=== PATIENT | male | born 1965 | race Caucasian/White ===

== ENCOUNTER 2019-01-30 21:06 | Emergency (ER) | payer MEDICARE, MEDICAID, SELFPAY ==
--- NOTE | ~2019-01-30 | CT_ITS ---
EXAMINATION: CT brain wo con INDICATION: Transient alteration of awareness COMPARISON: 01/08/2019 TECHNIQUE: Standard unenhanced head CT. The dose-length product (DLP) was 605.33 mGy-cm. The mA was a djusted according to patient size. Iterative reconstruction technique was employed. FINDINGS: There is no intracranial hemorrhage, acute infarction, or abnormal mass lesion. The ventric les are normal. There is no abnormal mass effect or midline shift. The wynn-white matter differentiat ion is normal. The basal cisterns are patent. The orbits are normal. The paranasal sinuses, mastoids and calvarium are normal. IMPRESSION: 1. No acute intracranial abnormality. Reviewed, dictated and finalized at location A. [employer]ER
[2019-01-30 21:10] VITALS: BP 158/85; PULSE 98; RESP 18; TEMP 36.9; O2SAT 98
[2019-01-30 21:18] VITALS: PULSE 97
--- NOTE | 2019-01-30 21:22 | ED.SEIZURE ---
HPI - Seizure General Chief Complaint: Nausea/Vomiting/Diarrhea Stated Complaint: Poss Seizure Time Seen by Provider: 01/30/19 21:22 Source: patient and EMS Mode of arrival: ambulatory (with EMS assistance) Limitations: no limitations History of Present Illness HPI Narrative: A 53 y/o male, with a PMHx of SZ, presents to the ED with c/o diarrhea for 3 days. Pt states he was seen in the ED last night/early this morning for the same complaints and was d/c with a prescription. At the time of d/c pt felt like he was going to have a SZ so he was given Ativan before he left. Pt states the medication he was prescribed did not help with his diarrhea so he came back for further evaluation this evening. Pt states he had 8 episodes of diarrhea today. Pt was walking in the ED parking lot when felt dizzy, fell, and experienced a possible SZ. EMS was pulling out of the bay when they saw the pt and assisted him into the ED. Pt states that he does not remember what happened between the time he fell and when EMS came over to him. EMS notes the pt did not exhibit SZ like symptoms in their presence. Pt is on Trileptal and follows up with Dr. Dong and Dr. Manzanares. He denies N/V, a fever, blood in stool, ABD pain, neck pain, tongue biting, smoking, drug use, and alcohol use. Pt has a C-collar in place. Seizure History: Yes Related Data Home Medications Medication Instructions Recorded Confirmed albuterol sulfate [Ventolin HFA] INHALATION 01/30/19 celecoxib mg 01/30/19 doxepin 01/30/19 fluticasone propion-salmeterol INHALATION 01/30/19 [Advair Diskus] fluticasone propion-salmeterol INHALATION 01/30/19 [Advair Diskus] fluticasone propionate INTRANASAL 01/30/19 furosemide 01/30/19 hydroxyzine pamoate 01/30/19 naproxen 01/30/19 nebivolol [Bystolic] mg 01/30/19 omeprazole 01/30/19 oxcarbazepine 01/30/19 potassium chloride meq PO 01/30/19 primidone 01/30/19 quetiapine 01/30/19 quetiapine mg PO 01/30/19 tizanidine mg 01/30/19 zafirlukast mg 01/30/19 Allergies Allergy/AdvReac Type Severity Reaction Status Date / Time haloperidol Allergy Severe SIEZURES Verified 01/30/19 21:22 doxycycline Allergy Intermediate RASH Verified 01/30/19 21:22 levetiracetam Allergy Intermediate INCREASED Verified 01/30/19 21:22 SZ'S meloxicam Allergy Intermediate ITCHING Verified 01/30/19 21:22 Sulfa (Sulfonamide Allergy Mild RASH Verified 01/30/19 21:22 Antibiotics) Cephalosporins AdvReac Unknown VOMITING Verified 01/30/19 21:22 Oat Allergy Severe Swelling Uncoded 01/30/19 05:41 MOLINDONE HCL Allergy Intermediate NAUSEA Uncoded 01/30/19 05:41 LEVALBUTEROL HCL AdvReac Severe TL Uncoded 01/30/19 05:41 HYDROMORPHONE HCL AdvReac Intermediate TL Uncoded 01/30/19 05:41 Review of Systems Review of Systems: All systems reviewed & are unremarkable except as noted in HPI and below Constitutional: Constitutional: Denies fever(s) Comments: Reports fall ENT: Comments: Denies tongue biting Gastrointestinal: Gastrointestinal: Denies abdominal pain, Reports diarrhea, Denies nausea and Denies vomiting Comments: Denies blood in stool Musculoskeletal: Comments: Denies neck pain Neurologic: Reports dizziness Comments: Reports possible SZ PMFSH Past Medical History Medical History Bipolar disorder (Acute) H/O pilonidal cyst (Acute) Sarcoidosis (Acute) Seizure disorder (Acute) Type 2 diabetes mellitus (Acute) Surgical History Surgical History Hx of tonsillectomy (Acute) Social History Social History Social History: Denies tobacco use, denies alcohol use, denies drug use Alcohol intake: never Substance use: never Gender identity (if verbalized by the patient): Male Comments PCP: Dr. Miller Neurologist: Dr. Dong and Dr. Manzanares Exam Narrative: Exam Narrative: GENERAL: W
[2019-01-30 21:23] LABS: Glucose Point of Care 169 (65-105)
--- NOTE | 2019-01-30 21:28 | ECG_ITS ---
Measurements Intervals [place] Rate: 93 P: 47 MT: 183 QRS: -20 QRSD: 102 T: 29 QT: 365 QTc: 455 Interpretive Statements SINUS RHYTHM DELAYED PRECORDIAL R/S TRANSITION BASELINE ARTIFACT- I, II, AVR, AVL, AVF, V1-V2, V4-V6 BORDERLINE ECG Electronically Signed On 01-31-2019 9:41:08 [employer] by Ajit Alvarado D.O.
--- NOTE | 2019-01-30 21:44 | PC.NURSE ---
2139 registration notified this RN that pt had some shaking. this RN into room and pt was having some shaking movement. this RN was able to go up to pt, pat him, and tell him its okay and pt stopped shaking and opened his eyes. pt was A&Ox3 and did not appear to have any post icatal states. pt was able to recall registration in the room. this RN notified ERP. no new orders received.
[2019-01-30] MEDS: LACTATED RINGERS 1,000 ML 999 ML IV CONT (21:58)
[2019-01-30] MEDS: ONDANSETRON INJ 4 MG/2 ML VIAL IV PUSH (21:58)
[2019-01-30 22:10] VITALS: BP 141/82; BP 159/93; BP 165/84; PULSE 90; PULSE 93; PULSE 99
[2019-01-30 22:18] LABS: Alanine Aminotransferase 24 U/L (4-50); Albumin Level 3.9 g/dL (3.5-5.1); Alkaline Phosphatase 93 U/L (38-126); Aspartate Amino Transferase 25 U/L (17-59); Bilirubin,Total 0.2 mg/dL (0.2-1.3); Blood Urea Nitrogen 9 mg/dL (9-20); Calcium 9.2 mg/dL (8.4-10.2); Carbon Dioxide 24 mmol/L (22-30); Chloride 100 mmol/L (98-107); Estimated CRCL calculation 177 ml/min; Estimated Glomerular Filt Rate > 60; Glucose 191 mg/dL (75-110); Magnesium 1.9 mg/dL (1.6-2.3); Potassium 3.6 mmol/L (3.4-5.0); Sodium 135 mmol/L (137-145)
[2019-01-30 22:27] LABS: Amphetamine Screen Urine Negative (Negative); Barbiturate Screen Urine Positive (Negative); Benzodiazepines Screen Urine Negative (Negative); Cannabinoid Screen Urine Negative (Negative); Cocaine Screen Urine Negative (Negative); Methadone Screen Urine Negative (Negative); Opiate Screen Urine Negative (Negative); Phencyclidine Screen Urine Negative (Negative)
[2019-01-30 22:46] VITALS: BP 145/69; PULSE 90; RESP 18; O2SAT 96
[2019-01-30 23:30] VITALS: BP 145/79; PULSE 89; RESP 18; O2SAT 96
--- NOTE | 2019-02-05 07:04 | PC.NURSE ---
LATE ENTRY This note is being entered to document information to the patient's record. The following information was omitted on [01/30/19], by [Gabe Lopez].at 2300 pt had 1L LR infused.
== END 2019-01-30 23:34 | disposition home or self-care (01) ==
PROVIDERS: Emergency Provider General Practice; PCP Family Medicine
DX: R19.7 Diarrhea, unspecified (principal); F31.9 Bipolar disorder, unspecified; D86.9 Sarcoidosis, unspecified; E11.9 Type 2 diabetes mellitus without complications; G40.909 Epilepsy, unspecified, not intractable, without status epilepticus; R94.31 Abnormal electrocardiogram [ECG] [EKG]
CPT/HCPCS: 36415; 70450; 80053; 80307; 81003; 82948; 82962; 83690; 83735; 85025; 93005; 96361; 96365; 96374; 96375; 99284; A9270; J0131; J2060; J2405; J7030; J7120

== ENCOUNTER 2019-07-25 11:23 | Emergency (ER) | payer MEDICARE, MEDICAID, SELFPAY ==
[2019-07-25] VITALS (8 sets, daily range): BP systolic 133–175; BP diastolic 82–111; PULSE 78–114; RESP 16–18; TEMP 37.4; O2SAT 97–100
--- NOTE | ~2019-07-25 | CT_ITS ---
EXAMINATION: CT brain wo con DATE: 07/25/2019 14:32 INDICATION: Dizziness. TECHNIQUE: Computed tomography (CT) of the head was performed without intravenous contrast. The mA wa s adjusted according to patient size. Iterative reconstruction technique was employed. The dose-lengt h product was 605.33 mGy-cm. COMPARISON: Head CT 03/31/2019 FINDINGS: There is no intracranial hemorrhage, acute infarction, or abnormal intracranial mass lesion . The ventricles are normal in size. The paranasal sinuses are clear. The mastoid air cells are juliet l. The orbits are normal. IMPRESSION: 1. Normal brain. Reviewed, dictated and finalized at location A. IMPRESSION: 1. Normal brain.
--- NOTE | ~2019-07-25 | XR_ITS ---
XR chest 2V 07/25/2019 12:33 Indication: Chest pain and dizziness Procedure: AP and lateral views of the chest Comparison: Comparison to multiple prior studies sequentially, with oldest reviewed study dated 12/22. Findings: Heart size normal. No focal air space disease, pulmonary edema, pleural effusion or suspect ed pneumothorax. No acute osseous abnormality. Impression: 1: No acute cardiopulmonary disease. Reviewed, dictated and finalized at location A. Impression: 1: No acute cardiopulmonary disease.
--- NOTE | 2019-07-25 11:25 | ECG_ITS ---
Measurements Intervals [place] Rate: 86 P: 14 OR: 168 QRS: -26 QRSD: 89 T: 56 QT: 342 QTc: 410 Interpretive Statements SINUS RHYTHM DELAYED PRECORDIAL R/S TRANSITION BASELINE ARTIFACT- I, III, AVR, AVL, AVF BORDERLINE ECG Electronically Signed On 07-26-2019 16:07:52 CDT by Ajit Alvarado D.O.
--- NOTE | 2019-07-25 12:20 | PC.NURSE ---
Nurse called to bedside. Tech entered room to find patient having seizure-like activity. EDP at bedside as well. Tech states event lasted approx 20 seconds. Immediately following event patient's eyes open, but slow to respond to questions. Eventually answered questions appropriately, but said I don't know what happened. No new orders received from EDP. Seizure pads applied to stretcher.
[2019-07-25 12:23] LABS: Basophils Absolute Auto 0.1 K/mm3 (0.0-0.1); Basophils Percent Auto 0.5 % (0.2-1.2); Eosinophils Percent Auto 0.1 % (0-4.4); Hematocrit 47.8 % (42.0-52.0); Hemoglobin 15.9 g/dL (14.0-18.0); Immature Granulocyte Absolute 0.03 K/mm3 (0.00-0.031); Immature Granulocyte Percent A 0.3 % (0-0.5); Lymphocytes Absolute Auto 2.67 K/mm3 (0.9-3.2); Lymphocytes Percent Auto 22.7 % (18.3-44.2); Mean Corpuscular HGB Conc 33.3 g/dl (32-36); Mean Corpuscular Hemoglobin 29.7 pg (26-34); Mean Corpuscular Volume 89.2 fl (80-100); Mean Platelet Volume 10.8 fl (7.4-10.4); Monocytes Absolute Auto 0.9 K/mm3 (0.1-0.6); Monocytes Percent Auto 7.9 % (2.6-8.5); Neutrophils Absolute Auto 8.1 K/mm3 (1.3-6.7); Neutrophils Percent Auto 68.5 % (45.5-73.1); Platelet Count Result 351 k/mm3 (150-375); Red Blood Count 5.36 M/mm3 (4.6-6.20); Red Cell Distribution Width 13.1 % (11.5-14.5); White Blood Count 11.8 K/mm3 (4.5-10.0)
[2019-07-25 13:19] LABS: INR 0.9; Partial Thromboplastin Time 23.7 SECONDS (22.3-36.8); Prothrombin Time 11.9 Seconds (11.1-14.7)
[2019-07-25] MEDS: ONDANSETRON INJ 4 MG/2 ML VIAL IV PUSH (13:22)
[2019-07-25 13:31] LABS: Blood Urea Nitrogen 8 mg/dL (9-20); Calcium 9.1 mg/dL (8.4-10.2); Carbon Dioxide 29 mmol/L (22-30); Chloride 95 mmol/L (98-107); Estimated Glomerular Filt Rate > 60; Glucose 205 mg/dL (75-110); Potassium 3.6 mmol/L (3.4-5.0); Sodium 134 mmol/L (137-145)
[2019-07-25 13:41] LABS: Troponin I < 0.012 ng/mL (0.000-0.034)
--- NOTE | 2019-07-25 13:58 | ED.WEAKNESS ---
HPI - Weakness General Chief complaint: Weakness Stated complaint: weakness Time Seen by Provider: 07/25/19 12:06 Source: patient Mode of arrival: EMS History of Present Illness HPI Narrative: This pain is a 53 yo male with h/o bipolar, seizure disorder, asthma who presents for evaluation of sudden onset dizziness and weakness. Patient states this morning he starting having watery diarrhea. He states he had 6 episodes at that time. He also reports nausea but no vomiting. PAtient called 911 because he stood up and he develop dizziness such as spinning. He reports he was so weak he was having trouble walking. He also reported to nursing staff he was having constant left upper chest pain .. Patient was witnessed to have seizure lasting 1 minute in ER. HE woke up immediately . He was mildly confused afterwards. He states he does take his seizure medications and his neurologist is Dr. Dong. Complaint: generalized weakness Related Data Home Medications Medication Instructions Recorded Confirmed doxepin 150 mg PO HS 01/30/19 03/13/19 naproxen 500 mg PO BID 01/30/19 03/13/19 oxcarbazepine 900 mg PO HS 01/30/19 03/13/19 primidone 250 mg PO TID 01/30/19 03/13/19 quetiapine 400 mg PO HS 01/30/19 03/13/19 tizanidine 4 mg PO Q8H PRN 01/30/19 03/13/19 Zyrtec 10 mg PO DAILY 03/13/19 03/13/19 oxcarbazepine 300 mg PO TID 03/13/19 03/13/19 clonazepam 0.5 mg PO BID PRN 07/25/19 furosemide 40 mg PO DAILY 07/25/19 Allergies Allergy/AdvReac Type Severity Reaction Status Date / Time haloperidol Allergy Severe SIEZURES Verified 07/25/19 11:36 doxycycline Allergy Intermediate RASH Verified 07/25/19 11:36 levetiracetam Allergy Intermediate INCREASED Verified 07/25/19 11:36 SZ'S meloxicam Allergy Intermediate ITCHING Verified 07/25/19 11:36 Sulfa (Sulfonamide Allergy Mild RASH Verified 07/25/19 11:36 Antibiotics) levalbuterol AdvReac Severe Other Verified 07/25/19 11:36 hydromorphone AdvReac Intermediate Other Verified 07/25/19 11:36 molindone AdvReac Intermediate Nausea Verified 07/25/19 11:36 Cephalosporins AdvReac Unknown VOMITING Verified 07/25/19 11:36 Oat Allergy Severe Swelling Uncoded 07/25/19 11:36 Review of Systems Review of Systems: All systems reviewed & are unremarkable except as noted in HPI and below Constitutional: Constitutional: Denies chills, Denies fever(s) and Reports weakness ENT: Reports vertigo, Denies epistaxis and Denies sore throat Cardiovascular: Cardiovascular: Reports chest pain, Denies rapid heart rate and Reports radiating jaw, neck or arm pain Gastrointestinal: Gastrointestinal: Denies abdominal pain, Reports diarrhea, Reports nausea and Denies vomiting Neurologic: Reports vertigo, Reports dizziness, Denies focal weakness and Reports weakness PMFSH Past Medical History Medical History (Updated 07/25/19 @ 16:18 by Cinthya Chavez MD) Anal fissure Repaired Asthma Bipolar disorder Coronary artery spasm GERD with esophagitis H/O pilonidal cyst HTN (hypertension) with goal to be determined Migraines Obstructive sleep apnea No longer has a need for CPAP as he has lost weight Sarcoidosis Seizure disorder Type 2 diabetes mellitus Surgical History Surgical History (Updated 03/13/19 @ 16:23 by Chelsea Quezada NP) H/O cardiac catheterization 1995 no intervention performed H/O removal of cyst On foot History of lung biopsy Hx of tonsillectomy Status post hernia repair Status post partial lobectomy of lung Diagnosed with sarcoidosis Family History Family History (Updated 03/13/19 @ 16:28 by Chelsea Quezada NP) Unknown Adopted Social History Social History (Updated 03/13/19 @ 16:39 by Chelsea Quezada NP) Social History: Denies tobacco use, denies alcohol use, denies drug use. with 1 son who is an adult. His anti is his durable power assistant county attorney Erin Mackenzie. He desires to be a full code Smoking status: Never smoker Second hand tobacco smo
[2019-07-25] MEDS: LACTATED RINGERS 1,000 ML 999 ML IV CONT (14:11)
[2019-07-25] MEDS: MECLIZINE HCL 25 MG TABLET PO (14:12)
[2019-07-25 14:26] LABS: Add Urine Microscopic? NO; Appearance Urine Clear (Clear); Bilirubin Urine Negative (Negative); Blood Urine Negative (Negative); Color Urine Straw (Yellow); Glucose Urine UA Negative (Negative); Ketones Urine Negative (Negative); Leukocyte Esterase Ur Negative LEU/UL (Negative); Nitrate Urine Negative (Negative); Protein Urine Negative (Negative); Specific Grav Ur 1.009 (1.001-1.035); Urobilinogen Urine Negative mg/dL (<2.0)
[2019-07-25 15:47] LABS: Troponin I < 0.012 ng/mL (0.000-0.034)
== END 2019-07-25 16:58 | disposition home or self-care (01) ==
PROVIDERS: Emergency Provider General Practice; PCP Family Medicine
DX: R42 Dizziness and giddiness (principal); G40.909 Epilepsy, unspecified, not intractable, without status epilepticus; R07.9 Chest pain, unspecified; Z90.2 Acquired absence of lung [part of]; J45.909 Unspecified asthma, uncomplicated; F31.9 Bipolar disorder, unspecified; I10 Essential (primary) hypertension; G47.33 Obstructive sleep apnea (adult) (pediatric); E11.9 Type 2 diabetes mellitus without complications
CPT/HCPCS: 36415; 70450; 71046; 80048; 81003; 84484; 85025; 85610; 85730; 93005; 96361; 96374; 99284; A9270; J2405; J7120

== ENCOUNTER 2019-07-26 13:09 | Emergency (ER) | payer MEDICARE, MEDICAID, SELFPAY ==
--- NOTE | ~2019-07-26 | XR_ITS ---
XR chest 1V portable 07/26/2019 13:57 Indication: Seizure. Left upper posterior chest pain. Procedure: AP portable chest Comparison: 07/25/2019 Findings: There are linear infiltrates of the right lower lung which have improved since 04/04/2019. H eart size normal. No pleural effusion or pneumothorax. No acute osseous abnormality. Impression: 1: Right basilar linear infiltrates, likely atelectasis/scarring. Reviewed, dictated and finalized at location A. Impression: 1: Right basilar linear infiltrates, likely atelectasis/scarring.
[2019-07-26 13:06] VITALS: BP 129/100; PULSE 99; RESP 20; TEMP 37.2; O2SAT 93
--- NOTE | 2019-07-26 13:07 | ECG_ITS ---
Measurements Intervals [place] Rate: 98 P: 38 MT: 179 QRS: -29 QRSD: 84 T: 55 QT: 334 QTc: 428 Interpretive Statements SINUS RHYTHM BORDERLINE R WAVE PROGRESSION, ANTERIOR LEADS BASELINE ARTIFACT- I, III, AVR, AVL, AVF, V1-V3 BORDERLINE ECG Electronically Signed On 07-26-2019 14:09:38 CDT by Ajit Alvarado D.O.
[2019-07-26 13:17] VITALS: PULSE 99
[2019-07-26 13:31] LABS: Basophils Absolute Auto 0.1 K/mm3 (0.0-0.1); Eosinophils Percent Auto 0.1 % (0-4.4); Hematocrit 47.1 % (42.0-52.0); Hemoglobin 15.6 g/dL (14.0-18.0); Immature Granulocyte Absolute 0.02 K/mm3 (0.00-0.031); Immature Granulocyte Percent A 0.2 % (0-0.5); Lymphocytes Absolute Auto 1.91 K/mm3 (0.9-3.2); Lymphocytes Percent Auto 23.7 % (18.3-44.2); Mean Corpuscular HGB Conc 33.1 g/dl (32-36); Mean Corpuscular Hemoglobin 29.4 pg (26-34); Mean Corpuscular Volume 88.9 fl (80-100); Mean Platelet Volume 10.4 fl (7.4-10.4); Monocytes Absolute Auto 0.7 K/mm3 (0.1-0.6); Monocytes Percent Auto 8.1 % (2.6-8.5); Neutrophils Absolute Auto 5.4 K/mm3 (1.3-6.7); Neutrophils Percent Auto 66.9 % (45.5-73.1); Platelet Count Result 352 k/mm3 (150-375); Red Cell Distribution Width 12.9 % (11.5-14.5); White Blood Count 8.1 K/mm3 (4.5-10.0)
[2019-07-26 13:43] LABS: Blood Urea Nitrogen 8 mg/dL (9-20); Calcium 8.9 mg/dL (8.4-10.2); Carbon Dioxide 24 mmol/L (22-30); Chloride 100 mmol/L (98-107); Estimated CRCL calculation 128 ml/min; Estimated Glomerular Filt Rate > 60; Glucose 177 mg/dL (75-110); Potassium 3.6 mmol/L (3.4-5.0); Sodium 136 mmol/L (137-145)
[2019-07-26 14:46] VITALS: BP 118/75; PULSE 74; RESP 20; O2SAT 98
[2019-07-26 14:55] LABS: Add Urine Microscopic? NO; Appearance Urine Clear (Clear); Bilirubin Urine Negative (Negative); Blood Urine Negative (Negative); Color Urine Yellow (Yellow); Glucose Urine UA Negative (Negative); Ketones Urine Negative (Negative); Leukocyte Esterase Ur Negative LEU/UL (Negative); Nitrate Urine Negative (Negative); Protein Urine Negative (Negative); Specific Grav Ur 1.013 (1.001-1.035); Urobilinogen Urine Negative mg/dL (<2.0)
--- NOTE | 2019-07-26 14:55 | ED.SEIZURE ---
HPI - Seizure General Chief Complaint: Seizure Stated Complaint: SEIZURE History of Present Illness HPI Narrative: Patient is a 53-year-old male who presents ER with possible seizure. Apparently had 2 seizures in the hallway and then had 2 witnessed seizures by EMS in route. He received Versed. Patient awake alert upon arrival here and oriented 2-3. Has some mild confusion about simple questions. Reports he just filled up his medication case and has not missed any doses. Patient was in the ER yesterday and had a chest pain rule out and had reported some watery diarrhea but has no complaints of this at this time. Patient has history of mental health issues. He also has history of pseudoseizures in addition to his seizures. No tongue biting or release of bowel/bladder. Seizure History: Yes Related Data Home Medications Medication Instructions Recorded Confirmed doxepin 150 mg PO HS 01/30/19 03/13/19 naproxen 500 mg PO BID 01/30/19 03/13/19 oxcarbazepine 900 mg PO HS 01/30/19 03/13/19 primidone 250 mg PO TID 01/30/19 03/13/19 quetiapine 400 mg PO HS 01/30/19 03/13/19 tizanidine 4 mg PO Q8H PRN 01/30/19 03/13/19 Zyrtec 10 mg PO DAILY 03/13/19 03/13/19 oxcarbazepine 300 mg PO TID 03/13/19 03/13/19 albuterol sulfate [Ventolin HFA] 2 puff INHALATION Q4H PRN 03/31/19 03/31/19 celecoxib 200 mg PO DAILY 03/31/19 03/31/19 cetirizine [Zyrtec] 10 mg PO DAILY PRN 03/31/19 03/31/19 doxepin 100 mg PO HS 03/31/19 03/31/19 fluticasone propion-salmeterol 2 ea INHALATION QID 03/31/19 03/31/19 [Advair Diskus] fluticasone propionate 50 mcg INTRANASAL TID 03/31/19 03/31/19 hydroxyzine HCl 25 mg PO TID PRN 03/31/19 03/31/19 naproxen 500 mg PO BID PRN 03/31/19 03/31/19 nebivolol [Bystolic] 10 mg PO DAILY 03/31/19 03/31/19 omeprazole 20 mg PO BID 03/31/19 03/31/19 oxcarbazepine 300 mg PO TID 03/31/19 03/31/19 oxcarbazepine 900 mg PO HS 03/31/19 03/31/19 potassium chloride 10 meq PO BID 03/31/19 03/31/19 primidone 250 mg PO TID 03/31/19 03/31/19 quetiapine 100 mg PO BID 03/31/19 03/31/19 quetiapine 400 mg PO HS 03/31/19 03/31/19 rizatriptan 10 mg PO DAILY PRN 03/31/19 03/31/19 tizanidine 4 mg PO TID PRN 03/31/19 03/31/19 zafirlukast 20 mg PO BID 03/31/19 03/31/19 clonazepam 0.5 mg PO BID PRN 07/25/19 furosemide 40 mg PO DAILY 07/25/19 Trileptal 07/26/19 Allergies Allergy/AdvReac Type Severity Reaction Status Date / Time doxycycline Allergy Intermediate RASH Verified 07/26/19 14:04 levetiracetam Allergy Intermediate INCREASED Verified 07/26/19 14:04 SZ'S meloxicam Allergy Intermediate ITCHING Verified 07/26/19 14:04 Sulfa (Sulfonamide Allergy Mild RASH Verified 07/26/19 14:04 Antibiotics) cephalexin Allergy Unknown Rash Verified 07/26/19 14:04 Cephalosporins Allergy Unknown Rash Verified 07/26/19 14:04 codeine Allergy Unknown Unknown Verified 07/26/19 14:04 Corticosteroids Allergy Unknown Unknown Verified 07/26/19 14:04 (Glucocorticoids) haloperidol Allergy Unknown Seizure Verified 07/26/19 14:04 hydrocodone Allergy Unknown Unknown Verified 07/26/19 14:04 hydromorphone Allergy Unknown Flushing Verified 07/26/19 14:04 morphine Allergy Unknown Unknown Verified 07/26/19 14:04 peanut Allergy Unknown Unknown Verified 07/26/19 14:04 sulfite Allergy Unknown Other Verified 07/26/19 14:04 tetracycline Allergy Unknown Diarrhea Verified 07/26/19 14:04 levalbuterol AdvReac Severe Other Verified 07/26/19 14:04 molindone AdvReac Intermediate Nausea Verified 07/26/19 14:04 Oat Allergy Severe Swelling Uncoded 07/26/19 14:04 Review of Systems Review of Systems: All systems reviewed & are unremarkable except as noted in HPI and below Constitutional: Constitutional: Denies chills, Denies fever(s) and Denies weakness ENT: Denies nasal congestion and Denies sore throat Cardiovascular: Cardiovascular: Denies chest pain Respiratory: Respiratory: Denies cough and Denies dyspnea Gastrointestinal: Gastrointestinal: Denies abdominal pain, Denies n
[2019-07-26 16:42] VITALS: BP 120/80; PULSE 80; RESP 20; O2SAT 98
== END 2019-07-26 16:44 | disposition home or self-care (01) ==
PROVIDERS: Emergency Provider Emergency Medicine; PCP Family Medicine
DX: G40.909 Epilepsy, unspecified, not intractable, without status epilepticus (principal); R94.31 Abnormal electrocardiogram [ECG] [EKG]; J45.909 Unspecified asthma, uncomplicated; F31.9 Bipolar disorder, unspecified; I25.10 Atherosclerotic heart disease of native coronary artery without angina pectoris; K21.0 Gastro-esophageal reflux disease with esophagitis; I10 Essential (primary) hypertension; E11.9 Type 2 diabetes mellitus without complications
CPT/HCPCS: 36415; 71045; 80048; 81003; 85025; 93005; 99283; A9270

== ENCOUNTER 2019-07-30 12:05 | Emergency (ER) | payer MEDICARE, MEDICAID, SELFPAY ==
--- NOTE | ~2019-07-30 | XR_ITS ---
XR chest 1V portable DATE: 07/30/2019 13:39 INDICATION: Chest pain TECHNIQUE: Portable AP chest on 07/30/2019 at 1335 hours COMPARISON: 07/26/2019 portable AP chest at 1353 hours FINDINGS: Mild bibasilar infiltrate or atelectasis, primarily on the right. The lungs otherwise appea r clear. Normal heart size. No pulmonary vascular congestion or pleural effusion or pneumothorax is evident. IMPRESSION: Mild bibasilar infiltrate or atelectasis, primarily on the right Reviewed, dictated and finalized at location A.
--- NOTE | ~2019-07-30 | CT_ITS ---
EXAMINATION: CTA brain carotid DATE: 07/30/2019 15:29 CDT INDICATION: Headache TECHNIQUE: Computed tomographic angiography (CTA) of the head was performed without and with 100 mL O mnipaque-350 intravenous contrast. CTA of the neck was performed with intravenous contrast. The dose- length product was 1689.66 mGy-cm. Maximum intensity projection and volume rendered 3D-reconstruction s were created by the technologist on a separate workstation. COMPARISON: CT dated 07/25/2019. FINDINGS: HEAD CTA: Normal brain parenchymal volume. No acute intracranial hemorrhage, infarction, mass or mass effect. No ventriculomegaly or midline shift. Basilar cisterns are patent. The anterior, middle and posterior cerebral arteries are symmetric without evidence for significant stenosis or occlusion. No aneurysm identified. NECK CTA: No cervical lymphadenopathy. Thyroid gland is unremarkable. There is 0% stenosis of the proximal right internal carotid artery relative to normal distal artery l umen diameter (NASCET criteria). There is 0% stenosis of the proximal left internal carotid artery re lative to normal distal artery lumen diameter. IMPRESSION: 1. 0% stenosis of the proximal right internal carotid artery relative to normal distal artery lumen d iameter (NASCET criteria). 2. 0% stenosis of the proximal left internal carotid artery relative to normal distal artery lumen di ameter. 3: No acute intracranial abnormality. 4: No significant abnormality of the intracranial arteries. Reviewed, dictated and finalized at location A. IMPRESSION: 1. 0% stenosis of the proximal right internal carotid artery relative to normal distal artery lumen diameter (NASCET criteria). 2. 0% stenosis of the proximal left internal carotid artery relative to normal distal artery lumen diameter. 3: No acute intracranial abnormality. 4: No significant abnormality of the intracranial arteries.
[2019-07-30 12:02] VITALS: BP 125/89; PULSE 96; RESP 20; TEMP 37.2; O2SAT 98
--- NOTE | 2019-07-30 12:27 | ECG_ITS ---
Measurements Intervals [place] Rate: 93 P: 31 RI: 159 QRS: -32 QRSD: 99 T: 26 QT: 351 QTc: 438 Interpretive Statements SINUS RHYTHM WITH SINUS ARRHYTHMIA LEFT AXIS DEVIATION DELAYED PRECORDIAL R/S TRANSITION BORDERLINE ECG Electronically Signed On 07-30-2019 12:43:23 CDT by Ajit Alvarado D.O.
[2019-07-30 12:45] VITALS: BP 146/82; PULSE 91; RESP 18; O2SAT 98
[2019-07-30] MEDS: KETOROLAC 30 MG/ML VIAL (*BKC) IV PUSH (12:54)
[2019-07-30] MEDS: SODIUM CHLORIDE 0.9% IV 1,000 ML 999 ML IV CONT (12:55)
[2019-07-30 13:03] LABS: Basophils Absolute Auto 0.1 K/mm3 (0.0-0.1); Basophils Percent Auto 0.8 % (0.2-1.2); Hematocrit 44.3 % (42.0-52.0); Hemoglobin 14.9 g/dL (14.0-18.0); Immature Granulocyte Absolute 0.04 K/mm3 (0.00-0.031); Immature Granulocyte Percent A 0.5 % (0-0.5); Lymphocytes Absolute Auto 1.41 K/mm3 (0.9-3.2); Lymphocytes Percent Auto 16.3 % (18.3-44.2); Mean Corpuscular HGB Conc 33.6 g/dl (32-36); Mean Corpuscular Hemoglobin 29.8 pg (26-34); Mean Corpuscular Volume 88.6 fl (80-100); Monocytes Absolute Auto 0.5 K/mm3 (0.1-0.6); Monocytes Percent Auto 5.8 % (2.6-8.5); Neutrophils Absolute Auto 6.6 K/mm3 (1.3-6.7); Neutrophils Percent Auto 76.6 % (45.5-73.1); Platelet Count Result 305 k/mm3 (150-375); White Blood Count 8.7 K/mm3 (4.5-10.0)
[2019-07-30 13:13] LABS: Partial Thromboplastin Time 23.5 SECONDS (22.3-36.8); Prothrombin Time 12.5 Seconds (11.1-14.7)
[2019-07-30 13:16] LABS: Alanine Aminotransferase 24 U/L (4-50); Albumin Level 4.1 g/dL (3.5-5.1); Alkaline Phosphatase 93 U/L (38-126); Aspartate Amino Transferase 25 U/L (17-59); Bilirubin,Total 0.6 mg/dL (0.2-1.3); Blood Urea Nitrogen 7 mg/dL (9-20); Calcium 8.6 mg/dL (8.4-10.2); Carbon Dioxide 29 mmol/L (22-30); Chloride 98 mmol/L (98-107); Estimated CRCL calculation 133 ml/min; Estimated Glomerular Filt Rate > 60; Glucose 179 mg/dL (75-110); Lipase 123 U/L (23-300); Potassium 3.8 mmol/L (3.4-5.0); Sodium 135 mmol/L (137-145)
[2019-07-30 13:20] LABS: Lipase 116 U/L (23-300)
[2019-07-30 13:24] LABS: D Dimer < 0.22 ug/mL (<0.48)
[2019-07-30 13:28] LABS: NT Pro B Type Natriuretic Pept 80 PG/ML (5-100); Troponin I < 0.012 ng/mL (0.000-0.034)
[2019-07-30 14:00] VITALS: BP 145/86; PULSE 85; RESP 16; O2SAT 100
[2019-07-30 15:20] VITALS: BP 130/75; PULSE 77; RESP 16; O2SAT 98
[2019-07-30 15:50] LABS: Troponin I < 0.012 ng/mL (0.000-0.034)
--- NOTE | 2019-07-30 15:54 | ED.GENADULT ---
HPI - General Adult General Chief complaint: Chest Pain Stated complaint: CP/SOB Time Seen by Provider: 07/30/19 12:09 Source: patient Mode of arrival: ambulatory Limitations: no limitations History of Present Illness HPI narrative: Patient is a 53-year-old male who presents from home for evaluation of mid chest discomfort that began today while at home noting aching pain at the mid chest that radiates up into the chest. Patient also notes that he had left-sided headache and some blurred vision in the right. Patient on arrival in the room in no distress has not taken anything for his symptoms. Patient with history of pseudoseizures was recently in the emergency department and had a seizure medication increased. Patient notes that he has tripped and fallen prior evening but denies head injury or injury related to the fall Related Data Home Medications Medication Instructions Recorded Confirmed albuterol sulfate [Ventolin HFA] 2 puff INHALATION Q4H PRN 03/31/19 03/31/19 celecoxib 200 mg PO DAILY 03/31/19 03/31/19 cetirizine [Zyrtec] 10 mg PO DAILY PRN 03/31/19 03/31/19 doxepin 100 mg PO HS 03/31/19 03/31/19 hydroxyzine HCl 25 mg PO TID PRN 03/31/19 03/31/19 naproxen 500 mg PO BID PRN 03/31/19 03/31/19 oxcarbazepine 300 mg PO TID 03/31/19 03/31/19 oxcarbazepine 900 mg PO HS 03/31/19 03/31/19 primidone 250 mg PO TID 03/31/19 03/31/19 quetiapine 400 mg PO HS 03/31/19 03/31/19 rizatriptan 10 mg PO DAILY PRN 03/31/19 03/31/19 tizanidine 4 mg PO TID PRN 03/31/19 03/31/19 clonazepam 0.5 mg PO BID PRN 07/25/19 furosemide 40 mg PO DAILY 07/25/19 Trileptal 07/26/19 Allergies Allergy/AdvReac Type Severity Reaction Status Date / Time doxycycline Allergy Intermediate RASH Verified 07/30/19 15:11 levetiracetam Allergy Intermediate INCREASED Verified 07/30/19 15:11 SZ'S meloxicam Allergy Intermediate ITCHING Verified 07/30/19 15:11 Sulfa (Sulfonamide Allergy Mild RASH Verified 07/30/19 15:11 Antibiotics) cephalexin Allergy Unknown Rash Verified 07/30/19 15:11 Cephalosporins Allergy Unknown Rash Verified 07/30/19 15:11 codeine Allergy Unknown Unknown Verified 07/30/19 15:11 Corticosteroids Allergy Unknown Unknown Verified 07/30/19 15:11 (Glucocorticoids) haloperidol Allergy Unknown Seizure Verified 07/30/19 15:11 hydrocodone Allergy Unknown Unknown Verified 07/30/19 15:11 hydromorphone Allergy Unknown Flushing Verified 07/30/19 15:11 morphine Allergy Unknown Unknown Verified 07/30/19 15:11 peanut Allergy Unknown Unknown Verified 07/30/19 15:11 sulfite Allergy Unknown Other Verified 07/30/19 15:11 tetracycline Allergy Unknown Diarrhea Verified 07/30/19 15:11 levalbuterol AdvReac Severe Other Verified 07/30/19 15:11 molindone AdvReac Intermediate Nausea Verified 07/30/19 15:11 Oat Allergy Severe Swelling Uncoded 07/26/19 14:04 [facility] Social History Social History (System 07/26/19 @ 14:04 by Kelly Avila) Social History: Denies tobacco use, denies alcohol use, denies drug use. with 1 son who is an adult. His anti is his durable power estate planning attorney Erin Mackenzie. He desires to be a full code Smoking status: Never smoker Second hand tobacco smoke exposure: No Alcohol intake: never Substance use: never Substance use type: does not use Additional living arrangements comments: Apartment Additional occupation/education comments: Disability Gender identity (if verbalized by the patient): Male Spiritual care concerns: No Agree to blood products: Yes Exam Narrative: Exam Narrative: GENERAL: Well-appearing, well-nourished, and in no acute distress. HEAD: Normocephalic, atraumatic. EYES: PERRLA and EOMI. ENT: Nares clear, no rhinorrhea or epistaxis. Mucous membranes moist. Oropharynx without tonsillar hypertrophy exudate or other lesions. NECK: Supple. No adenopathy or masses. CHEST: Clear to auscultation. No respiratory distress. No wheezes rales or rhonchi HEART: Regular rate and
== END 2019-07-30 16:28 | disposition home or self-care (01) ==
PROVIDERS: Emergency Medicine Emergency Medical Services; Emergency Provider Emergency Medicine; PCP Family Medicine
DX: R07.9 Chest pain, unspecified (principal); R42 Dizziness and giddiness; R94.31 Abnormal electrocardiogram [ECG] [EKG]; J45.909 Unspecified asthma, uncomplicated; F31.9 Bipolar disorder, unspecified; K21.0 Gastro-esophageal reflux disease with esophagitis; I10 Essential (primary) hypertension; I25.10 Atherosclerotic heart disease of native coronary artery without angina pectoris; D86.0 Sarcoidosis of lung; E11.9 Type 2 diabetes mellitus without complications; Z90.2 Acquired absence of lung [part of]
CPT/HCPCS: 36415; 70496; 70498; 71045; 80053; 83690; 83880; 84484; 85025; 85380; 85610; 85730; 93005; 96361; 96374; 99284; J1885; J7030; Q9967

== ENCOUNTER 2019-07-31 11:03 | Inpatient (IN) | payer MEDICARE, MEDICAID, SELFPAY ==
[2019-07-31] VITALS (9 sets, daily range): BP systolic 138–161; BP diastolic 77–97; PULSE 71–94; RESP 14–24; TEMP 36.6–37.1; O2SAT 94–100; BMI 36.3
--- NOTE | ~2019-07-31 | XR_ITS ---
XR chest 2V DATE: 07/31/2019 11:33 INDICATION: Dizziness. Seizures. Recent chest pain. TECHNIQUE: AP and lateral chest COMPARISON: 08/09/2019 portable AP chest FINDINGS: There is mild eventration of the right leaf of diaphragm. No pulmonary infiltrate or consolidation, pleural effusion or pulmonary vascular congestion or pneumo thorax is detected. Normal heart size. No hilar or mediastinal enlargement. IMPRESSION: No active cardiopulmonary disease Reviewed, dictated and finalized at location A.
--- NOTE | ~2019-07-31 | CT_ITS ---
EXAMINATION: CT brain wo con DATE: 07/31/2019 12:01 INDICATION: Dizziness TECHNIQUE: Computed tomography (CT) of the head was performed without intravenous contrast. The mA wa s adjusted according to patient size. Iterative reconstruction technique was employed. Exam dose: 60 5.33 mGy-cm total exam DLP. COMPARISON: 08/11/2019 CT brain FINDINGS: No intracranial mass lesion or hemorrhage or cerebrovascular accident is detected. No midli ne shift or mass effect. Normal ventricular size. No subdural or epidural hematoma is detected. The mastoid air cells and included paranasal sinuses are normally developed and aerated. No fracture or bone destruction of the cranial vault. IMPRESSION: No significant abnormality Reviewed, dictated and finalized at Location A. Reviewed, dictated and finalized at location A. IMPRESSION: No significant abnormality
--- NOTE | ~2019-07-31 | MR_ITS ---
EXAMINATION: MR brain/brain stem wo/w con EXAM DATE: 08/01/2019 08:49 INDICATION: Confusion, seizure. Alteration of awareness. Dizziness. TECHNIQUE: Magnetic resonance imaging (MRI) of the brain/brain stem obtained without contrast. Sagit austen T1, axial diffusion, gradient echo (T2*), T1, T2, FLAIR sequences obtained. Patient was then inj ected with 20 cc intravenous Multihance contrast. Axial and coronal postcontrast T1 weighted sequence s obtained. Comparison is made to prior examination from 11/19/2015. FINDINGS: There are no areas of restricted diffusion to suggest acute infarction. There is no acute hemorrhage seen on the T2*, a hemosiderin sensitive sequence. No intraparenchymal brain mass. The ve ntricles are normal in size. There are no extra-axial collections. Flow voids are seen in the cereb ral arteries on the T2-weighted sequences consistent with their expected patency. The orbits are unr emarkable. Soft tissue is unremarkable. There are no areas of abnormal enhancement on the postcont rast images. IMPRESSION: 1. Unremarkable brain MRI examination. Reviewed, dictated and finalized at location A.
--- NOTE | 2019-07-31 11:06 | ECG_ITS ---
Measurements Intervals [place] Rate: 85 P: 52 SC: 171 QRS: -29 QRSD: 94 T: 22 QT: 359 QTc: 428 Interpretive Statements SINUS RHYTHM BASELINE ARTIFACT- I, II, III, AVR, AVL, AVF, V1-V3 NORMAL ECG Electronically Signed On 07-31-2019 14:51:11 CDT by Ajit Alvarado D.O.
[2019-07-31 11:15] LABS: Basophils Absolute Auto 0.1 K/mm3 (0.0-0.1); Basophils Percent Auto 0.8 % (0.2-1.2); Eosinophils Percent Auto 0.2 % (0-4.4); Hematocrit 45.4 % (42.0-52.0); Immature Granulocyte Absolute 0.01 K/mm3 (0.00-0.031); Immature Granulocyte Percent A 0.2 % (0-0.5); Lymphocytes Absolute Auto 1.35 K/mm3 (0.9-3.2); Lymphocytes Percent Auto 20.3 % (18.3-44.2); Mean Corpuscular Hemoglobin 29.5 pg (26-34); Mean Corpuscular Volume 89.4 fl (80-100); Mean Platelet Volume 10.2 fl (7.4-10.4); Monocytes Absolute Auto 0.4 K/mm3 (0.1-0.6); Monocytes Percent Auto 6.6 % (2.6-8.5); Neutrophils Absolute Auto 4.8 K/mm3 (1.3-6.7); Neutrophils Percent Auto 71.9 % (45.5-73.1); Platelet Count Result 305 k/mm3 (150-375); Red Blood Count 5.08 M/mm3 (4.6-6.20); White Blood Count 6.6 K/mm3 (4.5-10.0)
[2019-07-31 11:28] LABS: Alanine Aminotransferase 23 U/L (4-50); Albumin Level 4.2 g/dL (3.5-5.1); Alkaline Phosphatase 98 U/L (38-126); Aspartate Amino Transferase 25 U/L (17-59); Bilirubin,Total 0.7 mg/dL (0.2-1.3); Blood Urea Nitrogen 7 mg/dL (9-20); Carbon Dioxide 29 mmol/L (22-30); Chloride 100 mmol/L (98-107); Estimated CRCL calculation 131 ml/min; Estimated Glomerular Filt Rate > 60; Glucose 190 mg/dL (75-110); Potassium 3.8 mmol/L (3.4-5.0); Sodium 136 mmol/L (137-145)
[2019-07-31 12:10] LABS: Add Urine Microscopic? YES; Appearance Urine Clear (Clear); Bacteria Urine Trace /hpf; Bilirubin Urine Negative (Negative); Blood Urine Negative (Negative); Color Urine Yellow (Yellow); Glucose Urine UA Negative (Negative); Ketones Urine Negative (Negative); Leukocyte Esterase Ur Negative LEU/UL (Negative); Mucus Urine Few /lpf; Nitrate Urine Negative (Negative); Protein Urine 1+ mg/dL (Negative); RBC Urine 0-2 /hpf (0-2); Specific Grav Ur 1.015 (1.001-1.035); Urobilinogen Urine Negative mg/dL (<2.0)
[2019-07-31 12:16] LABS: Prothrombin Time 12.8 Seconds (11.1-14.7)
[2019-07-31 12:17] LABS: Partial Thromboplastin Time 24.4 SECONDS (22.3-36.8)
[2019-07-31 12:23] LABS: Troponin I < 0.012 ng/mL (0.000-0.034)
--- NOTE | 2019-07-31 13:07 | ED.DIZZY ---
HPI - Dizziness General Chief Complaint: Dizziness <PERLA Pablo Last Filed: 07/31/19 13:17> Stated Complaint: dizziness <PERLA Pablo Last Filed: 07/31/19 13:17> Time Seen by Provider: 07/31/19 11:13 <PERLA Pablo Last Filed: 07/31/19 13:17> Source: patient <PERLA Pablo Last Filed: 07/31/19 13:17> Mode of arrival: ambulatory <PERLA Pablo Last Filed: 07/31/19 13:17> Limitations: no limitations <PERLA Pablo Last Filed: 07/31/19 13:17> History of Present Illness HPI Narrative: Patient is a 53-year-old male who returns to emergency department for continued dizziness confusion unsteady gait patient on arrival notes he has continued to have frontal headache and gets intermittent episodes of headache coupled with dizziness confusion and unsteady gait notes that he almost fell at home today but was able to catch himself. Patient has had recent increases to his seizure medication and has history of pseudoseizures. Patient is followed by Dr. Dong neurology. Patient has been to the emergency department numerous times in the last several week for multiple different complaints. Patient today denies any other pain other than frontal headache. Patient on arrival per EMS in the room in no distress <PERLA Pablo Last Filed: 07/31/19 13:17> Related Data Home Medications: Home Medications Medication Instructions Recorded Confirmed albuterol sulfate [Ventolin HFA] 2 puff INHALATION Q4H PRN 03/31/19 03/31/19 celecoxib 200 mg PO DAILY 03/31/19 03/31/19 cetirizine [Zyrtec] 10 mg PO DAILY PRN 03/31/19 03/31/19 doxepin 100 mg PO 03/31/19 03/31/19 hydroxyzine HCl 25 mg PO TID PRN 03/31/19 03/31/19 naproxen 500 mg PO BID PRN 03/31/19 03/31/19 oxcarbazepine 300 mg PO TID 03/31/19 03/31/19 oxcarbazepine 900 mg PO HS 03/31/19 03/31/19 primidone 250 mg PO TID 03/31/19 03/31/19 quetiapine 400 mg PO HS 03/31/19 03/31/19 rizatriptan 10 mg PO DAILY PRN 03/31/19 03/31/19 tizanidine 4 mg PO TID PRN 03/31/19 03/31/19 clonazepam 0.5 mg PO BID PRN 07/25/19 furosemide 40 mg PO DAILY 07/25/19 Trileptal 07/26/19 <PERLA Pablo Last Filed: 07/31/19 13:17> Allergies/Adverse Reactions: Allergies Allergy/AdvReac Type Severity Reaction Status Date / Time doxycycline Allergy Intermediate RASH Verified 07/31/19 11:06 levetiracetam Allergy Intermediate INCREASED Verified 07/31/19 11:06 SZ'S meloxicam Allergy Intermediate ITCHING Verified 07/31/19 11:06 Sulfa (Sulfonamide Allergy Mild RASH Verified 07/31/19 11:06 Antibiotics) cephalexin Allergy Unknown Rash Verified 07/31/19 11:06 Cephalosporins Allergy Unknown Rash Verified 07/31/19 11:06 codeine Allergy Unknown Unknown Verified 07/31/19 11:06 Corticosteroids Allergy Unknown Unknown Verified 07/31/19 11:06 (Glucocorticoids) haloperidol Allergy Unknown Seizure Verified 07/31/19 11:06 hydrocodone Allergy Unknown Unknown Verified 07/31/19 11:06 hydromorphone Allergy Unknown Flushing Verified 07/31/19 11:06 morphine Allergy Unknown Unknown Verified 07/31/19 11:06 peanut Allergy Unknown Unknown Verified 07/31/19 11:06 sulfite Allergy Unknown Other Verified 07/31/19 11:06 tetracycline Allergy Unknown Diarrhea Verified 07/31/19 11:06 levalbuterol AdvReac Severe Other Verified 07/31/19 11:06 molindone AdvReac Intermediate Nausea Verified 07/31/19 11:06 Oat Allergy Severe Swelling Uncoded 07/31/19 11:06 <PERLA Pablo Last Filed: 07/31/19 13:17> Review of Systems Review of Systems: All systems reviewed & are unremarkable except as noted in HPI and below <PERLA Pablo Last Filed: 07/31/19 13:17> PMFSH Past Medical History Medical History: Medical History Anal fissure Repaired Asthma Bipolar affective disorder Bipolar disorder CAD (coronary artery disease) Coron
--- NOTE | 2019-07-31 14:21 | ADMGEN ---
This patient, Martín Salgado, was admitted to Medical Room 344-01. Patient/family oriented to hospital policies and general routines including ID bracelet, bed and alarms, visiting hours, pain management, procedures, bathroom and other care routines, personal items, smoking policy, room service/diet, and visiting hours. Valuables list has been completed. Information on how to activate the Rapid Response Team has been discussed. Patient/Family are encouraged to report perceived risks to care and to ask questions if they do not understand what they are told or what they should do.
--- NOTE | 2019-07-31 20:44 | PM.IMHP ---
H&P: HPI History of Present Illness Chief complaint: peudoseizures Narrative: Martín Salgado is a 53 year old male who has a history of having pseudoseizures. He sees Dr. Lizarraga his neurologist. The patient came to the emergency room today because he had some dizziness, confusion, unsteady gait and a frontal lobe headache. The patient tells me that he does have history of having migraines. The patient has bilateral temporal pain but does not have pain upon palpation of those arteries. Said that his gait was unsteady today. He has had no prior history of having any strokes. The patient has been to the emergency room several times for multiple different complaints. It looks like the patient was here yesterday in the emergency room for chest discomfort. The patient was here on July 25 for possible seizure. Patient was also seen here on the of this month in the emergency room for dizziness. He was having watery stools but no vomiting at that time. He was dizzy at that time as well. Patient's last inpatient admission was on 03/31/2019 where he was short of breath. Patient has history of sarcoidosis and has had previous admissions for complaint of increase in shortness of breath. The patient had a pseudo-seizure and had no residual effect on the medical floor. Neurology has been consulted and an MRI has been ordered for tomorrow. Patient has full neurological system intact. Patient was given Valium IV in the emergency room. Date of service 07/31/2019 Review of Systems Review of Systems: All systems reviewed & are unremarkable except as noted in HPI and below Constitutional: Constitutional: Reports as per HPI and Reports no additional constitutional complaints Eyes: Eyes: Reports as per HPI and Reports no additional eye complaints ENT: Reports system reviewed and no additional complaints, except as documented and Reports Normal hearing present Cardiovascular: Cardiovascular: Reports no additional cardiovascular complaints Respiratory: Respiratory: Reports no additional respiratory complaints and Reports no additional respiratory complaints Gastrointestinal: Gastrointestinal: Reports as per HPI and Reports no additional gastrointestinal complaints Musculoskeletal: Musculoskeletal: Reports no additional musculoskeletal complaints Integumentary/Breasts: Skin/Breast: Reports system reviewed and no additional complaints, except as docu and Reports as per HPI Neurologic: Reports system reviewed and no additional complaints, except as documented, Reports as per HPI and Reports Normal hearing present Psychiatric: Psychiatric: Reports no additional psychiatric complaints and Reports as per HPI Endocrine: Endocrine: Reports no additional endocrine complaints Hematologic/Lymphatic: Hematologic/Lymphatic: Reports no additional hematologic/lymphatic complaints Allergic/Immunologic: Allergic/Immunologic: Reports no additional allergic/immunologic complaints [facility] Past Medical History Medical History Anal fissure Repaired Asthma Bipolar affective disorder Bipolar disorder CAD (coronary artery disease) Coronary artery spasm GERD with esophagitis H/O pilonidal cyst HTN (hypertension) with goal to be determined HTN (hypertension) with goal to be determined Migraines Obstructive sleep apnea No longer has a need for CPAP as he has lost weight Pneumonia Pneumonia Psychogenic nonepileptic seizure Sarcoidosis Sarcoidosis of lung rt lung Seizure disorder Seizure disorder Type 2 diabetes mellitus Surgical History Surgical History H/O cardiac catheterization 1995 no intervention performed H/O removal of cyst On foot History of lung biopsy History of lung surgery Hx of tonsillectomy Hx of tonsillectomy No significant past surgical history Status post hernia repair Status post partial lobectomy of lung Diagnosed with
[2019-07-31] MEDS: DOXEPIN HCL 25 MG CAPSULE 150 MG PO (21:25)
[2019-07-31] MEDS: PANTOPRAZOLE 40 MG TABLET PO (21:25)
[2019-07-31] MEDS: NEBIVOLOL HCL 5 MG TABLET 10 MG PO (21:26)
[2019-07-31] MEDS: QUEtiapine FUMARATE XR 200 MG TAB.ER.24H 400 MG PO (21:26)
[2019-07-31] MEDS: SUMAtriptan SUCCINATE 6 MG/0.5 ML VIAL SUB-Q (21:27)
[2019-07-31] MEDS: OXcarbazepine 300 MG TABLET 900 MG PO (21:28)
[2019-08-01] VITALS (11 sets, daily range): BP systolic 95–120; BP diastolic 58–67; PULSE 56–80; RESP 16–18; TEMP 35.8–36.3; O2SAT 93–98
[2019-08-01 05:24] LABS: Basophils Absolute Auto 0.1 K/mm3 (0.0-0.1); Basophils Percent Auto 0.9 % (0.2-1.2); Eosinophils Percent Auto 0.4 % (0-4.4); Hematocrit 40.3 % (42.0-52.0); Hemoglobin 13.1 g/dL (14.0-18.0); Immature Granulocyte Absolute 0.02 K/mm3 (0.00-0.031); Immature Granulocyte Percent A 0.3 % (0-0.5); Lymphocytes Absolute Auto 2.86 K/mm3 (0.9-3.2); Lymphocytes Percent Auto 40.7 % (18.3-44.2); Mean Corpuscular HGB Conc 32.5 g/dl (32-36); Mean Corpuscular Hemoglobin 29.7 pg (26-34); Mean Corpuscular Volume 91.4 fl (80-100); Mean Platelet Volume 10.4 fl (7.4-10.4); Monocytes Absolute Auto 0.7 K/mm3 (0.1-0.6); Monocytes Percent Auto 9.5 % (2.6-8.5); Neutrophils Absolute Auto 3.4 K/mm3 (1.3-6.7); Neutrophils Percent Auto 48.2 % (45.5-73.1); Platelet Count Result 255 k/mm3 (150-375); Red Blood Count 4.41 M/mm3 (4.6-6.20); Red Cell Distribution Width 13.1 % (11.5-14.5)
[2019-08-01 05:41] LABS: Alanine Aminotransferase 21 U/L (4-50); Albumin Level 3.3 g/dL (3.5-5.1); Alkaline Phosphatase 74 U/L (38-126); Aspartate Amino Transferase 23 U/L (17-59); Bilirubin,Total 0.5 mg/dL (0.2-1.3); Blood Urea Nitrogen 7 mg/dL (9-20); Calcium 8.5 mg/dL (8.4-10.2); Carbon Dioxide 28 mmol/L (22-30); Chloride 101 mmol/L (98-107); Estimated CRCL calculation 152 ml/min; Estimated Glomerular Filt Rate > 60; Glucose 135 mg/dL (75-110); Magnesium 2.1 mg/dL (1.6-2.3); Phosphorus 4.2 mg/dL (2.5-4.5); Potassium 3.4 mmol/L (3.4-5.0); Sodium 135 mmol/L (137-145)
[2019-08-01] MEDS: FLUTICASONE PROPIONATE 0.05% NA SPR 16 GM BTL (*BKC) 1 SPRAY NASAL (09:21)
[2019-08-01] MEDS: ZAFIRLUKAST 20 MG TABLET PO ×2 (09:22→17:52)
[2019-08-01] MEDS: PANTOPRAZOLE 40 MG TABLET PO ×2 (09:22→20:39)
[2019-08-01] MEDS: QUEtiapine FUMARATE 100 MG TABLET PO ×2 (09:22→12:38)
[2019-08-01] MEDS: CELECOXIB 200 MG CAPSULE PO (09:22)
[2019-08-01] MEDS: OXcarbazepine 300 MG TABLET PO ×3 (09:22→17:52)
[2019-08-01] MEDS: PRIMIDONE 250 MG TABLET PO ×3 (09:22→17:52)
--- NOTE | 2019-08-01 12:34 | PM.IMPN ---
Progress Note: A&P Assessment and Plan (1) Pseudoseizure: Code(s): F44.5 - Conversion disorder with seizures or convulsions Status: Acute Assessment and Plan: Apparent seizure-like activity on the medical floor and had no residual; likely pseudo-seizure. Patient sees Dr. Dong as an outpatient; Neurology consulted and appreciate recommendations. Brain MRI pending. CT brain shows no acute abnormality. Continue home Trileptal and primidone Will consider Ativan if there is seizure activity (2) HTN (hypertension) with goal to be determined: Code(s): I10 - Essential (primary) hypertension Status: Chronic Assessment and Plan: BP 90s sys this morning; monitor Continue with Bystolic Lasix held today due to hypotension (3) Migraines: Code(s): G43.909 - Migraine, unspecified, not intractable, without status migrainosus Status: Chronic Assessment and Plan: No acute issues Continue on rizatriptan. (4) Bipolar disorder: Code(s): F31.9 - Bipolar disorder, unspecified Status: Chronic Assessment and Plan: No acute issues Continue on home Seroquel and clonazepam. (5) Sarcoidosis of lung: Code(s): D86.0 - Sarcoidosis of lung Status: Acute Assessment and Plan: No acute respiratory issues Continue with his Accolate and antihistamines. Subjective Date/time seen: 08/01/19 12:34 Interval history: Patient is a 53 yo M with bipolar affective disorder, HTN, DMII and psychogenic nonepileptic seizures who is here for evaluation for confusion, dizziness, and seizure-like activity. Patient states he just feels sluggish today, noting feeling tired. He also notes burning pain when swallowing; pain is mainly in throat. He is tolerating PO okay but does not have much of an appetite. Otherwise he has no other compliaints. Denies f/c/s, myalgias/arthralgias, headaches, current dizziness, lightheadedness, recent seizure like activity, tics, tremor, changes in v/h, one sided arm/leg weakness, slurred speech, cp/palpitations, sob/cough, n/v/d/c, abd pain, changes in BMs, dysuria, hematuria, cloudy urine, calf pain/swelling. Review of Systems Review of Systems: All systems reviewed & are unremarkable except as noted in HPI and below Exam Narrative: Exam Narrative: Patient lying supine in bed on right side; sleeping and easily arousable to verbal stimuli Const: General: cooperative, comfortable, no acute distress, well developed, alert and tired appearing Nutritional Appearance: well nourished Orientation/consciousness: patient oriented x3 HENMT: Head: normocephalic and atraumatic General nose exam: Normal nares present Face and sinus: face symmetric Mouth: Yes moist mucous membranes Eyes: General: appearance normal, both eyes and all related structures EOM: EOMs intact bilaterally Neck: Neck: trachea midline and supple Resp: Effort & Inspection: normal respiratory effort Auscultation: clear to auscultation bilaterally Cardio: Rate: regular rate Rhythm: regular rhythm Heart sounds: no murmurs GI: Inspection: non-distended GI Palp: No abdominal tenderness and Yes Soft to palpation Auscultation: Hypoactive bowel sounds present Skin: General skin exam: normal color and no rashes or lesions noted Neuro: General: patient oriented x3 and moves all extremities Cranial nerves: Yes facial symmetry Speech: normal speech Motor exam (neuro): 5/5 motor strength present throughout Extrem: Right lower extremity: no edema Left lower extremity: no edema Other: NTTP b/l calves Psych: Mental Status: mental status grossly normal Affect: Sad affect present Objective Data Vital Signs Vital Signs: Last Vital Signs Temp 96.5 F L 08/01/19 05:09 Pulse 56 L 05/
[2019-08-01] MEDS: POTASSIUM CHLORIDE 20 MEQ TABLET 40 MEQ PO (12:37)
[2019-08-01] MEDS: NEBIVOLOL HCL 5 MG TABLET 10 MG PO (17:52)
--- NOTE | 2019-08-01 19:46 | CONS_ITS ---
DATE OF CONSULTATION: 08/01/2019 HISTORY OF PRESENT ILLNESS: A 53-year-old right-handed male has been admitted to [facility] through the emergency room, where he came with the complaint of dizziness, confusion, unsteady gait, and frontal headache. In addition to having the history of migraine in the past as well, the pain was mainly localized in the bitemporal area. In addition, he complained of being unsteady on ambulation, though he has never had any stroke. The patient had been the day before in the emergency room for the complaint of chest discomfort and also was seen on of this month for the complaint of dizziness with watery stools and no vomiting, though he had been admitted on 03/31/2019 for shortness of breath with history of sarcoidosis and also pseudoseizure. On initial evaluation, he had no other symptomatology. PAST MEDICAL HISTORY: He had ongoing history as mentioned in the past. Repair of the annular fissure, bronchial asthma, bipolar disorder, coronary artery disease, GERD, pilonidal cyst, hypertension, migraine, obstructive sleep apnea, though he is not using the CPAP, nonepileptic seizures, sarcoidosis of the right lung and type 2 diabetes mellitus. PAST SURGICAL HISTORY: He has undergone cardiac catheterization in 1995 with no intervention, removal of the cyst from the foot, lung biopsy, lung surgery, tonsillectomy, hernial repair, partial lobectomy of the lung for the sarcoidosis. SOCIAL HISTORY: He is never a smoker, former drinker. MEDICATIONS: At the time of admission to the hospital, he was taking multiple medications, which included: 1. Celebrex 200 mg daily. 2. Cetirizine 10 mg daily. 3. Doxepin 150 at night. 4. Naproxen p.r.n. 5. Oxcarbazepine 300 mg t.i.d. and 900 mg at night. 6. Primidone 250 t.i.d. 7. Rizatriptan 10 mg daily. 8. Tizanidine 4 mg q.8 hours. 9. Seroquel 100 mg b.i.d. 10. Potassium chloride 10 mEq b.i.d. 11. Omeprazole 20 b.i.d. 12. Clonazepam 0.5 mg b.i.d. p.r.n. 13. Furosemide 40 mg daily. 14. Seroquel 400 mg that night. ALLERGIES: EVALUATION ALSO REVEALED HIM TO HAVE HIS MULTIPLE ALLERGIES OUTLINED. PHYSICAL EXAMINATION: GENERAL: Revealed him to be awake, alert, cooperative, somewhat sleepy. HEENT: Head normocephalic with no cranial bruit. Ear, nose, throat exam normal. NECK: Supple. HEART: Regular. LUNGS: Clear. ABDOMEN: Soft. NEUROLOGICAL: Normal mental status. Normal speech. Pupils round regular. Domingo of vision full. Extraocular movements full. Face symmetrical. Tongue midline. Motor examination revealed no drift of one side or other side. Tone normal. Reflexes symmetrical. Plantars downgoing. There is no evidence of gross cerebellar deficit. IMPRESSION: Pseudoseizure in addition to multiple medical problems as outlined above. I will try to cut down the medication as much as possible. At this stage, I will take him off the Keppra, because he is taking the oxcarbazepine as well as the primidone. SUMAN ARTHUR M.D. [employer] SUPERVISOR [employer] D Maria Luisa MT: [place]
[2019-08-01] MEDS: QUEtiapine FUMARATE XR 200 MG TAB.ER.24H 400 MG PO (20:39)
[2019-08-01] MEDS: DOXEPIN HCL 25 MG CAPSULE 150 MG PO (20:39)
[2019-08-01] MEDS: OXcarbazepine 300 MG TABLET 900 MG PO (20:39)
[2019-08-01 21:06] LABS: Glucose Point of Care 80 (65-105)
[2019-08-02] VITALS (11 sets, daily range): BP systolic 94–119; BP diastolic 48–73; PULSE 63–80; RESP 14–18; TEMP 36.1–36.4; O2SAT 94–97
[2019-08-02 05:36] LABS: Hematocrit 40.5 % (42.0-52.0); Hemoglobin 13.2 g/dL (14.0-18.0); Mean Corpuscular HGB Conc 32.6 g/dl (32-36); Mean Corpuscular Hemoglobin 30.1 pg (26-34); Mean Corpuscular Volume 92.3 fl (80-100); Mean Platelet Volume 10.5 fl (7.4-10.4); Platelet Count Result 261 k/mm3 (150-375); Red Blood Count 4.39 M/mm3 (4.6-6.20); Red Cell Distribution Width 13.1 % (11.5-14.5); White Blood Count 6.2 K/mm3 (4.5-10.0)
[2019-08-02 05:51] LABS: Blood Urea Nitrogen 11 mg/dL (9-20); Calcium 8.3 mg/dL (8.4-10.2); Carbon Dioxide 30 mmol/L (22-30); Chloride 102 mmol/L (98-107); Estimated CRCL calculation 117 ml/min; Estimated Glomerular Filt Rate > 60; Glucose 105 mg/dL (75-110); Magnesium 2.1 mg/dL (1.6-2.3); Potassium 3.6 mmol/L (3.4-5.0); Sodium 136 mmol/L (137-145)
[2019-08-02] MEDS: PRIMIDONE 250 MG TABLET PO ×3 (08:45→16:59)
[2019-08-02] MEDS: ZAFIRLUKAST 20 MG TABLET PO ×2 (08:45→16:59)
[2019-08-02] MEDS: OXcarbazepine 300 MG TABLET PO ×3 (08:45→16:59)
[2019-08-02] MEDS: CELECOXIB 200 MG CAPSULE PO (08:45)
[2019-08-02] MEDS: QUEtiapine FUMARATE 100 MG TABLET PO ×2 (08:46→12:19)
[2019-08-02] MEDS: PANTOPRAZOLE 40 MG TABLET PO ×2 (08:46→22:47)
[2019-08-02] MEDS: FUROSEMIDE 40 MG TABLET PO (08:46)
[2019-08-02] MEDS: FLUTICASONE PROPIONATE 0.05% NA SPR 16 GM BTL (*BKC) 1 SPRAY NASAL (08:46)
[2019-08-02] MEDS: POTASSIUM CHLORIDE 20 MEQ TABLET 40 MEQ PO (08:46)
--- NOTE | 2019-08-02 11:45 | PM.IMPN ---
Progress Note: A&P Assessment and Plan (1) Pseudoseizure: Code(s): F44.5 - Conversion disorder with seizures or convulsions Status: Acute Assessment and Plan: Apparent seizure-like activity on the medical floor again today, and, again, had no residual; likely pseudo-seizure. Patient sees Dr. Dong as an outpatient; Neurology consulted and appreciate recommendations. Spoke with Dr. Dong who wanted PT/OT and observe another night. Brain MRI uremarkable. CT brain shows no acute abnormality. Continue home Trileptal and primidone per Neurology recommendations Dr. Dong stated he will likely adjust medications as an outpatient once discharged Will do PT/OT today and observe another night per Neuro recs. Hopefully okay for discharge tomorrow if okay from a Neuro standpoint; patient appears stable from a medical standpoint. (2) HTN (hypertension) with goal to be determined: Code(s): I10 - Essential (primary) hypertension Status: Chronic Assessment and Plan: BP 110s sys this morning; monitor Continue with Bystolic Lasix held due to hypotension earlier in stay; consider resuming if BP allows (3) Migraines: Code(s): G43.909 - Migraine, unspecified, not intractable, without status migrainosus Status: Chronic Assessment and Plan: No acute issues Continue on rizatriptan. (4) Bipolar disorder: Code(s): F31.9 - Bipolar disorder, unspecified Status: Chronic Assessment and Plan: No acute issues Continue on home Seroquel and clonazepam. (5) Sarcoidosis of lung: Code(s): D86.0 - Sarcoidosis of lung Status: Acute Assessment and Plan: No acute respiratory issues Continue with his Accolate and antihistamines. Subjective Date/time seen: 08/02/19 11:45 Interval history: Patient is a 53 yo M with bipolar affective disorder, HTN, DMII and psychogenic nonepileptic seizures who is here for evaluation for confusion, dizziness, and seizure-like activity. Asked to see patient by nursing as patient had another apparent seizure-like episode. Nursing states patient was getting back to bed when he sat down, then threw himself back to bed and started having jerking motions and not responding; lasted roughly 30 seconds; no mouth trauma, no urinary or bowel incontinence; no apparent post-ictal state. Shortly after, I visited the patient and he states he had a migraine headache and thats why he thinks he had the episode. Initially he can only tell me his first name, the year, and that he is in the hospital but becomes AxO4 by the end of the visit when questioned again; he was able to hold a conversation with both me and Dr. Dong without difficulty. Patient otherwise states he just feels tired again today. His burning throat pain when swallowing resolved today. He is tolerating PO okay, has more of an appetite today. Otherwise he has no other compliaints. Denies f/c/s, myalgias/arthralgias, headaches, current dizziness, lightheadedness, tics, tremor, changes in v/h, one sided arm/leg weakness, slurred speech, cp/palpitations, sob/cough, n/v/d/c, abd pain, changes in BMs, dysuria, hematuria, cloudy urine, calf pain/swelling. Review of Systems Review of Systems: All systems reviewed & are unremarkable except as noted in HPI and below Exam Narrative: Exam Narrative: Patient lying supine in bed Const: General: cooperative, comfortable, no acute distress, well developed, alert, awake and tired appearing Nutritional Appearance: well nourished Orientation/consciousness: patient oriented x3 (see HPI) HENMT: Head: normocephalic and atraumatic General nose exam: Normal nares present Face and sinus: face symmetric Mouth: Yes moist mucous membranes Eyes: General: appearance n
[2019-08-02] MEDS: RIZATRIPTAN BENZOATE 10 MG TABLET PO (12:19)
--- NOTE | 2019-08-02 16:39 | WPDNEUROPN ---
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 - Conversion disorder with seizures or convulsions Status: Acute (4) Bipolar disorder: Code(s): F31.9 - Bipolar disorder, unspecified Status: Chronic (5) Seizure disorder: Code(s): G40.909 - Epilepsy, unspecified, not intractable, without status epilepticus Status: Chronic (6) Elevated blood sugar: Code(s): R73.9 - Hyperglycemia, unspecified Status: Acute (7) HTN (hypertension) with goal to be determined: Code(s): I10 - Essential (primary) hypertension Status: Chronic (8) GERD with esophagitis: Code(s): K21.0 - Gastro-esophageal reflux disease with esophagitis Status: Chronic (9) Migraines: Code(s): G43.909 - Migraine, unspecified, not intractable, without status migrainosus Status: Chronic (10) Asthma: Code(s): J45.909 - Unspecified asthma, uncomplicated Status: Chronic (11) DVT prophylaxis: Code(s): Z29.9 - Encounter for prophylactic measures, unspecified Status: Acute (12) Psychogenic nonepileptic seizure: Code(s): F44.5 - Conversion disorder with seizures or convulsions Status: Acute (13) Homicidal thoughts: Code(s): R45.850 - Homicidal ideations Status: Acute (14) Pneumonia: Code(s): J18.9 - Pneumonia, unspecified organism Status: Acute (15) Pneumonia: Code(s): J18.9 - Pneumonia, unspecified organism Status: Acute (16) Mucus plugging of bronchi: Code(s): J98.09 - Other diseases of bronchus, not elsewhere classified Status: Acute (17) Sarcoidosis of lung: Code(s): D86.0 - Sarcoidosis of lung Status: Acute (18) Respiratory infection: Code(s): J98.8 - Other specified respiratory disorders Status: Acute (19) Bipolar affective disorder: Code(s): F31.9 - Bipolar disorder, unspecified Status: Acute (20) HTN (hypertension) with goal to be determined: Code(s): I10 - Essential (primary) hypertension Status: Acute (21) Seizure disorder: Code(s): G40.909 - Epilepsy, unspecified, not intractable, without status epilepticus Status: Acute (22) AB (asthmatic bronchitis): Qualifiers: Asthma complication type: with acute exacerbation Asthma persistence: persistent Asthma severity: moderate Qualified Code(s): J45.41 - Moderate persistent asthma with (acute) exacerbation Code(s): J45.909 - Unspecified asthma, uncomplicated Status: Acute (23) Hypoxemia: Code(s): R09.02 - Hypoxemia Status: Acute Additional Plan discussed to ambulate and sit not lay all the time meds plus deconditioning making brain function slow agreeble Exam Const: General: cooperative, healthy appearing, well developed, alert and awake Nutritional Appearance: well nourished Orientation/consciousness: oriented to person and oriented to place Limitations: no limitations HENMT: Head: normal to inspection Ears: hearing grossly normal bilaterally General nose exam: Normal external nose present and No nasal discharge present Face and sinus: normal facial exam Mouth: Yes Normal oral and palatal mucosa present Eyes: General: appearance normal, both eyes and all related structures Alignment and Position: alignment normal Periorbital: periorbital findings normal Eyelids: eyelids normal Sclera: sclerae normal Cornea: corneas normal Pupils: Equal, round and reactive pupils present EOM: EOMs intact bilaterally Neck: Neck: full ROM Resp: Effort & Inspection: normal respiratory effort and able to speak in complete sentences Auscultation: clear to auscultation bilaterally Cardio: Rate: regular rate Rhythm: regular rhythm GI: A
[2019-08-02] MEDS: NEBIVOLOL HCL 5 MG TABLET 10 MG PO (16:59)
[2019-08-02] MEDS: QUEtiapine FUMARATE XR 200 MG TAB.ER.24H 400 MG PO (22:46)
[2019-08-02] MEDS: DOXEPIN HCL 25 MG CAPSULE 150 MG PO (22:46)
[2019-08-02] MEDS: OXcarbazepine 300 MG TABLET 900 MG PO (22:48)
[2019-08-03] VITALS (9 sets, daily range): BP systolic 107–111; BP diastolic 59–67; PULSE 60–104; RESP 12–18; TEMP 36.3–37.1; O2SAT 92–96
[2019-08-03 05:33] LABS: Blood Urea Nitrogen 10 mg/dL (9-20); Calcium 8.2 mg/dL (8.4-10.2); Carbon Dioxide 31 mmol/L (22-30); Chloride 99 mmol/L (98-107); Estimated CRCL calculation 117 ml/min; Estimated Glomerular Filt Rate > 60; Glucose 84 mg/dL (75-110); Magnesium 2.1 mg/dL (1.6-2.3); Potassium 3.3 mmol/L (3.4-5.0); Sodium 134 mmol/L (137-145)
[2019-08-03] MEDS: FUROSEMIDE 40 MG TABLET PO (09:33)
[2019-08-03] MEDS: FLUTICASONE PROPIONATE 0.05% NA SPR 16 GM BTL (*BKC) 1 SPRAY NASAL (09:33)
[2019-08-03] MEDS: CELECOXIB 200 MG CAPSULE PO (09:33)
[2019-08-03] MEDS: PANTOPRAZOLE 40 MG TABLET PO ×2 (09:33→22:01)
[2019-08-03] MEDS: OXcarbazepine 300 MG TABLET PO ×3 (09:33→18:07)
[2019-08-03] MEDS: ZAFIRLUKAST 20 MG TABLET PO ×2 (09:33→18:01)
[2019-08-03] MEDS: QUEtiapine FUMARATE 100 MG TABLET PO ×2 (09:33→13:03)
[2019-08-03] MEDS: PRIMIDONE 250 MG TABLET PO ×3 (09:33→18:03)
[2019-08-03] MEDS: POTASSIUM CHLORIDE 20 MEQ TABLET 40 MEQ PO (10:25)
--- NOTE | 2019-08-03 14:37 | PM.IMPN ---
Progress Note: A&P Assessment and Plan (1) Pseudoseizure: Code(s): F44.5 - Conversion disorder with seizures or convulsions Status: Acute Assessment and Plan: Apparent seizure-like activity on the medical floor again today, and, again, had no residual; likely pseudo-seizure. Patient sees Dr. Dong as an outpatient; Neurology consulted and appreciate recommendations. Spoke with Dr. Dong who wanted PT/OT and observe another night. Brain MRI uremarkable. CT brain shows no acute abnormality. Continue home Trileptal and primidone per Neurology recommendations Dr. Dong stated he will likely adjust medications as an outpatient once discharged Will do PT/OT today and observe another night per Neuro recs. Hopefully okay for discharge tomorrow if okay from a Neuro standpoint; patient appears stable from a medical standpoint. (2) HTN (hypertension) with goal to be determined: Code(s): I10 - Essential (primary) hypertension Status: Chronic Assessment and Plan: BP 110s sys this morning; monitor Continue with Bystolic Lasix held due to hypotension earlier in stay; consider resuming if BP allows (3) Migraines: Code(s): G43.909 - Migraine, unspecified, not intractable, without status migrainosus Status: Chronic Assessment and Plan: No acute issues Continue on rizatriptan. (4) Bipolar disorder: Code(s): F31.9 - Bipolar disorder, unspecified Status: Chronic Assessment and Plan: No acute issues Continue on home Seroquel and clonazepam. (5) Sarcoidosis of lung: Code(s): D86.0 - Sarcoidosis of lung Status: Acute Assessment and Plan: No acute respiratory issues Continue with his Accolate and antihistamines. Time Spent With Patient Time with patient: 25 - 35 minutes Subjective Date/time seen: 08/03/19 14:37 Interval history: Patient is a 53 yo M with bipolar affective disorder, HTN, DMII and psychogenic nonepileptic seizures who is here for evaluation for confusion, dizziness, and seizure-like activity. Asked to see patient by nursing as patient had another apparent seizure-like episode. Nursing states patient was getting back to bed when he sat down, then threw himself back to bed and started having jerking motions and not responding; lasted roughly 30 seconds; no mouth trauma, no urinary or bowel incontinence; no apparent post-ictal state. Shortly after, I visited the patient and he states he had a migraine headache and thats why he thinks he had the episode. Initially he can only tell me his first name, the year, and that he is in the hospital but becomes AxO4 by the end of the visit when questioned again; he was able to hold a conversation with both me and Dr. Dong without difficulty. Patient otherwise states he just feels tired again today. His burning throat pain when swallowing resolved today. He is tolerating PO okay, has more of an appetite today. Otherwise he has no other compliaints. Denies f/c/s, myalgias/arthralgias, headaches, current dizziness, lightheadedness, tics, tremor, changes in v/h, one sided arm/leg weakness, slurred speech, cp/palpitations, sob/cough, n/v/d/c, abd pain, changes in BMs, dysuria, hematuria, cloudy urine, calf pain/swelling. Review of Systems Review of Systems: All systems reviewed & are unremarkable except as noted in HPI and below Exam Narrative: Exam Narrative: General: *-year-old * laying flat in bed. Appears comfortable. In no acute distress. Skin: No jaundice or cyanosis. Good skin turgor. Neck: Full range of motion. Supple. Nontender. Respiratory: Lungs are clear to auscultation bilaterally. No bony chest wall tenderness. Cardiovascular: The heart has a regular rate and rhythm without murmur. No c
--- NOTE | 2019-08-03 17:28 | PM.DS ---
DS: Diagnosis Admitting Diagnosis Admitting Diagnosis: Other seizures Discharge Diagnosis (1) Hallucinations: Code(s): R44.3 - Hallucinations, unspecified Status: Acute Assessment and Plan: After evaluating the patient this morning in telling him that he will most likely be discharged home I was called back to the patient's room because he told the personal care home administrator that he was having hallucinations. Patient states since he has been in the hospital he has had some slight auditory and visual hallucination. He did not worry about them but states that they become worse and wanted to inform me about this now. He states normally he can end up having homicidal thoughts if he does not have medications adjusted. He denies any SI or HI at this time. He states normally he has to be transferred to an inpatient psych facility when this happens. I called crisis who came and evaluated the patient in states he meets inpatient criteria and he was transferred to [facility] inpatient psych for further evaluation. 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 Patient sees Dr. Dong as an outpatient; Neurology consulted and appreciate recommendations. Spoke with Dr. Dong who wanted PT/OT and observe another night. Brain MRI uremarkable. CT brain shows no acute abnormality. Continue home Trileptal and primidone per Neurology recommendations Dr. Dong stated he will likely adjust medications as an outpatient once discharged PT/OT was ordered on the patient and he end up walking 100 [address] down the [place] but became dizzy and needed to be placed in a wheelchair to return back to his bed. He did not have any more seizure activity today. (3) HTN (hypertension) with goal to be determined: Code(s): I10 - Essential (primary) hypertension Status: Chronic Assessment and Plan: BP 100s sys this morning; monitor Continue with Bystolic Lasix held due to hypotension earlier in stay but was continued upon discharge. Told to check blood pressure regularly. (4) Migraines: Code(s): G43.909 - Migraine, unspecified, not intractable, without status migrainosus Status: Chronic Assessment and Plan: No acute issues Continue on rizatriptan. (5) Bipolar disorder: Code(s): F31.9 - Bipolar disorder, unspecified Status: Chronic Assessment and Plan: No acute issues Continue on home Seroquel and clonazepam. (6) Sarcoidosis of lung: Code(s): D86.0 - Sarcoidosis of lung Status: Acute Assessment and Plan: No acute respiratory issues Continue with his Accolate and antihistamines. DS: Summary Hospital Course Reason for hospitalization: Patient is a 53 yo M with bipolar affective disorder, HTN, DMII and psychogenic nonepileptic seizures who is here for evaluation for confusion, dizziness, and seizure-like activity. The patient was in the emergency department 4 times in the last 1 week for similar symptoms. Initial vitals showed temperature of 98.8?, blood pressure 157/95, heart rate 88, respiratory rate 24, oxygen saturation 99% on room air. Initial labs showed normal CBC with differential, normal coag panel, normal CMP other than slight hyponatremia 136, glucose at 190. Normal troponin. Normal TSH. Urinalysis showed 4-6 wbc's, 1+ protein otherwise no acute UTI in his denies any UTI symptoms. Chest x-ray showed no acute Cardiopulmonary disease. CT head showed no significant abnormality. MRI brain showed unremarkable brain MRI exa
[2019-08-03] MEDS: POTASSIUM CHLORIDE 10 MEQ TABLET.ER PO (18:01)
[2019-08-03] MEDS: NEBIVOLOL HCL 5 MG TABLET 10 MG PO (18:01)
[2019-08-03] MEDS: DOXEPIN HCL 25 MG CAPSULE 150 MG PO (21:58)
[2019-08-03] MEDS: QUEtiapine FUMARATE XR 200 MG TAB.ER.24H 400 MG PO (21:59)
[2019-08-03] MEDS: OXcarbazepine 300 MG TABLET 900 MG PO (22:00)
[2019-08-03 23:04] LABS: Amphetamine Screen Urine Negative (Negative); Barbiturate Screen Urine Positive (Negative); Benzodiazepines Screen Urine Negative (Negative); Cannabinoid Screen Urine Negative (Negative); Cocaine Screen Urine Negative (Negative); Methadone Screen Urine Negative (Negative); Opiate Screen Urine Negative (Negative); Phencyclidine Screen Urine Negative (Negative)
== END 2019-08-03 23:20 | disposition short-term general hospital (02) | DRG 101 ==
LOC: ANHED 13:17 → ANH3MED 14:16
PROVIDERS: Emergency Medicine Emergency Medical Services; Nurse Practitioner; Physician Assistant; Admitting Provider Family Medicine; Emergency Provider Emergency Medicine; PCP Family Medicine; Visit Provider Family Medicine
DX: G40.89 Other seizures (principal); I10 Essential (primary) hypertension; G43.909 Migraine, unspecified, not intractable, without status migrainosus; F31.9 Bipolar disorder, unspecified; D86.0 Sarcoidosis of lung; I25.10 Atherosclerotic heart disease of native coronary artery without angina pectoris; K21.9 Gastro-esophageal reflux disease without esophagitis; G47.33 Obstructive sleep apnea (adult) (pediatric); E11.9 Type 2 diabetes mellitus without complications
CPT/HCPCS: 36415; 70450; 70496; 70498; 70553; 71045; 71046; 80048; 80053; 80307; 81001; 83690; 83735; 83880; 84100; 84443; 84484; 85025; 85027; 85380; 85610; 85730; 93005; 96372; 97161; 97165; 99285; A9270; A9577; G0378; J3030; J3360

== ENCOUNTER 2019-10-02 17:49 | Emergency (ER) | payer MEDICARE, MEDICAID, SELFPAY ==
--- NOTE | ~2019-10-02 | XR_ITS ---
XR chest 2V 10/02/2019 19:15 Indication: Bilateral pain in the arm pits. Asthma. Hypertension. Procedure: Heart size normal. Left lung clear. No pleural effusion or pneumothorax. There is question able focal pleural thickening right lower thorax. Comparison: Comparison to multiple prior studies sequentially, with oldest reviewed study dated 05/2019. Findings: Heart size normal. Left lung clear. No pleural effusion or pneumothorax. There is questiona ble focal pleural thickening right lower thorax. No acute osseous abnormality. Impression: 1: Questionable focal pleural thickening right lower thorax. Cannot exclude underlying mass. Reviewed, dictated and finalized at location A. Impression: 1: Questionable focal pleural thickening right lower thorax. Cannot exclude und erlying mass.
[2019-10-02 17:52] VITALS: BP 151/96; PULSE 130; RESP 20; TEMP 36.3; O2SAT 98
--- NOTE | 2019-10-02 17:57 | ECG_ITS ---
Measurements Intervals [place] Rate: 126 P: 31 MT: 168 QRS: -32 QRSD: 88 T: 61 QT: 308 QTc: 446 Interpretive Statements SINUS TACHYCARDIA LEFT AXIS DEVIATION LEFT VENTRICULAR HYPERTROPHY AND ST-T CHANGE POOR R WAVE PROGRESSION, ANTERIOR LEADS BORDERLINE ST-T WAVE ABNORMALITY- LATERAL LEADS BASELINE ARTIFACT- II, III, AVR, AVL, AVF ABNORMAL ECG Electronically Signed On 10-02-2019 18:28:47 CDT by Ajit Alvarado D.O.
[2019-10-02 18:09] LABS: Basophils Absolute Auto 0.1 K/mm3 (0.0-0.1); Basophils Percent Auto 0.9 % (0.2-1.2); Eosinophils Absolute Auto 0.1 K/mm3 (0-0.3); Eosinophils Percent Auto 0.8 % (0-4.4); Hematocrit 44.7 % (42.0-52.0); Hemoglobin 15.2 g/dL (14.0-18.0); Immature Granulocyte Absolute 0.03 K/mm3 (0.00-0.031); Immature Granulocyte Percent A 0.3 % (0-0.5); Lymphocytes Absolute Auto 2.85 K/mm3 (0.9-3.2); Lymphocytes Percent Auto 27.8 % (18.3-44.2); Mean Corpuscular Hemoglobin 30.3 pg (26-34); Mean Platelet Volume 10.4 fl (7.4-10.4); Monocytes Absolute Auto 0.9 K/mm3 (0.1-0.6); Monocytes Percent Auto 8.7 % (2.6-8.5); Neutrophils Absolute Auto 6.3 K/mm3 (1.3-6.7); Neutrophils Percent Auto 61.5 % (45.5-73.1); Platelet Count Result 369 k/mm3 (150-375); Red Blood Count 5.02 M/mm3 (4.6-6.20); Red Cell Distribution Width 12.6 % (11.5-14.5); White Blood Count 10.3 K/mm3 (4.5-10.0)
[2019-10-02 18:28] LABS: Alanine Aminotransferase 36 U/L (4-50); Albumin Level 4.2 g/dL (3.5-5.1); Alkaline Phosphatase 96 U/L (38-126); Aspartate Amino Transferase 35 U/L (17-59); Bilirubin,Total 0.6 mg/dL (0.2-1.3); Blood Urea Nitrogen 12 mg/dL (9-20); Calcium 9.1 mg/dL (8.4-10.2); Carbon Dioxide 21 mmol/L (22-30); Chloride 102 mmol/L (98-107); Estimated CRCL calculation 113 ml/min; Estimated Glomerular Filt Rate > 60; Glucose 273 mg/dL (75-110); Potassium 3.4 mmol/L (3.4-5.0); Sodium 134 mmol/L (137-145)
[2019-10-02 19:19] VITALS: BP 141/90; PULSE 110; RESP 20; O2SAT 97
--- NOTE | 2019-10-02 19:24 | ED.GENADULT ---
HPI - General Adult General Chief complaint: Unspecified Stated complaint: My glands are swelling fatigue Time Seen by Provider: 10/02/19 19:18 History of Present Illness HPI narrative: Patient presents with swelling under his neck and under his arms with pain. Under the arms started today and under the neck started 3 days ago. He does not have sore throat cough fever chills or sweats. He denies HIV, lymphoma. He is unemployed due to his bipolar disability. He says he has sarcoid in one lung. He does not smoke cigarettes, drink alcohol, or do drugs. Onset (ago): day(s) Location: neck Radiation: non-radiation Severity: moderate Severity scale (1-10): 7 Related Data Home Medications Medication Instructions Recorded Confirmed celecoxib 200 mg PO DAILY 03/31/19 07/31/19 cetirizine [Zyrtec] 10 mg PO DAILY PRN 03/31/19 07/31/19 doxepin 150 mg PO HS 03/31/19 07/31/19 naproxen 500 mg PO BID PRN 03/31/19 07/31/19 oxcarbazepine 300 mg PO TID 03/31/19 07/31/19 oxcarbazepine 900 mg PO HS 03/31/19 07/31/19 primidone 250 mg PO TID 03/31/19 07/31/19 rizatriptan 10 mg PO DAILY PRN 03/31/19 07/31/19 tizanidine 4 mg PO Q8H PRN 03/31/19 07/31/19 clonazepam 0.5 mg PO BID PRN 07/25/19 07/31/19 furosemide 40 mg PO DAILY 07/25/19 07/31/19 Bystolic 10 mg PO DAILY 07/31/19 07/31/19 fluticasone propionate [Allergy 1 spray INTRANASAL DAILY 07/31/19 07/31/19 Relief (fluticasone)] quetiapine 400 mg PO HS 07/31/19 07/31/19 Allergies Allergy/AdvReac Type Severity Reaction Status Date / Time doxycycline Allergy Intermediate RASH Verified 10/02/19 19:18 levetiracetam Allergy Intermediate INCREASED Verified 10/02/19 19:18 SZ'S meloxicam Allergy Intermediate ITCHING Verified 10/02/19 19:18 Sulfa (Sulfonamide Allergy Mild RASH Verified 10/02/19 19:18 Antibiotics) cephalexin Allergy Unknown Rash Verified 10/02/19 19:18 Cephalosporins Allergy Unknown Rash Verified 10/02/19 19:18 codeine Allergy Unknown Unknown Verified 10/02/19 19:18 Corticosteroids Allergy Unknown Unknown Verified 10/02/19 19:18 (Glucocorticoids) haloperidol Allergy Unknown Seizure Verified 10/02/19 19:18 hydrocodone Allergy Unknown Unknown Verified 10/02/19 19:18 hydromorphone Allergy Unknown [place] Verified 10/02/19 19:18 morphine Allergy Unknown Unknown Verified 10/02/19 19:18 peanut Allergy Unknown Unknown Verified 10/02/19 19:18 sulfite Allergy Unknown Other Verified 10/02/19 19:18 tetracycline Allergy Unknown Diarrhea Verified 10/02/19 19:18 levalbuterol AdvReac Severe Other Verified 10/02/19 19:18 molindone AdvReac Intermediate Nausea Verified 10/02/19 19:18 Oat Allergy Severe Swelling Uncoded 10/02/19 19:18 Review of Systems Review of Systems: Narrative: CONSTITUTIONAL: Denies fever, chills, or sweats. EYES: Denies visual changes, redness, or discharge. ENT: Denies rhinorrhea, congestion, sore throat, or otalgia. He says he has swollen painful glands under his jaw. CARDIOVASCULAR: Denies chest pain, palpitations, or edema. RESPIRATORY: Denies cough or dyspnea. GASTROINTESTINAL: Denies abdominal pain, nausea, vomiting, or diarrhea. GENITOURINARY: Denies dysuria or hematuria. SKIN: Denies rash or itching. MUSCULOSKELETAL: Denies back pain, joint pain, or myalgia. NEUROLOGIC: Denies headache, numbness, or weakness. PSYCHIATRIC: Denies anxiety or depression. [facility] Past Medical History Medical History Anal fissure Repaired Asthma Bipolar affective disorder Bipolar disorder CAD (coronary artery disease) Coronary artery spasm GERD with esophagitis H/O pilonidal cyst HTN (hypertension) with goal to be determined HTN (hypertension) with goal to be determined Migraines Obstructive sleep apnea No longer has a need for CPAP as he has lost weight Pneumonia Pneumonia Psychogenic nonepileptic seizure Sarcoidosis Sarcoidosis of lung rt lung Seizure disorder Seizure disorder Type 2 diabetes mellitus [place]
[2019-10-02 19:45] LABS: Add Urine Microscopic? YES; Appearance Urine Clear (Clear); Bilirubin Urine Negative (Negative); Blood Urine Negative (Negative); Color Urine Yellow (Yellow); Glucose Urine UA 1+ mg/dL (Negative); Hyaline Casts Urine 20-29 /lpf; Ketones Urine Negative (Negative); Leukocyte Esterase Ur Negative LEU/UL (Negative); Mucus Urine Heavy /lpf; Nitrate Urine Negative (Negative); Protein Urine 1+ mg/dL (Negative); RBC Urine 0-2 /hpf (0-2); Specific Grav Ur 1.024 (1.001-1.035); Squamous Epithelial Cell Urine Rare /hpf (Few); Urobilinogen Urine Negative mg/dL (<2.0)
[2019-10-02] MEDS: IBUPROFEN 600 MG TABLET PO (19:45)
[2019-10-02 20:53] VITALS: BP 178/100; PULSE 110; RESP 20; O2SAT 99
[2019-10-02 21:09] VITALS: BP 142/82; PULSE 110; RESP 20; O2SAT 97
[2019-10-02 21:21] VITALS: BP 142/82; PULSE 108; RESP 20; O2SAT 97
== END 2019-10-02 21:23 | disposition home or self-care (01) ==
LOC: ANHED 19:39
PROVIDERS: Emergency Medicine; Emergency Provider Emergency Medicine; PCP Family Medicine
DX: M54.2 Cervicalgia (principal); M79.622 Pain in left upper arm; M79.621 Pain in right upper arm; F31.9 Bipolar disorder, unspecified; D86.0 Sarcoidosis of lung; J45.909 Unspecified asthma, uncomplicated; I25.10 Atherosclerotic heart disease of native coronary artery without angina pectoris; K21.0 Gastro-esophageal reflux disease with esophagitis; I10 Essential (primary) hypertension; E11.9 Type 2 diabetes mellitus without complications; R00.0 Tachycardia, unspecified; R94.31 Abnormal electrocardiogram [ECG] [EKG]; R91.8 Other nonspecific abnormal finding of lung field; I51.7 Cardiomegaly; R82.998 Other abnormal findings in urine
CPT/HCPCS: 36415; 71046; 80053; 81001; 85025; 87081; 87086; 87880; 93005; 99283; A9270

== ENCOUNTER 2019-10-04 14:53 | Inpatient (IN) | payer MEDICARE, MEDICAID, SELFPAY ==
--- NOTE | ~2019-10-04 | US_ITS ---
EXAMINATION: US venous doppler [facility] DATE: 10/05/2019 16:57 INDICATION: Right calf pain. TECHNIQUE: Grayscale ultrasound images without and with compression and Doppler ultrasound images of the bilateral lower extremity veins were obtained. COMPARISON: None. FINDINGS: The visualized portions of right common femoral vein, profunda (deep) femoral vein, femoral vein, pop liteal vein, peroneal veins, posterior tibial veins, and greater saphenous vein outflow are patent. The visualized portions of left common femoral vein, profunda femoral vein, femoral vein, popliteal v ein, peroneal veins, posterior tibial veins, and greater saphenous vein outflow are patent. IMPRESSION: 1. No deep venous thrombosis. Reviewed, dictated and finalized at location A.
--- NOTE | ~2019-10-04 | CT_ITS ---
EXAMINATION:CT chest w con DATE: 10/05/2019 17:01 INDICATION: Focal pleural thickening in right lower thorax. TECHNIQUE: Computed tomography (CT) of the chest was performed with 75 mL Omnipaque 350 intravenous c ontrast. Automated exposure control and iterative reconstruction technique were employed. The dose-le ngth product (DLP) was 579.53 mGy-cm. COMPARISON: Chest CT 03/31/2019, chest 2 views 10/02/2019 FINDINGS: There is peripheral mild atelectasis and scarring in right middle lobe and right lower lobe . No pleural thickening or pleural effusion. The heart size is normal. No pericardial effusion. There is a chronic mildly enlarged right paratracheal lymph node, likely reactive. There is thoracic dextr ocurvature and mild spondylosis. IMPRESSION: 1. Peripheral mild atelectasis and scarring in right middle lobe and right lower lobe. Reviewed, dictated and finalized at location A. IMPRESSION: 1. Peripheral mild atelectasis and scarring in right middle lobe and right lowe r lobe.
--- NOTE | ~2019-10-04 | XR_ITS ---
EXAMINATION: XR chest 1V portable INDICATION: Pleural thickening of the right thorax TECHNIQUE: Portable AP chest at 1701 hours COMPARISON: 10/02/2019 FINDINGS: The lungs are free of acute opacities. There is no pleural effusion or pneumothorax. The ca rdiomediastinal silhouette is normal. Mild osteoarthritis is noted in the acromioclavicular joints. IMPRESSION: 1. No acute cardiopulmonary abnormality. Reviewed, dictated and finalized at location A.
--- NOTE | ~2019-10-04 | CT_ITS ---
EXAMINATION: CT brain wo con DATE: 10/04/2019 18:47 INDICATION: Seizure. TECHNIQUE: Computed tomography (CT) of the head was performed without intravenous contrast. The mA wa s adjusted according to patient size. Iterative reconstruction technique was employed. The dose-lengt h product was 605.33 mGy-cm. COMPARISON: Head CT 07/31/2019 FINDINGS: There is no intracranial hemorrhage, acute infarction, or abnormal intracranial mass lesion . The ventricles are normal in size. There is mild mucosal thickening in the paranasal sinuses. The m astoid air cells are normal. The orbits are normal. IMPRESSION: 1. Normal brain. Reviewed, dictated and finalized at location A. IMPRESSION: 1. Normal brain.
[2019-10-04 14:51] VITALS: BP 163/93; PULSE 106; RESP 18; TEMP 37.3; O2SAT 96
--- NOTE | 2019-10-04 15:45 | ECG_ITS ---
Measurements Intervals [place] Rate: 101 P: 34 AR: 179 QRS: -24 QRSD: 92 T: 46 QT: 333 QTc: 432 Interpretive Statements SINUS TACHYCARDIA DELAYED PRECORDIAL R/S TRANSITION BASELINE ARTIFACT- I, II, III, AVR, AVL, AVF ABNORMAL ECG Electronically Signed On 10-04-2019 15:48:01 CDT by Ajit Alvarado D.O.
--- NOTE | 2019-10-04 16:06 | ED.GENADULT ---
HPI - General Adult General Chief complaint: Seizure Stated complaint: AMS/?SEIZURE Time Seen by Provider: 10/04/19 15:32 History of Present Illness HPI narrative: Patient is a 53 y/o male complaining of several generalized weakness for last 4 days. There is no alleviating or exacerbating factor. He also feels shaky and has pain below both ears. He denies any fever, chill, chest pain or abdominal pain. He was seen at his PCP's office today. He had an episode of unresponsiveness with shaking. He was sent to ED to evaluated for possible seizure. Related Data Home Medications Medication Instructions Recorded Confirmed naproxen 500 mg PO BID PRN 03/31/19 07/31/19 oxcarbazepine 300 mg PO TID 03/31/19 07/31/19 rizatriptan 10 mg PO DAILY PRN 03/31/19 07/31/19 tizanidine 4 mg PO Q8H PRN 03/31/19 07/31/19 furosemide 40 mg PO DAILY 07/25/19 07/31/19 Bystolic 10 mg PO DAILY 07/31/19 07/31/19 quetiapine 400 mg PO HS 07/31/19 07/31/19 citalopram 20 mg tablet 20 mg PO DAILY 10/04/19 oxcarbazepine 300 mg tablet 600 mg PO HS tablet 10/04/19 trazodone 50 mg tablet 50 mg PO .QHS tablet 10/04/19 Allergies Allergy/AdvReac Type Severity Reaction Status Date / Time doxycycline Allergy Intermediate RASH Verified 10/04/19 14:07 levetiracetam Allergy Intermediate INCREASED Verified 10/04/19 14:07 SZ'S meloxicam Allergy Intermediate ITCHING Verified 10/04/19 14:07 Sulfa (Sulfonamide Allergy Mild RASH Verified 10/04/19 14:07 Antibiotics) cephalexin Allergy Unknown Rash Verified 10/04/19 14:07 Cephalosporins Allergy Unknown Rash Verified 10/04/19 14:07 codeine Allergy Unknown Unknown Verified 10/04/19 14:07 Corticosteroids Allergy Unknown Unknown Verified 10/04/19 14:07 (Glucocorticoids) haloperidol Allergy Unknown Seizure Verified 10/04/19 14:07 hydrocodone Allergy Unknown Unknown Verified 10/04/19 14:07 hydromorphone Allergy Unknown Flushing Verified 10/04/19 14:07 morphine Allergy Unknown Unknown Verified 10/04/19 14:07 peanut Allergy Unknown Unknown Verified 10/04/19 14:07 sulfite Allergy Unknown Other Verified 10/04/19 14:07 tetracycline Allergy Unknown Diarrhea Verified 10/04/19 14:07 levalbuterol AdvReac Severe Other Verified 10/04/19 14:07 molindone AdvReac Intermediate Nausea Verified 10/04/19 14:07 Oat Allergy Severe Swelling Uncoded 10/04/19 14:07 Review of Systems Constitutional: Constitutional: Denies chills, Denies fever(s), Denies headache(s) and Reports weakness Eyes: Eyes: Denies blurry vision ENT: Denies headache(s) and Denies neck pain Cardiovascular: Cardiovascular: Denies chest pain and Denies dyspnea Respiratory: Respiratory: Denies cough and Denies dyspnea Gastrointestinal: Gastrointestinal: Denies abdominal pain, Denies diarrhea, Denies nausea and Denies vomiting Genitourinary: Genitourinary: Denies hematuria and Denies dysuria Musculoskeletal: Musculoskeletal: Denies back pain and Denies neck pain Neurologic: Reports syncope, Denies headache(s) and Denies weakness Psychiatric: Psychiatric: Reports as per HPI [facility] Past Medical History Medical History Anal fissure Repaired Asthma Bipolar affective disorder Bipolar disorder CAD (coronary artery disease) Coronary artery spasm GERD with esophagitis H/O pilonidal cyst HTN (hypertension) with goal to be determined HTN (hypertension) with goal to be determined Migraines Obstructive sleep apnea No longer has a need for CPAP as he has lost weight Pneumonia Pneumonia Psychogenic nonepileptic seizure Sarcoidosis Sarcoidosis of lung rt lung Seizure disorder Seizure disorder Type 2 diabetes mellitus Surgical History Surgical History H/O cardiac catheterization 1995 no intervention performed H/O removal of cyst On foot History of lung biopsy History of lung surgery Hx of tonsillectomy Hx of tonsillectomy No significant past surgical h
[2019-10-04] MEDS: SODIUM CHLORIDE 0.9% IV 1,000 ML 999 ML IV CONT (16:37)
[2019-10-04 16:51] LABS: Basophils Absolute Auto 0.1 K/mm3 (0.0-0.1); Basophils Percent Auto 0.5 % (0.2-1.2); Eosinophils Percent Auto 0.3 % (0-4.4); Hematocrit 47.9 % (42.0-52.0); Hemoglobin 16.4 g/dL (14.0-18.0); Immature Granulocyte Absolute 0.05 K/mm3 (0.00-0.031); Immature Granulocyte Percent A 0.4 % (0-0.5); Lymphocytes Absolute Auto 2.51 K/mm3 (0.9-3.2); Lymphocytes Percent Auto 21.4 % (18.3-44.2); Mean Corpuscular HGB Conc 34.2 g/dl (32-36); Mean Corpuscular Hemoglobin 30.4 pg (26-34); Mean Corpuscular Volume 88.9 fl (80-100); Mean Platelet Volume 10.4 fl (7.4-10.4); Monocytes Absolute Auto 0.8 K/mm3 (0.1-0.6); Monocytes Percent Auto 6.7 % (2.6-8.5); Neutrophils Absolute Auto 8.3 K/mm3 (1.3-6.7); Neutrophils Percent Auto 70.7 % (45.5-73.1); Platelet Count Result 325 k/mm3 (150-375); Red Blood Count 5.39 M/mm3 (4.6-6.20); Red Cell Distribution Width 12.6 % (11.5-14.5); White Blood Count 11.7 K/mm3 (4.5-10.0)
[2019-10-04 16:54] LABS: Add Urine Microscopic? YES; Appearance Urine Clear (Clear); Bilirubin Urine Negative (Negative); Blood Urine Negative (Negative); Color Urine Colorless (Yellow); Glucose Urine UA 1+ mg/dL (Negative); Ketones Urine Negative (Negative); Leukocyte Esterase Ur Negative LEU/UL (Negative); Nitrate Urine Negative (Negative); Protein Urine Negative (Negative); RBC Urine 0-2 /hpf (0-2); Squamous Epithelial Cell Urine Rare /hpf (Few); Urobilinogen Urine Negative mg/dL (<2.0); WBC Urine 0-3 /hpf
[2019-10-04 17:03] LABS: Blood Urea Nitrogen 4 mg/dL (9-20); Calcium 9.1 mg/dL (8.4-10.2); Carbon Dioxide 22 mmol/L (22-30); Chloride 103 mmol/L (98-107); Estimated CRCL calculation 132 ml/min; Estimated Glomerular Filt Rate > 60; Glucose 190 mg/dL (75-110); Potassium 3.3 mmol/L (3.4-5.0); Sodium 137 mmol/L (137-145)
[2019-10-04 17:06] LABS: Specific Grav Ur 1.004 (1.001-1.035)
[2019-10-04] MEDS: POTASSIUM CHLORIDE 20 MEQ TABLET PO (18:20)
--- NOTE | 2019-10-04 18:22 | PC.NURSE ---
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 went to pts room and found pt intermittently twitching. tapped pts chest and pt aroused to take potassium pill without difficulty. pt then states i think something weird is going on. i just lost the last 30 min . 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 c/o headache.
[2019-10-04 21:19] VITALS: BP 131/82; PULSE 102; RESP 22; O2SAT 98
--- NOTE | 2019-10-04 21:30 | PC.NURSE ---
Pt stated to this nurse that he has a h/a that's not as intense as a migraine but it is pounding rating it a 5/10 from hitting head at doctors office. Pt states he wants medicine upstairs and none of the small medicine he will be given down here in the ER for his h/a. Will give this information in report to accepting nurse.
[2019-10-04 22:30] VITALS: BP 113/59; PULSE 107; RESP 17; O2SAT 100
[2019-10-04 22:55] VITALS: BP 113/59; BP 165/98; PULSE 106; PULSE 107; RESP 17; RESP 18; TEMP 36.8; O2SAT 100; O2SAT 98
--- NOTE | 2019-10-04 23:45 | PC.NURSE ---
pt arrived to floor alert & oriented x3. c/o of pain in back of head and right ear dull ache. was able to give pt history.
[2019-10-04 23:49] VITALS: BMI 38.0
[2019-10-05] VITALS (9 sets, daily range): BP systolic 138–158; BP diastolic 79–90; PULSE 68–138; RESP 18–24; TEMP 36.3–36.7; O2SAT 97–99; BMI 38.0
[2019-10-05 10:32] LABS: Basophils Absolute Auto 0.1 K/mm3 (0.0-0.1); Basophils Percent Auto 0.7 % (0.2-1.2); Eosinophils Absolute Auto 0.1 K/mm3 (0-0.3); Eosinophils Percent Auto 0.7 % (0-4.4); Hematocrit 43.2 % (42.0-52.0); Hemoglobin 14.6 g/dL (14.0-18.0); Immature Granulocyte Absolute 0.02 K/mm3 (0.00-0.031); Immature Granulocyte Percent A 0.2 % (0-0.5); Lymphocytes Absolute Auto 2.37 K/mm3 (0.9-3.2); Mean Corpuscular HGB Conc 33.8 g/dl (32-36); Mean Corpuscular Hemoglobin 30.2 pg (26-34); Mean Corpuscular Volume 89.4 fl (80-100); Mean Platelet Volume 10.2 fl (7.4-10.4); Monocytes Absolute Auto 0.9 K/mm3 (0.1-0.6); Monocytes Percent Auto 10.4 % (2.6-8.5); Neutrophils Absolute Auto 5.4 K/mm3 (1.3-6.7); Platelet Count Result 317 k/mm3 (150-375); Red Blood Count 4.83 M/mm3 (4.6-6.20); Red Cell Distribution Width 12.7 % (11.5-14.5); White Blood Count 8.8 K/mm3 (4.5-10.0)
[2019-10-05] MEDS: NEBIVOLOL HCL 5 MG TABLET 10 MG PO (10:43)
[2019-10-05 10:47] LABS: Alanine Aminotransferase 41 U/L (4-50); Albumin Level 3.7 g/dL (3.5-5.1); Alkaline Phosphatase 87 U/L (38-126); Aspartate Amino Transferase 32 U/L (17-59); Bilirubin,Total 0.7 mg/dL (0.2-1.3); Blood Urea Nitrogen 9 mg/dL (9-20); Calcium 8.8 mg/dL (8.4-10.2); Carbon Dioxide 26 mmol/L (22-30); Chloride 105 mmol/L (98-107); Estimated CRCL calculation 116 ml/min; Estimated Glomerular Filt Rate > 60; Glucose 149 mg/dL (75-110); Potassium 3.5 mmol/L (3.4-5.0); Sodium 133 mmol/L (137-145)
[2019-10-05] MEDS: FLUTICASONE PROPIONATE 0.05% NA SPR 16 GM BTL (*BKC) 2 SPRAY NASAL ×2 (10:48→18:19)
[2019-10-05] MEDS: PRIMIDONE 250 MG TABLET PO ×3 (10:54→18:19)
[2019-10-05 10:56] LABS: Hemoglobin A1C 7.5 % (<5.7)
[2019-10-05] MEDS: PANTOPRAZOLE 40 MG TABLET PO (10:56)
[2019-10-05] MEDS: FUROSEMIDE 40 MG TABLET PO (10:57)
[2019-10-05] MEDS: OXcarbazepine 300 MG TABLET PO ×3 (10:59→18:21)
[2019-10-05] MEDS: POTASSIUM CHLORIDE 10 MEQ TABLET.ER PO ×2 (10:59→18:19)
[2019-10-05] MEDS: CITALOPRAM HYDROBROMIDE 20 MG TABLET PO (11:04)
[2019-10-05 14:14] LABS: Glucose Point of Care 191 (65-105)
--- NOTE | 2019-10-05 16:57 | PC.NURSE ---
10:10 found pt whaling about iin position in bed, shaking, no clonic tonic noted, pt wasn't incont. eyes not deviated. told pt that sz was over. pt quickly woke up and answered question, speech was clear. then pt ordered dinner post itical not noted. pt
--- NOTE | 2019-10-05 17:46 | PM.IMHP ---
H&P: HPI History of Present Illness Chief complaint: seizure Narrative: aMrtín Salgado is a 53 year old male with PMH significant for seizure disorder and psychogenic seizures, migraine headaches, bipolar disorder, hypertension, asthma, gastroesophageal reflux disease, and hx of sarcoidosis s/p right thoracotomy at least 15-20 years ago who presented to the emergency department for the evaluation of a reported seizure at his primary care provider's office. He states that the episode lasted for approximately 1 minute. He has multiple non-specific complaints. He reports generalized weakness for 4 days. He also reports discomfort below the right ear in the submandibular area. He reports occasional cough, post-nasal drip, and sore throat. He has allergies and notes that these sx are especially bothersome with his allergies. He reports diarrhea and sexual dysfunction since starting citalopram. He has a phone appointment with his psychiatrist today at 4pm to discuss this. He reports right calf pain. He reports weight loss over the past 1-1.5 months. He has occasional migraine headaches and is on rizatriptan PRN. He has no other concerns at this time. Initial workup in the emergency department revealed WBC 11,700, Hb 16.4, Hct 47.9, platelets 325, sodium 137, potassium 3.3, chloride 103, CO2 22, BUN 4, Cr 0.7, 1+ glucose on UA, and EKG with sinus tachycardia. CT brain was unremarkable. His potassium was supplemented with 20mEq PO potassium in the emergency department. He was admitted to the hospitalist service and the neurology service was consulted for further evaluation of his possible seizure. Upon my evaluation of the patient this afternoon, he reported that he had a seizure earlier in the morning. The RN reports that the patient was shaking in bed without tonic-clonic activity, incontinence, or eye deviation. The RN reports that the patient stopped shaking at her arrival to the bedside and told him that he was no longer shaking. He immediately opened his eyes and answered questions. He had no speech deficits or neurological impairment. He had no post-ictal confusion. He immediately asked to order dinner and proceeded to place his order. He has no other complaints at this time. Review of Systems Review of Systems: Narrative: Constitutional: Denies fever and chills. Reports generalized weakness and fatigue. Eyes: Denies vision change. No additional eye complaints. ENT: Denies change in hearing, nasal congestion, dysphagia and odynophagia. Reports sore throat. Cardiovascular: Denies palpitations and chest pain. Denies PND and orthopnea. Denies dyspnea on exertion. Respiratory: Reports occasional cough. Denies dyspnea. Has a hx of asthma. Gastrointestinal: Denies abdominal pain, nausea, and vomiting. Reports intermittent diarrhea. Genitourinary: Denies dysuria, frequency, urgency, and hesitancy. Musculoskeletal: Denies joint pain and swelling. Reports right calf pain. Skin: Denies lesions and wounds. Neurologic: Denies focal weakness, paresthesias, confusion, and speech change. Denies headaches. Psychiatric: Denies mood change. Hematologic: Denies easy bruising and bleeding. All systems reviewed & are unremarkable except as noted in HPI and below PMFSH Past Medical History Medical History (Updated 10/06/19 @ 07:02 by Sunita Jimenez PA-C) Anal fissure Repaired Asthma Bipolar affective disorder Bipolar disorder CAD (coronary artery disease) Coronary artery spasm GERD with esophagitis H/O pilonidal cyst HTN (hypertension) with goal to be determined HTN (hypertension) with goal to be determined Migraines Obstructive sleep apnea No longer has a need for CPAP as he has lost weight Pneumonia Pneumonia Psychogenic nonepileptic seizure Sarcoidosis Sarcoidosis of lung rt lung Seizure disorder Seizure disorder Type 2 diabetes mellitus Surgical History Surgical History (Updated 10/05/19 @ 21:11 by Sunita Jimenez PA-C) H/O cardiac cathete
[2019-10-05 18:24] LABS: Glucose Point of Care 184 (65-105)
--- NOTE | 2019-10-05 19:49 | PC.NURSE ---
CELESTINE CHUN THIS AM . 1530
[2019-10-05] MEDS: ZAFIRLUKAST 20 MG TABLET PO (19:54)
[2019-10-05] MEDS: QUEtiapine FUMARATE XR 200 MG TAB.ER.24H 400 MG PO (21:16)
[2019-10-05] MEDS: OXcarbazepine 300 MG TABLET 900 MG PO (21:16)
[2019-10-05] MEDS: traZODone HCL 50 MG TABLET PO (21:54)
[2019-10-06 04:32] LABS: Glucose Point of Care 168 (65-105)
[2019-10-06 05:52] VITALS: BP 126/71; PULSE 65; RESP 18; TEMP 36.4; O2SAT 98
[2019-10-06 06:30] LABS: Basophils Percent Auto 0.5 % (0.2-1.2); Eosinophils Absolute Auto 0.1 K/mm3 (0-0.3); Eosinophils Percent Auto 1.2 % (0-4.4); Hematocrit 40.3 % (42.0-52.0); Hemoglobin 13.3 g/dL (14.0-18.0); Immature Granulocyte Absolute 0.02 K/mm3 (0.00-0.031); Immature Granulocyte Percent A 0.3 % (0-0.5); Lymphocytes Absolute Auto 2.34 K/mm3 (0.9-3.2); Lymphocytes Percent Auto 32.1 % (18.3-44.2); Mean Corpuscular Hemoglobin 29.6 pg (26-34); Mean Corpuscular Volume 89.6 fl (80-100); Monocytes Absolute Auto 0.7 K/mm3 (0.1-0.6); Monocytes Percent Auto 9.9 % (2.6-8.5); Neutrophils Absolute Auto 4.1 K/mm3 (1.3-6.7); Platelet Count Result 274 k/mm3 (150-375); Red Cell Distribution Width 12.5 % (11.5-14.5); White Blood Count 7.3 K/mm3 (4.5-10.0)
[2019-10-06 06:41] LABS: Alanine Aminotransferase 40 U/L (4-50); Albumin Level 3.4 g/dL (3.5-5.1); Alkaline Phosphatase 77 U/L (38-126); Aspartate Amino Transferase 32 U/L (17-59); Bilirubin,Total 0.7 mg/dL (0.2-1.3); Blood Urea Nitrogen 7 mg/dL (9-20); Calcium 8.4 mg/dL (8.4-10.2); Carbon Dioxide 28 mmol/L (22-30); Chloride 98 mmol/L (98-107); Estimated CRCL calculation 131 ml/min; Estimated Glomerular Filt Rate > 60; Glucose 146 mg/dL (75-110); Magnesium 1.9 mg/dL (1.6-2.3); Potassium 3.4 mmol/L (3.4-5.0); Sodium 132 mmol/L (137-145)
[2019-10-06 08:37] LABS: Glucose Point of Care 169 (65-105)
--- NOTE | 2019-10-06 09:35 | PM.IMPN ---
Progress Note: A&P Assessment and Plan (1) Suicidal behavior: Code(s): R46.89 - Other symptoms and signs involving appearance and behavior Status: Acute Assessment and Plan: The patient is expressing suicidal thoughts and was observed by staff initiating an attempt to try to cut himself with a piece of glass he obtained from shattering the mirror on his bedside table. He did have scratch dunbar reported on the LUE. He reported that he was having auditory hallucinations with voices telling him to. He became intermittently combative and told security that he was able to sense when a combative episode was about to start. He required 4 guards when he became aggressive. He was given IV ativan and he will be transferred to the ICU for closer monitoring and management. I have contacted crisis to notify them of the situation and they will begin working on transfer to an inpatient psychiatric facility. He has been discharged to [place] multiple times during prior admissions. (2) Auditory hallucinations: Code(s): R44.0 - Auditory hallucinations Status: Acute Assessment and Plan: As above. The patient will need further inpatient psychiatric care once medically stable. (3) Seizure disorder: Code(s): G40.909 - Epilepsy, unspecified, not intractable, without status epilepticus Status: Chronic Assessment and Plan: The patient has a hx of seizure disorder. He is established with Dr. Dong. He had seizure activity reported at his PCP's office and was sent to the ED for further evaluation. His potassium was low at 3.3 10/03 and has been supplemented. He had an episode very suspicious for a psychogenic nonepileptic seizure 10/04 per nursing descriptions which lasted for 1 minute. It was described as large-amplitude bilateral limb movements/shaking with no post-ictal state, gaze deviation, or incontinence. I was not able to witness this episode. Plan to continue oxcarbazepine and primidone. Initiate seizure precautions. Neurology has been consulted and further input is appreciated. Management per neurology. I have ordered an EEG and will continue to monitor electrolytes closely. Await further neurology input. (4) Diabetes mellitus: Code(s): E11.9 - Type 2 diabetes mellitus without complications Status: Acute Assessment and Plan: Hemoglobin A1c was elevated at 7.5. I will initiate ACHS glucose monitoring, low-dose SSI, and hypoglycemia protocol. Will discuss metformin with the pt at discharge. His diabetes mellitus may be contributing to his recent weight loss, fatigue, and weakness. (5) Psychogenic nonepileptic seizure: Code(s): F44.5 - Conversion disorder with seizures or convulsions Status: Acute Assessment and Plan: As above. The patient reports a hx of seizure disorder and psychogenic nonepileptic seizures. (6) Sarcoidosis of lung: Code(s): D86.0 - Sarcoidosis of lung Status: Acute Assessment and Plan: He reports a hx of biopsy-proven sarcoidosis from a lymph node biopsy. He reports a right thoracotomy to remove a sarcoid lesion. CXR revealed questionable focal pleural thickening of the right lower thorax with the inability to exclude underlying mass. He had a bronchoscopy 12/[address] Aburto which revealed chronic bronchitis with benign vascular proliferation, reactive in appearance. The patient was referred to a Sarcoidosis Clinic at [facility] per pulmonology previously. CT chest was performed and revealed a peripheral mild atelectasis and scarring in right middle lobe and right lower lobe. There was a chronic, mildly enlarged right paratracheal lymph node, likely reactive, visualized on CT chest. He will need to follow-up with the sarcoidosis clinic at [facility]. (7) Bipolar disorder: Code(s): F31.9 - Bipolar disorder, unspecified Status: Chronic Assessment and Plan: Continue quetiapine, oxcarbazepine, and c
[2019-10-06 10:00] VITALS: BP 110/69; PULSE 110; RESP 20; O2SAT 92
--- NOTE | 2019-10-06 10:04 | PC.NURSE ---
Patient had apparent seizure lasting approximately 20 seconds, currently post ictal VSS,
--- NOTE | 2019-10-06 10:27 | PC.NURSE ---
0910 CALLED INTO ROOM PER KAVYA AYALA CHARGE NURSE. FOUND PT HOLDING BROKEN GLASS, C/O OF OF HIS HEAD , LEFT EYE PARTIAL OPEN.PT STATING THAT VOICES ARE SO LOUD IT HURTS HIS HEAD. VOICES ARE TELLING HIM TO DO THINGS. AFTER A SHORT TIME TALKED WITH PT AND HE ALLOWED ME TO REMOVE THE BROKEN GLASS FROM HIS BED AND HANDS. NOTED SCRATCH APPLE ON HIS LEFT ARM WRIST AND ANTECUBITAL. PT STATES GET THE MEN IN HERE , CALLED P HEAD IN THE ROOM PT BEGAN VIOLENTLY FLAILING IN THE BED. 4 MEN HOLDING PT DOWN AND IN THE BED. PT HAVING PERIODS OF RESTING WITHOUT MOVEMENT AND THEN PT WOULD TELL BEENA THAT HE WAS GOING TO DO SOMETHING AND HE YOUSIF BEGIN FLAILING . CALLED INTO ROOM ORDERS RECEIVED. ATIVAN WAS GIVEN IVP X1 AND REPORT WAS CALLED TO [facility] AND THEN SENT TO ICU 6.
--- NOTE | 2019-10-06 10:35 | PC.NURSE ---
Patient transferred from [facility] with security via bed 0939 via bed. Report from Denis ALVARADO given to Stefan ALVARADO. Supplies taken out of room. On SI precautions with security at bedside.
[2019-10-06 12:04] VITALS: BP 106/70; PULSE 91; RESP 18; O2SAT 92
[2019-10-06 12:18] LABS: Glucose Point of Care 145 (65-105)
[2019-10-06 14:00] VITALS: BP 128/74; PULSE 89; RESP 18; O2SAT 96
--- NOTE | 2019-10-06 14:00 | PCNEURO ---
EEG is on hold per Dr Dong due to patient condition and has had several EEG's done in recent past. Patient is to be transferred to psychiatric facility.
--- NOTE | 2019-10-06 14:59 | CONS_ITS ---
DATE OF CONSULTATION: HISTORY OF PRESENT ILLNESS: This 53 years old right-handed male has been admitted to [facility] through the emergency room for the complaints of seizure at his primary care physician, the episode lasted for 1 minute, in addition to the multiple nonspecific complaints. He reported that he has weakness of 4 days duration, discomfort below the right ear in the submandibular area, occasional cough, postnasal drip, and sore throat. Also diarrhea. Sexual dysfunction since starting citalopram. He had a phone appointment with his psychiatrist at 4 p.m. to discuss the situation, but he developed right calf pain. He had lost weight over the last 1-1/2 months. Complained of occasional headache for which he takes rizatriptan p.r.n. Initial evaluation in the emergency room revealed him to have CBC with 11,700 WBC, but hemoglobin 16.4, platelet count 325. Basic metabolic panel was normal though the potassium was 3.3, and 1+ glucose on UA. EKG in sinus tachycardia. CT of the brain was negative. He received a potassium supplement in the ER. He was admitted to the hospital and neurologist consultation was obtained because of the possible seizures. Reportedly, he was having seizure with tonic-clonic activity, incontinence, and eye deviation. Had no postictal confusion. PAST MEDICAL HISTORY: The patient does have ongoing history of 1. Bipolar affective disorder. 2. Bronchial asthma. 3. Coronary artery spasm. 4. GERD with esophagitis. 5. Hypertension. 6. Obstructive sleep apnea without CPAP. 7. Right lung sarcoidosis. 8. Seizure disorder. 9. Type 2 diabetes mellitus. PAST SURGICAL HISTORY: He has undergone cardiac catheterization, lung biopsy, hernial repair, partial lobectomy of the lung with diagnosis of sarcoidosis. SOCIAL HISTORY: He is a former drinker, never a smoker. MEDICATIONS: Has been taking multiple medications, which particularly involve oxcarbazepine 300 mg 3 times a day, rizatriptan 10 mg p.r.n., furosemide 40 mg daily, Bystolic 10 mg daily, Seroquel 400 mg at bedtime for bipolar illness, primidone 250 mg t.i.d., trazodone 50 mg at bedtime, and clonazepam 0.5 mg twice a day. ALLERGIES: ALLERGIC TO MULTIPLE MEDICATIONS, IS A LONG LIST INCLUDING DOXYCYCLINE, LEVETIRACETAM, MELOXICAM, SULFA, CEPHALEXIN, CODEINE, CORTICOSTEROID, HALOPERIDOL, HYDROCODONE, HYDROMORPHONE, MORPHINE, PEANUT, SULFITE, TETRACYCLINE, LEVALBUTEROL, MOLINDONE, AND OAT. PHYSICAL EXAMINATION: GENERAL: Revealed him to be afebrile with pulse of 102, respiration 20, came down to 18, blood pressure 131/82, subsequently 165/98, pulse ox 98%. HEENT: Head normocephalic with no cranial bruit. Ears, nose, throat exam normal. NECK: Supple with no cervical bruit. No thyromegaly. No lymphadenopathy. HEART: Regular. LUNGS: Clear. ABDOMEN: Soft. NEUROLOGIC: Normal mental status. Normal speech. Pupils round regular. Domingo of vision full. Extraocular movements full. Face symmetrical. Tongue midline. Motor examination revealed no focal motor deficit. Reflexes symmetrical. Plantar downgoing. No evidence of cerebellar deficit. LABORATORY DATA: Evaluation up until now particularly involved CBC without leukocytosis, hemoglobin 14.6, normal basic metabolic panel with a glucose of 149, AST 32, ALT 41, alkaline phos 87, albumin 3.7. IMPRESSION AND PLAN: Considering the history of the pseudo-seizure, even though he is taking primidone 250 mg t.i.d. in addition to oxcarbazepine 900 mg at bedtime and 300 mg t.i.d., which is a significant big dose, I will continue the medication as such and obtain an EEG. SUMAN ARTHUR M.D. TILE MACHINE OPERATOR TILE MACHINE OPERATOR
[2019-10-06] MEDS: POTASSIUM CHLORIDE 10 MEQ TABLET.ER PO (17:40)
[2019-10-06] MEDS: ZAFIRLUKAST 20 MG TABLET PO (17:40)
[2019-10-06] MEDS: FLUTICASONE PROPIONATE 0.05% NA SPR 16 GM BTL (*BKC) 2 SPRAY NASAL (17:40)
[2019-10-06] MEDS: PRIMIDONE 250 MG TABLET PO (17:40)
[2019-10-06] MEDS: OXcarbazepine 300 MG TABLET PO (17:41)
[2019-10-06 20:00] VITALS: PULSE 65; RESP 16; O2SAT 98
[2019-10-06] MEDS: OXcarbazepine 300 MG TABLET 900 MG PO (22:38)
[2019-10-06] MEDS: QUEtiapine FUMARATE XR 200 MG TAB.ER.24H 400 MG PO (22:38)
[2019-10-07 04:47] LABS: Blood Urea Nitrogen 8 mg/dL (9-20); Calcium 8.5 mg/dL (8.4-10.2); Carbon Dioxide 26 mmol/L (22-30); Chloride 98 mmol/L (98-107); Estimated CRCL calculation 131 ml/min; Estimated Glomerular Filt Rate > 60; Glucose 101 mg/dL (75-110); Magnesium 2.1 mg/dL (1.6-2.3); Potassium 3.1 mmol/L (3.4-5.0); Sodium 132 mmol/L (137-145)
[2019-10-07 08:00] VITALS: BP 145/90; PULSE 96; RESP 20; TEMP 36.6; O2SAT 97
[2019-10-07 08:15] LABS: Glucose Point of Care 103 (65-105)
[2019-10-07] MEDS: PANTOPRAZOLE 40 MG TABLET PO (10:29)
[2019-10-07] MEDS: FUROSEMIDE 40 MG TABLET PO (10:29)
[2019-10-07] MEDS: PRIMIDONE 250 MG TABLET PO ×3 (10:30→18:38)
[2019-10-07 10:31] VITALS: PULSE 100
[2019-10-07] MEDS: NEBIVOLOL HCL 5 MG TABLET 10 MG PO (10:31)
[2019-10-07] MEDS: OXcarbazepine 300 MG TABLET PO ×3 (10:31→18:38)
[2019-10-07] MEDS: LORATADINE 10 MG TABLET PO (10:32)
[2019-10-07] MEDS: POTASSIUM CHLORIDE 10 MEQ TABLET.ER PO ×2 (10:34→18:38)
[2019-10-07] MEDS: FLUTICASONE PROPIONATE 0.05% NA SPR 16 GM BTL (*BKC) 2 SPRAY NASAL ×2 (10:37→18:38)
[2019-10-07 12:15] LABS: Glucose Point of Care 104 (65-105)
--- NOTE | 2019-10-07 12:25 | WPDNEUROPN ---
Progress Note: A&P Assessment and Plan (1) Auditory hallucinations: Code(s): R44.0 - Auditory hallucinations Status: Acute (2) Suicidal behavior: Code(s): R46.89 - Other symptoms and signs involving appearance and behavior Status: Acute (3) Hypertension: Code(s): I10 - Essential (primary) hypertension Status: Acute (4) Diabetes mellitus: Code(s): E11.9 - Type 2 diabetes mellitus without complications Status: Acute (5) Right calf pain: Code(s): M79.661 - Pain in right lower leg Status: Acute (6) Weakness: Code(s): R53.1 - Weakness Status: Acute (7) Seizure: Code(s): R56.9 - Unspecified convulsions Status: Acute (8) Hypokalemia: Code(s): E87.6 - Hypokalemia Status: Acute (9) GERD (gastroesophageal reflux disease): Qualifiers: Esophagitis presence: esophagitis presence not specified Qualified Code(s): K21.9 - Gastro-esophageal reflux disease without esophagitis Code(s): K21.9 - Gastro-esophageal reflux disease without esophagitis Status: Acute (10) Hallucinations: Code(s): R44.3 - Hallucinations, unspecified Status: Acute (11) Dizziness: Code(s): R42 - Dizziness and giddiness Status: Acute (12) Acute confusion: Code(s): R41.0 - Disorientation, unspecified Status: Acute (13) Pseudoseizure: Code(s): F44.5 - Conversion disorder with seizures or convulsions Status: Acute (14) Bipolar disorder: Code(s): F31.9 - Bipolar disorder, unspecified Status: Chronic (15) HTN (hypertension) with goal to be determined: Code(s): I10 - Essential (primary) hypertension Status: Chronic (16) GERD with esophagitis: Code(s): K21.0 - Gastro-esophageal reflux disease with esophagitis Status: Chronic (17) Migraines: Code(s): G43.909 - Migraine, unspecified, not intractable, without status migrainosus Status: Chronic (18) Asthma: Qualifiers: Asthma severity: unspecified severity Asthma persistence: unspecified Asthma complication type: unspecified Qualified Code(s): J45.909 - Unspecified asthma, uncomplicated Code(s): J45.909 - Unspecified asthma, uncomplicated Status: Chronic (19) DVT prophylaxis: Code(s): Z29.9 - Encounter for prophylactic measures, unspecified Status: Acute (20) Psychogenic nonepileptic seizure: Code(s): F44.5 - Conversion disorder with seizures or convulsions Status: Acute (21) Homicidal thoughts: Code(s): R45.850 - Homicidal ideations Status: Acute (22) Pneumonia: Code(s): J18.9 - Pneumonia, unspecified organism Status: Acute (23) Mucus plugging of bronchi: Code(s): J98.09 - Other diseases of bronchus, not elsewhere classified Status: Acute (24) Pneumonia: Code(s): J18.9 - Pneumonia, unspecified organism Status: Acute (25) Sarcoidosis of lung: Code(s): D86.0 - Sarcoidosis of lung Status: Acute (26) Respiratory infection: Code(s): J98.8 - Other specified respiratory disorders Status: Acute (27) Bipolar affective disorder: Code(s): F31.9 - Bipolar disorder, unspecified Status: Acute (28) HTN (hypertension) with goal to be determined: Code(s): I10 - Essential (primary) hypertension Status: Acute (29) Seizure disorder: Code(s): G40.909 - Epilepsy, unspecified, not intractable, without status epilepticus Status: Acute (30) AB (asthmatic bronchitis): Qualifiers: Asthma complication type: with acute exacerbation Asthma persistence: persistent Asthma severity: moderate Qualified Code(s): J45.41 - Moderate persistent asthma with (acute) exacerbation Code(s): J45.909 - Unspecified asthma, uncomplicated Status: Acute (31) Hypoxemia: Code(s): R09.02 - Hypoxemia Status: Acute
--- NOTE | 2019-10-07 13:38 | PM.IMPN ---
Progress Note: A&P Assessment and Plan (1) Suicidal behavior: Code(s): R46.89 - Other symptoms and signs involving appearance and behavior Status: Acute Assessment and Plan: 10/05 The patient was expressing suicidal thoughts and was observed by staff initiating an attempt to try to cut himself with a piece of glass he obtained from shattering the mirror on his bedside table. He reported that he was having auditory hallucinations with voices telling him to. He was combative and had to be restrained 10/05 but much more subdued today. I have contacted crisis to notify them of the situation and they will begin working on transfer to an inpatient psychiatric facility. He has been discharged to [place] multiple times during prior admissions. (2) Auditory hallucinations: Code(s): R44.0 - Auditory hallucinations Status: Acute Assessment and Plan: As above. The patient will need further inpatient psychiatric now that he is medically stable (3) Seizure disorder: Code(s): G40.909 - Epilepsy, unspecified, not intractable, without status epilepticus Status: Chronic Assessment and Plan: The patient has a hx of seizure disorder. He is established with Dr. Dong. He had seizure activity reported at his PCP's office and was sent to the ED for further evaluation. His potassium was low at 3.3 10/03 and has been supplemented. He had an episode compatible with a psychogenic nonepileptic seizure 10/04 per nursing descriptions which lasted for 1 minute. It was described as large-amplitude bilateral limb movements/shaking with no post-ictal state, gaze deviation, or incontinence. Plan to continue oxcarbazepine and primidone. Initiate seizure precautions. Neurology has seen the patient and no further adjustment in seizure medications deemed necessary. Medically stable to be transferred to inpatient psych (4) Diabetes mellitus: Code(s): E11.9 - Type 2 diabetes mellitus without complications Status: Acute Assessment and Plan: Hemoglobin A1c was elevated at 7.5. ACHS glucose monitoring, low-dose SSI, and hypoglycemia protocol.. His diabetes mellitus may be contributing to his recent weight loss, fatigue, and weakness. (5) Psychogenic nonepileptic seizure: Code(s): F44.5 - Conversion disorder with seizures or convulsions Status: Acute Assessment and Plan: As above. The patient reports a hx of seizure disorder and psychogenic nonepileptic seizures. (6) Sarcoidosis of lung: Code(s): D86.0 - Sarcoidosis of lung Status: Acute Assessment and Plan: He reports a hx of biopsy-proven sarcoidosis from a lymph node biopsy. He reports a right thoracotomy to remove a sarcoid lesion. CXR revealed questionable focal pleural thickening of the right lower thorax with the inability to exclude underlying mass. He had a bronchoscopy 12/[address] Aburto which revealed chronic bronchitis with benign vascular proliferation, reactive in appearance. The patient was referred to a Sarcoidosis Clinic at [facility] per pulmonology previously. CT chest was performed and revealed a peripheral mild atelectasis and scarring in right middle lobe and right lower lobe. There was a chronic, mildly enlarged right paratracheal lymph node, likely reactive, visualized on CT chest. He will need to follow-up with the sarcoidosis clinic at [facility]. (7) Bipolar disorder: Code(s): F31.9 - Bipolar disorder, unspecified Status: Chronic Assessment and Plan: Continue quetiapine, oxcarbazepine, and citalopram. The patient discussed his concerns regarding ADRs since initiating citalopram with his psychiatrist today. She recommended that we begin a taper. He will follow-up with her outpatient for further medication changes. (8) Hypokalemia: Code(s): E87.6 - Hypokalemia Status: Acute Assessment and Plan: Potassium was 3.3 in the ED. He recei
[2019-10-07] MEDS: POTASSIUM CHLORIDE 20 MEQ TABLET 40 MEQ PO (14:22)
[2019-10-07 18:28] LABS: Glucose Point of Care 110 (65-105)
[2019-10-07 20:00] VITALS: BP 124/76; PULSE 95; RESP 14; TEMP 36.8; O2SAT 96
[2019-10-07] MEDS: QUEtiapine FUMARATE XR 200 MG TAB.ER.24H 400 MG PO (20:22)
[2019-10-07] MEDS: OXcarbazepine 300 MG TABLET 900 MG PO (20:24)
[2019-10-07] MEDS: CITALOPRAM HYDROBROMIDE 10 MG TABLET PO (20:27)
[2019-10-07] MEDS: CITALOPRAM HYDROBROMIDE 5 MG TABLET PO (20:47)
[2019-10-07 21:03] LABS: Ethanol < 10 mg/dL (<10)
[2019-10-07 21:06] LABS: Add Urine Microscopic? NO; Appearance Urine Clear (Clear); Bilirubin Urine Negative (Negative); Blood Urine Negative (Negative); Color Urine Straw (Yellow); Glucose Urine UA Negative (Negative); Ketones Urine Negative (Negative); Leukocyte Esterase Ur Negative LEU/UL (NEGATIVE); Nitrate Urine Negative (Negative); Protein Urine Negative (Negative); Urobilinogen Urine Negative mg/dL (<2.0)
[2019-10-07 21:12] LABS: Glucose Point of Care 196 (65-105)
[2019-10-07 21:14] LABS: Amphetamine Screen Urine Negative (Negative); Barbiturate Screen Urine Positive (Negative); Benzodiazepines Screen Urine Negative (Negative); Cannabinoid Screen Urine Negative (Negative); Cocaine Screen Urine Negative (Negative); Methadone Screen Urine Negative (Negative); Opiate Screen Urine Negative (Negative); Phencyclidine Screen Urine Negative (Negative)
[2019-10-07] MEDS: ONDANSETRON INJ 4 MG/2 ML VIAL IV PUSH (21:36)
[2019-10-08 09:14] VITALS: BP 114/71; PULSE 82; RESP 16; TEMP 36.8; O2SAT 97
[2019-10-08 09:25] LABS: Glucose Point of Care 115 (65-105)
[2019-10-08] MEDS: FLUTICASONE PROPIONATE 0.05% NA SPR 16 GM BTL (*BKC) 2 SPRAY NASAL ×2 (09:42→17:45)
[2019-10-08] MEDS: FUROSEMIDE 40 MG TABLET PO (09:43)
[2019-10-08] MEDS: PANTOPRAZOLE 40 MG TABLET PO (09:43)
[2019-10-08 09:47] VITALS: PULSE 76
[2019-10-08] MEDS: NEBIVOLOL HCL 5 MG TABLET 10 MG PO (09:47)
[2019-10-08] MEDS: OXcarbazepine 300 MG TABLET PO ×3 (09:50→17:46)
[2019-10-08] MEDS: POTASSIUM CHLORIDE 10 MEQ TABLET.ER PO ×2 (09:51→17:47)
[2019-10-08] MEDS: PRIMIDONE 250 MG TABLET PO ×3 (09:51→17:46)
--- NOTE | 2019-10-08 10:55 | PCDIET ---
Nutrition Follow-Up Complete: Nutrition Diagnosis: Inadequate oral intake related to reduced appetite as evidenced by weight loss. Nutrition Goal: Intake of 50% or greater of meals with good blood sugar control. Goal in progress. Intakes were initially variable, but patient consumed 100% of meals on 10/07/19. Patient NPO for testing earlier today, but diet has since advanced to heart healthy. Recommend adding carbohydrate control for optimal glucose control. Last recorded weight is 116.8 kg. Recommend obtaining new weight. Bowel Motility: Last documented BM on 10/05/19 x 2. Labs Reviewed: Glu (115) Meds Noted: Albumin, Protonix, Lasix, KCl, Novolog Additional Notes: Left arm abrasion. No documented pressure ulcers. Will continue to monitor with same goal. Nutrition Monitoring and Evaluation: Follow up in 5 days.
[2019-10-08 12:32] LABS: Glucose Point of Care 184 (65-105)
--- NOTE | 2019-10-08 13:45 | ECG_ITS ---
Measurements Intervals [place] Rate: 83 P: 45 [place]: 197 QRS: -18 QRSD: 95 T: 30 QT: 354 QTc: 418 Interpretive Statements SINUS RHYTHM NORMAL ECG Electronically Signed On 10-08-2019 16:51:02 CDT by Ajit Alvarado D.O.
[2019-10-08 14:35] LABS: SARS-CoV-2 RNA PCR Negative
[2019-10-08 14:37] LABS: Basophils Absolute Auto 0.1 K/mm3 (0.0-0.1); Basophils Percent Auto 0.7 % (0.2-1.2); Eosinophils Absolute Auto 0.1 K/mm3 (0-0.3); Eosinophils Percent Auto 1.2 % (0-4.4); Hematocrit 44.7 % (42.0-52.0); Hemoglobin 14.9 g/dL (14.0-18.0); Immature Granulocyte Absolute 0.02 K/mm3 (0.00-0.031); Immature Granulocyte Percent A 0.2 % (0-0.5); Lymphocytes Absolute Auto 1.63 K/mm3 (0.9-3.2); Lymphocytes Percent Auto 20.1 % (18.3-44.2); Mean Corpuscular HGB Conc 33.3 g/dl (32-36); Mean Corpuscular Hemoglobin 30.4 pg (26-34); Mean Corpuscular Volume 91.2 fl (80-100); Mean Platelet Volume 10.3 fl (7.4-10.4); Monocytes Absolute Auto 0.7 K/mm3 (0.1-0.6); Monocytes Percent Auto 8.4 % (2.6-8.5); Neutrophils Absolute Auto 5.6 K/mm3 (1.3-6.7); Neutrophils Percent Auto 69.4 % (45.5-73.1); Platelet Count Result 305 k/mm3 (150-375); Red Cell Distribution Width 12.6 % (11.5-14.5); White Blood Count 8.1 K/mm3 (4.5-10.0)
[2019-10-08 14:50] LABS: Blood Urea Nitrogen 9 mg/dL (9-20); Calcium 8.6 mg/dL (8.4-10.2); Carbon Dioxide 31 mmol/L (22-30); Chloride 94 mmol/L (98-107); Estimated CRCL calculation 94 ml/min; Estimated Glomerular Filt Rate > 60; Glucose 129 mg/dL (75-110); Potassium 3.9 mmol/L (3.4-5.0); Sodium 135 mmol/L (137-145)
[2019-10-08 15:59] VITALS: BP 113/90; PULSE 89; RESP 16; TEMP 36.8; O2SAT 94
--- NOTE | 2019-10-08 17:03 | PM.IMPN ---
Progress Note: A&P Assessment and Plan (1) Suicidal behavior: Code(s): R46.89 - Other symptoms and signs involving appearance and behavior Status: Acute Assessment and Plan: 10/05 The patient was expressing suicidal thoughts and was observed by staff initiating an attempt to try to cut himself with a piece of glass he obtained from shattering the mirror on his bedside table. He reported that he was having auditory hallucinations with voices telling him to. He was combative and had to be restrained 10/05 but much more subdued last 2 days. crisis has seen the patient and agrees needs transfer to an inpatient psychiatric facility. He has been discharged to [place] multiple times during prior admissions. (2) Auditory hallucinations: Code(s): R44.0 - Auditory hallucinations Status: Acute Assessment and Plan: As above. The patient will need further inpatient psychiatric now that he is medically stable (3) Seizure disorder: Code(s): G40.909 - Epilepsy, unspecified, not intractable, without status epilepticus Status: Chronic Assessment and Plan: The patient has a hx of seizure disorder. He is established with Dr. Dong. He had seizure activity reported at his PCP's office and was sent to the ED for further evaluation. His potassium was low at 3.3 10/03 and has been supplemented. He had an episode compatible with a psychogenic nonepileptic seizure 10/04 per nursing descriptions which lasted for 1 minute. It was described as large-amplitude bilateral limb movements/shaking with no post-ictal state, gaze deviation, or incontinence. Plan to continue oxcarbazepine and primidone. Neurology has seen the patient and no further adjustment in seizure medications deemed necessary. Was Medically stable to be transferred to inpatient psych 10/06 and remains so 10/07. All repeated lab and EKG normal (4) Diabetes mellitus: Code(s): E11.9 - Type 2 diabetes mellitus without complications Status: Acute Assessment and Plan: Hemoglobin A1c was elevated at 7.5. ACHS glucose monitoring, low-dose SSI, and hypoglycemia protocol.. His diabetes mellitus may be contributing to his recent weight loss, fatigue, and weakness. (5) Psychogenic nonepileptic seizure: Code(s): F44.5 - Conversion disorder with seizures or convulsions Status: Acute Assessment and Plan: As above. The patient reports a hx of seizure disorder and psychogenic nonepileptic seizures. (6) Sarcoidosis of lung: Code(s): D86.0 - Sarcoidosis of lung Status: Acute Assessment and Plan: He reports a hx of biopsy-proven sarcoidosis from a lymph node biopsy. He reports a right thoracotomy to remove a sarcoid lesion. CXR revealed questionable focal pleural thickening of the right lower thorax with the inability to exclude underlying mass. He had a bronchoscopy 12/[address] Aburto which revealed chronic bronchitis with benign vascular proliferation, reactive in appearance. The patient was referred to a Sarcoidosis Clinic at [facility] per pulmonology previously. CT chest was performed and revealed a peripheral mild atelectasis and scarring in right middle lobe and right lower lobe. There was a chronic, mildly enlarged right paratracheal lymph node, likely reactive, visualized on CT chest. He will need to follow-up with the sarcoidosis clinic at [facility]. (7) Bipolar disorder: Code(s): F31.9 - Bipolar disorder, unspecified Status: Chronic Assessment and Plan: Continue quetiapine, oxcarbazepine, and citalopram. The patient discussed his concerns regarding ADRs since initiating citalopram with his psychiatrist today. She recommended that we begin a taper. He will follow-up with her outpatient for further medication changes. (8) Hypokalemia: Code(s): E87.6 - Hypokalemia Status: Acute Assessment and Plan: Potassium was 3.3 in the ED. He recei
[2019-10-08 17:12] LABS: Glucose Point of Care 114 (65-105)
[2019-10-08 20:07] VITALS: BP 118/63; PULSE 77; RESP 16; TEMP 36.8; O2SAT 98
[2019-10-08 20:15] LABS: Glucose Point of Care 142 (65-105)
[2019-10-08] MEDS: OXcarbazepine 300 MG TABLET 900 MG PO (21:15)
[2019-10-08] MEDS: LORATADINE 10 MG TABLET PO (21:16)
[2019-10-08] MEDS: CITALOPRAM HYDROBROMIDE 10 MG TABLET PO ×2 (21:16→21:20)
[2019-10-08] MEDS: QUEtiapine FUMARATE XR 200 MG TAB.ER.24H 400 MG PO (21:16)
[2019-10-08] MEDS: CITALOPRAM HYDROBROMIDE 5 MG TABLET PO (21:20)
[2019-10-08] MEDS: traZODone HCL 50 MG TABLET PO (22:30)
[2019-10-09] VITALS: BP 137/77; PULSE 73; RESP 16; O2SAT 91
[2019-10-09 03:52] VITALS: BP 135/79; PULSE 73; RESP 15; TEMP 36.8; O2SAT 94
[2019-10-09 08:00] VITALS: BP 105/64; PULSE 74; RESP 20; TEMP 36.8; O2SAT 95
[2019-10-09 08:27] LABS: Glucose Point of Care 128 (65-105)
[2019-10-09] MEDS: FLUTICASONE PROPIONATE 0.05% NA SPR 16 GM BTL (*BKC) 2 SPRAY NASAL ×2 (08:49→16:30)
[2019-10-09 08:50] VITALS: PULSE 78
[2019-10-09] MEDS: PANTOPRAZOLE 40 MG TABLET PO (08:50)
[2019-10-09] MEDS: FUROSEMIDE 40 MG TABLET PO (08:50)
[2019-10-09] MEDS: NEBIVOLOL HCL 5 MG TABLET 10 MG PO (08:50)
[2019-10-09] MEDS: POTASSIUM CHLORIDE 10 MEQ TABLET.ER PO ×2 (08:50→16:30)
[2019-10-09] MEDS: PRIMIDONE 250 MG TABLET PO ×3 (08:51→16:30)
[2019-10-09] MEDS: OXcarbazepine 300 MG TABLET PO ×3 (08:51→16:30)
[2019-10-09 12:22] LABS: Glucose Point of Care 129 (65-105)
--- NOTE | 2019-10-09 13:46 | WPDNEUROPN ---
Progress Note: A&P Assessment and Plan (1) Auditory hallucinations: Code(s): R44.0 - Auditory hallucinations Status: Acute (2) Suicidal behavior: Code(s): R46.89 - Other symptoms and signs involving appearance and behavior Status: Acute (3) Hypertension: Code(s): I10 - Essential (primary) hypertension Status: Acute (4) Diabetes mellitus: Code(s): E11.9 - Type 2 diabetes mellitus without complications Status: Acute (5) Right calf pain: Code(s): M79.661 - Pain in right lower leg Status: Acute (6) Weakness: Code(s): R53.1 - Weakness Status: Acute (7) Seizure: Code(s): R56.9 - Unspecified convulsions Status: Acute (8) Hypokalemia: Code(s): E87.6 - Hypokalemia Status: Acute (9) GERD (gastroesophageal reflux disease): Qualifiers: Esophagitis presence: esophagitis presence not specified Qualified Code(s): K21.9 - Gastro-esophageal reflux disease without esophagitis Code(s): K21.9 - Gastro-esophageal reflux disease without esophagitis Status: Acute (10) Hallucinations: Code(s): R44.3 - Hallucinations, unspecified Status: Acute (11) Dizziness: Code(s): R42 - Dizziness and giddiness Status: Acute (12) Acute confusion: Code(s): R41.0 - Disorientation, unspecified Status: Acute (13) Pseudoseizure: Code(s): F44.5 - Conversion disorder with seizures or convulsions Status: Acute (14) Bipolar disorder: Code(s): F31.9 - Bipolar disorder, unspecified Status: Chronic (15) Seizure disorder: Code(s): G40.909 - Epilepsy, unspecified, not intractable, without status epilepticus Status: Chronic (16) Elevated blood sugar: Code(s): R73.9 - Hyperglycemia, unspecified Status: Acute (17) GERD with esophagitis: Code(s): K21.0 - Gastro-esophageal reflux disease with esophagitis Status: Chronic (18) HTN (hypertension) with goal to be determined: Code(s): I10 - Essential (primary) hypertension Status: Chronic (19) Migraines: Code(s): G43.909 - Migraine, unspecified, not intractable, without status migrainosus Status: Chronic (20) Asthma: Qualifiers: Asthma severity: unspecified severity Asthma persistence: unspecified Asthma complication type: unspecified Qualified Code(s): J45.909 - Unspecified asthma, uncomplicated Code(s): J45.909 - Unspecified asthma, uncomplicated Status: Chronic (21) DVT prophylaxis: Code(s): Z29.9 - Encounter for prophylactic measures, unspecified Status: Acute (22) Psychogenic nonepileptic seizure: Code(s): F44.5 - Conversion disorder with seizures or convulsions Status: Acute (23) Homicidal thoughts: Code(s): R45.850 - Homicidal ideations Status: Acute (24) Pneumonia: Code(s): J18.9 - Pneumonia, unspecified organism Status: Acute (25) Pneumonia: Code(s): J18.9 - Pneumonia, unspecified organism Status: Acute (26) Mucus plugging of bronchi: Code(s): J98.09 - Other diseases of bronchus, not elsewhere classified Status: Acute (27) Sarcoidosis of lung: Code(s): D86.0 - Sarcoidosis of lung Status: Acute (28) Respiratory infection: Code(s): J98.8 - Other specified respiratory disorders Status: Acute (29) Bipolar affective disorder: Code(s): F31.9 - Bipolar disorder, unspecified Status: Acute (30) HTN (hypertension) with goal to be determined: Code(s): I10 - Essential (primary) hypertension Status: Acute (31) Seizure disorder: Code(s): G40.909 - Epilepsy, unspecified, not intractable, without status epilepticus Status: Acute (32) AB (asthmatic bronchitis): Qualifiers: Asthma complication type: with acute exacerbation Asthma persistence: persistent Asthma severity: mod
[2019-10-09 15:19] LABS: Basophils Absolute Auto 0.1 K/mm3 (0.0-0.1); Basophils Percent Auto 1.1 % (0.2-1.2); Eosinophils Absolute Auto 0.1 K/mm3 (0-0.3); Eosinophils Percent Auto 1.5 % (0-4.4); Hematocrit 42.2 % (42.0-52.0); Hemoglobin 14.2 g/dL (14.0-18.0); Immature Granulocyte Absolute 0.02 K/mm3 (0.00-0.031); Immature Granulocyte Percent A 0.3 % (0-0.5); Lymphocytes Absolute Auto 1.53 K/mm3 (0.9-3.2); Lymphocytes Percent Auto 21.5 % (18.3-44.2); Mean Corpuscular HGB Conc 33.6 g/dl (32-36); Mean Corpuscular Hemoglobin 30.5 pg (26-34); Mean Corpuscular Volume 90.8 fl (80-100); Mean Platelet Volume 10.5 fl (7.4-10.4); Monocytes Absolute Auto 0.6 K/mm3 (0.1-0.6); Monocytes Percent Auto 8.3 % (2.6-8.5); Neutrophils Absolute Auto 4.8 K/mm3 (1.3-6.7); Neutrophils Percent Auto 67.3 % (45.5-73.1); Platelet Count Result 297 k/mm3 (150-375); Red Blood Count 4.65 M/mm3 (4.6-6.20); Red Cell Distribution Width 12.7 % (11.5-14.5); White Blood Count 7.1 K/mm3 (4.5-10.0)
[2019-10-09 15:25] LABS: Alanine Aminotransferase 33 U/L (4-50); Albumin Level 3.9 g/dL (3.5-5.1); Alkaline Phosphatase 84 U/L (38-126); Aspartate Amino Transferase 38 U/L (17-59); Bilirubin,Total 0.3 mg/dL (0.2-1.3); Blood Urea Nitrogen 10 mg/dL (9-20); Calcium 8.7 mg/dL (8.4-10.2); Carbon Dioxide 32 mmol/L (22-30); Chloride 94 mmol/L (98-107); Estimated CRCL calculation 116 ml/min; Estimated Glomerular Filt Rate > 60; Glucose 157 mg/dL (75-110); Potassium 4.4 mmol/L (3.4-5.0); Sodium 133 mmol/L (137-145)
--- NOTE | 2019-10-09 15:41 | PM.IMPN ---
Progress Note: A&P Assessment and Plan (1) Suicidal behavior: Code(s): R46.89 - Other symptoms and signs involving appearance and behavior Status: Acute Assessment and Plan: 10/05 The patient was expressing suicidal thoughts and was observed by staff initiating an attempt to try to cut himself with a piece of glass he obtained from shattering the mirror on his bedside table. He reported that he was having auditory hallucinations with voices telling him to. He was combative and had to be restrained 10/05 but much more subdued last 3 days. crisis has seen the patient and agrees needs transfer to an inpatient psychiatric facility. He has been discharged to [place] multiple times during prior admissions. (2) Auditory hallucinations: Code(s): R44.0 - Auditory hallucinations Status: Acute Assessment and Plan: As above. The patient will need further inpatient psychiatric now that he is medically stable (3) Seizure disorder: Code(s): G40.909 - Epilepsy, unspecified, not intractable, without status epilepticus Status: Chronic Assessment and Plan: The patient has a hx of seizure disorder. He is established with Dr. Dong. He had seizure activity reported at his PCP's office and was sent to the ED for further evaluation. His potassium was low at 3.3 10/03 and has been supplemented. He had an episode compatible with a psychogenic nonepileptic seizure 10/04 per nursing descriptions which lasted for 1 minute. It was described as large-amplitude bilateral limb movements/shaking with no post-ictal state, gaze deviation, or incontinence. Plan to continue oxcarbazepine and primidone. Neurology has seen the patient and no further adjustment in seizure medications deemed necessary. Was Medically stable to be transferred to inpatient psych 10/06, 10/07, and today 10/08. All repeated lab and EKG normal k at 4.4 today (4) Diabetes mellitus: Code(s): E11.9 - Type 2 diabetes mellitus without complications Status: Acute Assessment and Plan: Hemoglobin A1c was elevated at 7.5. ACHS glucose monitoring, low-dose SSI, and hypoglycemia protocol.. His diabetes mellitus may be contributing to his recent weight loss, fatigue, and weakness. (5) Psychogenic nonepileptic seizure: Code(s): F44.5 - Conversion disorder with seizures or convulsions Status: Acute Assessment and Plan: As above. The patient reports a hx of seizure disorder and psychogenic nonepileptic seizures. (6) Sarcoidosis of lung: Code(s): D86.0 - Sarcoidosis of lung Status: Acute Assessment and Plan: He reports a hx of biopsy-proven sarcoidosis from a lymph node biopsy. He reports a right thoracotomy to remove a sarcoid lesion. CXR revealed questionable focal pleural thickening of the right lower thorax with the inability to exclude underlying mass. He had a bronchoscopy 12/[address] Aburto which revealed chronic bronchitis with benign vascular proliferation, reactive in appearance. The patient was referred to a Sarcoidosis Clinic at [facility] per pulmonology previously. CT chest was performed and revealed a peripheral mild atelectasis and scarring in right middle lobe and right lower lobe. There was a chronic, mildly enlarged right paratracheal lymph node, likely reactive, visualized on CT chest. He will need to follow-up with the sarcoidosis clinic at [facility]. (7) Bipolar disorder: Code(s): F31.9 - Bipolar disorder, unspecified Status: Chronic Assessment and Plan: Continue quetiapine, oxcarbazepine, and citalopram. The patient discussed his concerns regarding ADRs since initiating citalopram with his psychiatrist today. She recommended that we begin a taper. He will follow-up with her outpatient for further medication changes. (8) Hypokalemia: Code(s): E87.6 - Hypokalemia Status: Acute Assessment and Plan: Potassium was 3.3 in
[2019-10-09 16:00] VITALS: BP 125/76; PULSE 81; RESP 16; TEMP 37; O2SAT 92
[2019-10-09 17:24] LABS: Glucose Point of Care 167 (65-105)
[2019-10-09 20:04] VITALS: BP 135/89; PULSE 90; RESP 16; TEMP 37.1; O2SAT 93
[2019-10-09 20:07] LABS: Glucose Point of Care 173 (65-105)
[2019-10-09] MEDS: OXcarbazepine 300 MG TABLET 900 MG PO (22:35)
[2019-10-09] MEDS: QUEtiapine FUMARATE XR 200 MG TAB.ER.24H 400 MG PO (22:35)
[2019-10-09] MEDS: LORATADINE 10 MG TABLET PO (22:35)
[2019-10-09] MEDS: traZODone HCL 50 MG TABLET PO (22:35)
[2019-10-09] MEDS: CITALOPRAM HYDROBROMIDE 5 MG TABLET PO (22:36)
[2019-10-10 04:00] VITALS: BP 120/83; PULSE 73; RESP 16; TEMP 37.1; O2SAT 94
[2019-10-10 08:00] VITALS: BP 156/99; PULSE 70; RESP 18; TEMP 36.6; O2SAT 93
[2019-10-10 08:09] LABS: Glucose Point of Care 140 (65-105)
[2019-10-10] MEDS: FLUTICASONE PROPIONATE 0.05% NA SPR 16 GM BTL (*BKC) 2 SPRAY NASAL ×2 (09:23→17:05)
[2019-10-10 09:24] VITALS: PULSE 70
[2019-10-10] MEDS: NEBIVOLOL HCL 5 MG TABLET 10 MG PO (09:24)
[2019-10-10] MEDS: PANTOPRAZOLE 40 MG TABLET PO (09:25)
[2019-10-10] MEDS: FUROSEMIDE 40 MG TABLET PO (09:25)
[2019-10-10] MEDS: OXcarbazepine 300 MG TABLET PO ×3 (09:25→17:05)
[2019-10-10] MEDS: PRIMIDONE 250 MG TABLET PO ×3 (09:25→17:05)
[2019-10-10] MEDS: POTASSIUM CHLORIDE 10 MEQ TABLET.ER PO ×2 (09:25→17:06)
--- NOTE | 2019-10-10 11:35 | WPDNEUROPN ---
Progress Note: A&P Assessment and Plan (1) Auditory hallucinations: Code(s): R44.0 - Auditory hallucinations Status: Acute (2) Suicidal behavior: Code(s): R46.89 - Other symptoms and signs involving appearance and behavior Status: Acute (3) Hypertension: Code(s): I10 - Essential (primary) hypertension Status: Acute (4) Diabetes mellitus: Code(s): E11.9 - Type 2 diabetes mellitus without complications Status: Acute (5) Right calf pain: Code(s): M79.661 - Pain in right lower leg Status: Acute (6) Weakness: Code(s): R53.1 - Weakness Status: Acute (7) Seizure: Code(s): R56.9 - Unspecified convulsions Status: Acute (8) Hypokalemia: Code(s): E87.6 - Hypokalemia Status: Acute (9) GERD (gastroesophageal reflux disease): Qualifiers: Esophagitis presence: esophagitis presence not specified Qualified Code(s): K21.9 - Gastro-esophageal reflux disease without esophagitis Code(s): K21.9 - Gastro-esophageal reflux disease without esophagitis Status: Acute (10) Hallucinations: Code(s): R44.3 - Hallucinations, unspecified Status: Acute (11) Dizziness: Code(s): R42 - Dizziness and giddiness Status: Acute (12) Acute confusion: Code(s): R41.0 - Disorientation, unspecified Status: Acute (13) Pseudoseizure: Code(s): F44.5 - Conversion disorder with seizures or convulsions Status: Acute (14) Bipolar disorder: Code(s): F31.9 - Bipolar disorder, unspecified Status: Chronic (15) Seizure disorder: Code(s): G40.909 - Epilepsy, unspecified, not intractable, without status epilepticus Status: Chronic (16) Elevated blood sugar: Code(s): R73.9 - Hyperglycemia, unspecified Status: Acute (17) HTN (hypertension) with goal to be determined: Code(s): I10 - Essential (primary) hypertension Status: Chronic (18) GERD with esophagitis: Code(s): K21.0 - Gastro-esophageal reflux disease with esophagitis Status: Chronic (19) Migraines: Code(s): G43.909 - Migraine, unspecified, not intractable, without status migrainosus Status: Chronic (20) Asthma: Qualifiers: Asthma severity: unspecified severity Asthma persistence: unspecified Asthma complication type: unspecified Qualified Code(s): J45.909 - Unspecified asthma, uncomplicated Code(s): J45.909 - Unspecified asthma, uncomplicated Status: Chronic (21) DVT prophylaxis: Code(s): Z29.9 - Encounter for prophylactic measures, unspecified Status: Acute (22) Psychogenic nonepileptic seizure: Code(s): F44.5 - Conversion disorder with seizures or convulsions Status: Acute (23) Homicidal thoughts: Code(s): R45.850 - Homicidal ideations Status: Acute (24) Pneumonia: Code(s): J18.9 - Pneumonia, unspecified organism Status: Acute (25) Mucus plugging of bronchi: Code(s): J98.09 - Other diseases of bronchus, not elsewhere classified Status: Acute (26) Sarcoidosis of lung: Code(s): D86.0 - Sarcoidosis of lung Status: Acute (27) Pneumonia: Code(s): J18.9 - Pneumonia, unspecified organism Status: Acute (28) Respiratory infection: Code(s): J98.8 - Other specified respiratory disorders Status: Acute (29) Bipolar affective disorder: Code(s): F31.9 - Bipolar disorder, unspecified Status: Acute (30) HTN (hypertension) with goal to be determined: Code(s): I10 - Essential (primary) hypertension Status: Acute (31) AB (asthmatic bronchitis): Qualifiers: Asthma complication type: with acute exacerbation Asthma persistence: persistent Asthma severity: moderate Qualified Code(s): J45.41 - Moderate persistent asthma with (acute) exacerbation Code(s): J45.909 - Unspecified asthma, uncom
[2019-10-10 12:17] LABS: Glucose Point of Care 147 (65-105)
[2019-10-10 16:00] VITALS: BP 117/69; PULSE 77; RESP 18; TEMP 36.9; O2SAT 95
--- NOTE | 2019-10-10 17:25 | PM.IMPN ---
Progress Note: A&P Assessment and Plan (1) Suicidal behavior: Code(s): R46.89 - Other symptoms and signs involving appearance and behavior Status: Acute Assessment and Plan: 10/05 The patient was expressing suicidal thoughts and was observed by staff initiating an attempt to try to cut himself with a piece of glass he obtained from shattering the mirror on his bedside table. He reported that he was having auditory hallucinations with voices telling him to. He was combative and had to be restrained 10/05 but much more subdued last 3 days. crisis has seen the patient and agrees needs transfer to an inpatient psychiatric facility. He has been discharged to [place] multiple times during prior admissions. (2) Auditory hallucinations: Code(s): R44.0 - Auditory hallucinations Status: Acute Assessment and Plan: As above. The patient will need further inpatient psychiatric now that he is medically stable (3) Seizure disorder: Code(s): G40.909 - Epilepsy, unspecified, not intractable, without status epilepticus Status: Chronic Assessment and Plan: The patient has a hx of seizure disorder. He is established with Dr. Dong. He had seizure activity reported at his PCP's office and was sent to the ED for further evaluation. His potassium was low at 3.3 10/03 and has been supplemented. He had an episode compatible with a psychogenic nonepileptic seizure 10/04 per nursing descriptions which lasted for 1 minute. It was described as large-amplitude bilateral limb movements/shaking with no post-ictal state, gaze deviation, or incontinence. Plan to continue oxcarbazepine and primidone. Neurology has seen the patient and no further adjustment in seizure medications deemed necessary. Was Medically stable to be transferred to inpatient psych 10/06, 10/07,10/08 and today 10/09. All repeated lab and EKG normal k at 4.4 10/08. (4) Diabetes mellitus: Code(s): E11.9 - Type 2 diabetes mellitus without complications Status: Acute Assessment and Plan: Hemoglobin A1c was elevated at 7.5. ACHS glucose monitoring, low-dose SSI, and hypoglycemia protocol.. His diabetes mellitus may be contributing to his recent weight loss, fatigue, and weakness. (5) Psychogenic nonepileptic seizure: Code(s): F44.5 - Conversion disorder with seizures or convulsions Status: Acute Assessment and Plan: As above. The patient reports a hx of seizure disorder and psychogenic nonepileptic seizures. (6) Sarcoidosis of lung: Code(s): D86.0 - Sarcoidosis of lung Status: Acute Assessment and Plan: He reports a hx of biopsy-proven sarcoidosis from a lymph node biopsy. He reports a right thoracotomy to remove a sarcoid lesion. CXR revealed questionable focal pleural thickening of the right lower thorax with the inability to exclude underlying mass. He had a bronchoscopy 12/[address] Aburto which revealed chronic bronchitis with benign vascular proliferation, reactive in appearance. The patient was referred to a Sarcoidosis Clinic at [facility] per pulmonology previously. CT chest was performed and revealed a peripheral mild atelectasis and scarring in right middle lobe and right lower lobe. There was a chronic, mildly enlarged right paratracheal lymph node, likely reactive, visualized on CT chest. He will need to follow-up with the sarcoidosis clinic at [facility]. (7) Bipolar disorder: Code(s): F31.9 - Bipolar disorder, unspecified Status: Chronic Assessment and Plan: Continue quetiapine, oxcarbazepine, and citalopram. The patient discussed his concerns regarding ADRs since initiating citalopram with his psychiatrist today. She recommended that we begin a taper. He will follow-up with her outpatient for further medication changes. (8) Hypokalemia: Code(s): E87.6 - Hypokalemia Status: Acute Assessment and Plan: Potassium was 3.
[2019-10-10 17:54] LABS: Glucose Point of Care 126 (65-105)
--- NOTE | 2019-10-10 18:02 | PC.NURSE ---
Spoke with Nannette with crisis regarding placement. Patient stated he is still having feelings of wanting to harm himself. She will continue to look for placement for him but so far everyone is full at this time.
[2019-10-10 20:13] LABS: Glucose Point of Care 168 (65-105)
[2019-10-10] MEDS: ENOXAPARIN 40 MG/0.4 ML SYRINGE SUB-Q (22:25)
[2019-10-10] MEDS: CITALOPRAM HYDROBROMIDE 5 MG TABLET PO (22:29)
[2019-10-10] MEDS: OXcarbazepine 300 MG TABLET 900 MG PO (22:32)
[2019-10-10] MEDS: QUEtiapine FUMARATE XR 200 MG TAB.ER.24H 400 MG PO (22:34)
[2019-10-10] MEDS: LORATADINE 10 MG TABLET PO (22:35)
[2019-10-10] MEDS: traZODone HCL 50 MG TABLET PO (23:36)
[2019-10-10 23:43] LABS: Acetaminophen < 10 ug/mL (10-30); Salicylate < 1.0 mg/dL (2-20)
[2019-10-11] VITALS: BP 141/76; PULSE 71; RESP 20; TEMP 37; O2SAT 95
[2019-10-11 07:40] VITALS: BP 127/81; PULSE 80; RESP 16; TEMP 36.8; O2SAT 96
[2019-10-11 08:03] LABS: Glucose Point of Care 131 (65-105)
[2019-10-11] MEDS: FLUTICASONE PROPIONATE 0.05% NA SPR 16 GM BTL (*BKC) 2 SPRAY NASAL ×2 (08:22→16:56)
[2019-10-11 08:23] VITALS: PULSE 82
[2019-10-11] MEDS: FUROSEMIDE 40 MG TABLET PO (08:23)
[2019-10-11] MEDS: NEBIVOLOL HCL 5 MG TABLET 10 MG PO (08:23)
[2019-10-11] MEDS: PANTOPRAZOLE 40 MG TABLET PO (08:25)
[2019-10-11] MEDS: OXcarbazepine 300 MG TABLET PO ×3 (08:25→16:58)
[2019-10-11] MEDS: POTASSIUM CHLORIDE 10 MEQ TABLET.ER PO ×2 (08:25→16:58)
[2019-10-11] MEDS: PRIMIDONE 250 MG TABLET PO ×3 (08:26→16:58)
[2019-10-11 12:19] LABS: Glucose Point of Care 147 (65-105)
--- NOTE | 2019-10-11 13:23 | PC.NURSE ---
Jana per Dr. Navarro to discontinue Q4HR neurochecks.
[2019-10-11 16:00] VITALS: BP 141/72; PULSE 74; RESP 18; TEMP 36.7; O2SAT 93
[2019-10-11 16:25] LABS: Glucose Point of Care 142 (65-105)
--- NOTE | 2019-10-11 18:25 | PM.IMPN ---
Progress Note: A&P Assessment and Plan (1) Suicidal behavior: Code(s): R46.89 - Other symptoms and signs involving appearance and behavior Status: Acute Assessment and Plan: 10/05 The patient was expressing suicidal thoughts and was observed by staff initiating an attempt to try to cut himself with a piece of glass he obtained from shattering the mirror on his bedside table. He reported that he was having auditory hallucinations with voices telling him to. He was combative and had to be restrained 10/05 but much more subdued last 3 days. crisis has seen the patient and agrees needs transfer to an inpatient psychiatric facility. He has been discharged to [place] multiple times during prior admissions. (2) Auditory hallucinations: Code(s): R44.0 - Auditory hallucinations Status: Acute Assessment and Plan: As above. The patient will need further inpatient psychiatric now that he is medically stable (3) Seizure disorder: Code(s): G40.909 - Epilepsy, unspecified, not intractable, without status epilepticus Status: Chronic Assessment and Plan: The patient has a hx of seizure disorder. He is established with Dr. Dong. He had seizure activity reported at his PCP's office and was sent to the ED for further evaluation. His potassium was low at 3.3 10/03 and has been supplemented. He had an episode compatible with a psychogenic nonepileptic seizure 10/04 per nursing descriptions which lasted for 1 minute. It was described as large-amplitude bilateral limb movements/shaking with no post-ictal state, gaze deviation, or incontinence. Plan to continue oxcarbazepine and primidone. Neurology has seen the patient and no further adjustment in seizure medications deemed necessary. Was Medically stable to be transferred to inpatient psych 10/06, 10/07,10/08,10/09 and today 10/10. All repeated lab and EKG normal k at 4.4 10/08. (4) Diabetes mellitus: Code(s): E11.9 - Type 2 diabetes mellitus without complications Status: Acute Assessment and Plan: Hemoglobin A1c was elevated at 7.5. ACHS glucose monitoring, low-dose SSI, and hypoglycemia protocol.. His diabetes mellitus may be contributing to his recent weight loss, fatigue, and weakness. (5) Psychogenic nonepileptic seizure: Code(s): F44.5 - Conversion disorder with seizures or convulsions Status: Acute Assessment and Plan: As above. The patient reports a hx of seizure disorder and psychogenic nonepileptic seizures. (6) Sarcoidosis of lung: Code(s): D86.0 - Sarcoidosis of lung Status: Acute Assessment and Plan: He reports a hx of biopsy-proven sarcoidosis from a lymph node biopsy. He reports a right thoracotomy to remove a sarcoid lesion. CXR revealed questionable focal pleural thickening of the right lower thorax with the inability to exclude underlying mass. He had a bronchoscopy 12/[address] Aburto which revealed chronic bronchitis with benign vascular proliferation, reactive in appearance. The patient was referred to a Sarcoidosis Clinic at [facility] per pulmonology previously. CT chest was performed and revealed a peripheral mild atelectasis and scarring in right middle lobe and right lower lobe. There was a chronic, mildly enlarged right paratracheal lymph node, likely reactive, visualized on CT chest. He will need to follow-up with the sarcoidosis clinic at [facility]. (7) Bipolar disorder: Code(s): F31.9 - Bipolar disorder, unspecified Status: Chronic Assessment and Plan: Continue quetiapine, oxcarbazepine, and citalopram. The patient discussed his concerns regarding ADRs since initiating citalopram with his psychiatrist today. She recommended that we begin a taper. He will follow-up with her outpatient for further medication changes. (8) Hypokalemia: Code(s): E87.6 - Hypokalemia Status: Acute Assessment and Plan: Potassium w
[2019-10-11 21:04] LABS: Glucose Point of Care 196 (65-105)
[2019-10-11] MEDS: ENOXAPARIN 40 MG/0.4 ML SYRINGE SUB-Q (22:37)
[2019-10-11] MEDS: CITALOPRAM HYDROBROMIDE 5 MG TABLET PO (22:37)
[2019-10-11] MEDS: QUEtiapine FUMARATE XR 200 MG TAB.ER.24H 400 MG PO (22:38)
[2019-10-11] MEDS: LORATADINE 10 MG TABLET PO (22:38)
[2019-10-11] MEDS: OXcarbazepine 300 MG TABLET 900 MG PO (22:38)
[2019-10-11] MEDS: traZODone HCL 50 MG TABLET PO (22:39)
[2019-10-12] VITALS: BP 126/65; PULSE 77; RESP 20; TEMP 36.7; O2SAT 93
[2019-10-12 07:21] LABS: Glucose Point of Care 128 (65-105)
[2019-10-12 08:00] VITALS: BP 134/97; PULSE 94; RESP 16; TEMP 36.6; O2SAT 100
[2019-10-12] MEDS: FLUTICASONE PROPIONATE 0.05% NA SPR 16 GM BTL (*BKC) 2 SPRAY NASAL ×2 (08:30→16:32)
[2019-10-12 08:31] VITALS: PULSE 88
[2019-10-12] MEDS: FUROSEMIDE 40 MG TABLET PO (08:31)
[2019-10-12] MEDS: NEBIVOLOL HCL 5 MG TABLET 10 MG PO (08:31)
[2019-10-12] MEDS: PANTOPRAZOLE 40 MG TABLET PO (08:32)
[2019-10-12] MEDS: POTASSIUM CHLORIDE 10 MEQ TABLET.ER PO ×2 (08:32→16:33)
[2019-10-12] MEDS: OXcarbazepine 300 MG TABLET PO ×3 (08:33→16:34)
[2019-10-12] MEDS: PRIMIDONE 250 MG TABLET PO ×3 (08:33→16:33)
--- NOTE | 2019-10-12 09:14 | PCDIET ---
Nutrition Follow-Up Complete: Nutrition Diagnosis: Inadequate oral intake related to reduced appetite as evidence by weight loss. Nutrition Goal: Intake of 50% or greater of meals with good blood sugar control Goal met. Patient consuming 100% of most meals + Ensure Compact BID on heart healthy diet. Would suggest adding carbohydrate controlled diet to ensure glucose control is maintained with improving intakes. Last recorded weight is 116.8 kg. Recommend obtaining new weight. Bowel Motility: +BM today. Labs Reviewed: Glu (128) Meds Noted: Albuterol, Lasix, Novolog, Protonix, KCl, Seroquel Additional Notes: No documented skin breakdown. Will continue to monitor with same goals. Nutrition Monitoring and Evaluation: Follow up every 7 days.
--- NOTE | 2019-10-12 10:15 | PM.IMPN ---
Progress Note: A&P Assessment and Plan (1) Suicidal behavior: Code(s): R46.89 - Other symptoms and signs involving appearance and behavior Status: Acute Assessment and Plan: The patient was expressing suicidal thoughts and was observed by staff initiating an attempt to try to cut himself with a piece of glass he obtained from shattering the mirror on his bedside table on 10/06/19. He reported that he was having auditory hallucinations with voices telling him to. He was combative and had to be restrained 10/05 but much more subdued last 3 days. Crisis has seen the patient and agrees needs transfer to an inpatient psychiatric facility. He has been discharged to [facility] multiple times during prior admissions. (2) Auditory hallucinations: Code(s): R44.0 - Auditory hallucinations Status: Acute Assessment and Plan: As above. The patient will need further inpatient psychiatric now that he is medically stable (3) Seizure disorder: Code(s): G40.909 - Epilepsy, unspecified, not intractable, without status epilepticus Status: Chronic Assessment and Plan: The patient has a hx of seizure disorder. He is established with Dr. Dong. He had seizure activity reported at his PCP's office and was sent to the ED for further evaluation. His potassium was low at 3.3 10/03 and has been supplemented. He had an episode compatible with a psychogenic nonepileptic seizure 10/04 per nursing descriptions which lasted for 1 minute. It was described as large-amplitude bilateral limb movements/shaking with no post-ictal state, gaze deviation, or incontinence. Plan to continue oxcarbazepine and primidone. Neurology has seen the patient and no further adjustment in seizure medications deemed necessary. Was Medically stable to be transferred to inpatient psych since 10/06. (4) Diabetes mellitus: Code(s): E11.9 - Type 2 diabetes mellitus without complications Status: Acute Assessment and Plan: A1c was elevated at 7.5. Glucose reviewed on 10/12/19. [place] ACHS glucose monitoring, low-dose SSI, and hypoglycemia protocol. (5) Psychogenic nonepileptic seizure: Code(s): F44.5 - Conversion disorder with seizures or convulsions Status: Acute Assessment and Plan: As above. The patient reports a hx of seizure disorder and psychogenic nonepileptic seizures. (6) Sarcoidosis of lung: Code(s): D86.0 - Sarcoidosis of lung Status: Acute Assessment and Plan: He reports a hx of biopsy-proven sarcoidosis from a lymph node biopsy. He reports a right thoracotomy to remove a sarcoid lesion. CXR revealed questionable focal pleural thickening of the right lower thorax with the inability to exclude underlying mass. He had a bronchoscopy 12/[address] Aburto which revealed chronic bronchitis with benign vascular proliferation, reactive in appearance. The patient was referred to a Sarcoidosis Clinic at [facility] per pulmonology previously. CT chest was performed and revealed a peripheral mild atelectasis and scarring in right middle lobe and right lower lobe. There was a chronic, mildly enlarged right paratracheal lymph node, likely reactive, visualized on CT chest. He will need to follow-up with the sarcoidosis clinic at [facility]. (7) Bipolar disorder: Code(s): F31.9 - Bipolar disorder, unspecified Status: Chronic Assessment and Plan: Continue quetiapine, oxcarbazepine, and citalopram. The patient discussed his concerns regarding ADRs since initiating citalopram with his psychiatrist. She recommended that we begin a taper. Citalopram down to 5mg. He will follow-up with her outpatient for further medication changes. (8) Hypokalemia: Code(s): E87.6 - Hypokalemia Status: Acute Assessment and Plan: Potassium was 3.3 in the ED. He received 20mEq of potassium. Currently on PO potassium. Repeat BMP. (9) Weakness: Code(s
[2019-10-12 11:36] LABS: Glucose Point of Care 243 (65-105)
[2019-10-12] MEDS: INSULIN ASPART (*BKC) 100 UNITS/ML SUB-Q (11:39)
[2019-10-12 11:43] LABS: Blood Urea Nitrogen 7 mg/dL (9-20); Calcium 8.7 mg/dL (8.4-10.2); Carbon Dioxide 27 mmol/L (22-30); Chloride 92 mmol/L (98-107); Estimated CRCL calculation 116 ml/min; Estimated Glomerular Filt Rate > 60; Glucose 232 mg/dL (75-110); Potassium 4.4 mmol/L (3.4-5.0); Sodium 130 mmol/L (137-145)
--- NOTE | 2019-10-12 11:59 | WPDNEUROPN ---
Progress Note: A&P Assessment and Plan (1) Seizure: Code(s): R56.9 - Unspecified convulsions Status: Acute (2) Pseudoseizure: Code(s): F44.5 - Conversion disorder with seizures or convulsions Status: Acute (3) Bipolar disorder: Code(s): F31.9 - Bipolar disorder, unspecified Status: Chronic Additional Plan stable Review of Systems Review of Systems: All systems reviewed & are unremarkable except as noted in HPI and below Exam Const: General: cooperative, healthy appearing, comfortable and no acute distress Limitations: no limitations HENMT: Head: normal to inspection Ears: hearing grossly normal bilaterally Mouth: Yes Normal oral and palatal mucosa present Neck: Neck: full ROM Resp: Effort & Inspection: normal respiratory effort Cardio: Rate: regular rate Rhythm: regular rhythm Skin: General skin exam: no rashes or lesions noted Neuro: General: patient oriented x3 Cranial nerves: Yes CN's II-XII intact bilaterally Motor exam (neuro): 5/5 motor strength present throughout Sensory Exam: normal sensation Extrem: General: normal to inspection Objective Data Vital Signs Vital Signs: Vital Signs - 24 hr 10/11/19 16:00 10/12/19 00:00 10/12/19 08:00 Temperature 36.7 C 36.7 C 36.6 C Pulse Rate 74 77 94 Respiratory Rate 18 20 16 Blood Pressure 141/72 H 126/65 134/97 H Pulse Oximetry 93 93 100 10/12/19 08:31 Temperature Pulse Rate 88 Respiratory Rate Blood Pressure Pulse Oximetry Intake/Output Intake/Output: Intake & Output 10/09/19 10/10/19 10/11/19 10/12/19 23:59 23:59 23:59 23:59 Intake Total 3138 2240 2230 1560 Output Total 7224 4994 1490 325 Balance -512 -1535 -2645 1235 Meds/Results Medications: Active Medications Generic Name Dose Route Start Last Admin Trade Name Freq PRN Reason Stop Dose Admin Acetaminophen 650 mg 10/04/19 22:02 Tylenol Tablet PO Q6H PRN Mild Pain (1-3) or Fever Albuterol 2.5 mg 10/05/19 08:25 Albuterol Sulf Neb 2.5mg/0.5ml INHALATION Q4HRT PRN Shortness Of Breath Citalopram Hydrobromide 5 mg 10/07/19 21:00 10/11/19 22:37 Celexa PO 10/12/19 23:49 5 mg HS OMAR Administration Clonazepam 0.5 mg 10/05/19 17:46 Klonopin Tablet PO Q12H PRN Anxiety Dextrose 12.5 gm 10/05/19 21:35 Dextrose 50% Syringe IV PUSH PRN PRN Hypoglycemia Protocol Enoxaparin Sodium 40 mg 10/10/19 21:00 10/11/19 22:37 Lovenox SUB-Q 40 mg HS OMAR Administration Fluticasone Propionate 2 spray 10/05/19 09:00 10/12/19 08:30 Flonase 0.05% Nasal [place] NASAL 2 spray BID OMAR Administration Furosemide 40 mg 10/05/19 09:00 10/12/19 08:31 Lasix Tablet PO 40 mg DAILY OMAR Administration Glucagon 1 mg 10/05/19 21:35 Glucagon For Inj IM PRN PRN Hypoglycemia Protocol Glucose 15 gm 10/05/19 21:35 Glutose 15 PO PRN PRN Hypoglycemia Protocol Dextrose 1,000 mls @ 100 mls/hr 10/05/19 21:35 Dextrose 5% 1,000 Ml IVPB PRN PRN Hypoglycemia Protocol Insulin Aspart 2 - 5 units 10/06/19 08:00 10/12/19 11:39 Novolog SUB-Q 2 units TIDWM OMAR Administration Protocol Loratadine 10 mg 10/08/19 21:00 10/11/19 22:38 Claritin PO 10 mg HS OMAR Administration Nebivolol 10 mg 10/05/19 09:00 10/12/19 08:31 Bystolic PO 10 mg DAILY OMAR Administration Oxcarbazepine 900 mg 10/05/19 21:00 10/11/19 22:38 Trileptal PO 900 mg HS OMAR Administration Oxcarbazepine 300 mg 10/05/19 09:00 10/12/19 08:33 Trileptal PO 300 mg TID OMAR Administration Pantoprazole Sodium 40 mg 10/05/19 09:00 10/12/19 08:32 Protonix PO 40 mg QAM OMAR Administration Potassium Chloride 10 meq 10/05/19 09:00 10/12/19 08:32 Kcl Tablet PO 10 meq BID OMAR Administration Primidone 250 mg 10/05/19 09:00 07/21/20 08:33 Primidone PO 250 mg TID OMAR
[2019-10-12 12:05] VITALS: BP 134/92
[2019-10-12 12:05] LABS: Glucose Point of Care 232 (65-105)
--- NOTE | 2019-10-12 15:21 | PC.NURSE ---
Spoke with Nannette with crisis multiple times today regarding placement for patient. No accepting facilities at this time.
[2019-10-12 16:29] VITALS: BP 125/83; PULSE 76; RESP 18; TEMP 36.9; O2SAT 98
[2019-10-12 16:37] LABS: Glucose Point of Care 146 (65-105)
--- NOTE | 2019-10-12 19:28 | PC.NURSE ---
Spoke with Nneka appiah implementation coordinator with [facility]. Patient information discussed and packet faxed.
[2019-10-12 21:04] LABS: Glucose Point of Care 158 (65-105)
[2019-10-12] MEDS: ENOXAPARIN 40 MG/0.4 ML SYRINGE SUB-Q (22:31)
[2019-10-12] MEDS: OXcarbazepine 300 MG TABLET 900 MG PO (22:31)
[2019-10-12] MEDS: QUEtiapine FUMARATE XR 200 MG TAB.ER.24H 400 MG PO (22:32)
[2019-10-12] MEDS: traZODone HCL 50 MG TABLET PO (22:33)
[2019-10-12] MEDS: LORATADINE 10 MG TABLET PO (22:33)
[2019-10-12] MEDS: CITALOPRAM HYDROBROMIDE 5 MG TABLET PO (23:30)
[2019-10-13] VITALS: BP 134/84; PULSE 75; RESP 16; TEMP 36.9; O2SAT 95
[2019-10-13 08:00] VITALS: BP 154/89; PULSE 82; RESP 16; TEMP 36.6; O2SAT 99
[2019-10-13] MEDS: FLUTICASONE PROPIONATE 0.05% NA SPR 16 GM BTL (*BKC) 2 SPRAY NASAL ×2 (08:23→16:18)
[2019-10-13] MEDS: FUROSEMIDE 40 MG TABLET PO (08:24)
[2019-10-13] MEDS: OXcarbazepine 300 MG TABLET PO ×3 (08:25→16:18)
[2019-10-13] MEDS: PRIMIDONE 250 MG TABLET PO ×3 (08:25→16:19)
[2019-10-13 08:26] VITALS: PULSE 84
[2019-10-13] MEDS: POTASSIUM CHLORIDE 10 MEQ TABLET.ER PO ×2 (08:26→16:19)
[2019-10-13] MEDS: PANTOPRAZOLE 40 MG TABLET PO (08:26)
[2019-10-13] MEDS: NEBIVOLOL HCL 5 MG TABLET 10 MG PO (08:26)
[2019-10-13 08:31] LABS: Glucose Point of Care 141 (65-105)
[2019-10-13 11:48] LABS: Glucose Point of Care 159 (65-105)
[2019-10-13] MEDS: HYDROCORTISONE 1% 30 GM CREAM 1 APPLIC TOPICAL ×2 (13:37→21:11)
[2019-10-13 16:00] VITALS: BP 132/79; PULSE 86; RESP 16; TEMP 37; O2SAT 97
[2019-10-13 16:19] LABS: Glucose Point of Care 205 (65-105)
[2019-10-13] MEDS: INSULIN ASPART (*BKC) 100 UNITS/ML SUB-Q (16:23)
--- NOTE | 2019-10-13 18:02 | PM.IMPN ---
Progress Note: A&P Assessment and Plan (1) Suicidal behavior: Code(s): R46.89 - Other symptoms and signs involving appearance and behavior Status: Acute Assessment and Plan: The patient was expressing suicidal thoughts and was observed by staff initiating an attempt to try to cut himself with a piece of glass he obtained from shattering the mirror on his bedside table on 10/06/19. He reported that he was having auditory hallucinations with voices telling him to hurt himself. He was combative and had to be restrained 10/05 but much more subdued last few days. Crisis has seen the patient and agrees needs transfer to an inpatient psychiatric facility. He has been discharged to [facility] multiple times during prior admissions. COVID testing for placement (2) Auditory hallucinations: Code(s): R44.0 - Auditory hallucinations Status: Acute Assessment and Plan: As above. The patient will need further inpatient psychiatric now that he is medically stable (3) Seizure disorder: Code(s): G40.909 - Epilepsy, unspecified, not intractable, without status epilepticus Status: Chronic Assessment and Plan: The patient has a hx of seizure disorder. He is established with Dr. Dong. He had seizure activity reported at his PCP's office and was sent to the ED for further evaluation. His potassium was low at 3.3 10/03 and has been supplemented. He had an episode compatible with a psychogenic nonepileptic seizure 10/04 per nursing descriptions which lasted for 1 minute. It was described as large-amplitude bilateral limb movements/shaking with no post-ictal state, gaze deviation, or incontinence. Plan to continue oxcarbazepine and primidone. Neurology has seen the patient and no further adjustment in seizure medications deemed necessary. Was Medically stable to be transferred to inpatient psych since 10/06. (4) Diabetes mellitus: Code(s): E11.9 - Type 2 diabetes mellitus without complications Status: Acute Assessment and Plan: A1c was elevated at 7.5. Glucose reviewed on 10/13/19. Glucose elevated at times still. Continue ACHS glucose monitoring, low-dose SSI, and hypoglycemia protocol. (5) Psychogenic nonepileptic seizure: Code(s): F44.5 - Conversion disorder with seizures or convulsions Status: Acute Assessment and Plan: As above. The patient reports a hx of seizure disorder and psychogenic nonepileptic seizures. (6) Sarcoidosis of lung: Code(s): D86.0 - Sarcoidosis of lung Status: Acute Assessment and Plan: He reports a hx of biopsy-proven sarcoidosis from a lymph node biopsy. He reports a right thoracotomy to remove a sarcoid lesion. CXR revealed questionable focal pleural thickening of the right lower thorax with the inability to exclude underlying mass. He had a bronchoscopy 12/[address] Aburto which revealed chronic bronchitis with benign vascular proliferation, reactive in appearance. The patient was referred to a Sarcoidosis Clinic at [facility] per pulmonology previously. CT chest was performed and revealed a peripheral mild atelectasis and scarring in right middle lobe and right lower lobe. There was a chronic, mildly enlarged right paratracheal lymph node, likely reactive, visualized on CT chest. He will need to follow-up with the sarcoidosis clinic at [facility]. (7) Bipolar disorder: Code(s): F31.9 - Bipolar disorder, unspecified Status: Chronic Assessment and Plan: Continue quetiapine, oxcarbazepine, and citalopram. The patient discussed his concerns regarding ADRs since initiating citalopram with his psychiatrist. She recommended that we begin a taper. Citalopram was weaned down and currently stopped. He will follow-up with her outpatient for further medication changes. (8) Hypokalemia: Code(s): E87.6 - Hypokalemia Status: Acute Assessment and Plan: Potassium was 3.3 in the ED. He
--- NOTE | 2019-10-13 18:49 | PC.NURSE ---
Spoke with Meenakshi with crisis. Continuing to attempt to find placement for patient. She is going to reach out to facilities again this evening and update us with any changes.
[2019-10-13] MEDS: QUEtiapine FUMARATE XR 200 MG TAB.ER.24H 400 MG PO (21:11)
[2019-10-13] MEDS: ENOXAPARIN 40 MG/0.4 ML SYRINGE SUB-Q (21:12)
[2019-10-13] MEDS: LORATADINE 10 MG TABLET PO (21:12)
[2019-10-13] MEDS: OXcarbazepine 300 MG TABLET 900 MG PO (21:12)
[2019-10-13] MEDS: traZODone HCL 50 MG TABLET PO (22:08)
[2019-10-14 02:00] VITALS: PULSE 65; RESP 16
[2019-10-14 04:36] LABS: Hematocrit 41.1 % (42.0-52.0); Hemoglobin 13.7 g/dL (14.0-18.0); Mean Corpuscular HGB Conc 33.3 g/dl (32-36); Mean Corpuscular Hemoglobin 29.8 pg (26-34); Mean Corpuscular Volume 89.5 fl (80-100); Mean Platelet Volume 10.5 fl (7.4-10.4); Platelet Count Result 275 k/mm3 (150-375); Red Blood Count 4.59 M/mm3 (4.6-6.20); Red Cell Distribution Width 12.4 % (11.5-14.5); White Blood Count 8.3 K/mm3 (4.5-10.0)
[2019-10-14 04:52] LABS: Anion Gap 10.9 mmol/L (7-16); Blood Urea Nitrogen 9 mg/dL (9-20); Calcium 8.5 mg/dL (8.4-10.2); Carbon Dioxide 28 mmol/L (22-30); Chloride 93 mmol/L (98-107); Estimated CRCL calculation 151 ml/min; Estimated Glomerular Filt Rate > 60; Glucose 120 mg/dL (75-110); Potassium 3.9 mmol/L (3.4-5.0); Sodium 128 mmol/L (137-145)
[2019-10-14 07:36] LABS: Glucose Point of Care 117 (65-105)
[2019-10-14] MEDS: PANTOPRAZOLE 40 MG TABLET PO (09:28)
[2019-10-14] MEDS: FLUTICASONE PROPIONATE 0.05% NA SPR 16 GM BTL (*BKC) 2 SPRAY NASAL ×2 (09:28→17:05)
[2019-10-14] MEDS: NEBIVOLOL HCL 5 MG TABLET 10 MG PO (09:29)
[2019-10-14] MEDS: POTASSIUM CHLORIDE 10 MEQ TABLET.ER PO ×2 (09:29→17:06)
[2019-10-14] MEDS: PRIMIDONE 250 MG TABLET PO ×3 (09:29→17:06)
[2019-10-14] MEDS: FUROSEMIDE 40 MG TABLET PO (09:32)
[2019-10-14] MEDS: OXcarbazepine 300 MG TABLET PO ×3 (09:33→17:05)
[2019-10-14] MEDS: HYDROCORTISONE 1% 30 GM CREAM 1 APPLIC TOPICAL (09:33)
[2019-10-14 10:00] VITALS: RESP 16
[2019-10-14 11:53] LABS: Glucose Point of Care 205 (65-105)
--- NOTE | 2019-10-14 12:03 | WPDNEUROPN ---
Progress Note: A&P Assessment and Plan (1) Seizure: Code(s): R56.9 - Unspecified convulsions Status: Acute (2) Bipolar disorder: Code(s): F31.9 - Bipolar disorder, unspecified Status: Chronic (3) Psychogenic nonepileptic seizure: Code(s): F44.5 - Conversion disorder with seizures or convulsions Status: Acute Additional Plan stable improving Review of Systems Review of Systems: All systems reviewed & are unremarkable except as noted in HPI and below Exam Const: General: cooperative, healthy appearing, comfortable, no acute distress and awake Nutritional Appearance: average body habitus Orientation/consciousness: oriented to person, oriented to place and oriented to time Limitations: no limitations Eyes: General: appearance normal, both eyes and all related structures Visual Soliz: normal visual soliz by confrontation Alignment and Position: alignment normal Periorbital: periorbital findings normal Eyelids: eyelids normal Conjunctivae: conjunctivae normal Sclera: sclerae normal Cornea: corneas normal Pupils: Equal, round and reactive pupils present EOM: EOMs intact bilaterally Neck: Neck: normal visual inspection, full ROM and no lymphadenopathy Resp: Effort & Inspection: normal respiratory effort and able to speak in complete sentences Cardio: Rate: regular rate Rhythm: regular rhythm GI: Auscultation: normal bowel sounds Neuro: General: patient oriented x3 and moves all extremities Cranial nerves: Yes CN's II-XII intact bilaterally Cognition (Neuro): normal cognition Motor exam (neuro): 5/5 motor strength present throughout and No tremor noted Sensory Exam: normal sensation Deep tendon reflexes (DTR's): Right triceps reflex intensity grade: 1+, Left triceps reflex intensity grade: 1+, Rt Biceps (C5, C6): 1+, Left biceps reflex intensity grade: 1+, Right brachioradialis reflex intensity grade: 1+, Left brachioradialis reflex intensity grade: 1+, Right patellar reflex intensity grade: 1+, Left patellar reflex intensity grade: 1+, Right ankle reflex intensity grade: 1+ and Left ankle reflex intensity grade: 1+ Plantar Reflex Responses: downgoing: bilateral Extrem: General: normal to inspection Psych: Appearance: grossly normal Speech and movement: Normal speech and movement present Affect: normal affect Attitude: cooperative Thought process: Normal thought process present Thought content: Yes Normal thought content present Insight: Fair insight present (Psych) Judgement: Fair judgement present (Psych) Objective Data Vital Signs Vital Signs: Vital Signs - 24 hr 10/13/19 16:00 10/14/19 02:00 10/14/19 10:00 Temperature 37.0 C Pulse Rate 86 65 Respiratory Rate 16 16 16 Blood Pressure 132/79 Pulse Oximetry 97 Intake/Output Intake/Output: Intake & Output 10/11/19 10/12/19 10/13/19 10/14/19 23:59 23:59 23:59 23:59 Intake Total 2230 3760 2490 478 Output Total 8023 3897 4000 Balance -5152 589 -3622 811 Meds/Results Medications: Active Medications Generic Name Dose Route Start Last Admin Trade Name Freq PRN Reason Stop Dose Admin Acetaminophen 650 mg 10/04/19 22:02 Tylenol Tablet PO Q6H PRN Mild Pain (1-3) or Fever Albuterol 2.5 mg 10/05/19 08:25 Albuterol Sulf Neb 2.5mg/0.5ml INHALATION Q4HRT PRN Shortness Of Breath Clonazepam 0.5 mg 10/05/19 17:46 Klonopin Tablet PO Q12H PRN Anxiety Dextrose 12.5 gm 10/05/19 21:35 Dextrose 50% Syringe IV PUSH PRN PRN Hypoglycemia Protocol Enoxaparin Sodium 40 mg 10/10/19 21:00 10/13/19 21:12 Lovenox SUB-Q 40 mg HS OMAR Administration Fluticasone Propionate 2 spray 10/05/19 09:00 10/14/19 09:28 Flonase 0.05% Nasal [place] NASAL 2 spray BID OMAR Administration Furosemide 40 mg 10/05/19 09:00 10/14/19 09:32 Lasix Tablet PO 40 mg DAILY OMAR Administration Glucagon 1 mg 10/05/19 21:35 Glucagon Fo
[2019-10-14] MEDS: INSULIN ASPART (*BKC) 100 UNITS/ML SUB-Q (12:29)
--- NOTE | 2019-10-14 12:30 | NEURO_ITS ---
TEST: ELECTROENCEPHALOGRAM DIAGNOSIS: HISTORY OF SEIZURE PATIENT NUMBER: [id number] EEG NUMBER: [id number] RECORDING DATE: 10/13/19 CONDITION OF RECORDING: Awake, drowsy and sleep EEG DESCRIPTION: Basic resting occipital frequency consists of small amount of poorly organized, during very brief periods of wakefulness, low voltage 8-9hz alpha mixed with low voltage 15-18hz beta. During drowsiness low voltage beta activity is seen diffusely mixed with waxing and waning 8-7hz theta. Bilateral symmetrical sleep activity is seen during sleep. Hyperventilation and photic stimulation were not done. Nonparoxysmal. Nonfocal. Nonlateralizing. IMPRESSION: No significant abnormalities noted. MTDD
--- NOTE | 2019-10-14 14:04 | PC.NURSE ---
This patient, Martín Salgado, was transferred to [facility] on 10/14/19 at 1400. Personal belongings sent with patient. Report given to RN. Appropriate documentation sent with patient.
[2019-10-14 15:21] LABS: SARS-CoV-2 RNA PCR Negative
[2019-10-14 16:00] VITALS: BP 141/93; PULSE 79; RESP 15; TEMP 36.8; O2SAT 98
[2019-10-14 16:26] LABS: Glucose Point of Care 136 (65-105)
[2019-10-14] MEDS: ENOXAPARIN 40 MG/0.4 ML SYRINGE SUB-Q (20:21)
[2019-10-14] MEDS: LORATADINE 10 MG TABLET PO (20:22)
[2019-10-14] MEDS: OXcarbazepine 300 MG TABLET 900 MG PO (20:22)
[2019-10-14] MEDS: QUEtiapine FUMARATE XR 200 MG TAB.ER.24H 400 MG PO (20:23)
--- NOTE | 2019-10-14 20:33 | PM.IMPN ---
Progress Note: A&P Assessment and Plan (1) Suicidal behavior: Code(s): R46.89 - Other symptoms and signs involving appearance and behavior Status: Acute Assessment and Plan: The patient was expressing suicidal thoughts and was observed by staff initiating an attempt to try to cut himself with a piece of glass he obtained from shattering the mirror on his bedside table on 10/06/19. He reported that he was having auditory hallucinations with voices telling him to hurt himself. He was combative and had to be restrained 10/05 but much more subdued last few days. Voices are less prevalent. Safety contract signed. Home tomorrow. COVID testing negative. (2) Auditory hallucinations: Code(s): R44.0 - Auditory hallucinations Status: Acute Assessment and Plan: As above. Unable to provide inpatient psychiatric care and symptoms improved overall. Plan for outpatient management. (3) Seizure disorder: Code(s): G40.909 - Epilepsy, unspecified, not intractable, without status epilepticus Status: Chronic Assessment and Plan: The patient has a hx of seizure disorder. He is established with Dr. Dong. He had seizure activity reported at his PCP's office and was sent to the ED for further evaluation. His potassium was low at 3.3 10/03 and has been supplemented. He had an episode compatible with a psychogenic nonepileptic seizure 10/04 per nursing descriptions which lasted for 1 minute. It was described as large-amplitude bilateral limb movements/shaking with no post-ictal state, gaze deviation, or incontinence. Plan to continue oxcarbazepine and primidone. Neurology has seen the patient and no further adjustment in seizure medications deemed necessary. Was medically stable to be transferred to inpatient psych since 10/06 but no beds available. Patient no longer suicidal and has been released by Crisis. He signed a safety contract. Home tomorrow. (4) Diabetes mellitus: Code(s): E11.9 - Type 2 diabetes mellitus without complications Status: Acute Assessment and Plan: A1c was elevated at 7.5. Glucose reviewed on 10/14/19. Glucose elevated at times still to 205. Continue ACHS glucose monitoring, low-dose SSI, and hypoglycemia protocol. (5) Psychogenic nonepileptic seizure: Code(s): F44.5 - Conversion disorder with seizures or convulsions Status: Acute Assessment and Plan: As above. The patient reports a hx of seizure disorder and psychogenic nonepileptic seizures. (6) Sarcoidosis of lung: Code(s): D86.0 - Sarcoidosis of lung Status: Acute Assessment and Plan: He reports a hx of biopsy-proven sarcoidosis from a lymph node biopsy. He reports a right thoracotomy to remove a sarcoid lesion. CXR revealed questionable focal pleural thickening of the right lower thorax with the inability to exclude underlying mass. He had a bronchoscopy 12/[address] Aburto which revealed chronic bronchitis with benign vascular proliferation, reactive in appearance. The patient was referred to a Sarcoidosis Clinic at [facility] per pulmonology previously. CT chest was performed and revealed a peripheral mild atelectasis and scarring in right middle lobe and right lower lobe. There was a chronic, mildly enlarged right paratracheal lymph node, likely reactive, visualized on CT chest. He will need to follow-up with the sarcoidosis clinic at [facility]. (7) Bipolar disorder: Code(s): F31.9 - Bipolar disorder, unspecified Status: Chronic Assessment and Plan: Mood stable. Continue quetiapine, oxcarbazepine, and citalopram. The patient discussed his concerns regarding ADRs since initiating citalopram with his psychiatrist. She recommended that we taper the mediation. Citalopram was weaned down and currently stopped now. He will follow-up with her outpatient for further medication changes. (8) Hypokalemia: Code(s): E87.6 - Hypokale
[2019-10-14 21:17] LABS: Glucose Point of Care 143 (65-105)
[2019-10-14 21:40] VITALS: BP 146/91; PULSE 83; RESP 20; TEMP 37.1; O2SAT 97
--- NOTE | 2019-10-14 21:40 | PC.NURSE ---
This patient, Martín Salgado, was received from [ ICU] on 10/14/19 at 2140. Personal belongings list checked and signed. Patient/family oriented to unit policies and routines
--- NOTE | 2019-10-14 21:48 | PC.NURSE ---
This patient, Martín Salgado, was transferred to [ rm 304 on 3 med/surg] on 10/14/19 at 2145. Personal belongings sent with patient. Belongings list checked and signed with receiving []. Report given to [ Liss ALVARADO]. Appropriate documentation sent with patient.
[2019-10-14] MEDS: RIZATRIPTAN BENZOATE 10 MG TABLET PO (21:55)
[2019-10-14] MEDS: traZODone HCL 50 MG TABLET PO (22:59)
[2019-10-15 06:00] VITALS: BP 118/62; PULSE 79; RESP 18; TEMP 36.2; O2SAT 99
[2019-10-15] MEDS: FLUTICASONE PROPIONATE 0.05% NA SPR 16 GM BTL (*BKC) 2 SPRAY NASAL ×2 (08:19→18:51)
[2019-10-15 08:20] VITALS: PULSE 79
[2019-10-15] MEDS: NEBIVOLOL HCL 5 MG TABLET 10 MG PO (08:20)
[2019-10-15] MEDS: FUROSEMIDE 40 MG TABLET PO (08:20)
[2019-10-15] MEDS: OXcarbazepine 300 MG TABLET PO ×3 (08:20→18:51)
[2019-10-15] MEDS: HYDROCORTISONE 1% 30 GM CREAM 1 APPLIC TOPICAL ×2 (08:20→20:34)
[2019-10-15] MEDS: PRIMIDONE 250 MG TABLET PO ×3 (08:21→18:52)
[2019-10-15] MEDS: POTASSIUM CHLORIDE 10 MEQ TABLET.ER PO ×2 (08:21→18:51)
[2019-10-15] MEDS: PANTOPRAZOLE 40 MG TABLET PO (08:21)
[2019-10-15 08:26] LABS: Glucose Point of Care 123 (65-105)
--- NOTE | 2019-10-15 10:29 | PM.IMPN ---
Progress Note: A&P Assessment and Plan (1) Suicidal behavior: Code(s): R46.89 - Other symptoms and signs involving appearance and behavior Status: Acute Assessment and Plan: The patient was expressing suicidal thoughts and was observed by staff initiating an attempt to try to cut himself with a piece of glass he obtained from shattering the mirror on his bedside table on 10/06/19. He reported that he was having auditory hallucinations with voices telling him to hurt himself. He was combative and had to be restrained 10/05 but much more subdued last few days. Celexa weaned off and appeared patietn was improving with voices less prevalent. Safety contract signed on 10/13 with plans home today. Patient again acting on voices instruction with attempts to hurt himself. Move back to ICU and have Crisis see again. Safe for transfer from medical standpoint. COVID testing negative. (2) Auditory hallucinations: Code(s): R44.0 - Auditory hallucinations Status: Acute Assessment and Plan: As above. Having difficluty providing inpatient psychiatric care. Symptoms relapsing despite being of of the Celexa. Placement needs to be re-considered. . (3) Seizure disorder: Code(s): G40.909 - Epilepsy, unspecified, not intractable, without status epilepticus Status: Chronic Assessment and Plan: The patient has a hx of seizure disorder. He is established with Dr. Dong. He had seizure activity reported at his PCP's office and was sent to the ED for further evaluation. He had an episode compatible with a psychogenic nonepileptic seizure 10/04 per nursing descriptions which lasted for 1 minute. It was described as large-amplitude bilateral limb movements/shaking with no post-ictal state, gaze deviation, or incontinence. Plan to continue oxcarbazepine and primidone. Neurology has seen the patient and no further adjustment in seizure medications deemed necessary. Reconsult Crisis. Is medically stable to be transferred to inpatient psych (4) Diabetes mellitus: Code(s): E11.9 - Type 2 diabetes mellitus without complications Status: Acute Assessment and Plan: A1c was elevated at 7.5. Glucose reviewed on 10/15/19. Glucose elevated at timesbut mostly well controlled. Continue ACHS glucose monitoring, low-dose SSI, and hypoglycemia protocol. (5) Psychogenic nonepileptic seizure: Code(s): F44.5 - Conversion disorder with seizures or convulsions Status: Acute Assessment and Plan: As above. The patient reports a hx of seizure disorder and psychogenic nonepileptic seizures. (6) Sarcoidosis of lung: Code(s): D86.0 - Sarcoidosis of lung Status: Acute Assessment and Plan: He reports a hx of biopsy-proven sarcoidosis from a lymph node biopsy. He reports a right thoracotomy to remove a sarcoid lesion. CXR revealed questionable focal pleural thickening of the right lower thorax with the inability to exclude underlying mass. He had a bronchoscopy 12/[address] Aburto which revealed chronic bronchitis with benign vascular proliferation, reactive in appearance. The patient was referred to a Sarcoidosis Clinic at [facility] per pulmonology previously. CT chest was performed and revealed a peripheral mild atelectasis and scarring in right middle lobe and right lower lobe. There was a chronic, mildly enlarged right paratracheal lymph node, likely reactive, visualized on CT chest. He will need to follow-up with the sarcoidosis clinic at [facility]. (7) Bipolar disorder: Code(s): F31.9 - Bipolar disorder, unspecified Status: Chronic Assessment and Plan: Mood now unstable. Continue quetiapine, oxcarbazepine, and citalopram. The patient discussed his concerns regarding ADRs since initiating citalopram with his psychiatrist. She recommended that we taper the mediation. Citalopram was weaned down and currently stopped now. He will follow-up with
[2019-10-15] MEDS: RIZATRIPTAN BENZOATE 10 MG TABLET PO (10:36)
--- NOTE | 2019-10-15 11:00 | PC.NURSE ---
Patient states that the voices he's hearing are telling him to harm other people now. Staff will continue one on one patient observation.
--- NOTE | 2019-10-15 11:30 | PC.NURSE ---
Security arrived to sit at patient bedside.
[2019-10-15] MEDS: clonazePAM 0.5 MG TABLET PO (12:01)
[2019-10-15 14:00] VITALS: BP 146/82; PULSE 84; RESP 16; TEMP 37.1; O2SAT 96
[2019-10-15 18:02] LABS: Glucose Point of Care 116 (65-105)
[2019-10-15] MEDS: LORATADINE 10 MG TABLET PO (20:34)
[2019-10-15] MEDS: OXcarbazepine 300 MG TABLET 900 MG PO (20:34)
[2019-10-15] MEDS: ENOXAPARIN 40 MG/0.4 ML SYRINGE SUB-Q (20:34)
[2019-10-15] MEDS: QUEtiapine FUMARATE XR 200 MG TAB.ER.24H 400 MG PO (20:34)
[2019-10-15 20:48] LABS: Glucose Point of Care 235 (65-105)
[2019-10-15 22:00] VITALS: BP 112/67; PULSE 80; RESP 20; TEMP 36.7; O2SAT 96
[2019-10-15] MEDS: traZODone HCL 50 MG TABLET PO (23:56)
[2019-10-16 06:47] VITALS: BP 102/54; PULSE 64; RESP 16; TEMP 36.3; O2SAT 100
[2019-10-16 08:52] LABS: Glucose Point of Care 116 (65-105)
[2019-10-16] MEDS: FLUTICASONE PROPIONATE 0.05% NA SPR 16 GM BTL (*BKC) 2 SPRAY NASAL ×2 (09:12→17:40)
[2019-10-16 09:15] VITALS: BP 138/79; PULSE 73
[2019-10-16 09:16] VITALS: PULSE 73
[2019-10-16] MEDS: POTASSIUM CHLORIDE 10 MEQ TABLET.ER PO ×2 (09:16→17:39)
[2019-10-16] MEDS: OXcarbazepine 300 MG TABLET PO ×3 (09:16→17:39)
[2019-10-16] MEDS: PRIMIDONE 250 MG TABLET PO ×3 (09:16→17:39)
[2019-10-16] MEDS: FUROSEMIDE 40 MG TABLET PO (09:16)
[2019-10-16] MEDS: PANTOPRAZOLE 40 MG TABLET PO (09:16)
[2019-10-16] MEDS: NEBIVOLOL HCL 5 MG TABLET 10 MG PO (09:16)
[2019-10-16 12:43] LABS: Glucose Point of Care 135 (65-105)
[2019-10-16 13:58] VITALS: BP 115/64; PULSE 83; RESP 14; TEMP 36.8; O2SAT 97
[2019-10-16 14:06] LABS: Anion Gap 16.5 mmol/L (7-16); Blood Urea Nitrogen 7 mg/dL (9-20); Calcium 8.6 mg/dL (8.4-10.2); Carbon Dioxide 28 mmol/L (22-30); Chloride 90 mmol/L (98-107); Estimated CRCL calculation 116 ml/min; Estimated Glomerular Filt Rate > 60; Glucose 238 mg/dL (75-110); Potassium 4.5 mmol/L (3.4-5.0); Sodium 130 mmol/L (137-145)
--- NOTE | 2019-10-16 15:12 | PM.IMPN ---
Progress Note: A&P Assessment and Plan (1) Suicidal behavior: Code(s): R46.89 - Other symptoms and signs involving appearance and behavior Status: Acute Assessment and Plan: The patient was expressing suicidal thoughts and was observed by staff initiating an attempt to try to cut himself with a piece of glass he obtained from shattering the mirror on his bedside table on 10/06/19. He reported that he was having auditory hallucinations with voices telling him to hurt himself. He was combative and had to be restrained 10/05 but much more subdued last few days. Celexa weaned off and appeared patient was improving with voices less prevalent. Safety contract signed on 10/13 with plans home 10/14. Patient states the voices are more prominent and louder telling him to harm himself and others. Crisis consulted again. Placement will be needed. COVID testing negative. (2) Auditory hallucinations: Code(s): R44.0 - Auditory hallucinations Status: Acute Assessment and Plan: As above. Having difficulty finding inpatient psychiatric care. Symptoms relapsing despite being off of the Celexa. Placement needs to be re-considered. Crisis consulted. Patient is medically stable to be transferred to inpatient psych (3) Seizure disorder: Code(s): G40.909 - Epilepsy, unspecified, not intractable, without status epilepticus Status: Chronic Assessment and Plan: The patient has a hx of seizure disorder. He is established with Dr. Dong. He had seizure activity reported at his PCP's office and was sent to the ED for further evaluation. He had an episode compatible with a psychogenic nonepileptic seizure 10/04 per nursing descriptions which lasted for 1 minute. It was described as large-amplitude bilateral limb movements/shaking with no post-ictal state, gaze deviation, or incontinence. Plan to continue oxcarbazepine and primidone. Neurology has seen the patient and no further adjustment in seizure medications deemed necessary. (4) Diabetes mellitus: Code(s): E11.9 - Type 2 diabetes mellitus without complications Status: Acute Assessment and Plan: A1c was elevated at 7.5. Glucose reviewed on 10/16/19. Glucose mostly well controlled. Continue AccuCheks with SSI. Hypoglycemia protocol available as needed. (5) Psychogenic nonepileptic seizure: Code(s): F44.5 - Conversion disorder with seizures or convulsions Status: Acute Assessment and Plan: As above. The patient reports a hx of seizure disorder and psychogenic nonepileptic seizures. (6) Sarcoidosis of lung: Code(s): D86.0 - Sarcoidosis of lung Status: Acute Assessment and Plan: He reports a hx of biopsy-proven sarcoidosis from a lymph node biopsy. He reports a right thoracotomy to remove a sarcoid lesion. CXR revealed questionable focal pleural thickening of the right lower thorax with the inability to exclude underlying mass. He had a bronchoscopy 12/[address] Aburto which revealed chronic bronchitis with benign vascular proliferation, reactive in appearance. The patient was referred to a Sarcoidosis Clinic at [facility] per pulmonology previously. CT chest was performed and revealed a peripheral mild atelectasis and scarring in right middle lobe and right lower lobe. There was a chronic, mildly enlarged right paratracheal lymph node, likely reactive, visualized on CT chest. He will need to follow-up with the sarcoidosis clinic at [facility]. (7) Bipolar disorder: Code(s): F31.9 - Bipolar disorder, unspecified Status: Chronic Assessment and Plan: Mood now unstable. Continue quetiapine, oxcarbazepine, and citalopram. The patient discussed his concerns regarding ADRs since initiating citalopram with his psychiatrist. She recommended that we taper the mediation. Citalopram was weaned down and currently stopped now. He will follow-up with her outpatient for further medicati
--- NOTE | 2019-10-16 16:42 | ECG_ITS ---
Measurements Intervals [place] Rate: 78 P: 37 MI: 205 QRS: -21 QRSD: 92 T: 49 QT: 351 QTc: 400 Interpretive Statements SINUS RHYTHM BORDERLINE AV CONDUCTION DELAY BORDERLINE ECG Electronically Signed On 10-16-2019 20:18:52 CDT by Ajit Alvarado D.O.
[2019-10-16 17:05] LABS: Hematocrit 45.1 % (42.0-52.0); Hemoglobin 15.4 g/dL (14.0-18.0); Mean Corpuscular HGB Conc 34.1 g/dl (32-36); Mean Corpuscular Hemoglobin 30.6 pg (26-34); Mean Corpuscular Volume 89.5 fl (80-100); Mean Platelet Volume 10.1 fl (7.4-10.4); Platelet Count Result 302 k/mm3 (150-375); Red Blood Count 5.04 M/mm3 (4.6-6.20); Red Cell Distribution Width 12.5 % (11.5-14.5); White Blood Count 6.9 K/mm3 (4.5-10.0)
[2019-10-16 17:16] LABS: Alanine Aminotransferase 37 U/L (4-50); Albumin Level 4.4 g/dL (3.5-5.1); Alkaline Phosphatase 86 U/L (38-126); Aspartate Amino Transferase 36 U/L (17-59); Bilirubin,Total 0.3 mg/dL (0.2-1.3)
[2019-10-16 18:00] LABS: Glucose Point of Care 124 (65-105)
[2019-10-16 18:08] LABS: Amphetamine Screen Urine Negative (Negative); Barbiturate Screen Urine Positive (Negative); Benzodiazepines Screen Urine Negative (Negative); Cannabinoid Screen Urine Negative (Negative); Cocaine Screen Urine Negative (Negative); Methadone Screen Urine Negative (Negative); Opiate Screen Urine Negative (Negative); Phencyclidine Screen Urine Negative (Negative)
--- NOTE | 2019-10-16 18:21 | PC.NURSE ---
Faxed the following requested records to [facility] for placement. CBC,EKG,BMP,Hepatic panel, Toxicology report, Serology, chest x-ray as well as crisis intervention notes and statements from physician stating patient is medically stable and having hallucinations.
[2019-10-16 20:36] LABS: Glucose Point of Care 169 (65-105)
[2019-10-16] MEDS: LORATADINE 10 MG TABLET PO (20:54)
[2019-10-16] MEDS: QUEtiapine FUMARATE XR 200 MG TAB.ER.24H 400 MG PO (20:54)
[2019-10-16] MEDS: OXcarbazepine 300 MG TABLET 900 MG PO (20:54)
[2019-10-16] MEDS: ENOXAPARIN 40 MG/0.4 ML SYRINGE SUB-Q (20:54)
[2019-10-16 22:09] VITALS: BP 124/70; PULSE 91; RESP 20; TEMP 36.6; O2SAT 97
--- NOTE | 2019-10-16 23:40 | PC.NURSE ---
This patient, Martín Salgado, was received from [ [phone]] on 10/16/19 at 2340. Personal belongings list checked and signed. Patient/family oriented to unit policies and routines
--- NOTE | 2019-10-16 23:42 | PC.NURSE ---
Patient transferred to ICU room 7 by wheelchair by RN with security. All belongings sent with patient.
--- NOTE | 2019-10-16 23:51 | PC.NURSE ---
Reviewing belongings and comparing to list upon transfer to ICU did not find home meds, wallet, emmanuel, or debit card. Robbie ALVARADO on [facility] med surg called and he is looking for them.
--- NOTE | 2019-10-17 00:01 | ADMIMU ---
This patient, Martín Salgado, was transferred to Intensive Care Unit-7 10/16/19 at 2345. Security with patient. Patient on SI precautions. Patient/Family are encouraged to report perceived risks to care and to ask questions if they do not understand what they are told or what they should do.
[2019-10-17] MEDS: traZODone HCL 50 MG TABLET PO ×2 (00:17→21:41)
[2019-10-17 00:33] VITALS: BP 121/70; PULSE 76; RESP 18; TEMP 36.8; O2SAT 97
[2019-10-17 07:59] LABS: Glucose Point of Care 116 (65-105)
[2019-10-17 11:17] VITALS: PULSE 95
[2019-10-17] MEDS: POTASSIUM CHLORIDE 10 MEQ TABLET.ER PO ×2 (11:17→21:00)
[2019-10-17] MEDS: NEBIVOLOL HCL 5 MG TABLET 10 MG PO (11:17)
[2019-10-17] MEDS: PANTOPRAZOLE 40 MG TABLET PO (11:17)
[2019-10-17] MEDS: PRIMIDONE 250 MG TABLET PO ×2 (11:18→21:41)
[2019-10-17] MEDS: FLUTICASONE PROPIONATE 0.05% NA SPR 16 GM BTL (*BKC) 2 SPRAY NASAL (11:18)
[2019-10-17] MEDS: OXcarbazepine 300 MG TABLET PO (11:18)
[2019-10-17] MEDS: FUROSEMIDE 40 MG TABLET PO (11:18)
[2019-10-17 11:23] VITALS: BP 146/84; PULSE 92; RESP 16; TEMP 36.8; O2SAT 98
[2019-10-17 12:12] LABS: Glucose Point of Care 152 (65-105)
[2019-10-17 16:00] VITALS: BP 108/77; PULSE 70; RESP 16; TEMP 36.9; O2SAT 95
[2019-10-17 16:19] LABS: Glucose Point of Care 169 (65-105)
--- NOTE | 2019-10-17 18:31 | PM.IMPN ---
Progress Note: A&P Assessment and Plan (1) Suicidal behavior: Code(s): R46.89 - Other symptoms and signs involving appearance and behavior Status: Acute Assessment and Plan: The patient was expressing suicidal thoughts and was observed by staff initiating an attempt to try to cut himself with a piece of glass he obtained from shattering the mirror on his bedside table on 10/06/19. He reported that he was having auditory hallucinations with voices telling him to hurt himself. He was combative and had to be moved to the ICU and restrained 10/05. Much more subdued over the next week. He was weaned off Celexa and his psychotic symptoms seem to improve. The plan was for safety contract and discharge but on day of discharge (10/14), he again became suicidal with hearing voices. He again tried to cut himself. Patient states the voices are more prominent and louder telling him to harm himself and others. Crisis consulted again. Patient moved back to ICU. Placement will be needed. COVID testing negative. (2) Auditory hallucinations: Code(s): R44.0 - Auditory hallucinations Status: Acute Assessment and Plan: As above. Having difficulty finding inpatient psychiatric care. Symptoms relapsing despite being off of the Celexa. Placement being arranged. Crisis consulted. Patient is medically stable to be transferred to inpatient psych (3) Seizure disorder: Code(s): G40.909 - Epilepsy, unspecified, not intractable, without status epilepticus Status: Chronic Assessment and Plan: The patient has a hx of seizure disorder. He is established with Dr. Dong. He had seizure activity reported at his PCP's office and was sent to the ED for further evaluation. He had an episode compatible with a psychogenic nonepileptic seizure 10/04 per nursing descriptions which lasted for 1 minute. It was described as large-amplitude bilateral limb movements/shaking with no post-ictal state, gaze deviation, or incontinence. Plan to continue oxcarbazepine and primidone. Neurology has seen the patient and no further adjustment in seizure medications deemed necessary. (4) Diabetes mellitus: Code(s): E11.9 - Type 2 diabetes mellitus without complications Status: Acute Assessment and Plan: A1c was elevated at 7.5. Glucose reviewed on 10/17/19. Glucose reasonably well controlled. Continue AccuCheks with SSI. Hypoglycemia protocol available as needed. (5) Psychogenic nonepileptic seizure: Code(s): F44.5 - Conversion disorder with seizures or convulsions Status: Acute Assessment and Plan: As above. The patient reports a hx of seizure disorder and psychogenic nonepileptic seizures. (6) Sarcoidosis of lung: Code(s): D86.0 - Sarcoidosis of lung Status: Acute Assessment and Plan: He reports a hx of biopsy-proven sarcoidosis from a lymph node biopsy. He reports a right thoracotomy to remove a sarcoid lesion. CXR revealed questionable focal pleural thickening of the right lower thorax with the inability to exclude underlying mass. He had a bronchoscopy 12/[address] Aburto which revealed chronic bronchitis with benign vascular proliferation, reactive in appearance. The patient was referred to a Sarcoidosis Clinic at [facility] per pulmonology previously. CT chest was performed and revealed a peripheral mild atelectasis and scarring in right middle lobe and right lower lobe. There was a chronic, mildly enlarged right paratracheal lymph node, likely reactive, visualized on CT chest. He will need to follow-up with the sarcoidosis clinic at [facility]. (7) Bipolar disorder: Code(s): F31.9 - Bipolar disorder, unspecified Status: Chronic Assessment and Plan: Mood stable today but still hearing voices. Continue quetiapine, oxcarbazepine, and citalopram. The patient discussed his concerns regarding ADRs since initiating citalopram with his psychiatrist.
[2019-10-17 20:00] VITALS: PULSE 70; RESP 16; O2SAT 95
[2019-10-17] MEDS: OXcarbazepine 300 MG TABLET 900 MG PO (21:41)
[2019-10-17] MEDS: LORATADINE 10 MG TABLET PO (21:41)
[2019-10-17] MEDS: QUEtiapine FUMARATE XR 200 MG TAB.ER.24H 400 MG PO (21:41)
[2019-10-17] MEDS: ENOXAPARIN 40 MG/0.4 ML SYRINGE SUB-Q (21:42)
--- NOTE | 2019-10-18 | PC.NURSE ---
transfer to [facility] in wheelchair with sitter
[2019-10-18 00:30] VITALS: BP 153/90; PULSE 91; RESP 20; TEMP 37.1; O2SAT 97
--- NOTE | 2019-10-18 05:44 | PC.NURSE ---
Patient arrived from ICU with security. Patient belongings that arrived with him were locked in cabinet in room. Patient home medications, wallet, money, and debit card did not arrive with him. Contacted ICU to request missing items be sent up. Awaiting arrival of patients remaining belongings.
[2019-10-18 07:17] VITALS: BP 119/72; PULSE 76; RESP 16; TEMP 36.6; O2SAT 97
[2019-10-18] MEDS: FLUTICASONE PROPIONATE 0.05% NA SPR 16 GM BTL (*BKC) 2 SPRAY NASAL (08:39)
[2019-10-18] MEDS: PRIMIDONE 250 MG TABLET PO (08:40)
[2019-10-18] MEDS: FUROSEMIDE 40 MG TABLET PO (08:40)
[2019-10-18] MEDS: POTASSIUM CHLORIDE 10 MEQ TABLET.ER PO (08:40)
[2019-10-18] MEDS: OXcarbazepine 300 MG TABLET PO (08:40)
[2019-10-18] MEDS: PANTOPRAZOLE 40 MG TABLET PO (08:41)
[2019-10-18 08:42] VITALS: PULSE 74
[2019-10-18] MEDS: NEBIVOLOL HCL 5 MG TABLET 10 MG PO (08:42)
[2019-10-18 08:48] LABS: Glucose Point of Care 121 (65-105)
--- NOTE | 2019-10-18 10:22 | PM.TDS ---
Transfer Discharge Sum: Prov Provider Date of admission: 10/05/19 17:22 Primary care physician: Guanaco Miller MD Admitting clinician: Nidia Mercer DO Consults: 10/04/19 Consult to Physician Routine Comment: Consulting Provider: Brandon Dong dispatch associate/MD group to consult: Neurology Reason for consultation: ?Seizure-like activity? Has provider been notified: Yes 10/05/19 Consult to Physician Routine Comment: consulted at 1654 Consulting Provider: Brandon Dong dispatch associate/MD group to consult: Dr. Dong Reason for consultation: seizure like activity Has provider been notified: Yes 10/07/19 Care Coordination Consult Routine Comment: Reason for Consult:: Crisis Intervention DS: Admitting Diagnosis Admitting Diagnosis Admitting Diagnosis: Epilepsy, unspecified, not intractable, without status epilepticus DS: Discharge Diagnosis Discharge Diagnosis (1) Suicidal behavior: Code(s): R46.89 - Other symptoms and signs involving appearance and behavior Status: Acute Assessment and Plan: The patient was expressing suicidal thoughts and was observed by staff initiating an attempt to try to cut himself with a piece of glass he obtained from shattering the mirror on his bedside table on 10/06/19. He reported that he was having auditory hallucinations with voices telling him to hurt himself. He was combative and had to be moved to the ICU and restrained 10/05. Much more subdued over the next week. He was weaned off Celexa and his psychotic symptoms seem to improve. The plan was for safety contract and discharge but on day of discharge (10/14), he again became suicidal with hearing voices. He again tried to cut himself. Patient states the voices are more prominent and louder telling him to harm himself and others. Crisis consulted again. Patient moved back to ICU. Placement arranged and able to be discharged 10/18/19. COVID testing negative. (2) Auditory hallucinations: Code(s): R44.0 - Auditory hallucinations Status: Acute Assessment and Plan: As above. Having difficulty finding inpatient psychiatric care. Symptoms relapsing despite being off of the Celexa. As above (3) Seizure disorder: Code(s): G40.909 - Epilepsy, unspecified, not intractable, without status epilepticus Status: Chronic Assessment and Plan: The patient has a hx of seizure disorder. He is established with Dr. Dong. He had seizure activity reported at his PCP's office and was sent to the ED for further evaluation. He had an episode compatible with a psychogenic nonepileptic seizure 10/04 per nursing descriptions which lasted for 1 minute. It was described as large-amplitude bilateral limb movements/shaking with no post-ictal state, gaze deviation, or incontinence. We continued oxcarbazepine and primidone. Neurology has seen the patient and no further adjustment in seizure medications deemed necessary. (4) Diabetes mellitus: Code(s): E11.9 - Type 2 diabetes mellitus without complications Status: Acute Assessment and Plan: A1c was elevated at 7.5. Glucose moniotred closely. Glucose reasonably well controlled. Continue AccuCheks with SSI. Hypoglycemia protocol available as needed. (5) Psychogenic nonepileptic seizure: Code(s): F44.5 - Conversion disorder with seizures or convulsions Status: Acute Assessment and Plan: As above. The patient reports a hx of seizure disorder and psychogenic nonepileptic seizures. (6) Sarcoidosis of lung: Code(s): D86.0 - Sarcoidosis of lung Status: Acute Assessment and Plan: He reports a hx of biopsy-proven sarcoidosis from a lymph node biopsy. He reports a right thoracotomy to remove a sarcoid lesion. CXR revealed questionable focal pleural thickening of the right lower thorax with the inability to exclude underlying mass. He had a bronchoscopy 12/[address] Aburto wh
== END 2019-10-18 10:20 | DRG 101 ==
LOC: ANHED 19:57 → ANH3MEDSUR 20:32 → ANHICU 10-06 09:38 → ANH3MEDSUR 10-15 00:53 → ANHICU 10-20 15:39
PROVIDERS: Family Medicine; Internal Medicine; Physician Assistant; Admitting Provider Internal Medicine; Emergency Provider Emergency Medicine; PCP Family Medicine; Visit Provider Internal Medicine
DX: G40.909 Epilepsy, unspecified, not intractable, without status epilepticus (principal); R44.0 Auditory hallucinations; E87.6 Hypokalemia; I10 Essential (primary) hypertension; F31.9 Bipolar disorder, unspecified; D86.9 Sarcoidosis, unspecified; X78.0XXA Intentional self-harm by sharp glass, initial encounter; E11.9 Type 2 diabetes mellitus without complications; G43.909 Migraine, unspecified, not intractable, without status migrainosus; J45.909 Unspecified asthma, uncomplicated; K21.0 Gastro-esophageal reflux disease with esophagitis; Z11.59 Encounter for screening for other viral diseases
CPT/HCPCS: 36415; 70450; 71045; 71046; 71260; 80048; 80053; 80076; 80307; 81001; 81003; 83036; 83735; 85025; 85027; 87081; 87086; 87635; 87880; 93005; 93970; 95816; 96360; 99285; A9270; C9803; G0378; J1650; J1815; J2060; J2405; J7030; Q9967; U0003

== ENCOUNTER 2020-01-31 00:59 | Emergency (ER) | payer MEDICARE, MEDICAID, SELFPAY ==
[2020-01-31 01:00] VITALS: BP 152/107; PULSE 138; RESP 20; TEMP 37.2; O2SAT 99
--- NOTE | 2020-01-31 01:00 | ED.GENADULT ---
HPI - General Adult General Chief complaint: Psychiatric Symptoms Stated complaint: chetna/ homicial Time Seen by Provider: 01/31/20 01:00 Source: patient and EMS Mode of arrival: EMS Limitations: no limitations History of Present Illness HPI narrative: Patient is a 54-year-old male with a history of bipolar disorder, seizure disorder, depression who presents for evaluation manic episode and homicidal ideation. Patient was on the phone with his son who was concerned about his father, was concerned that the patient had rapid speech and when Police Department arrived to do a welfare check on the patient, the patient is noting homicidal ideation. Denying suicidal ideation. He has no specific person that he wants to hurt. He cannot name a plan. He denies access to firearms or any weapons. Patient states his thoughts are racing and he feel he cannot get control of his mind. He states he took his medications at home that are prescribed for him without improvement in his symptoms. Related Data Home Medications Medication Instructions Recorded Confirmed naproxen 500 mg PO BIDWM 03/31/19 10/05/19 oxcarbazepine 300 mg PO TID 03/31/19 10/05/19 rizatriptan 10 mg PO DAILY PRN 03/31/19 10/05/19 quetiapine 400 mg PO HS 07/31/19 10/05/19 citalopram 20 mg tablet 20 mg PO HS 10/04/19 10/05/19 oxcarbazepine 300 mg tablet 900 mg PO HS tablet 10/04/19 10/05/19 primidone 250 mg PO TID 10/04/19 10/05/19 trazodone 50 mg tablet 50 mg PO HS PRN tablet 10/04/19 10/05/19 albuterol sulfate [Ventolin HFA] 2 puff INHALATION Q4H PRN 10/05/19 10/05/19 cetirizine [Zyrtec] 10 mg PO DAILY 10/05/19 10/05/19 clonazepam 0.5 mg PO BID 10/05/19 10/05/19 fluticasone propionate 2 spray INTRANASAL BID 10/05/19 10/05/19 Allergies Allergy/AdvReac Type Severity Reaction Status Date / Time doxycycline Allergy Intermediate RASH Verified 01/31/20 01:30 levetiracetam Allergy Intermediate INCREASED Verified 01/31/20 01:30 SZ'S meloxicam Allergy Intermediate ITCHING Verified 01/31/20 01:30 Sulfa (Sulfonamide Allergy Mild RASH Verified 01/31/20 01:30 Antibiotics) cephalexin Allergy Unknown Rash Verified 01/31/20 01:30 Cephalosporins Allergy Unknown Rash Verified 01/31/20 01:30 codeine Allergy Unknown Unknown Verified 01/31/20 01:30 Corticosteroids Allergy Unknown Unknown Verified 01/31/20 01:30 (Glucocorticoids) haloperidol Allergy Unknown Seizure Verified 01/31/20 01:30 hydrocodone Allergy Unknown Unknown Verified 01/31/20 01:30 hydromorphone Allergy Unknown [place]ushing Verified 01/31/20 01:30 morphine Allergy Unknown Unknown Verified 01/31/20 01:30 peanut Allergy Unknown Unknown Verified 01/31/20 01:30 sulfite Allergy Unknown Other Verified 01/31/20 01:30 tetracycline Allergy Unknown Diarrhea Verified 01/31/20 01:30 levalbuterol AdvReac Severe Other Verified 01/31/20 01:30 molindone AdvReac Intermediate Nausea Verified 01/31/20 01:30 Oat Allergy Severe Swelling Uncoded 10/04/19 14:07 Review of Systems Review of Systems: Narrative: CONSTITUTIONAL: Denies fever, chills, or sweats. EYES: Denies visual changes, redness, or discharge. ENT: Denies rhinorrhea, congestion, sore throat, or otalgia. CARDIOVASCULAR: Denies chest pain, palpitations, or edema. RESPIRATORY: Denies cough or dyspnea. GASTROINTESTINAL: Denies abdominal pain, nausea, vomiting, or diarrhea. GENITOURINARY: Denies dysuria or hematuria. SKIN: Denies rash or itching. MUSCULOSKELETAL: Denies back pain, joint pain, or myalgia. NEUROLOGIC: Denies headache, numbness, or weakness. PSYCHIATRIC: Reports racing thoughts and homicidal ideation PMFSH Past Medical History Medical History Anal fissure Repaired Asthma Bipolar affective disorder Bipolar disorder CAD (coronary artery disease) Coronary artery spasm GERD with esophagitis H/O pilonidal cyst HTN (hypertension) with goal to be determined HTN (hypertension) with goal to be determined Migraines
--- NOTE | 2020-01-31 01:01 | ECG_ITS ---
Measurements Intervals [place] Rate: 126 P: 49 [place]: 158 QRS: -27 QRSD: 92 T: 75 QT: 294 QTc: 426 Interpretive Statements SINUS TACHYCARDIA DELAYED PRECORDIAL R/S TRANSITION BORDERLINE ST-T WAVE ABNORMALITY- HIGH LATERAL LEADS ABNORMAL ECG Electronically Signed On 01-31-2020 8:48:41 RENAL DIETITIAN by Ajit Alvarado D.O.
--- NOTE | 2020-01-31 01:28 | PC.NURSE ---
Patient his homicidal, denies any suicidal ideations. Patient is not a risk for the columbia scale. Per this RN, oracle developer and ERP, patient has a sitter at bedside.
[2020-01-31 01:32] LABS: Basophils Absolute Auto 0.1 K/mm3 (0.0-0.1); Basophils Percent Auto 0.9 % (0.2-1.2); Eosinophils Absolute Auto 0.1 K/mm3 (0-0.3); Eosinophils Percent Auto 0.7 % (0-4.4); Hematocrit 46.5 % (42.0-52.0); Hemoglobin 15.9 g/dL (14.0-18.0); Immature Granulocyte Absolute 0.02 K/mm3 (0.00-0.031); Immature Granulocyte Percent A 0.2 % (0-0.5); Lymphocytes Absolute Auto 1.83 K/mm3 (0.9-3.2); Lymphocytes Percent Auto 16.7 % (18.3-44.2); Mean Corpuscular HGB Conc 34.2 g/dl (32-36); Mean Corpuscular Hemoglobin 30.1 pg (26-34); Mean Corpuscular Volume 88.1 fl (80-100); Mean Platelet Volume 10.5 fl (7.4-10.4); Monocytes Absolute Auto 0.8 K/mm3 (0.1-0.6); Monocytes Percent Auto 7.2 % (2.6-8.5); Neutrophils Absolute Auto 8.1 K/mm3 (1.3-6.7); Neutrophils Percent Auto 74.3 % (45.5-73.1); Platelet Count Result 331 k/mm3 (150-375); Red Blood Count 5.28 M/mm3 (4.6-6.20); Red Cell Distribution Width 12.3 % (11.5-14.5)
[2020-01-31] MEDS: diazePAM (*CRX) 5 MG TABLET PO (01:37)
[2020-01-31 01:45] LABS: Ethanol < 10 mg/dL (<10)
[2020-01-31 01:46] LABS: Alanine Aminotransferase 60 U/L (4-50); Albumin Level 4.3 g/dL (3.5-5.1); Alkaline Phosphatase 97 U/L (38-126); Anion Gap 16 mmol/L (8-16); Aspartate Amino Transferase 45 U/L (17-59); Bilirubin,Total 0.7 mg/dL (0.2-1.3); Blood Urea Nitrogen 10 mg/dL (9-20); Calcium 9.2 mg/dL (8.4-10.2); Carbon Dioxide 23 mmol/L (22-30); Chloride 97 mmol/L (98-107); Estimated CRCL calculation 128 ml/min; Estimated Glomerular Filt Rate > 60; Glucose 281 mg/dL (75-110); Potassium 3.9 mmol/L (3.4-5.0); Sodium 136 mmol/L (137-145)
[2020-01-31 03:01] LABS: Add Urine Microscopic? YES; Appearance Urine Clear (Clear); Bilirubin Urine Negative (Negative); Blood Urine Negative (Negative); Color Urine Yellow (Yellow); Glucose Urine UA 1+ mg/dL (Negative); Ketones Urine Negative (Negative); Leukocyte Esterase Ur Negative LEU/UL (Negative); Mucus Urine Heavy /lpf; Nitrate Urine Negative (Negative); Protein Urine 1+ mg/dL (Negative); RBC Urine 0-2 /hpf (0-2); Specific Grav Ur 1.021 (1.001-1.035); Squamous Epithelial Cell Urine Rare /hpf (Few); Urobilinogen Urine Negative mg/dL (<2.0); WBC Urine 0-3 /hpf
[2020-01-31 03:16] LABS: Amphetamine Screen Urine Negative (Negative); Barbiturate Screen Urine Negative (Negative); Benzodiazepines Screen Urine Positive (Negative); Cannabinoid Screen Urine Negative (Negative); Cocaine Screen Urine Negative (Negative); Methadone Screen Urine Negative (Negative); Opiate Screen Urine Negative (Negative); Phencyclidine Screen Urine Negative (Negative)
--- NOTE | 2020-01-31 03:24 | PC.NURSE ---
Patient medically cleared.
--- NOTE | 2020-01-31 04:55 | PC.NURSE ---
Patient stating he feels better after the medication earlier. Patient resting on bed with eyes closed. ERP stated patient does not require a sitter at this time.
--- NOTE | 2020-01-31 05:22 | PC.NURSE ---
Nannette from Crisis stated patient feels better and did a safety contract with him. ERP notified.
== END 2020-01-31 07:00 | disposition home or self-care (01) ==
PROVIDERS: Emergency Provider Emergency Medicine; PCP Family Medicine
DX: R45.850 Homicidal ideations (principal); J45.909 Unspecified asthma, uncomplicated; I25.10 Atherosclerotic heart disease of native coronary artery without angina pectoris; K21.00 Gastro-esophageal reflux disease with esophagitis, without bleeding; I10 Essential (primary) hypertension; G47.33 Obstructive sleep apnea (adult) (pediatric); D86.0 Sarcoidosis of lung; Z90.2 Acquired absence of lung [part of]; G40.909 Epilepsy, unspecified, not intractable, without status epilepticus; E11.9 Type 2 diabetes mellitus without complications; F31.9 Bipolar disorder, unspecified
CPT/HCPCS: 36415; 80053; 80307; 81001; 84443; 85025; 93005; 99284; A9270

== ENCOUNTER 2020-03-17 08:39 | Inpatient (IN) | payer MEDICARE, MEDICAID, SELFPAY ==
[2020-03-17] VITALS (13 sets, daily range): BP systolic 128–158; BP diastolic 81–104; PULSE 80–152; RESP 18–38; TEMP 36.3–36.8; O2SAT 89–100; BMI 38.5
--- NOTE | ~2020-03-17 | XR_ITS ---
EXAMINATION: XR chest 1V portable EXAM DATE: 03/19/2020 06:37 INDICATION: Pneumonia . TECHNIQUE: Portable AP frontal chest x-ray was obtained. Comparison is made to prior examination from 03/17/2020. FINDINGS: Ill-defined acute airspace disease relative sparing of the left upper lung zone. Mild progr ession compared to prior examination. Most likely acute infectious process, please clinically correla te. Cardiomediastinal silhouette is normal. No pneumothorax or pleural effusion. There are no osseous abnormalities identified. IMPRESSION: Mild progression in moderate bilateral acute airspace disease, clinical correlation. Reviewed, dictated and finalized at location A. TER OPERATOR HELPER IMPRESSION: Mild progression in moderate bilateral acute airspace disease, cli nical correlation.
--- NOTE | ~2020-03-17 | CT_ITS ---
EXAMINATION: CTA chest PE protocol EXAM DATE: 03/17/2020 12:00 INDICATION: Chest pain. TECHNIQUE: Spiral CTA of the chest (pulmonary arteries) was performed with 100 cc Omnipaque 350 intr avenous contrast injection. Images were acquired during the pulmonary arterial phase. Coronal maxi mum intensity projection 3D-reconstructions were created by the technologist on dedicated workstation . Axial, coronal and sagittal reformatted images were reviewed. The dose-length product (DLP) for t his examination was 730.64 mGy-cm. The exposure was tailored according to patient size (auto mA exp osure control), and iterative reconstruction (ASIR) was used as additional dose reduction technique. Comparison is made to prior examination from 10/05/2019. FINDINGS: Bilateral patchy peripheral predominant groundglass opacities Appearance is typical of COV ID 19 pneumonia. Less likely acute possibilities include influenza, pulmonary edema or hemorrhage. S ome chronic processes that can have this appearance include cryptogenic organizing pneumonia, desquam ative interstitial pneumonia, nonspecific interstitial pneumonia, drug toxicity, connective tissue di sease. Please clinically correlate and test as appropriate. Pulmonary arteries are well opacified and without intraluminal filling defects. No thoracic aortic dissection. The lungs are clear. There are no pleural or pericardial effusions. Tracheobronchial tree is patent. There is no mediastinal, hilar or axillary lymphadenopathy. There is no pneumoth orax. Heart normal in size. There is mild coronary arterial calcification, arterial sclerosis. T here is hepatic steatosis. There is thoracic spondylosis without osteoblastic or osteolytic lesions identified. IMPRESSION: 1. Patchy bilateral airspace disease suspicious for COVID-19 pneumonia. Clinical correlation. 2. No pulmonary emboli. Reviewed, dictated and finalized at location A. ANALYST IMPRESSION: 1. Patchy bilateral airspace disease suspicious for COVID-19 pneumonia. Clinic al correlation. 2. No pulmonary emboli.
--- NOTE | ~2020-03-17 | XR_ITS ---
EXAMINATION: XR chest 1V portable DATE: 03/21/2020 06:19 INDICATION: Pneumonia TECHNIQUE: frontal view of the chest was obtained. COMPARISON: Chest radiograph dated 03/19/2020 FINDINGS: No significant interval change in scattered airspace opacities throughout the right lung and in the l eft lower lung zone. No pleural effusion or pneumothorax. The cardiomediastinal silhouette is normal. IMPRESSION: 1. No significant interval change in patchy bilateral lung disease consistent with pneumonia. Reviewed, dictated and finalized at location A. HER OPERATOR IMPRESSION: 1. No significant interval change in patchy bilateral lung disease consistent w ith pneumonia.
--- NOTE | ~2020-03-17 | XR_ITS ---
EXAMINATION: XR chest 1V portable EXAM DATE: 03/17/2020 09:38 INDICATION: Shortness of breath. TECHNIQUE: Portable AP frontal chest x-ray was obtained. Comparison is made to prior examination from 10/16/2019. FINDINGS: Interval development of patchy bilateral ill-defined acute airspace disease. Recommend cons idering/excluding COVID pneumonia given community prevalence. I discussed this possibility with Emily Chavez MD at 03/17/2020 09:43 OTORHINOLARYNGOLOGIST. No pneumothorax or pleural effusion. Cardiomediastinal silhouette is normal. Mild thoracic spondylosi s. IMPRESSION: Small to moderate amount of bilateral acute airspace disease, possible COVID pneumonia. Reviewed, dictated and finalized at location A. HINOLARYNGOLOGIST IMPRESSION: Small to moderate amount of bilateral acute airspace disease, poss ible COVID pneumonia.
--- NOTE | 2020-03-17 08:52 | ECG_ITS ---
Measurements Intervals [place] Rate: 136 P: [place]: 0 QRS: 214 QRSD: 96 T: 127 QT: 313 QTc: 471 Interpretive Statements SINUS TACHYCARDIA LIMB LEAD REVERSAL BORDERLINE R WAVE PROGRESSION, ANTERIOR LEADS BASELINE ARTIFACT- I, II, III, AVR, AVL, AVF, V1-V2 ABNORMAL ECG Electronically Signed On 03-17-2020 11:16:26 WATCH ADJUSTER by Ajit Alvarado D.O.
--- NOTE | 2020-03-17 08:54 | ED.SOB ---
HPI - SOB/Dyspnea General Chief Complaint: Shortness of Breath/Dyspnea Stated Complaint: DIFFICULTY BREATHING Time Seen by Provider: 03/17/20 08:42 Source: patient Mode of arrival: EMS Limitations: no limitations History of Present Illness HPI Narrative: This patient is a 54 year old male with history of asthma and sarcoidosis who presents for evaluation of shortness of breath x 1 week. He states he developed a fever 1 week ago. He also reports shortness of breath for 1 week. He has been using albuterol nebulizer and inhaler, but he ran out of his nebulizer 2 days ago. He states his breathing worsened 2 days ago. He has associated productive cough with yellow sputum. He also reports bandlike pressure across his chest pain that has been present for 1 week. He reports having this pain when he coughs. HE denies nausea, vomiting or diarrhea. His last covid test was 1 month ago when he was admitted to a psych facility. EMS gave patient neb tx in route. Related Data Home Medications Medication Instructions Recorded Confirmed oxcarbazepine 300 mg PO TID 03/31/19 03/17/20 rizatriptan 10 mg PO DAILY PRN 03/31/19 03/17/20 quetiapine 400 mg PO HS 07/31/19 03/17/20 oxcarbazepine 300 mg tablet 900 mg PO HS tablet 10/04/19 03/17/20 primidone 250 mg PO TID 10/04/19 03/17/20 albuterol sulfate [Ventolin HFA] 2 puff INHALATION Q4H PRN 10/05/19 03/17/20 clonazepam 0.5 mg PO TID 10/05/19 03/17/20 fluticasone propionate 2 spray INTRANASAL BID 10/05/19 03/17/20 celecoxib 200 mg PO DAILY 03/17/20 03/17/20 quetiapine 100 mg PO 1300,1800 03/17/20 03/17/20 zafirlukast 20 mg PO BID 03/17/20 03/17/20 Allergies Allergy/AdvReac Type Severity Reaction Status Date / Time doxycycline Allergy Intermediate RASH Verified 03/17/20 08:46 levetiracetam Allergy Intermediate INCREASED Verified 03/17/20 08:46 SZ'S meloxicam Allergy Intermediate ITCHING Verified 03/17/20 08:46 Sulfa (Sulfonamide Allergy Mild RASH Verified 03/17/20 08:46 Antibiotics) cephalexin Allergy Unknown Rash Verified 03/17/20 08:46 Cephalosporins Allergy Unknown Rash Verified 03/17/20 08:46 Corticosteroids Allergy Unknown Swelling Verified 03/17/20 08:46 (Glucocorticoids) haloperidol Allergy Unknown Seizure Verified 03/17/20 08:46 hydrocodone Allergy Unknown Unknown Verified 03/17/20 08:46 hydromorphone Allergy Unknown Flushing Verified 03/17/20 08:46 sulfite Allergy Unknown Other Verified 03/17/20 08:46 tetracycline Allergy Unknown Diarrhea Verified 03/17/20 08:46 levalbuterol AdvReac Severe Other Verified 03/17/20 08:46 molindone AdvReac Intermediate Nausea Verified 03/17/20 08:46 Oat Allergy Severe Swelling Uncoded 03/17/20 08:46 Review of Systems Review of Systems: All systems reviewed & are unremarkable except as noted in HPI and below Constitutional: Constitutional: Reports chills, Reports fatigue and Reports fever(s) ENT: Reports nasal congestion Cardiovascular: Cardiovascular: Reports chest pain and Denies radiating jaw, neck or arm pain Respiratory: Respiratory: Reports cough, Reports dyspnea and Reports wheezing Gastrointestinal: Gastrointestinal: Denies abdominal pain, Denies diarrhea, Denies nausea and Denies vomiting Neurologic: Reports headache(s) PMFSH Past Medical History Medical History (Updated 03/17/20 @ 17:10 by Cinthya Chavez MD) Anxiety Asthma Bipolar disorder Coronary artery spasm Dupuytrens contracture Dyslipidemia Essential hypertension Gastroesophageal reflux disease History of kidney stones Left hemiparesis (~01/2015) Patient presented to the emergency department in January 2015 with left hemiparesis. Brain CT was unremarkable however NIH stroke scale was 10. He was given tPA and transferred to [facility], where his symptoms resolved. Patient reports that the neurologist that was quite strange and his symptoms resolved so quickly and they do not believe he actually had a stroke. Migraine headache M
[2020-03-17 09:14] LABS: Basophils Absolute Auto 0.1 K/mm3 (0.0-0.1); Basophils Percent Auto 0.7 % (0.2-1.2); Eosinophils Absolute Auto 0.1 K/mm3 (0-0.3); Eosinophils Percent Auto 0.7 % (0-4.4); Hematocrit 50.1 % (42.0-52.0); Immature Granulocyte Absolute 0.05 K/mm3 (0.00-0.031); Immature Granulocyte Percent A 0.4 % (0-0.5); Lymphocytes Absolute Auto 1.91 K/mm3 (0.9-3.2); Lymphocytes Percent Auto 16.4 % (18.3-44.2); Mean Corpuscular HGB Conc 33.9 g/dl (32-36); Mean Corpuscular Hemoglobin 28.8 pg (26-34); Mean Corpuscular Volume 84.9 fl (80-100); Mean Platelet Volume 10.8 fl (7.4-10.4); Monocytes Absolute Auto 0.9 K/mm3 (0.1-0.6); Monocytes Percent Auto 8.1 % (2.6-8.5); Neutrophils Absolute Auto 8.6 K/mm3 (1.3-6.7); Neutrophils Percent Auto 73.7 % (45.5-73.1); Platelet Count Result 452 k/mm3 (150-375); Red Cell Distribution Width 12.2 % (11.5-14.5); White Blood Count 11.7 K/mm3 (4.5-10.0)
[2020-03-17 09:26] LABS: Alveolar/Arterial O2 Gradient 131.3 mmHg; Base Excess ABG 2.4 mEq/l (+/-2.0); Fractional Inspired Oxygen 32 %; HCO3 ABG 24.4 mEq/l (22.0-26.0); Oxygen Content ABG 21.8 %vol (16.0-22.0); Oxygen Saturation ABG 93.6 % (95.0-100.0); Oxyhemoglobin 92.1 % THb (90.0-100.0); PCO2 ABG 31.2 mmHg (35.0-45.0); PO2 ABG 60.4 mmHg (80.0-100.0); PO2 FiO2 Ratio Arterial Blood 1.89 %; Total Hemoglobin 16.9 g/dL (12.0-18.0); pH ABG 7.511 (7.350-7.450)
[2020-03-17 09:26] LABS: Alanine Aminotransferase 45 U/L (4-50); Albumin Level 3.6 g/dL (3.5-5.1); Alkaline Phosphatase 104 U/L (38-126); Anion Gap 12 mmol/L (8-16); Aspartate Amino Transferase 68 U/L (17-59); Bilirubin,Total 0.7 mg/dL (0.2-1.3); Blood Urea Nitrogen 8 mg/dL (9-20); Calcium 8.2 mg/dL (8.4-10.2); Carbon Dioxide 28 mmol/L (22-30); Chloride 91 mmol/L (98-107); Estimated CRCL calculation 125 ml/min; Estimated Glomerular Filt Rate > 60; Glucose 288 mg/dL (75-110); Magnesium 2.3 mg/dL (1.6-2.3); Potassium 2.9 mmol/L (3.4-5.0); Sodium 131 mmol/L (137-145)
[2020-03-17 09:27] LABS: Device NASAL CANNULA; Modified Allen's Test Pass; Site Drawn LEFT RADIAL
[2020-03-17 09:28] LABS: Lactic Acid Reflex 4.5 mmol/L (0.7-2.1)
[2020-03-17 09:33] LABS: Atypical Lymphocytes Present; Platelet Estimate Increased (Adequate)
[2020-03-17 09:38] LABS: NT Pro B Type Natriuretic Pept 41 PG/ML (5-100); Troponin I < 0.012 ng/mL (0.000-0.034)
[2020-03-17 09:49] LABS: Add Urine Microscopic? YES; Appearance Urine Clear (Clear); Bilirubin Urine Negative (Negative); Blood Urine Negative (Negative); Color Urine Yellow (Yellow); Glucose Urine UA Negative (Negative); Ketones Urine Trace mg/dL (Negative); Leukocyte Esterase Ur Negative LEU/UL (Negative); Mucus Urine Rare /lpf; Nitrate Urine Negative (Negative); Protein Urine 1+ mg/dL (Negative); RBC Urine 0-2 /hpf (0-2); Specific Grav Ur 1.012 (1.001-1.035); Urobilinogen Urine Negative mg/dL (<2.0)
[2020-03-17] MEDS: SODIUM CHLORIDE 0.9% IV 1,000 ML 999 ML IV CONT ×3 (09:51→14:24)
[2020-03-17] MEDS: POTASSIUM CHLORIDE 20 MEQ TABLET 40 MEQ PO (09:51)
[2020-03-17 10:17] LABS: INR 0.9; Partial Thromboplastin Time 23.5 SECONDS (22.3-36.8)
[2020-03-17] MEDS: DEXAMETHASONE 2 MG TABLET 6 MG PO (10:36)
[2020-03-17 12:12] LABS: Reflex Lactic Acid Yes or No Add Lactic
[2020-03-17 12:50] LABS: Lactic Acid 3.2 mmol/L (0.7-2.1)
[2020-03-17] MEDS: SODIUM CHLORIDE 0.9% IV 500 ML 999 ML IV CONT (14:24)
--- NOTE | 2020-03-17 14:30 | PM.IMHP ---
H&P: HPI History of Present Illness Date/Time: 03/17/20 14:30 Chief Complaint: Shortness of breath. Narrative: Martín Salgado is a 54-year-old male medical problems including nonepileptic seizures, migraine headaches, bipolar disorder, hypertension, asthma, sarcoidosis, and several other comorbidities who presented to the emergency department earlier today via EMS from home with complaints of shortness of breath. He has been feeling unwell for 1 weeks time with cough productive of grayish colored phlegm, sinus congestion, body aches, fever, sore throat, and shortness of breath. He has been taking Aleve which helps somewhat with the fever and body aches. Over the last day or so he has had increasing shortness of breath and this morning he awoke in a panic, extremely short of breath. Unfortunately he ran out of his inhalers sometime ago and he had to call 911. On EMS arrival his SpO2 was reportedly 88% and did improve with the addition of 4 L nasal cannula and nebulizer. To his knowledge he has not been exposed to anyone with COVID-19. He tries to stay in his apartment as much as possible and it sounds as though he will wear a mask while in public. No dysphagia or concerns for aspiration. He denies chest pain pleuritic pain to me, but triage note states that he had some pressure across his chest and it sounds like that is more related to his coughing fits. Review of Systems Review of Systems: Narrative: Twelve systems were reviewed with pertinent positives and negatives as per HPI. He has chronic diplopia since childhood, related to strabismus. Improved significantly after 2 eye surgeries and corrective lenses. He has had mild headaches. His appetite has not been very good these last several days with occasional nausea but no vomiting. He has had 1 or 2 loose stools a day as well. No dysuria. Except as documented, all other systems were reviewed and are negative. [facility] Past Medical History Medical History (Updated 03/17/20 @ 13:34 by Daniella Avery PA-C) Anxiety Asthma Bipolar disorder Coronary artery spasm Dupuytrens contracture Dyslipidemia Essential hypertension Gastroesophageal reflux disease History of kidney stones Left hemiparesis (~01/2015) Patient presented to the emergency department in January 2015 with left hemiparesis. Brain CT was unremarkable however NIH stroke scale was 10. He was given tPA and transferred to [facility], where his symptoms resolved. Patient reports that the neurologist that was quite strange and his symptoms resolved so quickly and they do not believe he actually had a stroke. Migraine headache Migraines Obstructive sleep apnea No longer requiring CPAP after 140 lb weight loss. Psychogenic nonepileptic seizure Right arm cellulitis (~12/2009) Sarcoidosis Schizoaffective disorder Suicide attempt (~03/2013) Intentional Seroquel overdose. Type 2 diabetes mellitus Surgical History Surgical History (Updated 03/17/20 @ 13:15 by Daniella Avery PA-C) History of ankle surgery (~07/2015) ORIF right ankle fracture. History of cardiac catheterization (~1995) History of eye surgery X2 for strabismus. History of left inguinal hernia repair History of lymph node biopsy Lymph node resection from the mediastinum which provided diagnosis for sarcoidosis. History of rectal surgery Repair of anal fissure. History of removal of cyst Removed from foot. History of surgical removal of pilonidal cyst History of tonsillectomy Family History Family History Unknown Adopted Mother Hypertension Adopted Grandparent Bipolar 1 disorder Adopted Schizophrenia Other Seizure disorder Other Family history of bipolar disorder Social History Social History (Updated 03/17/20 @ 15:54 by Daniella Avery PA-C) Social History: The patient lives in his own apartment in [place], [place]. He is with 1 son
[2020-03-17 17:52] LABS: Hemoglobin A1C 8.7 % (<5.7)
[2020-03-17 18:01] LABS: Anion Gap 9 mmol/L (8-16); Blood Urea Nitrogen 11 mg/dL (9-20); CRP 3.2 mg/dL (<1.0); Calcium 7.4 mg/dL (8.4-10.2); Carbon Dioxide 26 mmol/L (22-30); Chloride 94 mmol/L (98-107); Estimated CRCL calculation 150 ml/min; Estimated Glomerular Filt Rate > 60; Glucose 321 mg/dL (75-110); Lactate Dehydrogenase 703 U/L (313-618); Magnesium 2.1 mg/dL (1.6-2.3); Potassium 3.6 mmol/L (3.4-5.0); Sodium 129 mmol/L (137-145)
[2020-03-17] MEDS: clonazePAM (*CRX) 0.5 MG TABLET PO (18:14)
[2020-03-17] MEDS: OXcarbazepine 300 MG TABLET PO (18:15)
[2020-03-17] MEDS: NEBIVOLOL HCL 5 MG TABLET 10 MG PO (18:15)
[2020-03-17] MEDS: PRIMIDONE 250 MG TABLET PO (18:15)
[2020-03-17] MEDS: POTASSIUM CHLORIDE 10 MEQ TABLET.ER PO (18:15)
[2020-03-17] MEDS: ZAFIRLUKAST 20 MG TABLET PO (18:16)
[2020-03-17] MEDS: INSULIN ASPART (*BKC) 100 UNITS/ML SUB-Q (18:16)
[2020-03-17] MEDS: QUEtiapine FUMARATE 100 MG TABLET PO (18:16)
[2020-03-17] MEDS: SODIUM CHLORIDE 0.9% IV 1,000 ML 100 ML IV CONT (18:17)
[2020-03-17 19:16] LABS: Glucose Point of Care 333 (65-105)
[2020-03-17 20:38] LABS: Glucose Point of Care 372 (65-105)
[2020-03-17] MEDS: OXcarbazepine 300 MG TABLET 900 MG PO (21:00)
[2020-03-17] MEDS: PANTOPRAZOLE 40 MG TABLET PO (21:00)
[2020-03-17] MEDS: QUEtiapine FUMARATE XR 200 MG TAB.ER.24H 400 MG PO (21:00)
[2020-03-17] MEDS: FLUTICASONE PROPIONATE 0.05% NA SPR 16 GM BTL (*BKC) 2 SPRAY NASAL (21:00)
[2020-03-18] VITALS (19 sets, daily range): BP systolic 104–149; BP diastolic 60–84; PULSE 71–95; RESP 18–22; TEMP 36.1–36.6; O2SAT 88–97
--- NOTE | 2020-03-18 06:29 | PC.NURSE ---
0600 Patient refused lab draw this am
[2020-03-18 06:45] LABS: Glucose Point of Care 239 (65-105)
[2020-03-18] MEDS: FLUTICASONE PROPIONATE 0.05% NA SPR 16 GM BTL (*BKC) 2 SPRAY NASAL ×2 (08:43→21:00)
[2020-03-18] MEDS: ENOXAPARIN 40 MG/0.4 ML SYRINGE SUB-Q (08:43)
[2020-03-18] MEDS: CELECOXIB 200 MG CAPSULE PO (08:44)
[2020-03-18] MEDS: ZAFIRLUKAST 20 MG TABLET PO ×2 (08:44→18:52)
[2020-03-18] MEDS: PRIMIDONE 250 MG TABLET PO ×3 (08:44→18:51)
[2020-03-18] MEDS: POTASSIUM CHLORIDE 10 MEQ TABLET.ER PO (08:44)
[2020-03-18] MEDS: FUROSEMIDE 40 MG TABLET PO (08:45)
[2020-03-18] MEDS: OXcarbazepine 300 MG TABLET PO ×3 (08:46→18:53)
[2020-03-18] MEDS: PANTOPRAZOLE 40 MG TABLET PO ×2 (08:46→20:59)
[2020-03-18] MEDS: INSULIN ASPART (*BKC) 100 UNITS/ML SUB-Q ×3 (08:47→18:53)
[2020-03-18 09:17] LABS: Glucose Point of Care 240 (65-105)
[2020-03-18 09:50] LABS: Basophils Percent Auto 0.6 % (0.2-1.2); Eosinophils Absolute Auto 0.1 K/mm3 (0-0.3); Eosinophils Percent Auto 0.9 % (0-4.4); Hematocrit 40.4 % (42.0-52.0); Hemoglobin 13.5 g/dL (14.0-18.0); Immature Granulocyte Absolute 0.03 K/mm3 (0.00-0.031); Immature Granulocyte Percent A 0.4 % (0-0.5); Lymphocytes Absolute Auto 1.45 K/mm3 (0.9-3.2); Lymphocytes Percent Auto 20.7 % (18.3-44.2); Mean Corpuscular HGB Conc 33.4 g/dl (32-36); Mean Corpuscular Hemoglobin 28.5 pg (26-34); Mean Corpuscular Volume 85.2 fl (80-100); Mean Platelet Volume 10.2 fl (7.4-10.4); Monocytes Absolute Auto 0.5 K/mm3 (0.1-0.6); Monocytes Percent Auto 7.7 % (2.6-8.5); Neutrophils Absolute Auto 4.9 K/mm3 (1.3-6.7); Neutrophils Percent Auto 69.7 % (45.5-73.1); Platelet Count Result 383 k/mm3 (150-375); Red Blood Count 4.74 M/mm3 (4.6-6.20); Red Cell Distribution Width 12.2 % (11.5-14.5)
[2020-03-18 10:03] LABS: Alanine Aminotransferase 32 U/L (4-50); Alkaline Phosphatase 74 U/L (38-126); Anion Gap 7 mmol/L (8-16); Aspartate Amino Transferase 34 U/L (17-59); Bilirubin,Total 0.5 mg/dL (0.2-1.3); Blood Urea Nitrogen 8 mg/dL (9-20); Calcium 7.6 mg/dL (8.4-10.2); Carbon Dioxide 28 mmol/L (22-30); Chloride 97 mmol/L (98-107); Estimated CRCL calculation 149 ml/min; Estimated Glomerular Filt Rate > 60; Glucose 252 mg/dL (75-110); Lactic Acid Reflex 1.9 mmol/L (0.7-2.1); Magnesium 2.4 mg/dL (1.6-2.3); Potassium 3.2 mmol/L (3.4-5.0); Sodium 132 mmol/L (137-145)
--- NOTE | 2020-03-18 10:39 | PM.IMPN ---
Progress Note: A&P Assessment and Plan (1) Severe sepsis: Code(s): A41.9 - Sepsis, unspecified organism; R65.20 - Severe sepsis without septic shock Status: Acute Assessment and Plan: lactic acidosis, tachycardia, tachypnea, and acute respiratory failure in the setting of pneumonia. received IV fluid boluses in the emergency department UA clear, sputum and Blood cultures have been obtained and are pending. rechecking lactic acid level, was 4.5 at admission, then 3.2 HR 100s, improved to 70s, Sinus rhythm now. Denies CP and SOB at this time. CRP elevated at 3.2, rechecking with morning labs. D-dimer 1.4, Ferritin 146 WNL (2) Acute respiratory failure with hypoxia: Code(s): J96.01 - Acute respiratory failure with hypoxia Status: Acute Assessment and Plan: Improving. Now on 2 L O2 NC. with SpO2 95-96%. Able to turn over in bed independently and converse with no dyspnea noted. History of CT chest scan showing altered lung tissue - possible interstitial disease history as well. CXR + COVID type pneumonia. on Dexamethasone and Levaquin. Started on scheduled DouNebs and continued Albuterol inhaler. Consider Spiriva if no improvement. HR now 70-80s Sinus on telemetry monitoring. WBC trending up, to 11.7, no fevers noted. Monitoring LDH, Ferritin, CXRs, CRPs, CBCs, CMPs. BNP 41 minimal. no edema, no s/s of CHF or fluid overload at this time. COVID test pending. (3) Bilateral pneumonia: Code(s): J18.9 - Pneumonia, unspecified organism Status: Acute Assessment and Plan: sputum culture collected and pending, Blood cultures have been obtained and are pending. Now on 2 L O2 NC. with SpO2 95-96%. CXR + COVID type pneumonia. on Dexamethasone and IV Levaquin. Started on scheduled DouNebs and continued Albuterol inhaler. Consider Spiriva if no improvement. HR now 70-80s Sinus on telemetry monitoring. WBC trending up, to 11.7, no fevers noted. Monitoring LDH, Ferritin, CXRs, CRPs, CBCs, CMPs. treating as CAP until proven COVID viral pneumonia. COVID test pending. Start Antiviral if COVID +. (4) Suspected 2019-nCoV infection: Code(s): Z20.828 - Contact with and (suspected) exposure to other viral communicable diseases Status: Acute Assessment and Plan: Now on 2 L O2 NC. with SpO2 95-96%. CXR + COVID type pneumonia. on Dexamethasone and IV Levaquin. Started on scheduled DouNebs and continued Albuterol inhaler. Consider Spiriva if no improvement. HR now 70-80s Sinus on telemetry monitoring. WBC trending up, to 11.7, no fevers noted. Monitoring LDH, Ferritin, CXRs, CRPs, CBCs, CMPs. COVID test pending. Start Antiviral if COVID +. He has been placed in contact, droplet, and airborne isolation while we await SARS-CoV-2 2 by PCR. (5) Hypokalemia: Code(s): E87.6 - Hypokalemia Status: Acute Assessment and Plan: K = 3.6 yesterday, 3.2 today. Ordered oral supplementation. Repeat CMP tomorrow. Encouraged better oral dietary intake. (6) Type 2 diabetes mellitus: Code(s): E11.9 - Type 2 diabetes mellitus without complications Status: Acute Assessment and Plan: ACHS glucose checks with SSI ordered and in place A1C 8.7 (7) Asthma: Qualifiers: Asthma complication type: unspecified Asthma persistence: unspecified Asthma severity: unspecified severity Qualified Code(s): J45.909 - Unspecified asthma, uncomplicated Code(s): J45.909 - Unspecified asthma, uncomplicated Status: Chronic Assessment and Plan: elevated DDimer 1.4 CTA : Bilateral patchy peripheral predominant groundglass opacities Appearance is typical of COVID 19 pneumonia. Less likely acute possibilities include influenza, pulmonary edema or hemorrhage. Some chronic processes that can have this appearance include cryptogenic organizing pneumonia, desquamative interstitial pneumonia, nonspecific interstitial pneumonia, drug toxicity, c
[2020-03-18] MEDS: DEXAMETHASONE 2 MG TABLET 6 MG PO (11:50)
[2020-03-18] MEDS: clonazePAM (*CRX) 0.5 MG TABLET PO ×2 (11:51→16:00)
[2020-03-18 11:53] LABS: Glucose Point of Care 255 (65-105)
[2020-03-18] MEDS: POTASSIUM CHLORIDE 20 MEQ TABLET 40 MEQ PO (11:53)
[2020-03-18] MEDS: IPRATROPIUM BR 0.02% INH SOLN 0.5 MG/2.5 ML VIAL INHALATION ×2 (14:42→20:51)
[2020-03-18] MEDS: QUEtiapine FUMARATE 100 MG TABLET PO ×2 (15:59→18:54)
[2020-03-18 16:24] LABS: Glucose Point of Care 282 (65-105)
[2020-03-18] MEDS: POTASSIUM CHLORIDE 20 MEQ TABLET.ER PO (16:32)
[2020-03-18] MEDS: NEBIVOLOL HCL 5 MG TABLET 10 MG PO (18:52)
[2020-03-18 19:30] LABS: SARS-CoV-2 RNA PCR Positive
[2020-03-18 20:47] LABS: Glucose Point of Care 308 (65-105)
[2020-03-18] MEDS: OXcarbazepine 300 MG TABLET 900 MG PO (20:59)
[2020-03-18] MEDS: QUEtiapine FUMARATE XR 200 MG TAB.ER.24H 400 MG PO (20:59)
[2020-03-19] VITALS (16 sets, daily range): BP systolic 114–144; BP diastolic 55–90; PULSE 65–90; RESP 16–24; TEMP 36–36.4; O2SAT 94–98
[2020-03-19] MEDS: IPRATROPIUM BR 0.02% INH SOLN 0.5 MG/2.5 ML VIAL INHALATION ×4 (01:32→20:27)
[2020-03-19 04:54] LABS: Pneumococcal Antigen Urine Not Detected (Not Detected)
[2020-03-19 05:46] LABS: Hematocrit 37.5 % (42.0-52.0); Hemoglobin 12.7 g/dL (14.0-18.0); Mean Corpuscular HGB Conc 33.9 g/dl (32-36); Mean Corpuscular Hemoglobin 29.5 pg (26-34); Mean Corpuscular Volume 87.2 fl (80-100); Mean Platelet Volume 10.3 fl (7.4-10.4); Platelet Count Result 350 k/mm3 (150-375); Red Cell Distribution Width 12.2 % (11.5-14.5); White Blood Count 8.2 K/mm3 (4.5-10.0)
[2020-03-19 06:00] LABS: Alanine Aminotransferase 31 U/L (4-50); Albumin Level 2.7 g/dL (3.5-5.1); Alkaline Phosphatase 65 U/L (38-126); Anion Gap 6 mmol/L (8-16); Aspartate Amino Transferase 33 U/L (17-59); Bilirubin,Total 0.4 mg/dL (0.2-1.3); Blood Urea Nitrogen 9 mg/dL (9-20); CRP 1.5 mg/dL (<1.0); Calcium 7.8 mg/dL (8.4-10.2); Carbon Dioxide 27 mmol/L (22-30); Chloride 97 mmol/L (98-107); Estimated CRCL calculation 130 ml/min; Estimated Glomerular Filt Rate > 60; Glucose 187 mg/dL (75-110); Potassium 3.5 mmol/L (3.4-5.0); Sodium 130 mmol/L (137-145)
[2020-03-19] MEDS: FLUTICASONE PROPIONATE 0.05% NA SPR 16 GM BTL (*BKC) 2 SPRAY NASAL ×2 (07:31→21:25)
[2020-03-19] MEDS: ZAFIRLUKAST 20 MG TABLET PO ×2 (07:32→17:51)
[2020-03-19 07:56] LABS: Glucose Point of Care 175 (65-105)
[2020-03-19] MEDS: PANTOPRAZOLE 40 MG TABLET PO ×2 (08:32→21:25)
[2020-03-19] MEDS: DEXAMETHASONE 2 MG TABLET 6 MG PO (08:32)
[2020-03-19] MEDS: CELECOXIB 200 MG CAPSULE PO (08:32)
[2020-03-19] MEDS: OXcarbazepine 300 MG TABLET PO ×2 (08:33→17:52)
[2020-03-19] MEDS: ENOXAPARIN 40 MG/0.4 ML SYRINGE SUB-Q (08:33)
[2020-03-19] MEDS: PRIMIDONE 250 MG TABLET PO ×2 (08:33→17:51)
[2020-03-19] MEDS: FUROSEMIDE 40 MG TABLET PO (08:33)
[2020-03-19] MEDS: POTASSIUM CHLORIDE 20 MEQ TABLET.ER PO ×2 (08:33→17:52)
[2020-03-19] MEDS: clonazePAM (*CRX) 0.5 MG TABLET PO ×3 (08:36→17:50)
--- NOTE | 2020-03-19 08:52 | PM.IMPN ---
Progress Note: A&P Assessment and Plan (1) Severe sepsis: Code(s): A41.9 - Sepsis, unspecified organism; R65.20 - Severe sepsis without septic shock Status: Acute Assessment and Plan: Improved. Resolved. lactic acidosis, tachycardia, tachypnea, and acute respiratory failure in the setting of pneumonia - all improved/resolved. received IV fluid boluses in the emergency department UA clear, sputum culture unable to get good sample, and Blood cultures x 2 currently have no growth. rechecking lactic acid level, was 4.5 at admission, then 3.2, then 1.9 WNL. HR 100s, improved to 70s, Sinus rhythm now. Denies CP and SOB at this time. CRP elevated at 3.2, then improved to 1.5 WNL. D-dimer 1.4, Ferritin 146 and 92.5 WNL (2) Acute respiratory failure with hypoxia: Code(s): J96.01 - Acute respiratory failure with hypoxia Status: Acute Assessment and Plan: Improving. Now on 2 L O2 NC. with SpO2 95-96%. Able to turn over in bed independently and converse with no dyspnea noted. History of CT chest scan showing altered lung tissue - possible interstitial disease history as well. CXR + COVID type pneumonia. on Dexamethasone and Levaquin. Started on scheduled DouNebs and continued Albuterol inhaler. Consider Spiriva if no improvement. HR now 70-80s Sinus on telemetry monitoring. WBC trending up, to 11.7, no fevers noted. Monitoring LDH, Ferritin, CXRs, CRPs, CBCs, CMPs. BNP 41 minimal. no edema, no s/s of CHF or fluid overload at this time. COVID test pending. (3) Bilateral pneumonia: Code(s): J18.9 - Pneumonia, unspecified organism Status: Acute Assessment and Plan: sputum culture collected and pending, Blood cultures have been obtained and are pending. Now on 2-3 L O2 NC. with SpO2 95-96%. CXR + COVID type pneumonia. on Dexamethasone and IV Levaquin. Wheezing improved today: Continue scheduled DouNebs and continued Albuterol inhaler. Consider Spiriva if no improvement. HR now 70-80s Sinus on telemetry monitoring. WBC improved to 8.2 today; no fevers noted. Monitoring LDH, Ferritin, CXRs, CRPs, CBCs, CMPs. May be COVID viral pneumonia paired with CAP. COVID test +; Started IV Remdesivir 5 days course today . (4) Suspected 2019-nCoV infection: Code(s): Z20.828 - Contact with and (suspected) exposure to other viral communicable diseases Status: Acute Assessment and Plan: Now on 2-3 L O2 NC. with SpO2 95-96%. CXR + COVID type pneumonia. on Dexamethasone and IV Levaquin. Wheezing improved today: Continue scheduled DouNebs and continued Albuterol inhaler. Consider Spiriva if no improvement. HR now 70-80s Sinus on telemetry monitoring. WBC trending up, to 11.7, then improved today at 8.2 with the Levaquin (will continue course at this time) No fevers noted. Monitoring LDH, Ferritin (improved) , CXRs, CRPs, CBCs, CMPs. COVID test +; Started IV Remdesivir 5 days course today. Continue contact, droplet, and airborne isolation (5) Hypokalemia: Code(s): E87.6 - Hypokalemia Status: Acute Assessment and Plan: K = 3.6, 3.2, and now 3.5 today. had additional oral supplementation yesterday. Repeat CMP tomorrow. Encouraged better oral dietary intake. (6) Type 2 diabetes mellitus: Code(s): E11.9 - Type 2 diabetes mellitus without complications Status: Acute Assessment and Plan: Chronic. Improving. ACHS glucose checks with SSI ordered and in place A1C 8.7 Glucose improved to 175 today. (7) Asthma: Qualifiers: Asthma complication type: unspecified Asthma persistence: unspecified Asthma severity: unspecified severity Qualified Code(s): J45.909 - Unspecified asthma, uncomplicated Code(s): J45.909 - Unspecified asthma, uncomplicated Status: Chronic Assessment and Plan: STABLE. IMPROVING. elevated DDimer 1.4 at admission, CT without PE, BLE without swelling/redness/pain continue home me
[2020-03-19 09:24] LABS: Legionella pneumophila Ag Ur Not Detected (Not Detected)
[2020-03-19] MEDS: REMDESIVIR 200 MG/NS 250 ML 200 MG/250 ML BAG 250 MG IVPB (09:33)
[2020-03-19 11:39] LABS: Glucose Point of Care 198 (65-105)
[2020-03-19 17:06] LABS: Glucose Point of Care 274 (65-105)
[2020-03-19] MEDS: INSULIN ASPART (*BKC) 100 UNITS/ML SUB-Q (17:50)
[2020-03-19] MEDS: QUEtiapine FUMARATE 100 MG TABLET PO (17:52)
[2020-03-19] MEDS: NEBIVOLOL HCL 5 MG TABLET 10 MG PO (17:53)
[2020-03-19 20:22] LABS: Glucose Point of Care 228 (65-105)
[2020-03-19] MEDS: OXcarbazepine 300 MG TABLET 900 MG PO (21:24)
[2020-03-19] MEDS: QUEtiapine FUMARATE XR 200 MG TAB.ER.24H 400 MG PO (21:25)
[2020-03-20] VITALS (14 sets, daily range): BP systolic 119–149; BP diastolic 63–92; PULSE 79–92; RESP 16–22; TEMP 36.1–37.2; O2SAT 92–96
[2020-03-20] MEDS: IPRATROPIUM BR 0.02% INH SOLN 0.5 MG/2.5 ML VIAL INHALATION ×4 (02:25→21:55)
[2020-03-20 06:15] LABS: Hematocrit 38.8 % (42.0-52.0); Mean Corpuscular HGB Conc 33.5 g/dl (32-36); Mean Corpuscular Hemoglobin 29.3 pg (26-34); Mean Corpuscular Volume 87.4 fl (80-100); Mean Platelet Volume 10.8 fl (7.4-10.4); Platelet Count Result 412 k/mm3 (150-375); Red Blood Count 4.44 M/mm3 (4.6-6.20); Red Cell Distribution Width 12.2 % (11.5-14.5); White Blood Count 8.1 K/mm3 (4.5-10.0)
[2020-03-20 06:20] LABS: Alanine Aminotransferase 32 U/L (4-50); Albumin Level 2.9 g/dL (3.5-5.1); Alkaline Phosphatase 64 U/L (38-126); Anion Gap 6 mmol/L (8-16); Aspartate Amino Transferase 37 U/L (17-59); Bilirubin,Total 0.3 mg/dL (0.2-1.3); Blood Urea Nitrogen 8 mg/dL (9-20); Calcium 7.9 mg/dL (8.4-10.2); Carbon Dioxide 28 mmol/L (22-30); Chloride 99 mmol/L (98-107); Estimated CRCL calculation 133 ml/min; Estimated Glomerular Filt Rate > 60; Glucose 153 mg/dL (75-110); Potassium 3.8 mmol/L (3.4-5.0); Sodium 133 mmol/L (137-145)
[2020-03-20] MEDS: FLUTICASONE PROPIONATE 0.05% NA SPR 16 GM BTL (*BKC) 2 SPRAY NASAL ×2 (08:26→21:09)
[2020-03-20] MEDS: clonazePAM (*CRX) 0.5 MG TABLET PO ×3 (08:27→17:12)
[2020-03-20] MEDS: POTASSIUM CHLORIDE 20 MEQ TABLET.ER PO ×2 (08:27→17:12)
[2020-03-20] MEDS: OXcarbazepine 300 MG TABLET PO ×3 (08:27→17:12)
[2020-03-20] MEDS: CELECOXIB 200 MG CAPSULE PO (08:27)
[2020-03-20] MEDS: PRIMIDONE 250 MG TABLET PO ×3 (08:27→17:13)
[2020-03-20] MEDS: ZAFIRLUKAST 20 MG TABLET PO ×2 (08:27→17:14)
[2020-03-20] MEDS: DEXAMETHASONE 2 MG TABLET 6 MG PO (08:27)
[2020-03-20] MEDS: ENOXAPARIN 40 MG/0.4 ML SYRINGE SUB-Q (08:28)
[2020-03-20] MEDS: FUROSEMIDE 40 MG TABLET PO (08:31)
[2020-03-20 08:43] LABS: Glucose Point of Care 123 (65-105)
[2020-03-20] MEDS: PANTOPRAZOLE 40 MG TABLET PO ×2 (09:15→21:09)
[2020-03-20] MEDS: REMDESIVIR 100 MG/NS 250 ML 100 MG/250 ML BAG 250 MG IVPB (09:54)
--- NOTE | 2020-03-20 10:00 | PM.IMPN ---
Progress Note: A&P Assessment and Plan (1) Severe sepsis: Code(s): A41.9 - Sepsis, unspecified organism; R65.20 - Severe sepsis without septic shock Status: Acute Assessment and Plan: Improved. Resolved. lactic acidosis, tachycardia, tachypnea, and acute respiratory failure in the setting of pneumonia - all improved/resolved. received IV fluid boluses in the emergency department UA clear, sputum culture unable to get good sample, and Blood cultures x 2 currently have no growth. now normalized lactic acid level, was 4.5 at admission, then 3.2, then 1.9 WNL. HR 100s, improved to 70-80s, Sinus rhythm now. Denies CP and SOB at this time. CRP elevated at 3.2, then improved to 1.5 WNL. D-dimer 1.4, Ferritin 146 and 92.5 WNL (2) Acute respiratory failure with hypoxia: Code(s): J96.01 - Acute respiratory failure with hypoxia Status: Acute Assessment and Plan: Improving. Now on 2 L O2 NC. with SpO2 95-96%. Able to turn over in bed independently and converse with no dyspnea noted. History of CT chest scan showing altered lung tissue - possible interstitial disease history as well. CXR + COVID type pneumonia. on Dexamethasone and Levaquin. Started on scheduled DouNebs and continued Albuterol inhaler. Consider Spiriva if no improvement. HR now 70-80s Sinus on telemetry monitoring. WBC trending up, to 11.7, no fevers noted. Monitoring LDH, Ferritin, CXRs, CRPs, CBCs, CMPs. BNP 41 minimal. no edema, no s/s of CHF or fluid overload at this time. COVID test pending. (3) Bilateral pneumonia: Code(s): J18.9 - Pneumonia, unspecified organism Status: Acute Assessment and Plan: sputum culture collected and unaceeptable, Blood cultures have been obtained and show no growth weaned to Room air from 2-3 L O2 NC. with SpO2 93-95%. CXR + COVID type pneumonia. on Dexamethasone and IV Levaquin day 3. Wheezing improved today: Continue scheduled DouNebs and continued Albuterol inhaler. Consider Spiriva if no improvement. HR now 70-80s Sinus on telemetry monitoring. WBC improved to 8.2 today; no fevers noted. Monitoring LDH, Ferritin, CXRs, CRPs, CBCs, CMPs. May be COVID viral pneumonia paired with CAP. COVID test +; Started IV Remdesivir 5 days course today . (4) Suspected 2019-nCoV infection: Code(s): Z20.828 - Contact with and (suspected) exposure to other viral communicable diseases Status: Acute Assessment and Plan: Now on 2-3 L O2 NC. with SpO2 95-96%. CXR + COVID type pneumonia. on Dexamethasone and IV Levaquin. Wheezing improved today: Continue scheduled DouNebs and continued Albuterol inhaler. Consider Spiriva if no improvement. HR now 70-80s Sinus on telemetry monitoring. WBC trending up, to 11.7, then improved today at 8.2 with the Levaquin (will continue course at this time) No fevers noted. Monitoring LDH, Ferritin (improved) , CXRs, CRPs, CBCs, CMPs. COVID test +; Started IV Remdesivir 5 days course today. Continue contact, droplet, and airborne isolation (5) Hypokalemia: Code(s): E87.6 - Hypokalemia Status: Acute Assessment and Plan: K = 3.6, 3.2, and now 3.5 today. had additional oral supplementation yesterday. Repeat CMP tomorrow. Encouraged better oral dietary intake. (6) Type 2 diabetes mellitus: Code(s): E11.9 - Type 2 diabetes mellitus without complications Status: Acute Assessment and Plan: Chronic. Improving. ACHS glucose checks with SSI ordered and in place A1C 8.7 Glucose improved to 175 today. (7) Asthma: Qualifiers: Asthma complication type: unspecified Asthma persistence: unspecified Asthma severity: unspecified severity Qualified Code(s): J45.909 - Unspecified asthma, uncomplicated Code(s): J45.909 - Unspecified asthma, uncomplicated Status: Chronic Assessment and Plan: STABLE. IMPROVING. elevated DDimer 1.4 at admission, CT without PE, BLE without sw
[2020-03-20] MEDS: QUEtiapine FUMARATE 100 MG TABLET PO ×2 (12:26→17:13)
[2020-03-20] MEDS: INSULIN ASPART (*BKC) 100 UNITS/ML SUB-Q ×2 (12:26→17:11)
[2020-03-20 12:28] LABS: Glucose Point of Care 325 (65-105)
[2020-03-20 16:40] LABS: Glucose Point of Care 227 (65-105)
[2020-03-20] MEDS: NEBIVOLOL HCL 5 MG TABLET 10 MG PO (17:13)
[2020-03-20 21:08] LABS: Glucose Point of Care 196 (65-105)
[2020-03-20] MEDS: QUEtiapine FUMARATE XR 200 MG TAB.ER.24H 400 MG PO (21:09)
[2020-03-20] MEDS: OXcarbazepine 300 MG TABLET 900 MG PO (21:09)
[2020-03-21] VITALS (12 sets, daily range): BP systolic 115–160; BP diastolic 72–90; PULSE 72–106; RESP 12–20; TEMP 36.2–36.9; O2SAT 94–95
[2020-03-21] MEDS: IPRATROPIUM BR 0.02% INH SOLN 0.5 MG/2.5 ML VIAL INHALATION ×4 (03:20→20:16)
[2020-03-21 05:10] LABS: Hematocrit 35.5 % (42.0-52.0); Hemoglobin 11.7 g/dL (14.0-18.0); Mean Corpuscular Hemoglobin 28.7 pg (26-34); Mean Platelet Volume 10.2 fl (7.4-10.4); Platelet Count Result 422 k/mm3 (150-375); Red Blood Count 4.08 M/mm3 (4.6-6.20); Red Cell Distribution Width 12.2 % (11.5-14.5); White Blood Count 8.3 K/mm3 (4.5-10.0)
[2020-03-21 05:33] LABS: Alanine Aminotransferase 28 U/L (4-50); Albumin Level 2.6 g/dL (3.5-5.1); Alkaline Phosphatase 53 U/L (38-126); Anion Gap 3 mmol/L (8-16); Aspartate Amino Transferase 29 U/L (17-59); Bilirubin,Total 0.3 mg/dL (0.2-1.3); Blood Urea Nitrogen 7 mg/dL (9-20); CRP 0.7 mg/dL (<1.0); Calcium 7.5 mg/dL (8.4-10.2); Carbon Dioxide 32 mmol/L (22-30); Chloride 95 mmol/L (98-107); Estimated CRCL calculation 133 ml/min; Estimated Glomerular Filt Rate > 60; Glucose 122 mg/dL (75-110); Potassium 3.8 mmol/L (3.4-5.0); Sodium 130 mmol/L (137-145)
[2020-03-21 07:59] LABS: Glucose Point of Care 110 (65-105)
[2020-03-21] MEDS: DEXAMETHASONE 2 MG TABLET 6 MG PO (09:25)
[2020-03-21] MEDS: clonazePAM (*CRX) 0.5 MG TABLET PO ×3 (09:26→17:01)
[2020-03-21] MEDS: PANTOPRAZOLE 40 MG TABLET PO ×2 (09:26→20:38)
[2020-03-21] MEDS: PRIMIDONE 250 MG TABLET PO ×3 (09:26→17:01)
[2020-03-21] MEDS: POTASSIUM CHLORIDE 20 MEQ TABLET.ER PO ×2 (09:26→17:02)
[2020-03-21] MEDS: FLUTICASONE PROPIONATE 0.05% NA SPR 16 GM BTL (*BKC) 2 SPRAY NASAL ×2 (09:27→20:38)
[2020-03-21] MEDS: ENOXAPARIN 40 MG/0.4 ML SYRINGE SUB-Q (09:27)
[2020-03-21] MEDS: ZAFIRLUKAST 20 MG TABLET PO ×2 (09:27→17:02)
[2020-03-21] MEDS: FUROSEMIDE 40 MG TABLET PO (09:27)
[2020-03-21] MEDS: OXcarbazepine 300 MG TABLET PO ×3 (09:27→17:01)
[2020-03-21] MEDS: CELECOXIB 200 MG CAPSULE PO (09:27)
[2020-03-21] MEDS: REMDESIVIR 100 MG/NS 250 ML 100 MG/250 ML BAG 250 MG IVPB (10:43)
[2020-03-21 12:42] LABS: Glucose Point of Care 158 (65-105)
[2020-03-21] MEDS: QUEtiapine FUMARATE 100 MG TABLET PO ×2 (13:03→17:03)
--- NOTE | 2020-03-21 14:09 | PM.IMPN ---
Progress Note: A&P Assessment and Plan (1) Pneumonia due to COVID-19 virus: Code(s): U07.1 - COVID-19; J12.89 - Other viral pneumonia Status: Acute Assessment and Plan: Patient tested positive for COVID on 03/17. Evidence of Pneumonia on lung imaging. Remdesivir initiated on 03/19 after positive testing. Decadron initiated on 03/17. 4 doses of Levaquin given during stay. Patient is now on RA with clinical improvement since arrival Continue Remdesivir (day 3/5) Continue Decadron (day 5) Continue with Tylenol and albuterol as needed. Will add mucinex Monitor closely Will anticipate finishing course of remdesivir during hospital stay (2) Acute respiratory failure with hypoxia: Code(s): J96.01 - Acute respiratory failure with hypoxia Status: Acute Assessment and Plan: Patient now tolerating RA. Likely due to COVID pneumonia. continue treatment as detailed above Supplemental O2 prn (3) Severe sepsis: Code(s): A41.9 - Sepsis, unspecified organism; R65.20 - Severe sepsis without septic shock Status: Acute Assessment and Plan: With lactic acidosis, tachycardia, tachypnea, and acute respiratory failure in the setting of pneumonia - resolved since admission. COVID positive with evidence of pneumonia on chest imaging Continue treatment for COVID pneumonia as detailed above (4) Hypokalemia: Code(s): E87.6 - Hypokalemia Status: Acute Assessment and Plan: K 3.8 today. Monitor daily Replace as needed (5) Type 2 diabetes mellitus: Code(s): E11.9 - Type 2 diabetes mellitus without complications Status: Acute Assessment and Plan: Patient states he was prediabetic prior to this hospital stay. A1c 8.7 Accuchecks ACHS, hypoglycemia protocol, correctional insulin, diabetic diet Will hold on initiating oral hypoglycemic agents given his acute illness, but will likely discharge on oral Metformin and will need prompt follow up with his PCP for further management (6) Asthma: Qualifiers: Asthma severity: unspecified severity Asthma persistence: unspecified Asthma complication type: unspecified Qualified Code(s): J45.909 - Unspecified asthma, uncomplicated Code(s): J45.909 - Unspecified asthma, uncomplicated Status: Chronic Assessment and Plan: No bronchospasm appreciated on exam Continue with PRN albuterol and home zafirlukast (7) Sarcoidosis: Code(s): D86.9 - Sarcoidosis, unspecified Status: Acute Assessment and Plan: Chronic. Stable. (8) Psychogenic nonepileptic seizure: Code(s): F44.5 - Conversion disorder with seizures or convulsions Status: Acute Assessment and Plan: Chronic. Stable. Continue home medications (9) Psychiatric illness: Code(s): F99 - Mental disorder, not otherwise specified Status: Acute Assessment and Plan: Chronic. Stable. Continue home medications (10) Essential hypertension: Code(s): I10 - Essential (primary) hypertension Status: Inactive Assessment and Plan: BP 110s sys this afternoon Continue home medications Monitor Subjective Date/time seen: 03/21/20 14:09 Interval history: Patient is a 54-year-old male medical problems including nonepileptic seizures, migraine headaches, bipolar disorder, hypertension, asthma, sarcoidosis, and several other comorbidities who is seen in follow up for COVID pneumonia and acute respiratory failure with hypoxia likely due to same. Patient states he feels somewhat better today, but still fe
--- NOTE | 2020-03-21 15:03 | ADMGEN ---
This patient, Martín Salgado, was admitted to 3 [facility] Surg Room 315-01. Patient/family oriented to hospital policies and general routines including ID bracelet, bed and alarms, visiting hours, pain management, procedures, bathroom and other care routines, personal items, smoking policy, room service/diet, and visiting hours. Information on how to activate the Rapid Response Team has been discussed. Patient/Family are encouraged to report perceived risks to care and to ask questions if they do not understand what they are told or what they should do.
--- NOTE | 2020-03-21 15:11 | PC.NURSE ---
This patient, Martín Salgado, was transferred to [315 ] on 03/21/20 at 1505. Personal belongings sent with patient. Report given to [Madelin ALVARADO ]. Appropriate documentation sent with patient.
[2020-03-21] MEDS: NEBIVOLOL HCL 5 MG TABLET 10 MG PO (17:01)
[2020-03-21] MEDS: INSULIN ASPART (*BKC) 100 UNITS/ML SUB-Q (17:03)
[2020-03-21 17:04] LABS: Glucose Point of Care 263 (65-105)
[2020-03-21] MEDS: QUEtiapine FUMARATE XR 200 MG TAB.ER.24H 400 MG PO (20:37)
[2020-03-21] MEDS: OXcarbazepine 300 MG TABLET 900 MG PO (20:38)
[2020-03-21 21:08] LABS: Glucose Point of Care 221 (65-105)
[2020-03-21] MEDS: ACETAMINOPHEN 500 MG TABLET 1000 MG PO (22:52)
[2020-03-22] VITALS (11 sets, daily range): BP systolic 126–161; BP diastolic 69–81; PULSE 72–101; RESP 18–22; TEMP 36.1–36.8; O2SAT 92–95
[2020-03-22] MEDS: IPRATROPIUM BR 0.02% INH SOLN 0.5 MG/2.5 ML VIAL INHALATION ×2 (02:04→20:31)
[2020-03-22 06:41] LABS: Basophils Absolute Auto 0.1 K/mm3 (0.0-0.1); Basophils Percent Auto 0.8 % (0.2-1.2); Eosinophils Absolute Auto 0.1 K/mm3 (0-0.3); Eosinophils Percent Auto 0.8 % (0-4.4); Hematocrit 40.9 % (42.0-52.0); Hemoglobin 13.3 g/dL (14.0-18.0); Immature Granulocyte Absolute 0.07 K/mm3 (0.00-0.031); Immature Granulocyte Percent A 0.9 % (0-0.5); Lymphocytes Absolute Auto 2.57 K/mm3 (0.9-3.2); Lymphocytes Percent Auto 33.9 % (18.3-44.2); Mean Corpuscular HGB Conc 32.5 g/dl (32-36); Mean Corpuscular Hemoglobin 28.4 pg (26-34); Mean Corpuscular Volume 87.4 fl (80-100); Mean Platelet Volume 10.5 fl (7.4-10.4); Monocytes Absolute Auto 0.7 K/mm3 (0.1-0.6); Monocytes Percent Auto 9.8 % (2.6-8.5); Neutrophils Absolute Auto 4.1 K/mm3 (1.3-6.7); Neutrophils Percent Auto 53.8 % (45.5-73.1); Platelet Count Result 498 k/mm3 (150-375); Red Blood Count 4.68 M/mm3 (4.6-6.20); Red Cell Distribution Width 12.5 % (11.5-14.5); White Blood Count 7.6 K/mm3 (4.5-10.0)
[2020-03-22 07:24] LABS: Alanine Aminotransferase 31 U/L (4-50); Albumin Level 2.9 g/dL (3.5-5.1); Alkaline Phosphatase 57 U/L (38-126); Anion Gap 4 mmol/L (8-16); Aspartate Amino Transferase 35 U/L (17-59); Bilirubin,Total 0.3 mg/dL (0.2-1.3); Blood Urea Nitrogen 8 mg/dL (9-20); Carbon Dioxide 34 mmol/L (22-30); Chloride 93 mmol/L (98-107); Estimated CRCL calculation 133 ml/min; Estimated Glomerular Filt Rate > 60; Glucose 122 mg/dL (75-110); Magnesium 1.9 mg/dL (1.6-2.3); Potassium 3.9 mmol/L (3.4-5.0); Sodium 131 mmol/L (137-145)
[2020-03-22 08:15] LABS: Glucose Point of Care 102 (65-105)
[2020-03-22] MEDS: CELECOXIB 200 MG CAPSULE PO (09:12)
[2020-03-22] MEDS: OXcarbazepine 300 MG TABLET PO ×3 (09:12→17:58)
[2020-03-22] MEDS: clonazePAM (*CRX) 0.5 MG TABLET PO ×3 (09:12→17:58)
[2020-03-22] MEDS: PANTOPRAZOLE 40 MG TABLET PO ×2 (09:12→20:25)
[2020-03-22] MEDS: PRIMIDONE 250 MG TABLET PO ×3 (09:12→17:58)
[2020-03-22] MEDS: FUROSEMIDE 40 MG TABLET PO (09:12)
[2020-03-22] MEDS: ZAFIRLUKAST 20 MG TABLET PO ×2 (09:12→17:58)
[2020-03-22] MEDS: POTASSIUM CHLORIDE 20 MEQ TABLET.ER PO ×2 (09:12→17:58)
[2020-03-22] MEDS: ENOXAPARIN 40 MG/0.4 ML SYRINGE SUB-Q (09:12)
[2020-03-22] MEDS: DEXAMETHASONE 2 MG TABLET 6 MG PO (09:13)
[2020-03-22] MEDS: FLUTICASONE PROPIONATE 0.05% NA SPR 16 GM BTL (*BKC) 2 SPRAY NASAL ×2 (09:15→20:26)
[2020-03-22] MEDS: REMDESIVIR 100 MG/NS 250 ML 100 MG/250 ML BAG 250 MG IVPB (11:37)
[2020-03-22] MEDS: QUEtiapine FUMARATE 100 MG TABLET PO ×2 (11:45→17:58)
[2020-03-22 12:22] LABS: Glucose Point of Care 254 (65-105)
[2020-03-22] MEDS: INSULIN ASPART (*BKC) 100 UNITS/ML SUB-Q ×2 (12:28→17:59)
--- NOTE | 2020-03-22 13:57 | PCOTNOTE ---
Attempted to see patient this pm. Upon entering, patient using urinal standing independently. Pt returned to supine in bed independently. Upon signing forms for Care Coordination, patient stated, I'm not ready to go home yet. However patient declined therapy at this time stating, Oh, I can do all that myself. I'll do that when I go home.
--- NOTE | 2020-03-22 15:25 | PM.IMPN ---
Progress Note: A&P Assessment and Plan (1) Pneumonia due to COVID-19 virus: Code(s): U07.1 - COVID-19; J12.89 - Other viral pneumonia Status: Acute Assessment and Plan: Patient tested positive for COVID on 03/17. Evidence of Pneumonia on lung imaging. Remdesivir initiated on 03/19 after positive testing. Decadron initiated on 03/17. 4 doses of Levaquin given during stay. Patient is now on RA with clinical improvement since arrival Continue Remdesivir (day 4/5) Continue Decadron (day 6) Continue with Tylenol and albuterol as needed. Patient declined mucinex as it causes upset stomach Monitor closely Will anticipate finishing course of remdesivir during hospital stay (2) Acute respiratory failure with hypoxia: Code(s): J96.01 - Acute respiratory failure with hypoxia Status: Acute Assessment and Plan: Patient now tolerating RA. Likely due to COVID pneumonia. continue treatment as detailed above Supplemental O2 prn (3) Severe sepsis: Code(s): A41.9 - Sepsis, unspecified organism; R65.20 - Severe sepsis without septic shock Status: Acute Assessment and Plan: With lactic acidosis, tachycardia, tachypnea, and acute respiratory failure in the setting of pneumonia - resolved since admission. COVID positive with evidence of pneumonia on chest imaging Continue treatment for COVID pneumonia as detailed above (4) Hypokalemia: Code(s): E87.6 - Hypokalemia Status: Acute Assessment and Plan: K 3.9 today. Monitor daily Replace as needed (5) Type 2 diabetes mellitus: Code(s): E11.9 - Type 2 diabetes mellitus without complications Status: Acute Assessment and Plan: Patient states he was prediabetic prior to this hospital stay. A1c 8.7 Accuchecks ACHS, hypoglycemia protocol, correctional insulin, diabetic diet Will hold on initiating oral hypoglycemic agents given his acute illness, but will likely discharge on oral Metformin and will need prompt follow up with his PCP for further management (6) Asthma: Qualifiers: Asthma severity: unspecified severity Asthma persistence: unspecified Asthma complication type: unspecified Qualified Code(s): J45.909 - Unspecified asthma, uncomplicated Code(s): J45.909 - Unspecified asthma, uncomplicated Status: Chronic Assessment and Plan: No bronchospasm appreciated on exam Continue with PRN albuterol and home zafirlukast (7) Sarcoidosis: Code(s): D86.9 - Sarcoidosis, unspecified Status: Acute Assessment and Plan: Chronic. Stable. (8) Psychogenic nonepileptic seizure: Code(s): F44.5 - Conversion disorder with seizures or convulsions Status: Acute Assessment and Plan: Chronic. Stable. Continue home medications (9) Psychiatric illness: Code(s): F99 - Mental disorder, not otherwise specified Status: Acute Assessment and Plan: Chronic. Stable. Continue home medications (10) Essential hypertension: Code(s): I10 - Essential (primary) hypertension Status: Inactive Assessment and Plan: BP 130s sys this afternoon Continue home medications Monitor Subjective Date/time seen: 03/22/20 15:25 Interval history: Patient is a 54-year-old male medical problems including nonepileptic seizures, migraine headaches, bipolar disorder, hypertension, asthma, sarcoidosis, and several other comorbidities who is seen in follow up for COVID pneumonia and acute respiratory failure with hypoxia likely due to same. Patient states he feels s
[2020-03-22 17:27] LABS: Glucose Point of Care 226 (65-105)
[2020-03-22] MEDS: NEBIVOLOL HCL 5 MG TABLET 10 MG PO (17:58)
[2020-03-22] MEDS: ACETAMINOPHEN 500 MG TABLET 1000 MG PO (17:59)
[2020-03-22] MEDS: OXcarbazepine 300 MG TABLET 900 MG PO (20:25)
[2020-03-22] MEDS: QUEtiapine FUMARATE XR 200 MG TAB.ER.24H 400 MG PO (20:26)
[2020-03-22] MEDS: CYCLOBENZAPRINE HCL 5 MG TABLET PO (21:06)
[2020-03-22 21:12] LABS: Glucose Point of Care 225 (65-105)
[2020-03-23] VITALS (9 sets, daily range): BP systolic 123–148; BP diastolic 66–84; PULSE 76–111; RESP 16–20; TEMP 36.1–36.7; O2SAT 90–95
[2020-03-23] MEDS: IPRATROPIUM BR 0.02% INH SOLN 0.5 MG/2.5 ML VIAL INHALATION ×2 (02:41→09:07)
[2020-03-23 06:59] LABS: Basophils Absolute Auto 0.1 K/mm3 (0.0-0.1); Eosinophils Percent Auto 0.6 % (0-4.4); Hematocrit 39.4 % (42.0-52.0); Immature Granulocyte Absolute 0.06 K/mm3 (0.00-0.031); Immature Granulocyte Percent A 0.9 % (0-0.5); Lymphocytes Absolute Auto 2.83 K/mm3 (0.9-3.2); Lymphocytes Percent Auto 40.2 % (18.3-44.2); Mean Corpuscular Hemoglobin 28.9 pg (26-34); Mean Corpuscular Volume 87.6 fl (80-100); Mean Platelet Volume 10.1 fl (7.4-10.4); Monocytes Absolute Auto 0.8 K/mm3 (0.1-0.6); Monocytes Percent Auto 10.7 % (2.6-8.5); Neutrophils Absolute Auto 3.3 K/mm3 (1.3-6.7); Neutrophils Percent Auto 46.6 % (45.5-73.1); Platelet Count Result 441 k/mm3 (150-375); Red Cell Distribution Width 12.7 % (11.5-14.5)
[2020-03-23 07:30] LABS: Alanine Aminotransferase 29 U/L (4-50); Albumin Level 2.9 g/dL (3.5-5.1); Alkaline Phosphatase 54 U/L (38-126); Anion Gap 4 mmol/L (8-16); Aspartate Amino Transferase 32 U/L (17-59); Bilirubin,Total 0.3 mg/dL (0.2-1.3); Blood Urea Nitrogen 8 mg/dL (9-20); Carbon Dioxide 31 mmol/L (22-30); Chloride 96 mmol/L (98-107); Estimated CRCL calculation 149 ml/min; Estimated Glomerular Filt Rate > 60; Glucose 122 mg/dL (75-110); Lactate Dehydrogenase 548 U/L (313-618); Magnesium 2.1 mg/dL (1.6-2.3); Potassium 4.4 mmol/L (3.4-5.0); Sodium 131 mmol/L (137-145)
[2020-03-23 07:51] LABS: CRP 0.6 mg/dL (<1.0)
[2020-03-23 08:16] LABS: Glucose Point of Care 121 (65-105)
--- NOTE | 2020-03-23 09:25 | PM.DS ---
DS: Admitting Diagnosis Admitting Diagnosis Admitting Diagnosis: COVID PUI, Pneumonia, acute respiratory failure with hypoxia, severe sepsis DS: Discharge Diagnosis Discharge Diagnosis (1) Pneumonia due to COVID-19 virus: Code(s): U07.1 - COVID-19; J12.89 - Other viral pneumonia Status: Acute Assessment and Plan: Patient tested positive for COVID on 03/17. Evidence of Pneumonia on lung imaging. Remdesivir initiated on 03/19 after positive testing. Decadron initiated on 03/17. 4 doses of Levaquin given during stay. Patient is now on RA with clinical improvement since arrival Finish Remdesivir today (day 07/26) Decadron x 7 days total Continue with Tylenol and albuterol as needed. Patient declined mucinex as it causes upset stomach F/u with PCP. Discussed patient should isolate at home for 10-20 days since symptoms first started (2) Acute respiratory failure with hypoxia: Code(s): J96.01 - Acute respiratory failure with hypoxia Status: Acute Assessment and Plan: Patient now tolerating RA. Likely due to COVID pneumonia. continue treatment as detailed above (3) Severe sepsis: Code(s): A41.9 - Sepsis, unspecified organism; R65.20 - Severe sepsis without septic shock Status: Acute Assessment and Plan: With lactic acidosis, tachycardia, tachypnea, and acute respiratory failure in the setting of pneumonia - resolved since admission. COVID positive with evidence of pneumonia on chest imaging Continue treatment for COVID pneumonia as detailed above (4) Hypokalemia: Code(s): E87.6 - Hypokalemia Status: Acute Assessment and Plan: K 4.4 today. (5) Type 2 diabetes mellitus: Code(s): E11.9 - Type 2 diabetes mellitus without complications Status: Acute Assessment and Plan: Patient states he was prediabetic prior to this hospital stay. A1c 8.7 Accuchecks ACHS, hypoglycemia protocol, correctional insulin, diabetic diet during stay Will initiate metformin 500 BID at discharge with follow up with PCP (6) Asthma: Qualifiers: Asthma complication type: unspecified Asthma persistence: unspecified Asthma severity: unspecified severity Qualified Code(s): J45.909 - Unspecified asthma, uncomplicated Code(s): J45.909 - Unspecified asthma, uncomplicated Status: Chronic Assessment and Plan: No bronchospasm appreciated on exam Continue with PRN albuterol and home zafirlukast (7) Sarcoidosis: Code(s): D86.9 - Sarcoidosis, unspecified Status: Acute Assessment and Plan: Chronic. Stable. (8) Psychogenic nonepileptic seizure: Code(s): F44.5 - Conversion disorder with seizures or convulsions Status: Acute Assessment and Plan: Chronic. Stable. Continue home medications (9) Psychiatric illness: Code(s): F99 - Mental disorder, not otherwise specified Status: Acute Assessment and Plan: Chronic. Stable. Continue home medications (10) Essential hypertension: Code(s): I10 - Essential (primary) hypertension Status: Inactive Assessment and Plan: BP 137/78 sys most recently Continue home medications DS: Summary Hospital Course Reason for hospitalization: COVID PNA, severe sepsis, acute respiratory failure with hypoxia Hospital Course: Date of arrival: 03/17/20 Date of discharge: 03/23/20 Patient is a 54-year-old male medical problems including nonepileptic seizures, migraine headaches, bipolar disorder, hypertension, asthma, sarcoidosis, and several other comorbidities who pres
[2020-03-23] MEDS: ENOXAPARIN 40 MG/0.4 ML SYRINGE SUB-Q (09:56)
[2020-03-23] MEDS: ZAFIRLUKAST 20 MG TABLET PO (09:56)
[2020-03-23] MEDS: OXcarbazepine 300 MG TABLET PO (09:56)
[2020-03-23] MEDS: POTASSIUM CHLORIDE 20 MEQ TABLET.ER PO (09:57)
[2020-03-23] MEDS: PANTOPRAZOLE 40 MG TABLET PO (09:57)
[2020-03-23] MEDS: CELECOXIB 200 MG CAPSULE PO (09:57)
[2020-03-23] MEDS: FUROSEMIDE 40 MG TABLET PO (09:57)
[2020-03-23] MEDS: PRIMIDONE 250 MG TABLET PO (09:57)
[2020-03-23] MEDS: DEXAMETHASONE 2 MG TABLET 6 MG PO (09:58)
[2020-03-23] MEDS: REMDESIVIR 100 MG/NS 250 ML 100 MG/250 ML BAG 250 MG IVPB (10:00)
[2020-03-23] MEDS: FLUTICASONE PROPIONATE 0.05% NA SPR 16 GM BTL (*BKC) 2 SPRAY NASAL (10:01)
--- NOTE | 2020-03-23 10:11 | PCPTNOTE ---
Patient issued copy of HEP for LE exercises. Instructions reviewed. LE exercises were interrupted frequently and not completed by patient due to c/o R UE pain. Patient actively moving R UE with no limitations in ROM. Patient was observed using R UE to hold water cup and using utensils to eat. Patient states that he has had R UE pain in the past but did not seek medical treatment.
[2020-03-23] MEDS: clonazePAM (*CRX) 0.5 MG TABLET PO (10:28)
--- NOTE | 2020-03-23 10:44 | PCDIET ---
Weekly nutritional screen. Patient is tolerating current diet, diabetic/fluid restriction, with adequate intake, 75-100% of all meals. No weight loss reported. Bowels moving appropriately. No nutritional needs at this time.
--- NOTE | 2020-03-23 10:47 | PC.NURSE ---
Patient complains of shoulder pain that runs down arm. This nurse gave him a warm blanket and has been notified.
[2020-03-23 11:57] LABS: Glucose Point of Care 231 (65-105)
[2020-03-23] MEDS: INSULIN ASPART (*BKC) 100 UNITS/ML SUB-Q (12:33)
== END 2020-03-23 12:54 | disposition home or self-care (01) | DRG 871 ==
LOC: ANHED 08:53 → ANHIMU 17:10 → ANH3MEDSUR 03-21 23:35 → ANHIMU 03-28 16:23
PROVIDERS: Nurse Practitioner; Physician Assistant; Admitting Provider Internal Medicine; Emergency Provider General Practice; PCP Family Medicine; Visit Provider Physician Assistant
DX: A41.89 Other specified sepsis (principal); J96.01 Acute respiratory failure with hypoxia; U07.1 COVID-19; J12.89 Other viral pneumonia; E87.6 Hypokalemia; J45.909 Unspecified asthma, uncomplicated; A41.9 Sepsis, unspecified organism; R65.20 Severe sepsis without septic shock; D86.9 Sarcoidosis, unspecified; F44.5 Conversion disorder with seizures or convulsions; E11.9 Type 2 diabetes mellitus without complications; I10 Essential (primary) hypertension; G43.909 Migraine, unspecified, not intractable, without status migrainosus; F31.9 Bipolar disorder, unspecified; E78.5 Hyperlipidemia, unspecified; Z79.899 Other long term (current) drug therapy; Z88.1 Allergy status to other antibiotic agents; Z88.2 Allergy status to sulfonamides
CPT/HCPCS: 36415; 36600; 71045; 71275; 80048; 80053; 81001; 82728; 82805; 83036; 83605; 83615; 83735; 83880; 84484; 85025; 85027; 85380; 85610; 85730; 86140; 87040; 87070; 87205; 87449; 87635; 87804; 87899; 93005; 94640; 96374; 97110; 97116; 97161; 97165; 97530; 99285; A9270; C9803; J1650; J1815; J1956; J7030; J7040; J8540; Q9967; U0003

== ENCOUNTER 2020-04-04 13:45 | Observation (INO) | payer MEDICARE, MEDICAID, SELFPAY ==
[2020-04-04] VITALS (39 sets, daily range): BP systolic 120–169; BP diastolic 84–117; PULSE 99–143; RESP 14–26; TEMP 36.7–36.9; O2SAT 93–100; BMI 87.6
--- NOTE | ~2020-04-04 | XR_ITS ---
EXAMINATION: XR chest 1V portable EXAM DATE: 04/04/2020 14:21 INDICATION: Shortness of breath, chest pain. TECHNIQUE: Portable AP frontal chest x-ray was obtained. Comparison is made to prior examination from 03/21/2020. FINDINGS: There is mild to moderate amount of patchy bilateral ill-defined airspace disease, improvem ent compared to previous examination. There are no pleural effusions. Cardiac silhouette is prominen t but magnified on this AP technique. There is no pneumothorax suspected. The bones and soft tissu es are unremarkable. IMPRESSION: Mild to moderate amount of bilateral ill-defined airspace disease with interval improveme nt. Reviewed, dictated and finalized at location B. ING EQUIPMENT TENDER IMPRESSION: Mild to moderate amount of bilateral ill-defined airspace disease w ith interval improvement.
--- NOTE | ~2020-04-04 | CT_ITS ---
EXAMINATION: CT brain wo con DATE: 04/04/2020 18:11 INDICATION: Dizziness TECHNIQUE: Computed tomography (CT) of the head was performed without intravenous contrast. Sagittal and coronal reconstructions were performed. The mA was adjusted according to patient size. Iterative reconstruction technique was employed. The dose-length product was 605.33 mGy-cm. COMPARISON: head CT dated 10/04/2019 FINDINGS: No acute intracranial hemorrhage, acute infarction or abnormal extra axial fluid collection. Ventricl es are normal and symmetric. No mass/mass effect. The orbits, paranasal sinuses and mastoid air cells are normal. IMPRESSION: 1. Normal brain. Reviewed, dictated and finalized at location A. [employer]SOFT SOLUTIONS ARCHITECT IMPRESSION: 1. Normal brain.
--- NOTE | ~2020-04-04 | CT_ITS ---
EXAMINATION: CTA chest PE protocol DATE: 04/04/2020 15:48 INDICATION: Chest pain. TECHNIQUE: Computed tomography angiography (CTA) of the chest was performed with 100 mL Omnipaque-350 intravenous contrast timed to evaluate the pulmonary arteries. Coronal maximum intensity projection 3D-reconstructions were created by the technologist. Automated exposure control and iterative reconst ruction technique were employed. The dose-length product was 914.52 mGy-cm. COMPARISON: Chest CT 03/17/2020 FINDINGS: There is scattered airspace and groundglass opacities in all lobes with a lower lung predom inance. No pleural effusion. The heart size is normal. No pericardial effusion. There is no pulmonary embolus. There is a small sliding hiatal hernia. Partially visualized is focal atrophy of left kidne y lower pole. There is a 2.0 cm cyst in left kidney. There is levoscoliosis of upper thoracic spine. IMPRESSION: 1. No pulmonary embolus. 2. Diffuse lung disease with similar distribution from 03/17/2020, consistent with COVID-19 pneumonia . Reviewed, dictated and finalized at location A. RETAIL IMPRESSION: 1. No pulmonary embolus. 2. Diffuse lung disease with similar distribution from 03/17/2020, consistent w ith COVID-19 pneumonia.
--- NOTE | 2020-04-04 13:46 | ECG_ITS ---
Measurements Intervals [place] Rate: 136 P: 20 MN: 157 QRS: -41 QRSD: 92 T: 63 QT: 293 QTc: 442 Interpretive Statements SINUS TACHYCARDIA LEFT AXIS DEVIATION LEFT VENTRICULAR HYPERTROPHY AND ST-T CHANGE POOR R WAVE PROGRESSION, ANTERIOR LEADS BORDERLINE ST-T WAVE ABNORMALITY- HIGH LATERAL LEADS BASELINE ARTIFACT- I, II, III, AVR, AVL, V1 ABNORMAL ECG Electronically Signed On 04-04-2020 13:59:43 [employer]ERRYBOAT OPERATOR HELPER by Ajit Alvarado D.O.
[2020-04-04 14:12] LABS: Basophils Absolute Auto 0.1 K/mm3 (0.0-0.1); Basophils Percent Auto 0.9 % (0.2-1.2); Eosinophils Absolute Auto 0.2 K/mm3 (0-0.3); Eosinophils Percent Auto 2.4 % (0-4.4); Hematocrit 47.3 % (42.0-52.0); Hemoglobin 15.9 g/dL (14.0-18.0); Immature Granulocyte Absolute 0.02 K/mm3 (0.00-0.031); Immature Granulocyte Percent A 0.2 % (0-0.5); Lymphocytes Absolute Auto 2.72 K/mm3 (0.9-3.2); Mean Corpuscular HGB Conc 33.6 g/dl (32-36); Mean Corpuscular Hemoglobin 29.1 pg (26-34); Mean Corpuscular Volume 86.5 fl (80-100); Mean Platelet Volume 10.3 fl (7.4-10.4); Monocytes Absolute Auto 0.7 K/mm3 (0.1-0.6); Monocytes Percent Auto 6.9 % (2.6-8.5); Neutrophils Absolute Auto 5.7 K/mm3 (1.3-6.7); Neutrophils Percent Auto 60.6 % (45.5-73.1); Platelet Count Result 281 k/mm3 (150-375); Red Blood Count 5.47 M/mm3 (4.6-6.20); Red Cell Distribution Width 13.1 % (11.5-14.5); White Blood Count 9.4 K/mm3 (4.5-10.0)
[2020-04-04 14:19] LABS: INR 0.9; Prothrombin Time 12.8 Seconds (11.1-14.7)
[2020-04-04 14:20] LABS: Partial Thromboplastin Time 24.9 SECONDS (22.3-36.8)
[2020-04-04 14:31] LABS: Anion Gap 10 mmol/L (8-16); Blood Urea Nitrogen 7 mg/dL (9-20); Calcium 9.2 mg/dL (8.4-10.2); Carbon Dioxide 26 mmol/L (22-30); Chloride 101 mmol/L (98-107); Estimated CRCL calculation 147 ml/min; Estimated Glomerular Filt Rate > 60; Glucose 235 mg/dL (75-110); Potassium 3.4 mmol/L (3.4-5.0); Sodium 137 mmol/L (137-145)
--- NOTE | 2020-04-04 14:32 | ED.CHESTPAIN ---
HPI - Chest Pain General Chief Complaint: Chest Pain Stated Complaint: COVID + FEELS WORSE Time Seen by Provider: 04/04/20 14:21 History of Present Illness HPI narrative: 54 ronna male w/ h/o HTN, DM, schizoaffective disorder presents to the ED for multiple complaints. He reports that he was diagnosed with COVId-19 pneumonia on 03/17/2020. He syas that he felt as though he was recovering, but over the past few days his symptoms have returned. He has pleuritic chest pain, SOB, nausea, dizziness, diarrhea. He says that his urine also turned brown a few days ago, now he is not sure if he is urinating at all. He also has dizziness. This is primarily upon standing. No fever. Related Data Home Medications Medication Instructions Recorded Confirmed oxcarbazepine 300 mg PO TID 03/31/19 03/17/20 rizatriptan 10 mg PO DAILY PRN 03/31/19 03/17/20 quetiapine 400 mg PO HS 07/31/19 03/17/20 oxcarbazepine 300 mg tablet 900 mg PO HS tablet 10/04/19 03/17/20 primidone 250 mg PO TID 10/04/19 03/17/20 albuterol sulfate [Ventolin HFA] 2 puff INHALATION Q4H PRN 10/05/19 03/17/20 clonazepam 0.5 mg PO TID 10/05/19 03/17/20 fluticasone propionate 2 spray INTRANASAL BID 10/05/19 03/17/20 celecoxib 200 mg PO DAILY 03/17/20 03/17/20 quetiapine 100 mg PO 1300,1800 03/17/20 03/17/20 zafirlukast 20 mg PO BID 03/17/20 03/17/20 Allergies Allergy/AdvReac Type Severity Reaction Status Date / Time doxycycline Allergy Intermediate RASH Verified 03/17/20 08:46 levetiracetam Allergy Intermediate INCREASED Verified 03/17/20 08:46 SZ'S meloxicam Allergy Intermediate ITCHING Verified 03/17/20 08:46 Sulfa (Sulfonamide Allergy Mild RASH Verified 03/17/20 08:46 Antibiotics) cephalexin Allergy Unknown Rash Verified 03/17/20 08:46 Cephalosporins Allergy Unknown Rash Verified 03/17/20 08:46 Corticosteroids Allergy Unknown Swelling Verified 03/17/20 08:46 (Glucocorticoids) haloperidol Allergy Unknown Seizure Verified 03/17/20 08:46 hydrocodone Allergy Unknown Unknown Verified 03/17/20 08:46 hydromorphone Allergy Unknown Flushing Verified 03/17/20 08:46 sulfite Allergy Unknown Other Verified 03/17/20 08:46 tetracycline Allergy Unknown Diarrhea Verified 03/17/20 08:46 levalbuterol AdvReac Severe Other Verified 03/17/20 08:46 molindone AdvReac Intermediate Nausea Verified 03/17/20 08:46 Oat Allergy Severe Swelling Uncoded 03/17/20 08:46 Review of Systems Review of Systems: All systems reviewed & are unremarkable except as noted in HPI and below Constitutional: Constitutional: Reports body ache(s) and Reports chills Eyes: Eyes: Denies no additional eye complaints ENT: Reports dizziness Cardiovascular: Cardiovascular: Reports chest pain Respiratory: Respiratory: Reports chest congestion, Reports cough and Reports dyspnea Gastrointestinal: Gastrointestinal: Denies abdominal pain, Reports diarrhea, Reports nausea and Reports vomiting Musculoskeletal: Musculoskeletal: Reports myalgias and Reports muscle weakness Neurologic: Reports dizziness, Denies syncope and Reports weakness Endocrine: Endocrine: Denies polydipsia PMFSH Past Medical History Medical History Anxiety Asthma Bipolar disorder Coronary artery spasm Dupuytrens contracture Dyslipidemia Essential hypertension Gastroesophageal reflux disease History of kidney stones Left hemiparesis (~01/2015) Patient presented to the emergency department in January 2015 with left hemiparesis. Brain CT was unremarkable however NIH stroke scale was 10. He was given tPA and transferred to [facility], where his symptoms resolved. Patient reports that the neurologist that was quite strange and his symptoms resolved so quickly and they do not believe he actually had a stroke. Migraine headache Migraines Obstructive sleep apnea No longer requiring CPAP after 140 lb weight loss. Psychogenic nonepileptic seizure Right arm cellulitis (~
[2020-04-04 14:42] LABS: Troponin I < 0.012 ng/mL (0.000-0.034)
[2020-04-04] MEDS: SODIUM CHLORIDE 0.9% IV 1,000 ML 999 ML IV CONT ×2 (15:09→16:31)
[2020-04-04 16:49] LABS: Add Urine Microscopic? YES; Appearance Urine Clear (Clear); Bilirubin Urine Negative (Negative); Blood Urine Negative (Negative); Color Urine Yellow (Yellow); Glucose Urine UA 1+ mg/dL (Negative); Ketones Urine Trace mg/dL (Negative); Leukocyte Esterase Ur Negative LEU/UL (Negative); Mucus Urine Few /lpf; Nitrate Urine Negative (Negative); Protein Urine 1+ mg/dL (Negative); RBC Urine 0-2 /hpf (0-2); Specific Grav Ur 1.024 (1.001-1.035); Squamous Epithelial Cell Urine Rare /hpf (Few); Urobilinogen Urine Negative mg/dL (<2.0); WBC Urine 0-3 /hpf
--- NOTE | 2020-04-04 17:00 | PC.NURSE ---
Pt. called out for urinal. Attempted to stand patient up to use the urinal. Upon standing, Pt. legs gave out and was assisted back into the bed by RN and Tech without falling. Pt. states feeling very weak over the past couples day and can typically ambulate at home. ERP aware.
[2020-04-04] MEDS: MECLIZINE HCL 25 MG TABLET PO (17:06)
[2020-04-04 17:14] LABS: Troponin I < 0.012 ng/mL (0.000-0.034)
--- NOTE | 2020-04-04 19:29 | PC.NURSE ---
This RN went in to update pt on admission status, ,pt very confused at this time, looking around and stating whats going on, what time is it, what happened I asked pt his name, and what month and year it was. Pt unable to answer questions. updated Dr. Mark of pt status.
[2020-04-04 20:24] LABS: Troponin I < 0.012 ng/mL (0.000-0.034)
[2020-04-04] MEDS: LACTATED RINGERS 1,000 ML 125 ML IV CONT (21:30)
--- NOTE | 2020-04-04 21:30 | PC.NURSE ---
2045 PT RECEIVED AWAKE AND ALERT PER STRETCHER.
[2020-04-04 22:19] LABS: Glucose Point of Care 141 (65-105)
--- NOTE | 2020-04-04 23:31 | ECG_ITS ---
Measurements Intervals [place] Rate: 114 P: SD: 0 QRS: -20 QRSD: 87 T: 61 QT: 313 QTc: 431 Interpretive Statements SINUS TACHYCARDIA DELAYED PRECORDIAL R/S TRANSITION ABNORMAL ECG Electronically Signed On 04-05-2020 7:02:02 BINDER CUTTER HAND by Ajit Alvarado D.O.
[2020-04-05] VITALS (11 sets, daily range): BP systolic 118–172; BP diastolic 63–104; PULSE 98–132; RESP 16–20; TEMP 36.2–36.3; O2SAT 94–98
--- NOTE | 2020-04-05 | ECHO_ITS ---
Patient Info Name: Martín Salgado Age: 54 years : 1965 Gender: Male Ht: 59 in Wt: 252 lbs BSA: 2.26 m2 HR: 107 bpm BP: 158 / 92 mmHg Heart Rhythm: Sinus Rhythm Technical Quality: Good Exam Date: 04/05/2020 1:44 PM Exam Location: [facility] Pulmonary Patient Status: Inpatient Admit Date: 04/04/2020 Staff Ordering Physician: Luma Burger M.A., MD Red[place] Hand: Rahul Mcwilliams RDCS, RT Attending Provider: Ashley London MD Referring Physician: Daniel JC; Exam Type: CA echo doppler color flow Study Info Indications R07.89 - Other chest pain Complete two-dimensional, color flow and Doppler transthoracic echocardiogram is performed. Summary 1. Complete two-dimensional, color flow and Doppler transthoracic echocardiogram is performed. 2. Technically difficult study with limited views. Regional wall motion assessment limited due to poor endomyocardial border definition, however, no clear wall motion abnormalities identified. 3. Left ventricular systolic function is normal, estimated at >70%. 4. There is mildly increased left ventricular wall thickness. 5. The left ventricular diastolic function is grade I diastolic dysfunction. 6. There is no aortic valve stenosis. 7. There is trace mitral valve regurgitation. 8. There is trace tricuspid valve regurgitation. 9. Unable to assess PA systolic pressure due to poor spectral resolution of tricuspid regurgitant jet velocity. Left Ventricle Left ventricular chamber dimension is normal. Left ventricular systolic function is normal, estimated at >70%. There is mildly increased left ventricular wall thickness. The left ventricular diastolic function is grade I diastolic dysfunction. Global longitudinal strain is mildly elevated at -17 %. Technically difficult study with limited views. Regional wall motion assessment limited due to poor endomyocardial border definition, however, no clear wall motion abnormalities identified. Right Ventricle Right ventricular chamber dimension is normal. Right ventricular systolic function is normal. Left Atria Left atrial chamber dimension is mildly enlarged. Right Atria Right atrial chamber dimension is normal. Aortic Valve The aortic valve is not well visualized. There is no aortic valve stenosis. There is no aortic valve regurgitation. Pulmonic Valve The pulmonic valve is not well visualized. Mitral Valve The mitral valve has normal leaflets. There is trace mitral valve regurgitation. The mitral valve annulus is mildly calcified. Tricuspid Valve The tricuspid valve leaflets are normal. There is trace tricuspid valve regurgitation. Unable to assess PA systolic pressure due to poor spectral resolution of tricuspid regurgitant jet velocity. Pericardium/Pleural The pericardium appears normal. There is trivial pericardial effusion. Inferior Vena Cava Normal inferior vena cava with >50% collapse upon inspiration consistent with normal right atrial pressure, 5 mmHg. Aorta The aortic root size at the sinus of Valsalva is normal. There is mild aortic atherosclerosis. Left Ventricular Outflow Tract Name Value Normal LVOT Doppler LVOT Peak Gradient 6 mmHg LVOT Mean G
[2020-04-05 00:36] LABS: Troponin I < 0.012 ng/mL (0.000-0.034)
[2020-04-05] MEDS: METOPROLOL TARTRATE INJ 5 MG/5 ML VIAL IV PUSH (01:26)
[2020-04-05 03:34] LABS: Troponin I < 0.012 ng/mL (0.000-0.034)
[2020-04-05] MEDS: LACTATED RINGERS 1,000 ML 125 ML IV CONT ×3 (05:30→20:36)
[2020-04-05 07:01] LABS: Troponin I < 0.012 ng/mL (0.000-0.034)
[2020-04-05 07:50] LABS: Anion Gap 7 mmol/L (8-16); Blood Urea Nitrogen 7 mg/dL (9-20); Calcium 8.7 mg/dL (8.4-10.2); Carbon Dioxide 25 mmol/L (22-30); Chloride 106 mmol/L (98-107); Cholesterol 145 mg/dL (0-200); Estimated Glomerular Filt Rate > 60; Glucose 125 mg/dL (75-110); HDL Direct 30 mg/dL; Lactate Dehydrogenase 361 U/L (313-618); Potassium 3.1 mmol/L (3.4-5.0); Sodium 138 mmol/L (137-145); Triglycerides 100 mg/dL (<150)
[2020-04-05 08:00] LABS: Basophils Absolute Auto 0.1 K/mm3 (0.0-0.1); Basophils Percent Auto 1.3 % (0.2-1.2); Eosinophils Absolute Auto 0.3 K/mm3 (0-0.3); Eosinophils Percent Auto 3.7 % (0-4.4); Hematocrit 39.6 % (42.0-52.0); Hemoglobin 13.1 g/dL (14.0-18.0); Immature Granulocyte Absolute 0.03 K/mm3 (0.00-0.031); Immature Granulocyte Percent A 0.4 % (0-0.5); Lymphocytes Absolute Auto 2.79 K/mm3 (0.9-3.2); Lymphocytes Percent Auto 33.6 % (18.3-44.2); Mean Corpuscular HGB Conc 33.1 g/dl (32-36); Mean Corpuscular Hemoglobin 29.5 pg (26-34); Mean Corpuscular Volume 89.2 fl (80-100); Mean Platelet Volume 11.1 fl (7.4-10.4); Monocytes Absolute Auto 0.8 K/mm3 (0.1-0.6); Monocytes Percent Auto 10.1 % (2.6-8.5); Neutrophils Absolute Auto 4.2 K/mm3 (1.3-6.7); Neutrophils Percent Auto 50.9 % (45.5-73.1); Platelet Count Result 230 k/mm3 (150-375); Red Blood Count 4.44 M/mm3 (4.6-6.20); Red Cell Distribution Width 13.3 % (11.5-14.5); White Blood Count 8.3 K/mm3 (4.5-10.0)
[2020-04-05 08:01] LABS: LDL Cholesterol Direct 98 mg/dL
[2020-04-05] MEDS: clonazePAM (*CRX) 0.5 MG TABLET PO ×3 (08:14→18:05)
[2020-04-05] MEDS: ZAFIRLUKAST 20 MG TABLET PO ×2 (08:14→16:08)
[2020-04-05] MEDS: OXcarbazepine 300 MG TABLET PO ×3 (08:14→18:05)
[2020-04-05] MEDS: POTASSIUM CHLORIDE 10 MEQ TABLET.ER PO ×2 (08:15→18:05)
[2020-04-05] MEDS: PRIMIDONE 250 MG TABLET PO ×3 (08:15→18:06)
[2020-04-05] MEDS: FLUTICASONE PROPIONATE 0.05% NA SPR 16 GM BTL (*BKC) 2 SPRAY NASAL ×2 (08:15→18:05)
[2020-04-05] MEDS: CELECOXIB 200 MG CAPSULE PO (08:15)
[2020-04-05] MEDS: PANTOPRAZOLE 40 MG TABLET PO ×2 (08:15→18:06)
[2020-04-05] MEDS: metFORMIN HCL 500 MG TABLET PO ×2 (08:15→18:07)
[2020-04-05] MEDS: ENOXAPARIN 40 MG/0.4 ML SYRINGE SUB-Q (08:15)
[2020-04-05 10:36] LABS: Glucose Point of Care 137 (65-105)
--- NOTE | 2020-04-05 10:36 | PM.IMHP ---
H&P: HPI History of Present Illness Date/Time: 04/05/20 10:36 Chief Complaint: shortness of breath Narrative: Martín Salgado is a 54 year old male with past medical history of coronary artery disease hypertension diabetes was recently treated for COVID-19 on patient still complaining of shortness of breath patient involved chest pain dull in nature radiating to the left on the Jewel no aggravating or relieving factor associated with shortness of breath worsening with activity at the ER CT scan of the chest was done was negative for PE patient has multiple admission in the past patient also has history of schizophrenia had psych admission in the past according to the patient's chest pain has improved but he still short of breath Review of Systems Review of Systems: All systems reviewed & are unremarkable except as noted in HPI and below PMFSH Past Medical History Medical History Anxiety Asthma Bipolar disorder Coronary artery spasm Dupuytrens contracture Dyslipidemia Essential hypertension Gastroesophageal reflux disease History of kidney stones Left hemiparesis (~01/2015) Patient presented to the emergency department in January 2015 with left hemiparesis. Brain CT was unremarkable however NIH stroke scale was 10. He was given tPA and transferred to [facility], where his symptoms resolved. Patient reports that the neurologist that was quite strange and his symptoms resolved so quickly and they do not believe he actually had a stroke. Migraine headache Migraines Obstructive sleep apnea No longer requiring CPAP after 140 lb weight loss. Psychogenic nonepileptic seizure Right arm cellulitis (~12/2009) Sarcoidosis Schizoaffective disorder Suicide attempt (~03/2013) Intentional Seroquel overdose. Type 2 diabetes mellitus Surgical History Surgical History History of ankle surgery (~07/2015) ORIF right ankle fracture. History of cardiac catheterization (~1995) History of eye surgery X2 for strabismus. History of left inguinal hernia repair History of lymph node biopsy Lymph node resection from the mediastinum which provided diagnosis for sarcoidosis. History of rectal surgery Repair of anal fissure. History of removal of cyst Removed from foot. History of surgical removal of pilonidal cyst History of tonsillectomy Family History Family History Unknown Adopted Mother Adopted Hypertension Grandparent Schizophrenia PT STATES HE FOUND OUT THWY DID NOT HAVE THIS Adopted Bipolar 1 disorder Other Seizure disorder Other Family history of bipolar disorder Social History Social History Social History: The patient lives in his own apartment in [place], [place]. He is with 1 son. Unemployed, on disability. Lifelong nonsmoker. No alcohol or illicit substance abuse. His aunt, Erin Mackenzie, is his healthcare power of food processing plant manager and he wishes to be a full code. He also designates his son, Martín Salgado II as an alternate emergency contact. Smoking status: Never smoker Alcohol intake: never Substance use: never Gender identity (if verbalized by the patient): Male Spiritual care concerns: No Agree to blood products: Yes Meds Home Medications and Allergies Home Medications Medication Instructions Recorded Confirmed Type oxcarbazepine 300 mg PO TID 03/31/19 04/04/20 History rizatriptan 10 mg PO DAILY PRN 03/31/19 04/04/20 History omeprazole 20 mg capsule,delayed 20 mg PO BID #60 cap 07/01/19 04/04/20 Rx release quetiapine 400 mg PO HS 07/31/19 04/04/20 History oxcarbazepine 300 mg tablet 900 mg PO HS tablet 10/04/19 04/04/20 History primidone 250 mg PO TID 10/04/19 04/04/20 History albut
[2020-04-05 11:10] LABS: Troponin I < 0.012 ng/mL (0.000-0.034)
--- NOTE | 2020-04-05 11:14 | PC.NURSE ---
Patient assisted to bathroom by MIRIAM Echeverria. Patient done using bathroom and MIRIAM Ascencio in room. Patient got himself off the toilet, washed his hands and starting walking back to this bed with assistance. Patient looked at MIRIAM, made noises and patient intentionally sat himself on the floor. No injuries. Vitals taken. Patient has an extensive psychological history. MD notified.
[2020-04-05 12:21] LABS: Glucose Point of Care 153 (65-105)
[2020-04-05] MEDS: QUEtiapine FUMARATE 100 MG TABLET PO ×2 (12:54→18:06)
[2020-04-05 13:42] LABS: Troponin I < 0.012 ng/mL (0.000-0.034)
[2020-04-05 17:31] LABS: Glucose Point of Care 150 (65-105)
[2020-04-05] MEDS: NEBIVOLOL HCL 5 MG TABLET 10 MG PO (18:05)
[2020-04-05] MEDS: QUEtiapine FUMARATE XR 200 MG TAB.ER.24H 400 MG PO (20:35)
[2020-04-05] MEDS: OXcarbazepine 300 MG TABLET 900 MG PO (20:36)
[2020-04-06] VITALS: PULSE 85
[2020-04-06 02:20] LABS: Glucose Point of Care 189 (65-105)
[2020-04-06 04:00] VITALS: BP 137/79; PULSE 76; PULSE 84; RESP 18; TEMP 36.4; O2SAT 96
[2020-04-06] MEDS: LACTATED RINGERS 1,000 ML 125 ML IV CONT (05:11)
[2020-04-06 08:00] VITALS: BP 129/70; PULSE 78; PULSE 88; RESP 18; TEMP 36.4; O2SAT 96
[2020-04-06] MEDS: ZAFIRLUKAST 20 MG TABLET PO (08:08)
[2020-04-06] MEDS: PRIMIDONE 250 MG TABLET PO ×2 (08:29→13:18)
[2020-04-06] MEDS: PANTOPRAZOLE 40 MG TABLET PO (08:29)
[2020-04-06] MEDS: metFORMIN HCL 500 MG TABLET PO (08:29)
[2020-04-06] MEDS: FLUTICASONE PROPIONATE 0.05% NA SPR 16 GM BTL (*BKC) 2 SPRAY NASAL (08:30)
[2020-04-06] MEDS: OXcarbazepine 300 MG TABLET PO ×2 (08:31→13:18)
[2020-04-06] MEDS: CELECOXIB 200 MG CAPSULE PO (08:31)
[2020-04-06] MEDS: POTASSIUM CHLORIDE 10 MEQ TABLET.ER PO (08:31)
[2020-04-06] MEDS: ENOXAPARIN 40 MG/0.4 ML SYRINGE SUB-Q (08:31)
[2020-04-06] MEDS: clonazePAM (*CRX) 0.5 MG TABLET PO ×2 (08:33→13:18)
[2020-04-06 08:34] LABS: Glucose Point of Care 133 (65-105)
[2020-04-06 12:00] VITALS: BP 109/63; PULSE 78; RESP 18; TEMP 36.4; O2SAT 94
[2020-04-06 12:40] LABS: Glucose Point of Care 134 (65-105)
--- NOTE | 2020-04-06 12:47 | PM.DS ---
DS: Admitting Diagnosis Admitting Diagnosis Admitting Diagnosis: Shortness of breath DS: Discharge Diagnosis Discharge Diagnosis (1) Sinus tachycardia: Code(s): R00.0 - Tachycardia, unspecified Status: Acute Assessment and Plan: chronic continue to monitor probably related to an anxiety (2) Pneumonia due to COVID-19 virus: Code(s): U07.1 - COVID-19; J12.89 - Other viral pneumonia Status: Acute Assessment and Plan: was diagnosed on 03/17/2021 patient is still short of breath (3) Sarcoidosis: Code(s): D86.9 - Sarcoidosis, unspecified Status: Acute Assessment and Plan: I do not think patient has exacerbation of sarcoidosis follow-up with pulmonology as outpatient (4) Type 2 diabetes mellitus: Code(s): E11.9 - Type 2 diabetes mellitus without complications Status: Acute Assessment and Plan: insulin sliding scale (5) Hypertension: Code(s): I10 - Essential (primary) hypertension Status: Acute Assessment and Plan: continue home medications stable (6) Diabetes mellitus: Code(s): E11.9 - Type 2 diabetes mellitus without complications Status: Acute (7) Pseudoseizure: Code(s): F44.5 - Conversion disorder with seizures or convulsions Status: Acute Assessment and Plan: patient had multiple episode where he claimed he has seizure but it was found to be pseudo-seizure in the past according to the sign-out (8) Asthma: Qualifiers: Asthma severity: unspecified severity Asthma persistence: unspecified Asthma complication type: unspecified Qualified Code(s): J45.909 - Unspecified asthma, uncomplicated Code(s): J45.909 - Unspecified asthma, uncomplicated Status: Chronic Assessment and Plan: inhaler treatment (9) Acute chest pain: Code(s): R07.9 - Chest pain, unspecified Status: Acute Assessment and Plan: ruled out ACS serial cardiac markers ECG cardiology consult most likely pleurisy resolved DS: Summary Hospital Course Hospital Course: Patient was admitted to the hospital for shortness of breath and chest pain most likely his shortness of breath and chest pain is related to recent COVID-19 pneumonia and pleurisy cardiology was consulted echo was done follow-up with cardiology as outpatient Patient has significant psych history he has multiple episodes of malingering including pseudo-seizure seizure and falls Time Spent with Patient Time attestation: Total time spent providing and/or coordinating discharge services: Exam Const: General: cooperative Orientation/consciousness: oriented to person, oriented to place, oriented to time and patient oriented x3 HENMT: Head: normal to inspection Eyes: General: appearance normal, both eyes and all related structures Neck: Neck: normal visual inspection Chest: Chest palpation & inspection: normal inspection of the chest and no tenderness Resp: Effort & Inspection: decreased respiratory effort Cardio: Rate: regular rate Rhythm: regular rhythm GI: Inspection: normal to inspection : General: Yes no CVA tenderness Back/Spine/Pelvis: Back: no CVA tenderness Skin: General skin exam: normal color Neuro: General: oriented to person, oriented to place, oriented to time and patient oriented x3 Sensory Exam: Abnormal lower extremity sensory exam and Upper extremity sensory exam abnormal Extrem: General: normal to inspection Psych: Appearance: grossly normal DS: Data Data Completed and Pending Labs on day of discharge: Labs from last 24 hours 04/06/20 04/06/20 04/05/20 12:29 08:25 20:40 POC Capillary Glucose 134 H 133 H 189 H Troponin I 04/05/20 04/05/20 17:01 13:11 POC Capillary Glucose 150 H Troponin I < 0.012 Discharge Plan Discharge Attending physician on discharge: Luma Burger M.A. Consulting providers: [facility]
[2020-04-06] MEDS: QUEtiapine FUMARATE 100 MG TABLET PO (13:18)
[2020-04-06 14:22] LABS: Basophils Absolute Auto 0.1 K/mm3 (0.0-0.1); Basophils Percent Auto 1.4 % (0.2-1.2); Eosinophils Absolute Auto 0.3 K/mm3 (0-0.3); Eosinophils Percent Auto 5.6 % (0-4.4); Hematocrit 37.1 % (42.0-52.0); Immature Granulocyte Absolute 0.01 K/mm3 (0.00-0.031); Immature Granulocyte Percent A 0.2 % (0-0.5); Lymphocytes Absolute Auto 1.87 K/mm3 (0.9-3.2); Lymphocytes Percent Auto 33.8 % (18.3-44.2); Mean Corpuscular HGB Conc 32.3 g/dl (32-36); Mean Corpuscular Volume 89.6 fl (80-100); Mean Platelet Volume 9.9 fl (7.4-10.4); Monocytes Absolute Auto 0.5 K/mm3 (0.1-0.6); Monocytes Percent Auto 9.8 % (2.6-8.5); Neutrophils Absolute Auto 2.7 K/mm3 (1.3-6.7); Neutrophils Percent Auto 49.2 % (45.5-73.1); Platelet Count Result 178 k/mm3 (150-375); Red Blood Count 4.14 M/mm3 (4.6-6.20); Red Cell Distribution Width 13.5 % (11.5-14.5); White Blood Count 5.5 K/mm3 (4.5-10.0)
== END 2020-04-06 15:55 ==
LOC: ANHED 19:37 → ANH3MEDSUR 04-06 10:35
PROVIDERS: Emergency Medicine; Physician Assistant; Admitting Provider Family Medicine; Emergency Provider Emergency Medicine; PCP Family Medicine; Visit Provider Internal Medicine
DX: U07.1 COVID-19 (principal); J12.82 Pneumonia due to coronavirus disease 2019; I10 Essential (primary) hypertension; D86.9 Sarcoidosis, unspecified; E11.9 Type 2 diabetes mellitus without complications; F20.9 Schizophrenia, unspecified; F44.5 Conversion disorder with seizures or convulsions; I25.10 Atherosclerotic heart disease of native coronary artery without angina pectoris; J45.909 Unspecified asthma, uncomplicated; Z79.4 Long term (current) use of insulin
CPT/HCPCS: 36415; 70450; 71045; 71275; 80048; 80061; 81001; 82728; 83615; 84484; 85025; 85610; 85730; 93005; 93306; 96361; 96372; 96374; 99285; A9270; G0378; J1650; J7030; J7120; Q9967

== ENCOUNTER 2020-08-30 14:09 | Emergency (ER) | payer MEDICARE, MEDICAID, SELFPAY ==
[2020-08-30] VITALS (8 sets, daily range): BP systolic 162–185; BP diastolic 90–141; PULSE 115–142; RESP 15–27; TEMP 36.9–38.2; O2SAT 94–100
--- NOTE | ~2020-08-30 | XR_ITS ---
EXAMINATION: XR chest 2V EXAM DATE: 08/30/2020 14:51 INDICATION: Fever and weakness. TECHNIQUE: Frontal and lateral projections of the chest obtained and reviewed. Comparison is made to prior examination from 04/04/2020. FINDINGS: Some scattered basilar peripheral linear opacities, roughly regions of scarring from prior episode of infection. Interval improvement in these compared to prior study. No definite superimpose d acute airspace disease. No pneumothorax or pleural effusion. Cardiomediastinal silhouette is normal . There are no osseous abnormalities identified. IMPRESSION: Some scattered basilar linear opacities most likely scarring. Reviewed, dictated and finalized at location A.
--- NOTE | ~2020-08-30 | US_ITS ---
EXAMINATION:US venous doppler LE BI INDICATION:Calf pain TECHNIQUE: Multiple grayscale, color flow and Doppler images of the right and left lower extremity de ep venous systems were obtained and reviewed. COMPARISON:Ultrasound dated 10/05/2019 FINDINGS: The common femoral, superficial femoral and popliteal veins demonstrate normal respiratory variation, augmentation and compressibility. Color flow is also seen within the posterior tibial, pe roneal, greater saphenous and profunda veins. IMPRESSION: 1: No lower extremity deep venous thrombosis. Reviewed, dictated and finalized at location B.
[2020-08-30] MEDS: SODIUM CHLORIDE 0.9% IV 1,000 ML 999 ML IV CONT ×2 (14:31→17:45)
--- NOTE | 2020-08-30 15:48 | ED.WEAKNESS ---
HPI - Weakness General Chief complaint: Weakness Stated complaint: CONFUSION Time Seen by Provider: 08/30/20 14:16 History of Present Illness HPI Narrative: Patient is a 54-year-old male who presents ER with multiple complaints. Main issue is that he has been having sore throat body aches beginning today. Associate with fever of 100.7 ?F. No shaking chills. No sinus congestion or productive cough. No chest pain or chest pressure. He does report that has been having calf pain on the right side greater than left that is killing him and he has a lot of pain in his feet that makes it difficult for him to ambulate. He is having no back pain. No known sick contacts. Patient has no headache/change in vision/change in hearing. EMS felt patient was briefly confused in route. Related Data Home Medications Medication Instructions Recorded Confirmed oxcarbazepine 300 mg PO TID 03/31/19 04/04/20 rizatriptan 10 mg PO DAILY PRN 03/31/19 04/04/20 quetiapine 400 mg PO HS 07/31/19 04/04/20 oxcarbazepine 300 mg tablet 900 mg PO HS tablet 10/04/19 04/04/20 primidone 250 mg PO TID 10/04/19 04/04/20 albuterol sulfate [Ventolin HFA] 2 puff INHALATION Q4H PRN 10/05/19 04/04/20 fluticasone propionate 2 spray INTRANASAL BID 10/05/19 04/04/20 celecoxib 200 mg PO DAILY 03/17/20 04/04/20 quetiapine 100 mg PO 1300,1800 03/17/20 04/04/20 zafirlukast 20 mg PO BID 03/17/20 04/04/20 metformin mg 08/30/20 Allergies Allergy/AdvReac Type Severity Reaction Status Date / Time doxycycline Allergy Intermediate RASH Verified 08/30/20 15:14 levetiracetam Allergy Intermediate INCREASED Verified 08/30/20 15:14 SZ'S meloxicam Allergy Intermediate ITCHING Verified 08/30/20 15:14 Sulfa (Sulfonamide Allergy Mild RASH Verified 08/30/20 15:14 Antibiotics) cephalexin Allergy Unknown Rash Verified 08/30/20 15:14 Cephalosporins Allergy Unknown Rash Verified 08/30/20 15:14 haloperidol Allergy Unknown Seizure Verified 08/30/20 15:14 sulfite Allergy Unknown Other Verified 08/30/20 15:14 tetracycline Allergy Unknown Diarrhea Verified 08/30/20 15:14 levalbuterol AdvReac Severe Other Verified 08/30/20 15:14 molindone AdvReac Intermediate Nausea Verified 03/17/20 08:46 Oat Allergy Severe Swelling Uncoded 03/17/20 08:46 Review of Systems Review of Systems: All systems reviewed & are unremarkable except as noted in HPI and below Constitutional: Constitutional: Denies chills, Reports fever(s) and Reports weakness ENT: Denies dysphagia, Denies nasal congestion and Reports sore throat Cardiovascular: Cardiovascular: Denies chest pain and Denies radiating jaw, neck or arm pain Respiratory: Respiratory: Denies cough, Denies dyspnea and Denies wheezing Gastrointestinal: Gastrointestinal: Denies abdominal pain, Denies diarrhea, Denies nausea and Denies vomiting Genitourinary: Genitourinary: Denies dysuria and Denies urinary frequency Musculoskeletal: Musculoskeletal: Denies back pain, Reports myalgias, Denies arthralgias and Denies joint swelling Comments: Calf pain and foot pain bilaterally Neurologic: Denies syncope, Denies focal weakness and Denies numbness Comments: Paresthesias of the hands bilaterally. [facility] Past Medical History Medical History Anxiety Asthma Bipolar disorder Coronary artery spasm Dupuytrens contracture Dyslipidemia Essential hypertension Gastroesophageal reflux disease History of kidney stones Left hemiparesis (~01/2015) Patient presented to the emergency department in January 2015 with left hemiparesis. Brain CT was unremarkable however NIH stroke scale was 10. He was given tPA and transferred to [facility], where his symptoms resolved. Patient reports that the neurologist that was quite strange and his symptoms resolved so quickly and they do not believe he actually had a stroke. Migraine headache Migraines Obstructive sleep apnea No longer requiring CPA
[2020-08-30 15:53] LABS: Basophils Absolute Auto 0.1 K/mm3 (0.0-0.1); Basophils Percent Auto 0.6 % (0.2-1.2); Eosinophils Absolute Auto 0.1 K/mm3 (0-0.3); Eosinophils Percent Auto 0.6 % (0-4.4); Hematocrit 44.5 % (42.0-52.0); Hemoglobin 14.6 g/dL (14.0-18.0); Immature Granulocyte Absolute 0.03 K/mm3 (0.00-0.031); Immature Granulocyte Percent A 0.3 % (0-0.5); Lymphocytes Absolute Auto 1.38 K/mm3 (0.9-3.2); Mean Corpuscular HGB Conc 32.8 g/dl (32-36); Mean Corpuscular Hemoglobin 29.6 pg (26-34); Mean Corpuscular Volume 90.3 fl (80-100); Mean Platelet Volume 10.2 fl (7.4-10.4); Monocytes Absolute Auto 0.9 K/mm3 (0.1-0.6); Monocytes Percent Auto 7.6 % (2.6-8.5); Neutrophils Absolute Auto 9.1 K/mm3 (1.3-6.7); Neutrophils Percent Auto 78.9 % (45.5-73.1); Platelet Count Result 341 k/mm3 (150-375); Red Blood Count 4.93 M/mm3 (4.6-6.20); Red Cell Distribution Width 12.6 % (11.5-14.5); White Blood Count 11.5 K/mm3 (4.5-10.0)
[2020-08-30] MEDS: MORPHINE SULFATE (*CRX) 4 MG/ML INJ IV PUSH (15:56)
[2020-08-30 16:04] LABS: Prothrombin Time 13.9 Seconds (11.1-14.7)
[2020-08-30 16:05] LABS: Partial Thromboplastin Time 23.7 SECONDS (22.3-36.8)
[2020-08-30 16:10] LABS: Anion Gap 10 mmol/L (8-16); Blood Urea Nitrogen 8 mg/dL (9-20); Calcium 8.7 mg/dL (8.4-10.2); Carbon Dioxide 22 mmol/L (22-30); Chloride 103 mmol/L (98-107); Estimated CRCL calculation 128 ml/min; Estimated Glomerular Filt Rate > 60; Glucose 251 mg/dL (75-110); Potassium 3.7 mmol/L (3.4-5.0); Sodium 135 mmol/L (137-145)
[2020-08-30 16:10] LABS: Lactic Acid Reflex 2.1 mmol/L (0.7-2.1)
--- NOTE | 2020-08-30 17:17 | PC.NURSE ---
1000 mL of IV Normal Saline started per EDP Jc
[2020-08-30] MEDS: SODIUM CHLORIDE 0.9% IV 1,000 ML 999 ML (17:19)
[2020-08-30 17:59] LABS: Add Urine Microscopic? YES; Appearance Urine Clear (Clear); Bilirubin Urine Negative (Negative); Blood Urine Negative (Negative); Color Urine Yellow (Yellow); Glucose Urine UA 1+ mg/dL (Negative); Ketones Urine Negative (Negative); Leukocyte Esterase Ur Negative LEU/UL (Negative); Mucus Urine Rare /lpf; Nitrate Urine Negative (Negative); Protein Urine 1+ mg/dL (Negative); RBC Urine 0-2 /hpf (0-2); Specific Grav Ur 1.014 (1.001-1.035); Squamous Epithelial Cell Urine Rare /hpf (Few); Urobilinogen Urine Negative mg/dL (<2.0); WBC Urine 0-3 /hpf
--- NOTE | 2020-08-30 18:35 | PC.NURSE ---
pt moving around in bed. pt able to stand at this time.
[2020-08-30 18:51] LABS: Reflex Lactic Acid Yes or No Add Lactic
== END 2020-08-30 18:42 | disposition home or self-care (01) ==
PROVIDERS: Emergency Provider Emergency Medicine; PCP Family Medicine
DX: B34.9 Viral infection, unspecified (principal); J45.909 Unspecified asthma, uncomplicated; M72.0 Palmar fascial fibromatosis [Dupuytren]; E78.5 Hyperlipidemia, unspecified; I10 Essential (primary) hypertension; K21.9 Gastro-esophageal reflux disease without esophagitis; G47.33 Obstructive sleep apnea (adult) (pediatric); D86.9 Sarcoidosis, unspecified; F25.9 Schizoaffective disorder, unspecified; E11.9 Type 2 diabetes mellitus without complications; Z87.442 Personal history of urinary calculi; Z79.84 Long term (current) use of oral hypoglycemic drugs; M79.662 Pain in left lower leg; M79.661 Pain in right lower leg
CPT/HCPCS: 36415; 71046; 80048; 81001; 83605; 85025; 85610; 85730; 87081; 87804; 87880; 93970; 96361; 96365; 96375; 99284; J0131; J2270; J7030

== ENCOUNTER 2020-08-31 14:43 | Emergency (ER) | payer MEDICARE, MEDICAID, SELFPAY ==
--- NOTE | ~2020-08-31 | CT_ITS ---
EXAMINATION: CT LE RT w con DATE: 08/31/2020 17:19 INDICATION: Right lower limb pain and swelling. TECHNIQUE: Computed tomography (CT) of the right lower limb from the knee to the ankle was performed with 100 mL Omnipaque 350 intravenous contrast. Automated exposure control and iterative reconstructi on technique were employed. The dose-length product was 178.96 mGy-cm. COMPARISON: None FINDINGS: There is lateral subluxation of patella. No acute fracture. There is mild tricompartmental osteoarthritis of right knee. No knee joint effusion. There is a loose body in the knee joint posteri abner. There are loose bodies in a Morales's cyst. There is plate and screw fixation of distal fibula. T here is mild ankle joint osteoarthritis. There is chronic heterotopic ossification distal to medial m alleolus. There is mild osteoarthritis of some of the midfoot joints. There are widespread arterial c alcifications. There is subcutaneous edema of the lower leg. IMPRESSION: 1. Polyarticular osteoarthritis. Reviewed, dictated and finalized at location A.
[2020-08-31 14:53] VITALS: BP 190/106; PULSE 120; RESP 13; TEMP 36.9; O2SAT 95
[2020-08-31] MEDS: LACTATED RINGERS 1,000 ML 999 ML IV CONT (16:18)
[2020-08-31 16:19] VITALS: PULSE 104
[2020-08-31] MEDS: METOPROLOL TARTRATE INJ 5 MG/5 ML VIAL IV PUSH (16:19)
[2020-08-31 16:30] LABS: Basophils Absolute Auto 0.1 K/mm3 (0.0-0.1); Basophils Percent Auto 0.8 % (0.2-1.2); Eosinophils Absolute Auto 0.1 K/mm3 (0-0.3); Eosinophils Percent Auto 1.2 % (0-4.4); Hematocrit 46.5 % (42.0-52.0); Immature Granulocyte Absolute 0.02 K/mm3 (0.00-0.031); Immature Granulocyte Percent A 0.2 % (0-0.5); Lymphocytes Absolute Auto 1.47 K/mm3 (0.9-3.2); Lymphocytes Percent Auto 15.2 % (18.3-44.2); Mean Corpuscular HGB Conc 32.3 g/dl (32-36); Mean Corpuscular Hemoglobin 29.2 pg (26-34); Mean Corpuscular Volume 90.6 fl (80-100); Mean Platelet Volume 9.9 fl (7.4-10.4); Monocytes Absolute Auto 0.6 K/mm3 (0.1-0.6); Monocytes Percent Auto 6.3 % (2.6-8.5); Neutrophils Absolute Auto 7.4 K/mm3 (1.3-6.7); Neutrophils Percent Auto 76.3 % (45.5-73.1); Platelet Count Result 345 k/mm3 (150-375); Red Blood Count 5.13 M/mm3 (4.6-6.20); Red Cell Distribution Width 12.5 % (11.5-14.5); White Blood Count 9.7 K/mm3 (4.5-10.0)
[2020-08-31 16:46] LABS: Anion Gap 10 mmol/L (8-16); Blood Urea Nitrogen 10 mg/dL (9-20); CRP 0.9 mg/dL (<1.0); Calcium 9.4 mg/dL (8.4-10.2); Carbon Dioxide 24 mmol/L (22-30); Chloride 104 mmol/L (98-107); Creatine Kinase 150 U/L (55-170); Estimated CRCL calculation 155 ml/min; Estimated Glomerular Filt Rate > 60; Glucose 219 mg/dL (75-110); Potassium 3.8 mmol/L (3.4-5.0); Sodium 138 mmol/L (137-145)
[2020-08-31 16:51] VITALS: BP 151/88
--- NOTE | 2020-08-31 18:00 | ED.GENADULT ---
HPI - General Adult General Chief complaint: Unspecified Stated complaint: ?SEIZURE Time Seen by Provider: 08/31/20 15:04 Source: patient Mode of arrival: EMS Limitations: no limitations History of Present Illness HPI narrative: 54-year-old male Patient was just here yesterday and had a low-grade fever then and a very exhaustive evaluation was undertaken without identifying any particular pathology Today he was at home and had a possible seizure and was returned to the hospital No witnesses accompany him and we do not have a good description of the character of that episode Currently he is alert not postictal and nonfocal He does not have any stigmata of having had a generalized tonic-clonic seizure there is no biting of his tongue he was not incontinent of urine His overwhelming concern and worry now is that his right leg hurts He identifies a tender and mildly swollen area on his lateral mid calf on the right side He does not have any history of an injury Yesterday he had a Doppler that was negative Related Data Home Medications Medication Instructions Recorded Confirmed oxcarbazepine 300 mg PO TID 03/31/19 04/04/20 rizatriptan 10 mg PO DAILY PRN 03/31/19 04/04/20 quetiapine 400 mg PO HS 07/31/19 04/04/20 oxcarbazepine 300 mg tablet 900 mg PO HS tablet 10/04/19 04/04/20 primidone 250 mg PO TID 10/04/19 04/04/20 albuterol sulfate [Ventolin HFA] 2 puff INHALATION Q4H PRN 10/05/19 04/04/20 fluticasone propionate 2 spray INTRANASAL BID 10/05/19 04/04/20 celecoxib 200 mg PO DAILY 03/17/20 04/04/20 quetiapine 100 mg PO 1300,1800 03/17/20 04/04/20 zafirlukast 20 mg PO BID 03/17/20 04/04/20 metformin mg 08/30/20 Allergies Allergy/AdvReac Type Severity Reaction Status Date / Time doxycycline Allergy Intermediate RASH Verified 08/30/20 15:14 levetiracetam Allergy Intermediate INCREASED Verified 08/30/20 15:14 SZ'S meloxicam Allergy Intermediate ITCHING Verified 08/30/20 15:14 Sulfa (Sulfonamide Allergy Mild RASH Verified 08/30/20 15:14 Antibiotics) cephalexin Allergy Unknown Rash Verified 08/30/20 15:14 Cephalosporins Allergy Unknown Rash Verified 08/30/20 15:14 haloperidol Allergy Unknown Seizure Verified 08/30/20 15:14 sulfite Allergy Unknown Other Verified 08/30/20 15:14 tetracycline Allergy Unknown Diarrhea Verified 08/30/20 15:14 levalbuterol AdvReac Severe Other Verified 08/30/20 15:14 molindone AdvReac Intermediate Nausea Verified 03/17/20 08:46 Oat Allergy Severe Swelling Uncoded 03/17/20 08:46 Review of Systems Review of Systems: All systems reviewed & are unremarkable except as noted in HPI and below Constitutional: Constitutional: Reports no additional constitutional complaints, Denies chills, Reports fatigue, Reports fever(s), Denies headache(s), Reports malaise and Reports weakness Eyes: Eyes: Reports no additional eye complaints and Denies change in vision ENT: Reports headache(s) and Denies sore throat Cardiovascular: Cardiovascular: Denies chest pain and Reports dyspnea Respiratory: Respiratory: Denies cough and Reports dyspnea Gastrointestinal: Gastrointestinal: Denies abdominal pain, Denies diarrhea and Denies vomiting Genitourinary: Genitourinary: Denies dysuria and Denies urinary frequency Musculoskeletal: Musculoskeletal: Denies deformity, Reports arthralgias, Reports joint swelling, Reports muscle cramps and Denies numbness Integumentary/Breasts: Skin/Breast: Denies rash and Denies wounds Neurologic: Reports headache(s), Denies focal weakness, Denies numbness and Reports seizure-like activity Psychiatric: Psychiatric: Reports no additional psychiatric complaints Endocrine: Endocrine: Reports no additional endocrine complaints Hematologic/Lymphatic: Hematologic/Lymphatic: Reports no additional hematologic/lymphatic complaints Allergic/Immunologic: Allergic/Immunologic: Reports no additional allergic/immunologic complaints PMFSH Past Medical History Medical History (Rev
[2020-08-31 18:26] LABS: Erythrocyte Sedimentation Rate 7 mm/hr (0-20)
[2020-09-05 19:45] LABS: Carbamazepine Tegretol <0.2 mcg/mL (4.0-12.0)
== END 2020-08-31 18:29 | disposition home or self-care (01) ==
PROVIDERS: Emergency Provider Emergency Medicine; PCP Family Medicine
DX: M79.661 Pain in right lower leg (principal); I10 Essential (primary) hypertension; J45.909 Unspecified asthma, uncomplicated; M72.0 Palmar fascial fibromatosis [Dupuytren]; E78.5 Hyperlipidemia, unspecified; K21.9 Gastro-esophageal reflux disease without esophagitis; G47.33 Obstructive sleep apnea (adult) (pediatric); D86.9 Sarcoidosis, unspecified; F25.9 Schizoaffective disorder, unspecified; E11.9 Type 2 diabetes mellitus without complications; Z87.442 Personal history of urinary calculi; Z79.84 Long term (current) use of oral hypoglycemic drugs; G40.909 Epilepsy, unspecified, not intractable, without status epilepticus
CPT/HCPCS: 36415; 73701; 80048; 80156; 82550; 85025; 85652; 86140; 96361; 96374; 99284; A9270; J7120; Q9967

== ENCOUNTER 2021-11-24 16:49 | Emergency (ER) | payer OTHER, MEDICARE, MEDICAID, SELFPAY ==
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
[2021-11-24 16:49] VITALS: BP 177/93; PULSE 104; RESP 21; TEMP 37.1; O2SAT 98
--- NOTE | 2021-11-24 16:59 | ECG_ITS ---
Measurements Intervals [place] Rate: 87 P: 35 [place]: 174 QRS: -24 QRSD: 96 T: 24 QT: 350 QTc: 423 Interpretive Statements SINUS RHYTHM VOLTAGE CRITERIA FOR LVH POOR R WAVE PROGRESSION, ANTERIOR LEADS BORDERLINE ECG COMPARED TO ECG 04/04/2020 23:57:39 HEART RATE HAS DECREASED Electronically Signed On 11-28-2021 8:40:01 CDT by Ajit Alvarado D.O.
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
[2021-11-24 17:36] LABS: Basophils Absolute Auto 0.2 K/mm3 (0.0-0.1); Basophils Percent Auto 1.6 % (0.2-1.2); Eosinophils Absolute Auto 0.1 K/mm3 (0-0.3); Eosinophils Percent Auto 1.5 % (0-4.4); Hematocrit 45.8 % (42.0-52.0); Hemoglobin 15.1 g/dL (14.0-18.0); Immature Granulocyte Absolute 0.03 K/mm3 (0.00-0.031); Immature Granulocyte Percent A 0.3 % (0-0.5); Lymphocytes Absolute Auto 2.57 K/mm3 (0.9-3.2); Lymphocytes Percent Auto 27.3 % (18.3-44.2); Mean Corpuscular Hemoglobin 28.4 pg (26-34); Mean Corpuscular Volume 86.1 fl (80-100); Mean Platelet Volume 10.2 fl (7.4-10.4); Monocytes Absolute Auto 0.8 K/mm3 (0.1-0.6); Monocytes Percent Auto 8.1 % (2.6-8.5); Neutrophils Absolute Auto 5.8 K/mm3 (1.3-6.7); Neutrophils Percent Auto 61.2 % (45.5-73.1); Platelet Count Result 292 k/mm3 (150-375); Red Blood Count 5.32 M/mm3 (4.6-6.20); Red Cell Distribution Width 13.1 % (11.5-14.5); White Blood Count 9.4 K/mm3 (4.5-10.0)
[2021-11-24] MEDS: fentaNYL CITRATE INJ (*CRX) 100 MCG/2 ML VIAL 50 MCG IV PUSH (17:41)
[2021-11-24] MEDS: SODIUM CHLORIDE 0.9% IV 1,000 ML 150 ML IV CONT (17:42)
[2021-11-24] MEDS: LORazepam INJ (*CRX) 2 MG/ML VIAL 1 MG IV PUSH (17:42)
[2021-11-24 17:47] LABS: Alanine Aminotransferase 46 U/L (6-50); Albumin Level 4.4 g/dL (3.5-5.1); Alkaline Phosphatase 81 U/L (38-126); Anion Gap 13 mmol/L (8-16); Aspartate Amino Transferase 38 U/L (17-59); Bilirubin,Total 0.5 mg/dL (0.2-1.3); Blood Urea Nitrogen 10 mg/dL (9-20); Calcium 8.5 mg/dL (8.4-10.2); Carbon Dioxide 28 mmol/L (22-30); Chloride 93 mmol/L (98-107); Estimated CRCL calculation 130 ml/min; Estimated Glomerular Filt Rate > 60; Glucose 279 mg/dL (65-110); Potassium 3.9 mmol/L (3.4-5.0); Sodium 134 mmol/L (137-145)
[2021-11-24 17:53] LABS: Prothrombin Time 12.5 Seconds (11.1-14.7)
[2021-11-24 17:54] LABS: Partial Thromboplastin Time 23.4 SECONDS (22.3-36.8)
[2021-11-24 17:58] LABS: Troponin I < 0.012 ng/mL (0.000-0.034)
--- NOTE | 2021-11-24 18:00 | PC.NURSE ---
pt acting bizarre, states that the manic is coming out, being aggressive to females in room. pt received Ativan per order.
[2021-11-24 18:02] VITALS: PULSE 102; RESP 18; O2SAT 97
[2021-11-24 21:05] VITALS: BP 148/86; PULSE 86; RESP 18; O2SAT 97
== END 2021-11-24 21:05 | disposition home or self-care (01) ==
PROVIDERS: Emergency Provider Nurse Practitioner Family; PCP Family Medicine
DX: R07.89 Other chest pain (principal); S16.1XXA Strain of muscle, fascia and tendon at neck level, initial encounter; F41.9 Anxiety disorder, unspecified; J45.909 Unspecified asthma, uncomplicated; I25.10 Atherosclerotic heart disease of native coronary artery without angina pectoris; K21.9 Gastro-esophageal reflux disease without esophagitis; G47.30 Sleep apnea, unspecified; E11.9 Type 2 diabetes mellitus without complications
CPT/HCPCS: 36415; 70450; 71260; 72125; 74177; 80053; 84484; 85025; 85610; 85730; 93005; 96361; 96374; 96375; 99284; J2060; J3010; J7030; Q9967

== ENCOUNTER 2021-12-13 17:18 | Outpatient (CLI) | payer MEDICARE, MEDICAID, SELFPAY ==
[2021-12-13 17:43] LABS: Basophils Absolute Auto 0.1 K/mm3 (0.0-0.1); Basophils Percent Auto 1.1 % (0.2-1.2); Eosinophils Absolute Auto 0.2 K/mm3 (0-0.3); Eosinophils Percent Auto 1.7 % (0-4.4); Hematocrit 42.8 % (42.0-52.0); Hemoglobin 14.2 g/dL (14.0-18.0); Immature Granulocyte Absolute 0.04 K/mm3 (0.00-0.031); Immature Granulocyte Percent A 0.4 % (0-0.5); Lymphocytes Absolute Auto 3.04 K/mm3 (0.9-3.2); Lymphocytes Percent Auto 29.3 % (18.3-44.2); Mean Corpuscular HGB Conc 33.2 g/dl (32-36); Mean Corpuscular Hemoglobin 29.3 pg (26-34); Mean Corpuscular Volume 88.4 fl (80-100); Mean Platelet Volume 10.1 fl (7.4-10.4); Monocytes Percent Auto 9.5 % (2.6-8.5); Platelet Count Result 315 k/mm3 (150-375); Red Blood Count 4.84 M/mm3 (4.6-6.20); Red Cell Distribution Width 13.1 % (11.5-14.5); White Blood Count 10.4 K/mm3 (4.5-10.0)
[2021-12-13 17:54] LABS: Alanine Aminotransferase 68 U/L (6-50); Albumin Level 4.2 g/dL (3.5-5.1); Alkaline Phosphatase 76 U/L (38-126); Anion Gap 9 mmol/L (8-16); Aspartate Amino Transferase 57 U/L (17-59); Bilirubin,Total 0.5 mg/dL (0.2-1.3); Blood Urea Nitrogen 14 mg/dL (9-20); Calcium 9.1 mg/dL (8.4-10.2); Carbon Dioxide 27 mmol/L (22-30); Chloride 92 mmol/L (98-107); Estimated Glomerular Filt Rate > 60; Glucose 271 mg/dL (65-110); Potassium 3.9 mmol/L (3.4-5.0); Sodium 128 mmol/L (137-145)
[2021-12-13 22:25] LABS: Hemoglobin A1C 9.2 % (<5.7)
== END 2021-12-13 17:19 | disposition home or self-care (01) ==
PROVIDERS: PCP Family Medicine; Visit Provider Nurse Practitioner Family
DX: E11.9 Type 2 diabetes mellitus without complications (principal); I10 Essential (primary) hypertension
CPT/HCPCS: 36415; 80053; 83036; 85025

== ENCOUNTER 2021-12-14 11:35 | Emergency (ER) | payer MEDICARE, MEDICAID, SELFPAY ==
[2021-12-14] VITALS (11 sets, daily range): BP systolic 123–164; BP diastolic 74–92; PULSE 90–114; RESP 16–25; O2SAT 96–100
--- NOTE | ~2021-12-14 | XR_ITS ---
EXAMINATION: XR chest 2V DATE: 12/14/2021 12:03 INDICATION: Shortness of breath and weakness TECHNIQUE: AP and lateral views of the chest are obtained. COMPARISON: 08/30/2020 FINDINGS: The lungs are free of acute opacities. No pleural effusion or pneumothorax. The cardiomedia stinal silhouette is normal. The visualized bones and soft tissues are unremarkable. IMPRESSION: 1. No acute cardiopulmonary abnormality. Reviewed, dictated and finalized at location A.
--- NOTE | 2021-12-14 11:37 | ECG_ITS ---
Measurements Intervals [place] Rate: 114 P: 37 [place]: 179 QRS: -25 QRSD: 90 T: 40 QT: 321 QTc: 442 Interpretive Statements SINUS TACHYCARDIA DELAYED PRECORDIAL R/S TRANSITION BASELINE WANDER- V1-V4, V6 ABNORMAL ECG COMPARED TO ECG 11/24/2021 16:59:24 SINUS TACHYCARDIA NOW PRESENT Electronically Signed On 12-14-2021 11:42:07 CDT by Ajit Alvarado D.O.
[2021-12-14 11:45] LABS: Glucose Point of Care 312 mg/dl (65-105)
[2021-12-14 11:54] LABS: Basophils Absolute Auto 0.1 K/mm3 (0.0-0.1); Basophils Percent Auto 1.1 % (0.2-1.2); Eosinophils Absolute Auto 0.1 K/mm3 (0-0.3); Eosinophils Percent Auto 1.1 % (0-4.4); Hematocrit 43.2 % (42.0-52.0); Hemoglobin 14.3 g/dL (14.0-18.0); Immature Granulocyte Absolute 0.04 K/mm3 (0.00-0.031); Immature Granulocyte Percent A 0.3 % (0-0.5); Lymphocytes Absolute Auto 2.78 K/mm3 (0.9-3.2); Lymphocytes Percent Auto 24.3 % (18.3-44.2); Mean Corpuscular HGB Conc 33.1 g/dl (32-36); Mean Corpuscular Hemoglobin 29.4 pg (26-34); Mean Corpuscular Volume 88.9 fl (80-100); Mean Platelet Volume 10.2 fl (7.4-10.4); Monocytes Absolute Auto 0.9 K/mm3 (0.1-0.6); Monocytes Percent Auto 7.4 % (2.6-8.5); Neutrophils Absolute Auto 7.5 K/mm3 (1.3-6.7); Neutrophils Percent Auto 65.8 % (45.5-73.1); Platelet Count Result 333 k/mm3 (150-375); Red Blood Count 4.86 M/mm3 (4.6-6.20); Red Cell Distribution Width 13.2 % (11.5-14.5); White Blood Count 11.4 K/mm3 (4.5-10.0)
[2021-12-14 12:11] LABS: Alanine Aminotransferase 64 U/L (6-50); Albumin Level 4.3 g/dL (3.5-5.1); Alkaline Phosphatase 84 U/L (38-126); Anion Gap 13 mmol/L (8-16); Aspartate Amino Transferase 67 U/L (17-59); Bilirubin,Total 0.7 mg/dL (0.2-1.3); Blood Urea Nitrogen 15 mg/dL (9-20); Calcium 8.8 mg/dL (8.4-10.2); Carbon Dioxide 23 mmol/L (22-30); Chloride 93 mmol/L (98-107); Estimated CRCL calculation 116 ml/min; Estimated Glomerular Filt Rate > 60; Glucose 316 mg/dL (65-110); Potassium 4.2 mmol/L (3.4-5.0); Sodium 129 mmol/L (137-145)
[2021-12-14 12:20] LABS: NT Pro B Type Natriuretic Pept 47 pg/mL (5-100)
--- NOTE | 2021-12-14 13:40 | ED.GENADULT ---
HPI - General Adult General Chief complaint: Shortness of Breath/Dyspnea Stated complaint: Shortness of Breath Time Seen by Provider: 12/14/21 11:37 History of Present Illness HPI narrative: Patient is a 56-year-old male who presents ER with reports of edema to his lower extremities. He reports that he woke up this morning and they were enlarged. He called his PCP and heart doctor and they said he should come to the ER to be evaluated. He denies any chest pain or shortness of breath to me but had told triage that he was short of breath. She has no hypoxia. No cough. No fevers or chills or sweats. Patient denies any calf pain or trauma to the lower extremities. He is able to ambulate. Related Data Home Medications Medication Instructions Recorded Confirmed oxcarbazepine 300 mg tablet 300 mg PO TID 03/31/19 12/05/21 rizatriptan 10 mg tablet 10 mg PO DAILY PRN Migraine 03/31/19 12/05/21 Headache quetiapine 400 mg tablet,extended 400 mg PO HS 07/31/19 12/05/21 release 24 hr oxcarbazepine 300 mg tablet 900 mg PO HS 10/04/19 12/05/21 albuterol sulfate 90 mcg/actuation 2 puff inhalation Q4H PRN 10/05/19 12/05/21 aerosol inhaler (Ventolin HFA) Shortness Of Breath quetiapine 100 mg tablet 100 mg PO 1300,1800 03/17/20 12/05/21 zafirlukast 20 mg tablet 20 mg PO BID 03/17/20 12/05/21 fluticasone propionate 50 2 spray intranasal BID 11/21/21 12/05/21 mcg/actuation nasal spray,suspension Allergies Allergy/AdvReac Type Severity Reaction Status Date / Time doxycycline Allergy Intermediate RASH Verified 12/14/21 11:48 levetiracetam Allergy Intermediate INCREASED Verified 12/14/21 11:48 SZ'S meloxicam Allergy Intermediate ITCHING Verified 12/14/21 11:48 Sulfa (Sulfonamide Allergy Mild RASH Verified 12/14/21 11:48 Antibiotics) cephalexin Allergy Unknown Rash Verified 12/14/21 11:48 Cephalosporins Allergy Unknown Rash Verified 12/14/21 11:48 haloperidol Allergy Unknown Seizure Verified 12/14/21 11:48 sulfite Allergy Unknown Other Verified 12/14/21 11:48 tetracycline Allergy Unknown Diarrhea Verified 12/14/21 11:48 hydromorphone [From Dilaudid] Allergy Other Verified 12/14/21 11:48 levalbuterol AdvReac Severe Other Verified 12/14/21 11:48 molindone AdvReac Intermediate Nausea Verified 12/14/21 11:48 Oat Allergy Severe Swelling Uncoded 12/14/21 11:48 Review of Systems Review of Systems: All systems reviewed & are unremarkable except as noted in HPI and below Constitutional: Constitutional: Denies chills and Denies fever(s) ENT: Denies nasal congestion and Denies sore throat Cardiovascular: Cardiovascular: Denies chest pain, Denies rapid heart rate and Denies radiating jaw, neck or arm pain Respiratory: Respiratory: Denies cough and Denies dyspnea Gastrointestinal: Gastrointestinal: Denies abdominal pain, Denies nausea and Denies vomiting Musculoskeletal: Musculoskeletal: Denies arthralgias and Denies joint swelling Comments: Leg edema PMFSH Past Medical History Medical History Acute bronchitis due to other specified organisms Acute right-sided thoracic back pain Adult body mass index 40 and over Aftercare following surgery of the musculoskeletal system Anxiety Asthma B12 deficiency Bilateral hand numbness Bipolar disorder BMI 39.0-39.9,adult Body mass index [BMI] 37.0-37.9, adult (01/05/19) Body mass index [BMI] 39.0-39.9, adult (10/23/18) Body mass index [BMI]40.0-44.9, adult (04/23/18) Cervicalgia Closed displaced fracture of lateral malleolus of right fibula Coronary artery spasm Diastolic dysfunction Dietary counseling and surveillance (02/11/17) GARCIA (dyspnea on exertion) Dupuytrens contracture Dyslipidemia Eczema of both hands Epilepsy, unspecified, not intractable, with status epilepticus Essential hypertension Gastroesophageal reflux disease History of kidney stones Hospital discharge follow-up Left hemiparesis (~01/2015) Patient p
--- NOTE | 2021-12-14 13:48 | PC.NURSE ---
This RN was called to bedside by patient. Pt removed NIBP, SpO2, and cardiac monitors himself. Upon entering room pt pointed to IV and said get this out, I'm leaving . Discussed with ERP who stated he was writing up discharged instructions. IV removed per pt request. Pt stated he was leaving and going to his primary doctors office because he was unhappy that results did not show any acute findings. Pt told that discharge instructions would be available in a few minutes. Pt declined discharge papers and stated he would not pickle processor any prescribed medications anyway. Pt declined discharge papers. Pt got dressed and ambulated out of ED. Pt was offered wheelchair multiple times but declined.
== END 2021-12-14 13:52 | disposition home or self-care (01) ==
PROVIDERS: Emergency Provider Emergency Medicine; PCP Family Medicine
DX: R60.0 Localized edema (principal); I10 Essential (primary) hypertension; E78.5 Hyperlipidemia, unspecified; E11.9 Type 2 diabetes mellitus without complications; G40.901 Epilepsy, unspecified, not intractable, with status epilepticus; G93.41 Metabolic encephalopathy; D86.9 Sarcoidosis, unspecified; J45.909 Unspecified asthma, uncomplicated; G47.33 Obstructive sleep apnea (adult) (pediatric); E66.01 Morbid (severe) obesity due to excess calories; Z68.41 Body mass index [BMI] 40.0-44.9, adult; K21.9 Gastro-esophageal reflux disease without esophagitis; F25.9 Schizoaffective disorder, unspecified; F41.9 Anxiety disorder, unspecified; F31.9 Bipolar disorder, unspecified; Z87.01 Personal history of pneumonia (recurrent); Z79.84 Long term (current) use of oral hypoglycemic drugs; R00.0 Tachycardia, unspecified
CPT/HCPCS: 36415; 71046; 80053; 82948; 83880; 85025; 93005; 99283

== ENCOUNTER 2021-12-21 11:45 | Emergency (ER) | payer MEDICARE, MEDICAID, SELFPAY ==
[2021-12-21] VITALS (9 sets, daily range): BP systolic 148–172; BP diastolic 94–115; PULSE 110–122; RESP 12–29; TEMP 36.8; O2SAT 97–100
--- NOTE | ~2021-12-21 | XR_ITS ---
EXAMINATION: XR chest 2V DATE: 12/21/2021 12:40 INDICATION: Shortness of breath and cough TECHNIQUE: AP and lateral views of the chest are obtained. COMPARISON: 12/14/2021 FINDINGS: The left costophrenic angle is excluded from the examination. The lungs are free of acute o pacities. No pleural effusion or pneumothorax. The cardiomediastinal silhouette is normal. There is m ild thoracic spondylosis. IMPRESSION: 1. No acute cardiopulmonary abnormality. Reviewed, dictated and finalized at location A.
--- NOTE | 2021-12-21 12:00 | ECG_ITS ---
Measurements Intervals [place] Rate: 115 P: 48 [place]: 168 QRS: -17 QRSD: 101 T: 60 QT: 316 QTc: 439 Interpretive Statements SINUS TACHYCARDIA BORDERLINE R WAVE PROGRESSION, ANTERIOR LEADS BASELINE ARTIFACT- I, II, V1-V3 ABNORMAL ECG COMPARED TO ECG 12/14/2021 11:40:40 NO SIGNIFICANT CHANGES Electronically Signed On 12-21-2021 13:32:17 CDT by Ajit Alvarado D.O.
[2021-12-21 12:11] LABS: Basophils Absolute Auto 0.1 K/mm3 (0.0-0.1); Basophils Percent Auto 0.9 % (0.2-1.2); Eosinophils Absolute Auto 0.2 K/mm3 (0-0.3); Hematocrit 43.8 % (42.0-52.0); Hemoglobin 14.3 g/dL (14.0-18.0); Immature Granulocyte Absolute 0.03 K/mm3 (0.00-0.031); Immature Granulocyte Percent A 0.3 % (0-0.5); Lymphocytes Absolute Auto 2.55 K/mm3 (0.9-3.2); Lymphocytes Percent Auto 23.7 % (18.3-44.2); Mean Corpuscular HGB Conc 32.6 g/dl (32-36); Mean Corpuscular Hemoglobin 29.7 pg (26-34); Mean Corpuscular Volume 90.9 fl (80-100); Monocytes Absolute Auto 0.9 K/mm3 (0.1-0.6); Monocytes Percent Auto 8.4 % (2.6-8.5); Neutrophils Percent Auto 64.7 % (45.5-73.1); Platelet Count Result 307 k/mm3 (150-375); Red Blood Count 4.82 M/mm3 (4.6-6.20); Red Cell Distribution Width 13.6 % (11.5-14.5); White Blood Count 10.8 K/mm3 (4.5-10.0)
[2021-12-21 12:57] LABS: Alanine Aminotransferase 62 U/L (6-50); Albumin Level 4.2 g/dL (3.5-5.1); Alkaline Phosphatase 82 U/L (38-126); Anion Gap 12 mmol/L (8-16); Aspartate Amino Transferase 78 U/L (17-59); Bilirubin,Total 0.7 mg/dL (0.2-1.3); Blood Urea Nitrogen 19 mg/dL (9-20); Calcium 8.7 mg/dL (8.4-10.2); Carbon Dioxide 20 mmol/L (22-30); Chloride 98 mmol/L (98-107); Estimated CRCL calculation 131 ml/min; Estimated Glomerular Filt Rate > 60; Glucose 233 mg/dL (65-110); NT Pro B Type Natriuretic Pept 71 pg/mL (5-100); Potassium 4.3 mmol/L (3.4-5.0); Sodium 130 mmol/L (137-145); Troponin I < 0.012 ng/mL (0.000-0.034)
--- NOTE | 2021-12-21 13:01 | ED.SOB ---
HPI - SOB/Dyspnea General Chief Complaint: Shortness of Breath/Dyspnea Stated Complaint: sob Time Seen by Provider: 12/21/21 12:01 Source: patient, RN notes reviewed and old records reviewed Mode of arrival: ambulatory Limitations: no limitations History of Present Illness HPI Narrative: This is a 56 year old male with history of asthma, sarcoidosis, bipolar disease who presents for evaluation of shortness of breath. Patient states that his albuterol inhaler exploded this morning, and he did not have any solution for her nebulizer. He went to his pulmologist office today in order to get medication refilled. He was given a neb treatment in the office, and he was sent to ER for treatment of asthma exacerbation. Patient states he is not sure why he was sent here. He states he blacked out but report to ER did not mention patient passing out. He denies chest pain. HE has chronic cough Related Data Allergies Allergy/AdvReac Type Severity Reaction Status Date / Time doxycycline Allergy Intermediate RASH Verified 12/20/21 09:17 levetiracetam Allergy Intermediate INCREASED Verified 12/20/21 09:17 SZ'S meloxicam Allergy Intermediate ITCHING Verified 12/20/21 09:17 Sulfa (Sulfonamide Allergy Mild RASH Verified 12/20/21 09:17 Antibiotics) cephalexin Allergy Unknown Rash Verified 12/20/21 09:17 Cephalosporins Allergy Unknown Rash Verified 12/20/21 09:17 haloperidol Allergy Unknown Seizure Verified 12/20/21 09:17 sulfite Allergy Unknown Other Verified 12/20/21 09:17 tetracycline Allergy Unknown Diarrhea Verified 12/20/21 09:17 hydromorphone [From Dilaudid] Allergy Other Verified 12/20/21 09:17 levalbuterol AdvReac Severe Other Verified 12/20/21 09:17 molindone AdvReac Intermediate Nausea Verified 12/20/21 09:17 Oat Allergy Severe Swelling Uncoded 12/20/21 09:17 Review of Systems Review of Systems: All systems reviewed & are unremarkable except as noted in HPI and below Constitutional: Constitutional: Denies chills, Denies fatigue and Denies fever(s) ENT: Reports nasal congestion and Denies sore throat Cardiovascular: Cardiovascular: Denies chest pain Respiratory: Respiratory: Reports cough, Reports dyspnea and Reports wheezing Gastrointestinal: Gastrointestinal: Denies bloating, Denies nausea and Denies vomiting COUNT INCLUDES THE [facility] Past Medical History Medical History Acute bronchitis due to other specified organisms Acute right-sided thoracic back pain Adult body mass index 40 and over Aftercare following surgery of the musculoskeletal system Anxiety Asthma B12 deficiency Bilateral hand numbness Bipolar disorder BMI 39.0-39.9,adult Body mass index [BMI] 37.0-37.9, adult (01/05/19) Body mass index [BMI] 39.0-39.9, adult (10/23/18) Body mass index [BMI]40.0-44.9, adult (04/23/18) Cervicalgia Closed displaced fracture of lateral malleolus of right fibula Coronary artery spasm Diastolic dysfunction Dietary counseling and surveillance (02/11/17) GARCIA (dyspnea on exertion) Dupuytrens contracture Dyslipidemia Eczema of both hands Epilepsy, unspecified, not intractable, with status epilepticus Essential hypertension Gastroesophageal reflux disease History of kidney stones Hospital discharge follow-up Left hemiparesis (~01/2015) Patient presented to the emergency department in January 2015 with left hemiparesis. Brain CT was unremarkable however NIH stroke scale was 10. He was given tPA and transferred to [facility], where his symptoms resolved. Patient reports that the neurologist that was quite strange and his symptoms resolved so quickly and they do not believe he actually had a stroke. Low sodium levels Lower leg edema Metabolic encephalopathy Migraine headache Migraines Morbid obesity with BMI of 40.0-44.9, adult Obesity (BMI 35.0-39.9 without comorbidity) Obstructive sleep apnea No longer requiring CPAP after 140 lb weight loss. Paresthesias
--- NOTE | 2021-12-21 13:29 | PC.NURSE ---
Patient refused COVID swab and reports he is ready to go home.
[2021-12-21 13:36] LABS: Partial Thromboplastin Time 24.7 SECONDS (22.3-36.8); Prothrombin Time 12.4 Seconds (11.1-14.7)
== END 2021-12-21 14:35 | disposition home or self-care (01) ==
PROVIDERS: Emergency Medicine; Emergency Provider General Practice
DX: J45.901 Unspecified asthma with (acute) exacerbation (principal); D86.9 Sarcoidosis, unspecified; E11.9 Type 2 diabetes mellitus without complications; E78.5 Hyperlipidemia, unspecified; G40.909 Epilepsy, unspecified, not intractable, without status epilepticus; I10 Essential (primary) hypertension; K21.9 Gastro-esophageal reflux disease without esophagitis; E53.8 Deficiency of other specified B group vitamins; G93.41 Metabolic encephalopathy; G47.33 Obstructive sleep apnea (adult) (pediatric); F31.9 Bipolar disorder, unspecified; F25.9 Schizoaffective disorder, unspecified; F41.9 Anxiety disorder, unspecified; E66.01 Morbid (severe) obesity due to excess calories; Z68.41 Body mass index [BMI] 40.0-44.9, adult; M72.0 Palmar fascial fibromatosis [Dupuytren]; Z87.01 Personal history of pneumonia (recurrent); Z87.442 Personal history of urinary calculi; R00.0 Tachycardia, unspecified; R94.31 Abnormal electrocardiogram [ECG] [EKG]
CPT/HCPCS: 36415; 71046; 80053; 83880; 84484; 85025; 85610; 85730; 93005; 99284

== ENCOUNTER 2022-01-01 15:25 | Outpatient (CLI) | payer MEDICARE, MEDICAID, SELFPAY ==
--- NOTE | ~2022-01-01 | CT_ITS ---
EXAMINATION: CT chest high resolution [facility] DATE: 01/01/2022 16:17 INDICATION: Sarcoidosis TECHNIQUE: Computed tomography (CT) of the chest was performed without intravenous contrast. The dose -length product (DLP) was 523.84 mGy-cm. Automated exposure control and iterative reconstruction tech [employer] were employed. COMPARISON: 04/04/2020 FINDINGS: There is peripheral scarring and atelectasis of the right lower lobe. The lungs are free of acute opacities. No pleural effusion or pneumothorax. No pathologically enlarged thoracic lymph node s are identified. The heart size is normal. No definite CT features of sarcoidosis are identified in the chest. There is mild thoracic spondylosis. IMPRESSION: 1. No definite CT features of sarcoid identified in the chest. Reviewed, dictated and finalized at location A.
== END 2022-01-01 15:26 | disposition home or self-care (01) ==
PROVIDERS: PCP Internal Medicine; Visit Provider Internal Medicine Pulmonary Disease
DX: D86.9 Sarcoidosis, unspecified (principal)
CPT/HCPCS: 71250

== ENCOUNTER 2022-01-02 16:30 | Emergency (ER) | payer MEDICARE, MEDICAID, SELFPAY ==
[2022-01-02] VITALS (21 sets, daily range): BP systolic 142–172; BP diastolic 83–108; PULSE 0–132; RESP 14–25; TEMP 36.9–37.4; O2SAT 92–97
--- NOTE | ~2022-01-02 | XR_ITS ---
EXAMINATION: XR chest 1V portable INDICATION: Cough and vision changes TECHNIQUE: Portable AP chest at 1647 hours COMPARISON: 12/21/2021 FINDINGS: There are minimal airspace opacities of the lung bases. No pleural effusion or pneumothorax . The cardiomediastinal silhouette is normal. IMPRESSION: 1. Minimal bibasilar airspace opacities, consistent with atelectasis versus pneumonia. Reviewed, dictated and finalized at location A. IMPRESSION: 1. Minimal bibasilar airspace opacities, consistent with atelectasis versus pne umonia.
--- NOTE | 2022-01-02 16:36 | ECG_ITS ---
Measurements Intervals [place] Rate: 131 P: 49 [place]: 163 QRS: -47 QRSD: 89 T: 56 QT: 298 QTc: 440 Interpretive Statements SINUS TACHYCARDIA LEFT VENTRICULAR HYPERTROPHY AND ST-T CHANGE [VOLTAGE CRITERIA PLUS ST/T ABNORMALITY] POOR R-WAVE PROGRESSION COMPARED TO ECG 12/21/2021 12:12:28 LEFT VENTRICULAR HYPERTROPHY NOW PRESENT Electronically Signed On 01-03-2022 13:58:42 CDT by Vera Bales M.D.
[2022-01-02 16:45] LABS: Glucose Point of Care 333 mg/dl (65-105)
[2022-01-02 16:54] LABS: Basophils Absolute Auto 0.1 K/mm3 (0.0-0.1); Eosinophils Absolute Auto 0.2 K/mm3 (0-0.3); Eosinophils Percent Auto 1.5 % (0-4.4); Hematocrit 43.7 % (42.0-52.0); Hemoglobin 14.2 g/dL (14.0-18.0); Immature Granulocyte Absolute 0.05 K/mm3 (0.00-0.031); Immature Granulocyte Percent A 0.4 % (0-0.5); Lymphocytes Absolute Auto 3.37 K/mm3 (0.9-3.2); Lymphocytes Percent Auto 28.4 % (18.3-44.2); Mean Corpuscular HGB Conc 32.5 g/dl (32-36); Mean Corpuscular Hemoglobin 30.3 pg (26-34); Mean Corpuscular Volume 93.2 fl (80-100); Mean Platelet Volume 9.9 fl (7.4-10.4); Monocytes Absolute Auto 0.9 K/mm3 (0.1-0.6); Monocytes Percent Auto 7.8 % (2.6-8.5); Neutrophils Absolute Auto 7.2 K/mm3 (1.3-6.7); Neutrophils Percent Auto 60.9 % (45.5-73.1); Platelet Count Result 343 k/mm3 (150-375); Red Blood Count 4.69 M/mm3 (4.6-6.20); Red Cell Distribution Width 14.4 % (11.5-14.5); White Blood Count 11.9 K/mm3 (4.5-10.0)
[2022-01-02 17:06] LABS: Alanine Aminotransferase 76 U/L (6-50); Albumin Level 4.4 g/dL (3.5-5.1); Alkaline Phosphatase 85 U/L (38-126); Anion Gap 12 mmol/L (8-16); Aspartate Amino Transferase 67 U/L (17-59); Bilirubin,Total 0.7 mg/dL (0.2-1.3); Blood Urea Nitrogen 17 mg/dL (9-20); Calcium 8.8 mg/dL (8.4-10.2); Carbon Dioxide 23 mmol/L (22-30); Chloride 99 mmol/L (98-107); Estimated CRCL calculation 117 ml/min; Estimated Glomerular Filt Rate > 60; Glucose 284 mg/dL (65-110); Potassium 3.6 mmol/L (3.4-5.0); Sodium 134 mmol/L (137-145)
--- NOTE | 2022-01-02 17:26 | ED.SOB ---
HPI - SOB/Dyspnea General Chief Complaint: Shortness of Breath/Dyspnea Stated Complaint: sob, dka? Time Seen by Provider: 01/02/22 16:54 History of Present Illness HPI Narrative: Patient is a 56-year-old male with a history of bipolar disorder, GERD, diabetes, asthma, diastolic dysfunction presenting with multiple complaints. Patient states that he is concerned that he is in DKA since he started taking Jardiance several weeks ago. States that he also has intermittent burning pain in his upper abdomen and into his chest. Patient also states that he feels short of breath and he is concerned that his legs are more swollen than normal. He denies headache, fevers, numbness or weakness, palpitations, lightheadedness, nausea or vomiting, diarrhea, dysuria. Related Data Allergies Allergy/AdvReac Type Severity Reaction Status Date / Time doxycycline Allergy Intermediate RASH Verified 01/02/22 16:45 levetiracetam Allergy Intermediate INCREASED Verified 01/02/22 16:45 SZ'S meloxicam Allergy Intermediate ITCHING Verified 01/02/22 16:45 Sulfa (Sulfonamide Allergy Mild RASH Verified 01/02/22 16:45 Antibiotics) cephalexin Allergy Unknown Rash Verified 01/02/22 16:45 Cephalosporins Allergy Unknown Rash Verified 01/02/22 16:45 haloperidol Allergy Unknown Seizure Verified 01/02/22 16:45 sulfite Allergy Unknown Other Verified 01/02/22 16:45 tetracycline Allergy Unknown Diarrhea Verified 01/02/22 16:45 hydromorphone [From Dilaudid] Allergy Other Verified 01/02/22 16:45 levalbuterol AdvReac Severe Other Verified 01/02/22 16:45 molindone AdvReac Intermediate Nausea Verified 01/02/22 16:45 Oat Allergy Severe Swelling Uncoded 01/02/22 16:45 Review of Systems Review of Systems: All systems reviewed & are unremarkable except as noted in HPI and below PMFSH Past Medical History Medical History Acute bronchitis due to other specified organisms Acute right-sided thoracic back pain Adult body mass index 40 and over Aftercare following surgery of the musculoskeletal system Anxiety Asthma B12 deficiency Bilateral hand numbness Bipolar disorder BMI 39.0-39.9,adult Body mass index [BMI] 37.0-37.9, adult (01/05/19) Body mass index [BMI] 39.0-39.9, adult (10/23/18) Body mass index [BMI]40.0-44.9, adult (04/23/18) Cervicalgia Closed displaced fracture of lateral malleolus of right fibula Coronary artery spasm Diastolic dysfunction Dietary counseling and surveillance (02/11/17) GARCIA (dyspnea on exertion) Dupuytrens contracture Dyslipidemia Eczema of both hands Epilepsy, unspecified, not intractable, with status epilepticus Essential hypertension Gastroesophageal reflux disease History of kidney stones Hospital discharge follow-up Left hemiparesis (~01/2015) Patient presented to the emergency department in January 2015 with left hemiparesis. Brain CT was unremarkable however NIH stroke scale was 10. He was given tPA and transferred to [facility], where his symptoms resolved. Patient reports that the neurologist that was quite strange and his symptoms resolved so quickly and they do not believe he actually had a stroke. Low sodium levels Lower leg edema Metabolic encephalopathy Migraine headache Migraines Morbid obesity with BMI of 40.0-44.9, adult Obesity (BMI 35.0-39.9 without comorbidity) Obstructive sleep apnea No longer requiring CPAP after 140 lb weight loss. Paresthesias in right hand Pneumonia of right middle lobe due to infectious organism Psychogenic nonepileptic seizure Right arm cellulitis (~12/2009) Sarcoidosis Schizoaffective disorder Screening for lipid disorders Screening for prostate cancer SOB (shortness of breath) on exertion Suicide attempt (~03/2013) Intentional Seroquel overdose. Type 2 diabetes mellitus Unspecified asthma with (acute) exacerbation Surgical History Surgical History Histo
[2022-01-02 17:58] LABS: Lipase 152 U/L (23-300)
[2022-01-02] MEDS: BELLADONNA ALK/PHENOB ELIX 10 ML, MAG HYDROX/ALUMINUM HYD/SIMETH 30 ML, LIDOCAINE HCL 2... PO (18:08)
[2022-01-02] MEDS: SODIUM CHLORIDE 0.9% IV 1,000 ML 999 ML IV CONT (18:08)
[2022-01-02 18:09] LABS: Prothrombin Time 12.5 Seconds (11.1-14.7)
[2022-01-02] MEDS: MORPHINE SULFATE (*CRX) 4 MG/ML INJ IV PUSH (18:09)
[2022-01-02 18:10] LABS: Partial Thromboplastin Time 24.8 SECONDS (22.3-36.8)
[2022-01-02 18:11] LABS: NT Pro B Type Natriuretic Pept 111 pg/mL (5-100); Troponin I < 0.012 ng/mL (0.000-0.034)
[2022-01-02 18:19] LABS: D Dimer 0.47 ug/mL (<0.48)
[2022-01-02 18:25] LABS: Add Urine Microscopic? YES; Appearance Urine Clear (Clear); Bilirubin Urine Negative (Negative); Blood Urine Negative (Negative); Color Urine Straw (Yellow); Glucose Urine UA 3+ mg/dL (Negative); Ketones Urine Negative (Negative); Leukocyte Esterase Ur Negative LEU/UL (Negative); Mucus Urine Rare /lpf; Nitrate Urine Negative (Negative); Protein Urine Negative (Negative); RBC Urine 0-2 /hpf (0-2); Squamous Epithelial Cell Urine Rare /hpf (Few); Urobilinogen Urine Negative mg/dL (<2.0); WBC Urine 0-3 /hpf
[2022-01-02 18:28] LABS: Specific Grav Ur 1.037 (1.001-1.035)
== END 2022-01-02 20:38 | disposition home or self-care (01) ==
PROVIDERS: General Practice; Emergency Provider Emergency Medicine; PCP Internal Medicine
DX: R10.13 Epigastric pain (principal); E11.65 Type 2 diabetes mellitus with hyperglycemia; M79.605 Pain in left leg; M79.604 Pain in right leg; G40.909 Epilepsy, unspecified, not intractable, without status epilepticus; J45.909 Unspecified asthma, uncomplicated; E53.8 Deficiency of other specified B group vitamins; E78.5 Hyperlipidemia, unspecified; D86.9 Sarcoidosis, unspecified; I10 Essential (primary) hypertension; M72.0 Palmar fascial fibromatosis [Dupuytren]; G93.41 Metabolic encephalopathy; G47.33 Obstructive sleep apnea (adult) (pediatric); K21.9 Gastro-esophageal reflux disease without esophagitis; E66.01 Morbid (severe) obesity due to excess calories; Z68.42 Body mass index [BMI] 45.0-49.9, adult; F41.9 Anxiety disorder, unspecified; F31.9 Bipolar disorder, unspecified; F25.9 Schizoaffective disorder, unspecified; Z87.442 Personal history of urinary calculi; R06.02 Shortness of breath; R91.8 Other nonspecific abnormal finding of lung field; I51.7 Cardiomegaly; R00.0 Tachycardia, unspecified; Z79.85 Long-term (current) use of injectable non-insulin antidiabetic drugs
CPT/HCPCS: 36415; 71045; 80053; 81001; 82948; 83690; 83880; 84484; 85025; 85380; 85610; 85730; 93005; 96361; 96374; 99284; A9270; J2270; J7030

== ENCOUNTER 2022-01-22 12:48 | Emergency (ER) | payer MEDICARE, MEDICAID, SELFPAY ==
[2022-01-22] VITALS (16 sets, daily range): BP systolic 145–185; BP diastolic 93–113; PULSE 98–118; RESP 15–26; TEMP 37–37.2; O2SAT 94–100
--- NOTE | ~2022-01-22 | CT_ITS ---
EXAMINATION: CTA chest PE protocol DATE: 01/22/2022 14:38 INDICATION: Chest pain, shortness of breath, elevated d-dimer. TECHNIQUE: Computed tomography angiography (CTA) of the chest was performed with 100 mL Omnipaque-350 intravenous contrast timed to evaluate the pulmonary arteries. Coronal maximum intensity projection 3D-reconstructions were created by the technologist. Automated exposure control and iterative reconst ruction technique were employed. Exam dose: 1807.36 mGy-cm total exam DLP. COMPARISON: 01/22/2022 2 view chest 01/01/2022 CT chest high resolution scan FINDINGS: There is moderate opacification the pulmonary arteries on the second set of images after re peat injection of contrast material to better opacify the pulmonary arteries. No pulmonary embolism i s evident. No thoracic aortic aneurysm or dissection is detected. No hilar or mediastinal mass lesion or lymphadenopathy. Normal heart size. No pericardial or pleural effusion. There is mild dependent right lower lobe atelectasis. Lungs otherwise appear clear. Left renal cyst is partially included in this examination. Small sliding hiatal hernia. IMPRESSION: No evidence of pulmonary embolism Reviewed, dictated and finalized at [facility]. Reviewed, dictated and finalized at [facility].
--- NOTE | ~2022-01-22 | XR_ITS ---
XR chest 2V DATE: 01/22/2022 13:24 INDICATION: Shortness of breath TECHNIQUE: PA and lateral views COMPARISON: 05/05/2021 portable AP chest FINDINGS: Normal heart size. No hilar or mediastinal enlargement. No pulmonary consolidation, pleural effusion, pulmonary vascular congestion or pneumothorax is detect ed. IMPRESSION: No active disease Reviewed, dictated and finalized at location [facility]. IMPRESSION: No active disease
--- NOTE | 2022-01-22 12:52 | ECG_ITS ---
Measurements Intervals [place] Rate: 114 P: 54 [place]: 183 QRS: -30 QRSD: 81 T: 63 QT: 317 QTc: 438 Interpretive Statements SINUS TACHYCARDIA LOW QRS VOLTAGE IN PRECORDIAL LEADS BORDERLINE R WAVE PROGRESSION, ANTERIOR LEADS BASELINE ARTIFACT- I, II, III, AVR ABNORMAL ECG COMPARED TO ECG 01/02/2022 16:36:20 HEART RATE HAS DECREASED Electronically Signed On 01-22-2022 13:02:54 CDT by Ajit Alvarado D.O.
--- NOTE | 2022-01-22 13:17 | PC.NURSE ---
Pt to XRAY via stretcher at this time
[2022-01-22 13:25] LABS: Basophils Absolute Auto 0.1 K/mm3 (0.0-0.1); Basophils Percent Auto 0.9 % (0.2-1.2); Eosinophils Absolute Auto 0.1 K/mm3 (0-0.3); Eosinophils Percent Auto 0.9 % (0-4.4); Hemoglobin 14.7 g/dL (14.0-18.0); Immature Granulocyte Absolute 0.04 K/mm3 (0.00-0.031); Immature Granulocyte Percent A 0.3 % (0-0.5); Lymphocytes Absolute Auto 1.81 K/mm3 (0.9-3.2); Lymphocytes Percent Auto 15.5 % (18.3-44.2); Mean Corpuscular HGB Conc 32.7 g/dl (32-36); Mean Corpuscular Hemoglobin 30.4 pg (26-34); Monocytes Percent Auto 8.3 % (2.6-8.5); Neutrophils Absolute Auto 8.7 K/mm3 (1.3-6.7); Neutrophils Percent Auto 74.1 % (45.5-73.1); Platelet Count Result 335 k/mm3 (150-375); Red Blood Count 4.84 M/mm3 (4.6-6.20); Red Cell Distribution Width 13.7 % (11.5-14.5); White Blood Count 11.7 K/mm3 (4.5-10.0)
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
[2022-01-22 13:45] LABS: NT Pro B Type Natriuretic Pept 56 pg/mL (5-100)
[2022-01-22 13:47] LABS: Alanine Aminotransferase 49 U/L (6-50); Albumin Level 4.3 g/dL (3.5-5.1); Alkaline Phosphatase 82 U/L (38-126); Anion Gap 17 mmol/L (8-16); Aspartate Amino Transferase 48 U/L (17-59); Bilirubin,Total 0.4 mg/dL (0.2-1.3); Blood Urea Nitrogen 15 mg/dL (9-20); Carbon Dioxide 22 mmol/L (22-30); Chloride 97 mmol/L (98-107); Estimated CRCL calculation 133 ml/min; Estimated Glomerular Filt Rate > 60; Glucose 334 mg/dL (65-110); Potassium 3.6 mmol/L (3.4-5.0); Sodium 136 mmol/L (137-145)
[2022-01-22 13:52] LABS: Partial Thromboplastin Time 25.3 SECONDS (22.3-36.8)
[2022-01-22 13:57] LABS: D Dimer 0.58 ug/mL (<0.48)
[2022-01-22 14:00] LABS: SARS-CoV-2 RNA PCR Negative
--- NOTE | 2022-01-22 14:20 | PC.NURSE ---
Pt to CT scan via stretcher at this time.
[2022-01-22] MEDS: SODIUM CHLORIDE 0.9% IV 1,000 ML 999 ML IV CONT (14:39)
[2022-01-22] MEDS: ONDANSETRON INJ 4 MG/2 ML VIAL IV PUSH (14:39)
[2022-01-22 15:47] LABS: Lactic Acid Reflex 1.4 mmol/L (0.7-2.0)
[2022-01-22 16:01] LABS: Influenza A QL RT-PCR Negative (Negative); Influenza B QL RT-PCR Negative (Negative)
[2022-01-22] MEDS: ALBUTEROL SULFATE NEB 2.5 MG/3 ML INH 5 MG INHALATION (16:23)
[2022-01-22 16:39] LABS: Reflex Lactic Acid Yes or No Add Lactic
== END 2022-01-22 16:46 | disposition home or self-care (01) ==
PROVIDERS: Emergency Provider Emergency Medicine; PCP Internal Medicine
DX: R05.9 Cough, unspecified (principal); Z20.822 Contact with and (suspected) exposure to COVID-19; J45.909 Unspecified asthma, uncomplicated; E78.5 Hyperlipidemia, unspecified; G40.909 Epilepsy, unspecified, not intractable, without status epilepticus; I10 Essential (primary) hypertension; G93.41 Metabolic encephalopathy; D86.9 Sarcoidosis, unspecified; E11.9 Type 2 diabetes mellitus without complications; K21.9 Gastro-esophageal reflux disease without esophagitis; M72.0 Palmar fascial fibromatosis [Dupuytren]; E53.8 Deficiency of other specified B group vitamins; G47.33 Obstructive sleep apnea (adult) (pediatric); E66.01 Morbid (severe) obesity due to excess calories; Z68.41 Body mass index [BMI] 40.0-44.9, adult; F41.9 Anxiety disorder, unspecified; F25.9 Schizoaffective disorder, unspecified; Z87.442 Personal history of urinary calculi; Z77.22 Contact with and (suspected) exposure to environmental tobacco smoke (acute) (chronic); R06.02 Shortness of breath
CPT/HCPCS: 36415; 71046; 71275; 80053; 83605; 83880; 85025; 85380; 85610; 85730; 87502; 93005; 94640; 96361; 96374; 99284; J2405; J7030; Q9967; U0003; U0005

== ENCOUNTER 2022-01-25 14:51 | Emergency (ER) | payer MEDICARE, MEDICAID, SELFPAY ==
--- NOTE | 2022-01-25 14:54 | ED.URI ---
HPI - URI/Sore Throat General Chief Complaint: Upper Respiratory Infection Stated Complaint: Shortness of Breath,Cough Time Seen by Provider: 01/25/22 14:54 Source: patient and old records reviewed Mode of arrival: ambulatory Limitations: no limitations History of Present Illness HPI Narrative: Martín is a 56-year-old male patient presenting to clinic today with complaints of runny nose, sore throat, cough shortness of breath and a cough x4 days. He reports post no known fever chills. He was seen in the emergency room on January 22 for the same symptoms. States that they did chest x-ray, CT of the chest, EKG and lab. He was diagnosed with an upper respiratory infection at that time. He reports he has a history of sarcoidosis. The ER did a COVID and flu test on him and both of those were negative. MD elicited complaint: cough and other (Shortness of breath) Related Data Home Medications Medication Instructions Recorded Confirmed dulaglutide 0.75 mg/0.5 mL 0.75 mg subcut WEEKLY 01/25/22 01/25/22 subcutaneous pen injector (Trulicity) empagliflozin 25 mg tablet 25 mg PO DAILY 01/25/22 01/25/22 (Jardiance) oxcarbazepine 300 mg tablet 300 mg PO DAILY 01/25/22 01/25/22 pen needle, diabetic 31 gauge x 01/25/22 01/25/2208/06 (BD Ultra-Fine Short Pen Needle) quetiapine 100 mg tablet 100 mg PO DAILY 01/25/22 01/25/22 Allergies Allergy/AdvReac Type Severity Reaction Status Date / Time doxycycline Allergy Intermediate RASH Verified 01/25/22 14:56 levetiracetam Allergy Intermediate INCREASED Verified 01/25/22 14:56 SZ'S meloxicam Allergy Intermediate ITCHING Verified 01/25/22 14:56 Sulfa (Sulfonamide Allergy Mild RASH Verified 01/25/22 14:56 Antibiotics) cephalexin Allergy Unknown Rash Verified 01/25/22 14:56 Cephalosporins Allergy Unknown Rash Verified 01/25/22 14:56 haloperidol Allergy Unknown Seizure Verified 01/25/22 14:56 sulfite Allergy Unknown Other Verified 01/25/22 14:56 tetracycline Allergy Unknown Diarrhea Verified 01/25/22 14:56 hydromorphone [From Dilaudid] Allergy Other Verified 01/25/22 14:56 levalbuterol AdvReac Severe Other Verified 01/25/22 14:56 molindone AdvReac Intermediate Nausea Verified 01/25/22 14:56 Oat Allergy Severe Swelling Uncoded 01/25/22 14:56 Review of Systems Review of Systems: Pertinent positives per HPI. Patient denies any fever, chills, rash, headache, visual changes, dizziness, chest pain, palpitations, nausea, vomiting, diarrhea, constipation, abdominal pain, or any urinary issues. [facility] Past Medical History Medical History Acute bronchitis due to other specified organisms Acute right-sided thoracic back pain Adult body mass index 40 and over Aftercare following surgery of the musculoskeletal system Anxiety Asthma B12 deficiency Bilateral hand numbness Bipolar disorder BMI 39.0-39.9,adult Body mass index [BMI] 37.0-37.9, adult (01/05/19) Body mass index [BMI] 39.0-39.9, adult (10/23/18) Body mass index [BMI]40.0-44.9, adult (04/23/18) Cervicalgia Closed displaced fracture of lateral malleolus of right fibula Coronary artery spasm Diastolic dysfunction Dietary counseling and surveillance (02/11/17) GARCIA (dyspnea on exertion) Dupuytrens contracture Dyslipidemia Eczema of both hands Epilepsy, unspecified, not intractable, with status epilepticus Essential hypertension Gastroesophageal reflux disease History of kidney stones Hospital discharge follow-up Left hemiparesis (~01/2015) Patient presented to the emergency department in January 2015 with left hemiparesis. Brain CT was unremarkable however NIH stroke scale was 10. He was given tPA and transferred to [facility], where his symptoms resolved. Patient reports that the neurologist that was quite strange and his symptoms resolved so quickly and they do not believe he actually had a stroke. Low sodium levels Lower leg edema Metab
[2022-01-25 15:05] VITALS: BP 154/86; PULSE 106; RESP 20; TEMP 36.8; O2SAT 98
== END 2022-01-25 15:43 | disposition home or self-care (01) ==
PROVIDERS: Emergency Provider Nurse Practitioner Family; PCP Internal Medicine
DX: J40 Bronchitis, not specified as acute or chronic (principal); B34.9 Viral infection, unspecified; J06.9 Acute upper respiratory infection, unspecified; J45.909 Unspecified asthma, uncomplicated; E78.5 Hyperlipidemia, unspecified; G93.41 Metabolic encephalopathy; G40.909 Epilepsy, unspecified, not intractable, without status epilepticus; I10 Essential (primary) hypertension; K21.9 Gastro-esophageal reflux disease without esophagitis; E66.01 Morbid (severe) obesity due to excess calories; Z68.41 Body mass index [BMI] 40.0-44.9, adult; E11.9 Type 2 diabetes mellitus without complications; F25.9 Schizoaffective disorder, unspecified; F41.9 Anxiety disorder, unspecified
CPT/HCPCS: 87081; 87804; 87880; 99213; G0463

== ENCOUNTER 2022-08-13 23:56 | Emergency (ER) | payer MEDICARE, MEDICAID, SELFPAY ==
--- NOTE | ~2022-08-13 | CT_ITS ---
EXAMINATION: CTA brain carotid DATE: 08/14/2022 02:33 INDICATION: Transient vision loss. Headache. TECHNIQUE: Computed tomographic angiography (CTA) of the head was performed without and with 100 mL O mnipaque-350 intravenous contrast. CTA of the neck was performed with intravenous contrast. Automated exposure control and iterative reconstruction technique were employed. The dose-length product was 1 226.88 mGy-cm. Maximum intensity projection and volume rendered 3D-reconstructions were created by brittany hi technologist on a separate workstation. COMPARISON: Head CT 08/14/2022 FINDINGS: HEAD CTA: There are scattered areas of low attenuation in the cerebral white matter, which is within normal limits for the patient's age. There is no intracranial hemorrhage, acute infarction, or abnorm al intracranial mass lesion. The ventricles are normal in size. The orbits are normal. There is mild mucosal thickening in the paranasal sinuses. The mastoid air cells are normal. The vertebral arteries are codominant. There is no significant stenosis of basilar artery or the posterior cerebral arterie s. Left posterior communicating artery is normal. A right posterior communicating artery is not ident ified. There is no significant stenosis of the intracranial internal carotid arteries or anterior or middle cerebral arteries. Anterior to indicating artery is normal. NECK CTA: There are no pathologically enlarged lymph nodes. There is no significant stenosis of the v ertebral arteries. There is mild plaque in the proximal territories. There is 0% stenosis of the prox imal right internal carotid artery relative to normal distal artery lumen diameter (NASCET criteria). There is 0% stenosis of the proximal left internal carotid artery relative to normal distal artery l umen diameter. There is severe cervical spondylosis. IMPRESSION: 1. Normal aging brain. 2. No aneurysm or significant intracranial arterial stenosis. 3. 0% stenosis of the proximal internal carotid arteries relative to normal distal artery lumen diame ters (NASCET criteria). Reviewed, dictated and finalized at location [facility]. IMPRESSION: 1. Normal aging brain. 2. No aneurysm or significant intracranial arterial stenosis. 3. 0% stenosis of the proximal internal carotid arteries relative to normal dis austen artery lumen diameters (NASCET criteria).
--- NOTE | ~2022-08-13 | CT_ITS ---
EXAMINATION: CT brain wo con DATE: 08/14/2022 01:33 INDICATION: Vertigo. Visual loss. TECHNIQUE: Computed tomography (CT) of the head was performed without intravenous contrast. The mA wa s adjusted according to patient size. Iterative reconstruction technique was employed. The dose-lengt h product was 605.33 mGy-cm. COMPARISON: Head CT 11/24/2021, brain MRI 08/01/2019 FINDINGS: There is no intracranial hemorrhage, acute infarction, or abnormal intracranial mass lesion . There are scattered areas of low attenuation in the cerebral white matter, which is within normal l imits for the patient's age. The ventricles are normal in size. The orbits are normal. There is mild mucosal thickening in the ethmoid sinuses. The mastoid air cells are normal. IMPRESSION: 1. Normal aging brain. Reviewed, dictated and finalized at location [facility]. IMPRESSION: 1. Normal aging brain.
--- NOTE | ~2022-08-13 | XR_ITS ---
EXAMINATION: XR chest 2V DATE: 08/14/2022 01:36 INDICATION: Stroke. TECHNIQUE: Frontal and lateral views of the chest were obtained. COMPARISON: Chest 2 views 01/22/2022, chest CT 01/22/2022 FINDINGS: There are chronic mild airspace opacities in right lower lung zone. No pleural effusion or pneumothorax. The heart size is normal. IMPRESSION: 1. Chronic mild airspace opacities in right lower lung zone, consistent with scarring. Reviewed, dictated and finalized at location [facility]. IMPRESSION: 1. Chronic mild airspace opacities in right lower lung zone, consistent with sc arring.
[2022-08-14 00:03] VITALS: BP 146/91; PULSE 89; RESP 18; TEMP 36.6; O2SAT 96
[2022-08-14 00:24] LABS: Basophils Absolute Auto 0.1 K/mm3 (0.0-0.1); Basophils Percent Auto 1.2 % (0.2-1.2); Eosinophils Absolute Auto 0.2 K/mm3 (0-0.3); Eosinophils Percent Auto 1.9 % (0-4.4); Hematocrit 47.6 % (42.0-52.0); Hemoglobin 15.6 g/dL (14.0-18.0); Immature Granulocyte Absolute 0.06 K/mm3 (0.00-0.031); Immature Granulocyte Percent A 0.6 % (0-0.5); Lymphocytes Absolute Auto 2.45 K/mm3 (0.9-3.2); Mean Corpuscular HGB Conc 32.8 g/dl (32-36); Mean Corpuscular Hemoglobin 30.1 pg (26-34); Mean Corpuscular Volume 91.7 fl (80-100); Mean Platelet Volume 10.3 fl (7.4-10.4); Monocytes Absolute Auto 0.9 K/mm3 (0.1-0.6); Monocytes Percent Auto 8.5 % (2.6-8.5); Neutrophils Absolute Auto 6.5 K/mm3 (1.3-6.7); Neutrophils Percent Auto 63.8 % (45.5-73.1); Platelet Count Result 300 k/mm3 (150-375); Red Blood Count 5.19 M/mm3 (4.6-6.20); Red Cell Distribution Width 12.9 % (11.5-14.5); White Blood Count 10.2 K/mm3 (4.5-10.0)
[2022-08-14 00:32] LABS: Alanine Aminotransferase 69 U/L (6-50); Albumin Level 4.4 g/dL (3.5-5.1); Alkaline Phosphatase 81 U/L (38-126); Anion Gap 8 mmol/L (8-16); Aspartate Amino Transferase 64 U/L (17-59); Bilirubin,Total 0.5 mg/dL (0.2-1.3); Blood Urea Nitrogen 19 mg/dL (9-20); Calcium 8.7 mg/dL (8.4-10.2); Carbon Dioxide 26 mmol/L (22-30); Chloride 102 mmol/L (98-107); Estimated CRCL calculation 115 ml/min; Estimated Glomerular Filt Rate > 60; Glucose 241 mg/dL (65-110); Potassium 3.8 mmol/L (3.4-5.0); Sodium 136 mmol/L (137-145)
[2022-08-14 00:51] VITALS: BP 158/90; PULSE 92; RESP 17; TEMP 36.5; O2SAT 99
--- NOTE | 2022-08-14 00:58 | ED.RECABL ---
HPI - Recheck/Abnormal Lab/Rx General Chief Complaint: Recheck/Abnormal Lab/Rx Stated Complaint: elevated BG, nausea, headache, BG for EMS 283 Time Seen by Provider: 08/14/22 00:58 Source: patient Mode of arrival: ambulatory Limitations: no limitations History of Present Illness HPI narrative: Patient is a 56-year-old male with a history of bipolar disorder, GERD, diabetes, asthma, diastolic dysfunction presenting with complaint of vision loss (now resolved), diarrhea and blood glucose problems. Patient states that earlier this evening he had an episode of loose stools. Patient denies any concurrent abdominal pain. He reports this evening after the episode of loose stooling when he was going to go out with friends to play pool he was going to the bathroom again and had sudden vision loss in both eyes with associated headache over his eyes. Described as sharp, tension-like in nature in a bandlike pattern across his forehead. Patient now reports his headache and vision changes are resolved. Patient reports vision loss lasted approximately 10 minutes. He denies associated numbness or weakness. No difficulty with ambulation. He denies flashes, floaters, curtain dropping sensation. No history of this occurring in the past. Patient was worried his glucose may be abnormal but when checked was within normal range. Patient then was able to drive himself to the emergency department for evaluation, all symptoms currently resolved. Related Data Home Medications Medication Instructions Recorded Confirmed dulaglutide 0.75 mg/0.5 mL 0.75 mg subcut WEEKLY 01/25/22 01/25/22 subcutaneous pen injector (Trulicity) empagliflozin 25 mg tablet 25 mg PO DAILY 01/25/22 01/25/22 (Jardiance) oxcarbazepine 300 mg tablet 300 mg PO DAILY 01/25/22 01/25/22 pen needle, diabetic 31 gauge x 01/25/22 01/25/22 5/16 (BD Ultra-Fine Short Pen Needle) prednisone 20 mg tablet 20 mg PO DAILY 01/25/22 01/25/22 quetiapine 100 mg tablet 100 mg PO DAILY 01/25/22 01/25/22 Allergies Allergy/AdvReac Type Severity Reaction Status Date / Time doxycycline Allergy Intermediate RASH Verified 08/13/22 23:58 levetiracetam Allergy Intermediate INCREASED Verified 08/13/22 23:58 SZ'S meloxicam Allergy Intermediate ITCHING Verified 08/13/22 23:58 Sulfa (Sulfonamide Allergy Mild RASH Verified 08/13/22 23:58 Antibiotics) cephalexin Allergy Unknown Rash Verified 08/13/22 23:58 Cephalosporins Allergy Unknown Rash Verified 08/13/22 23:58 haloperidol Allergy Unknown Seizure Verified 08/13/22 23:58 sulfite Allergy Unknown Other Verified 08/13/22 23:58 tetracycline Allergy Unknown Diarrhea Verified 08/13/22 23:58 hydromorphone [From Dilaudid] Allergy Other Verified 08/13/22 23:58 levalbuterol AdvReac Severe Other Verified 01/25/22 14:56 molindone AdvReac Intermediate Nausea Verified 01/25/22 14:56 Oat Allergy Severe Swelling Uncoded 01/25/22 14:56 Review of Systems Review of Systems: CONSTITUTIONAL: Denies fever, chills, or sweats. EYES: Denies current visual changes, redness, or discharge. ENT: Denies rhinorrhea, congestion, sore throat, or otalgia. CARDIOVASCULAR: Denies chest pain, palpitations, or edema. RESPIRATORY: Denies cough or dyspnea. GASTROINTESTINAL: Denies abdominal pain, nausea, vomiting, or diarrhea. GENITOURINARY: Denies dysuria or hematuria. SKIN: Denies rash or itching. MUSCULOSKELETAL: Denies back pain, joint pain, or myalgia. NEUROLOGIC: Denies current headache, numbness, or weakness. [facility] Past Medical History Medical History Acute bronchitis due to other specified organisms Acute right-sided thoracic back pain Adult body mass index 40 and over Aftercare following surgery of the musculoskeletal system Anxiety Asthma B12 deficiency Bilateral hand numbness Bipolar disorder BMI 39.0-39.9,adult Body mass index [BMI] 37.0-37.9, adult (01/05/19) Body mass index [BMI] 39.0-39.9, a
--- NOTE | 2022-08-14 01:12 | ECG_ITS ---
Measurements Intervals [place] Rate: 81 P: 31 W[place]: 186 QRS: -24 QRSD: 97 T: 23 QT: 376 QTc: 437 Interpretive Statements SINUS RHYTHM BORDERLINE R WAVE PROGRESSION, ANTERIOR LEADS BASELINE ARTIFACT- I, II, AVR, AVL, V1 BORDERLINE ECG COMPARED TO ECG 01/22/2022 12:53:49 SINUS RHYTHM NOW PRESENT Electronically Signed On 08-14-2022 11:04:30 CDT by Ajit Alvarado D.O.
[2022-08-14] MEDS: SODIUM CHLORIDE 0.9% IV 1,000 ML 999 ML IV CONT (01:41)
[2022-08-14 02:04] LABS: INR 0.9; Prothrombin Time 12.3 Seconds (11.1-14.7)
[2022-08-14 02:05] LABS: Partial Thromboplastin Time 23.8 SECONDS (22.3-36.8)
[2022-08-14 02:07] VITALS: BP 152/81; PULSE 84; RESP 15; O2SAT 96
[2022-08-14 02:11] LABS: Troponin I < 0.012 ng/mL (0.000-0.034)
[2022-08-14 03:47] VITALS: BP 145/77; PULSE 81; RESP 17; TEMP 36.6; O2SAT 97
== END 2022-08-14 03:49 | disposition home or self-care (01) ==
PROVIDERS: Emergency Provider Emergency Medicine; PCP Internal Medicine
DX: H53.123 Transient visual loss, bilateral (principal); R51.9 Headache, unspecified; J45.909 Unspecified asthma, uncomplicated; G40.909 Epilepsy, unspecified, not intractable, without status epilepticus; I10 Essential (primary) hypertension; E11.9 Type 2 diabetes mellitus without complications; E78.5 Hyperlipidemia, unspecified; E53.8 Deficiency of other specified B group vitamins; K21.9 Gastro-esophageal reflux disease without esophagitis; E66.01 Morbid (severe) obesity due to excess calories; Z68.41 Body mass index [BMI] 40.0-44.9, adult; G93.41 Metabolic encephalopathy; G47.33 Obstructive sleep apnea (adult) (pediatric); D86.9 Sarcoidosis, unspecified; M72.0 Palmar fascial fibromatosis [Dupuytren]; F25.9 Schizoaffective disorder, unspecified; F31.9 Bipolar disorder, unspecified; Z87.01 Personal history of pneumonia (recurrent); Z87.442 Personal history of urinary calculi; Z79.84 Long term (current) use of oral hypoglycemic drugs; Z79.85 Long-term (current) use of injectable non-insulin antidiabetic drugs
CPT/HCPCS: 36415; 70450; 70496; 70498; 71046; 80053; 84484; 85025; 85610; 85730; 93005; 96360; 99284; J7030; Q9967

== ENCOUNTER 2022-08-15 14:34 | Emergency (ER) | payer MEDICARE, MEDICAID, SELFPAY ==
[2022-08-15 14:32] VITALS: BP 150/97; PULSE 77; RESP 18; TEMP 36.6; O2SAT 97
[2022-08-15 15:11] LABS: Basophils Absolute Auto 0.1 K/mm3 (0.0-0.1); Eosinophils Absolute Auto 0.2 K/mm3 (0-0.3); Eosinophils Percent Auto 2.3 % (0-4.4); Hematocrit 46.7 % (42.0-52.0); Hemoglobin 15.3 g/dL (14.0-18.0); Immature Granulocyte Absolute 0.02 K/mm3 (0.00-0.031); Immature Granulocyte Percent A 0.3 % (0-0.5); Lymphocytes Absolute Auto 1.84 K/mm3 (0.9-3.2); Lymphocytes Percent Auto 23.4 % (18.3-44.2); Mean Corpuscular HGB Conc 32.8 g/dl (32-36); Mean Corpuscular Hemoglobin 30.2 pg (26-34); Mean Corpuscular Volume 92.1 fl (80-100); Mean Platelet Volume 10.2 fl (7.4-10.4); Monocytes Absolute Auto 0.8 K/mm3 (0.1-0.6); Monocytes Percent Auto 10.7 % (2.6-8.5); Neutrophils Absolute Auto 4.9 K/mm3 (1.3-6.7); Neutrophils Percent Auto 62.3 % (45.5-73.1); Platelet Count Result 282 k/mm3 (150-375); Red Blood Count 5.07 M/mm3 (4.6-6.20); Red Cell Distribution Width 12.9 % (11.5-14.5); White Blood Count 7.9 K/mm3 (4.5-10.0)
[2022-08-15 15:15] LABS: Glucose Point of Care 352 mg/dl (65-105)
[2022-08-15 15:22] LABS: Appearance Urine Clear (Clear); Bilirubin Urine Negative (Negative); Blood Urine Negative (Negative); Color Urine Yellow (Yellow); Glucose Urine UA 3+ mg/dL (Negative); Ketones Urine Negative (Negative); Leukocyte Esterase Ur Negative LEU/UL (Negative); Nitrate Urine Negative (Negative); Protein Urine Negative (Negative); Specific Grav Ur 1.022 (1.001-1.035); Urobilinogen Urine 0.2 mg/dL (<2.0)
[2022-08-15 15:24] LABS: Alanine Aminotransferase 64 U/L (6-50); Albumin Level 4.2 g/dL (3.5-5.1); Alkaline Phosphatase 79 U/L (38-126); Anion Gap 8 mmol/L (8-16); Aspartate Amino Transferase 50 U/L (17-59); Bilirubin,Total 0.8 mg/dL (0.2-1.3); Blood Urea Nitrogen 12 mg/dL (9-20); Calcium 8.3 mg/dL (8.4-10.2); Carbon Dioxide 27 mmol/L (22-30); Chloride 100 mmol/L (98-107); Estimated CRCL calculation 132 ml/min; Estimated Glomerular Filt Rate > 60; Glucose 357 mg/dL (65-110); Magnesium 2.3 mg/dL (1.6-2.3); Phosphorus 3.6 mg/dL (2.5-4.5); Potassium 3.5 mmol/L (3.4-5.0); Sodium 135 mmol/L (137-145)
[2022-08-15 15:25] LABS: Add Urine Microscopic? NO
[2022-08-15 15:28] LABS: Beta-Hydroxybutyrate/Acetoacetate 0.09 mmol/L (0.02-0.27)
--- NOTE | 2022-08-15 15:40 | PC.NURSE ---
Pt's EMS bag of NSS has finished.
[2022-08-15] MEDS: SODIUM CHLORIDE 0.9% IV 1,000 ML 999 ML IV CONT (15:41)
--- NOTE | 2022-08-15 15:42 | PC.NURSE ---
Pt requested his ProAir inhaler and is out at home. RN told ERP.
--- NOTE | 2022-08-15 16:13 | ED.GENADULT ---
HPI - General Adult General Chief complaint: Recheck/Abnormal Lab/Rx Stated complaint: high BG Time Seen by Provider: 08/15/22 15:25 History of Present Illness HPI narrative: 56-year-old male with history of type 2 diabetes, sarcoid presented to the ED for evaluation of elevated blood sugars. Patient states he takes Jardiance and has been attempting to have follow-up with his primary care physician and punch machine hand to have his blood sugar medications adjusted. Patient states when he was at home his blood sugar was measuring in the 500s. Upon arrival to the ED patient's blood sugar is better controlled. Related Data Home Medications Medication Instructions Recorded Confirmed dulaglutide 0.75 mg/0.5 mL 0.75 mg subcut WEEKLY 01/25/22 01/25/22 subcutaneous pen injector (Trulicity) empagliflozin 25 mg tablet 25 mg PO DAILY 01/25/22 01/25/22 (Jardiance) oxcarbazepine 300 mg tablet 300 mg PO DAILY 01/25/22 01/25/22 pen needle, diabetic 31 gauge x 01/25/22 01/25/22/16 (BD Ultra-Fine Short Pen Needle) prednisone 20 mg tablet 20 mg PO DAILY 01/25/22 01/25/22 quetiapine 100 mg tablet 100 mg PO DAILY 01/25/22 01/25/22 Allergies Allergy/AdvReac Type Severity Reaction Status Date / Time doxycycline Allergy Intermediate RASH Verified 08/15/22 14:50 levetiracetam Allergy Intermediate INCREASED Verified 08/15/22 14:50 SZ'S meloxicam Allergy Intermediate ITCHING Verified 08/15/22 14:50 Sulfa (Sulfonamide Allergy Mild RASH Verified 08/15/22 14:50 Antibiotics) cephalexin Allergy Unknown Rash Verified 08/15/22 14:50 Cephalosporins Allergy Unknown Rash Verified 08/15/22 14:50 haloperidol Allergy Unknown Seizure Verified 08/15/22 14:50 sulfite Allergy Unknown Other Verified 08/15/22 14:50 tetracycline Allergy Unknown Diarrhea Verified 08/15/22 14:50 hydromorphone [From Dilaudid] Allergy Other Verified 08/15/22 14:50 levalbuterol AdvReac Severe Other Verified 08/15/22 14:50 molindone AdvReac Intermediate Nausea Verified 08/15/22 14:50 Oat Allergy Severe Swelling Uncoded 01/25/22 14:56 Review of Systems Review of Systems: All systems reviewed & are unremarkable except as noted in HPI and below PMFSH Past Medical History Medical History Acute bronchitis due to other specified organisms Acute right-sided thoracic back pain Adult body mass index 40 and over Aftercare following surgery of the musculoskeletal system Anxiety Asthma B12 deficiency Bilateral hand numbness Bipolar disorder BMI 39.0-39.9,adult Body mass index [BMI] 37.0-37.9, adult (01/05/19) Body mass index [BMI] 39.0-39.9, adult (10/23/18) Body mass index [BMI]40.0-44.9, adult (04/23/18) Cervicalgia Closed displaced fracture of lateral malleolus of right fibula Coronary artery spasm Diastolic dysfunction Dietary counseling and surveillance (02/11/17) GARCIA (dyspnea on exertion) Dupuytrens contracture Dyslipidemia Eczema of both hands Epilepsy, unspecified, not intractable, with status epilepticus Essential hypertension Gastroesophageal reflux disease History of kidney stones Hospital discharge follow-up Left hemiparesis (~01/2015) Patient presented to the emergency department in January 2015 with left hemiparesis. Brain CT was unremarkable however NIH stroke scale was 10. He was given tPA and transferred to [facility], where his symptoms resolved. Patient reports that the neurologist that was quite strange and his symptoms resolved so quickly and they do not believe he actually had a stroke. Low sodium levels Lower leg edema Metabolic encephalopathy Migraine headache Migraines Morbid obesity with BMI of 40.0-44.9, adult Obesity (BMI 35.0-39.9 without comorbidity) Obstructive sleep apnea No longer requiring CPAP after 140 lb weight loss. Paresthesias in right hand Pneumonia of right middle lobe due to infectious organism Psychogenic nonepileptic seizure Right arm cellul
--- NOTE | 2022-08-15 16:41 | PC.NURSE ---
Pt states that he was feeling much better, and about 5 minutes prior stats that he started feeling dizzy and feeling like 'crap' again. states he feels like he is unable to go home due to feeling like 'crap.'
[2022-08-15 17:28] LABS: Glucose Point of Care 232 mg/dl (65-105)
[2022-08-15 17:40] VITALS: BP 139/85; PULSE 71; RESP 18; O2SAT 100
== END 2022-08-15 17:42 | disposition home or self-care (01) ==
PROVIDERS: Emergency Provider Emergency Medicine; PCP Internal Medicine
DX: E11.65 Type 2 diabetes mellitus with hyperglycemia (principal); J45.909 Unspecified asthma, uncomplicated; G40.909 Epilepsy, unspecified, not intractable, without status epilepticus; I10 Essential (primary) hypertension; E78.5 Hyperlipidemia, unspecified; E53.8 Deficiency of other specified B group vitamins; K21.9 Gastro-esophageal reflux disease without esophagitis; E66.01 Morbid (severe) obesity due to excess calories; Z68.41 Body mass index [BMI] 40.0-44.9, adult; G93.41 Metabolic encephalopathy; G47.33 Obstructive sleep apnea (adult) (pediatric); D86.9 Sarcoidosis, unspecified; M72.0 Palmar fascial fibromatosis [Dupuytren]; F25.9 Schizoaffective disorder, unspecified; F31.9 Bipolar disorder, unspecified; Z87.01 Personal history of pneumonia (recurrent); Z87.442 Personal history of urinary calculi; Z79.84 Long term (current) use of oral hypoglycemic drugs; Z79.85 Long-term (current) use of injectable non-insulin antidiabetic drugs
CPT/HCPCS: 36415; 80053; 81003; 82010; 82948; 83735; 84100; 85025; 96360; 96361; 99283; J7030

== ENCOUNTER 2022-12-03 16:53 | Outpatient (CLI) | payer MEDICARE, MEDICAID, SELFPAY ==
--- NOTE | ~2022-12-03 | XR_ITS ---
EXAMINATION: XR chest 2V Exam Date/Time: 12/03/2022 17:20 CDT HISTORY: UPPER BACK PAIN RADIATING TO THE LEFT X 4 DAYS Comparison: 08/14/2022. RESULT: Lines, tubes, and devices: None. Lungs and pleura: Low volumes with crowding. Chronic right pleural scarring. Cardiomediastinal silhouette: Stable. Other: No acute osseous or upper abdominal finding. IMPRESSION: No acute cardiopulmonary process. Reviewed, dictated and finalized at location [facility].
== END 2022-12-03 16:54 | disposition home or self-care (01) ==
PROVIDERS: PCP Internal Medicine; Visit Provider Internal Medicine
DX: R07.9 Chest pain, unspecified (principal); R00.0 Tachycardia, unspecified
CPT/HCPCS: 71046

== ENCOUNTER 2022-12-11 09:20 | Emergency (ER) | payer MEDICARE, MEDICAID, SELFPAY ==
[2022-12-11 09:19] VITALS: BP 146/90; PULSE 100; RESP 16; TEMP 36.6; O2SAT 96
[2022-12-11 09:30] LABS: Glucose Point of Care 233 mg/dl (65-105)
[2022-12-11 09:55] LABS: Appearance Urine Clear (Clear); Bilirubin Urine Negative (Negative); Blood Urine Negative (Negative); Color Urine Yellow (Yellow); Glucose Urine UA 3+ mg/dL (Negative); Ketones Urine Negative (Negative); Leukocyte Esterase Ur Negative LEU/UL (Negative); Nitrate Urine Negative (Negative); Protein Urine Negative (Negative); Urobilinogen Urine 0.2 mg/dL (<2.0); pH Urine 5.5 (5.0-9.0)
[2022-12-11 10:01] LABS: Basophils Absolute Auto 0.1 K/mm3 (0.0-0.1); Basophils Percent Auto 0.9 % (0.2-1.2); Eosinophils Absolute Auto 0.3 K/mm3 (0-0.3); Eosinophils Percent Auto 2.3 % (0-4.4); Hematocrit 48.7 % (42.0-52.0); Hemoglobin 15.6 g/dL (14.0-18.0); Immature Granulocyte Absolute 0.03 K/mm3 (0.00-0.031); Immature Granulocyte Percent A 0.3 % (0-0.5); Lymphocytes Absolute Auto 1.72 K/mm3 (0.9-3.2); Mean Corpuscular Hemoglobin 29.5 pg (26-34); Mean Corpuscular Volume 92.1 fl (80-100); Mean Platelet Volume 9.9 fl (7.4-10.4); Monocytes Absolute Auto 0.8 K/mm3 (0.1-0.6); Monocytes Percent Auto 7.4 % (2.6-8.5); Neutrophils Absolute Auto 7.9 K/mm3 (1.3-6.7); Neutrophils Percent Auto 73.1 % (45.5-73.1); Platelet Count Result 296 k/mm3 (150-375); Red Blood Count 5.29 M/mm3 (4.6-6.20); Red Cell Distribution Width 12.7 % (11.5-14.5); White Blood Count 10.8 K/mm3 (4.5-10.0)
[2022-12-11 10:08] LABS: Add Urine Microscopic? NO
[2022-12-11 10:15] VITALS: BP 164/84; PULSE 103; RESP 16; O2SAT 95
--- NOTE | 2022-12-11 10:26 | PC.NURSE ---
glucose checked at this time, 245
[2022-12-11 10:28] LABS: Glucose Point of Care 245 mg/dl (65-105)
[2022-12-11 11:15] VITALS: BP 134/78; PULSE 103; RESP 20; O2SAT 96
[2022-12-11 11:15] LABS: Anion Gap 9 mmol/L (8-16); Blood Urea Nitrogen 24 mg/dL (9-20); Calcium 8.6 mg/dL (8.4-10.2); Carbon Dioxide 24 mmol/L (22-30); Chloride 101 mmol/L (98-107); Estimated CRCL calculation 112 ml/min; Estimated Glomerular Filt Rate > 60; Glucose 237 mg/dL (65-110); Potassium 3.8 mmol/L (3.4-5.0); Sodium 134 mmol/L (137-145)
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
== END 2022-12-11 11:50 | disposition home or self-care (01) ==
PROVIDERS: Emergency Provider Emergency Medicine; PCP Internal Medicine
DX: E11.649 Type 2 diabetes mellitus with hypoglycemia without coma (principal); J45.909 Unspecified asthma, uncomplicated; G40.909 Epilepsy, unspecified, not intractable, without status epilepticus; I10 Essential (primary) hypertension; E78.5 Hyperlipidemia, unspecified; E53.8 Deficiency of other specified B group vitamins; K21.9 Gastro-esophageal reflux disease without esophagitis; E66.01 Morbid (severe) obesity due to excess calories; Z68.41 Body mass index [BMI] 40.0-44.9, adult; G93.41 Metabolic encephalopathy; G47.33 Obstructive sleep apnea (adult) (pediatric); D86.9 Sarcoidosis, unspecified; M72.0 Palmar fascial fibromatosis [Dupuytren]; F25.9 Schizoaffective disorder, unspecified; F31.9 Bipolar disorder, unspecified; Z87.01 Personal history of pneumonia (recurrent); Z87.442 Personal history of urinary calculi; Z79.85 Long-term (current) use of injectable non-insulin antidiabetic drugs; Z79.84 Long term (current) use of oral hypoglycemic drugs
CPT/HCPCS: 36415; 80048; 81003; 82948; 85025; 99283

== ENCOUNTER 2023-07-25 11:37 | Inpatient (IN) | payer MEDICARE, SELFPAY ==
[2023-07-25] VITALS (14 sets, daily range): BP systolic 101–145; BP diastolic 76–105; PULSE 92–138; RESP 16–29; TEMP 35.7–36.7; O2SAT 97–100; BMI 29.4
--- NOTE | ~2023-07-25 | MR_ITS ---
EXAMINATION: MR brain/brain stem wo/w con DATE: 07/27/2023 11:11 INDICATION: Expressive aphasia. Confusion. TECHNIQUE: Magnetic resonance imaging (MRI) of the brain and brainstem was performed without and with 19 mL MultiHance intravenous contrast. COMPARISON: Brain MRI 08/01/2019, head CT 07/25/2023 FINDINGS: There are scattered areas of nonspecific increased T2-weighted signal intensity in the cere bral white matter, which is within normal limits for the patient's age. There are old infarcts involv ing the right basal ganglia and right internal capsule. There is no intracranial hemorrhage, acute in farction, or abnormal intracranial mass lesion. The ventricles are normal in size. There is mild muco zoey thickening affects mild sinus. The orbits are normal. The mastoid air cells are normal. IMPRESSION: 1. Old infarcts involving the right basal ganglia and right internal capsule. Reviewed, dictated and finalized at location A.
--- NOTE | ~2023-07-25 | XR_ITS ---
EXAMINATION: XR chest 1V portable DATE: 07/28/2023 10:31 INDICATION: Shortness of breath TECHNIQUE: frontal view of the chest was obtained. COMPARISON: Chest radiograph dated 07/25/2023 and 08/14/2022 FINDINGS: Unchanged pleural-parenchymal scarring with pleural parenchymal scarring at the lateral right lower l matteo zone. No new airspace opacities, pulmonary edema, pleural effusion or pneumothorax. Cardiomediast inal silhouette is normal. IMPRESSION: 1. No acute cardiopulmonary disease. Reviewed, dictated and finalized at location A.
--- NOTE | ~2023-07-25 | CT_ITS ---
EXAMINATION: CT brain wo con DATE: 07/28/2023 10:48 INDICATION: Blurry vision. TECHNIQUE: Computed tomography (CT) of the head was performed without intravenous contrast. The mA wa s adjusted according to patient size. Iterative reconstruction technique was employed. The dose-lengt h product was 605.33 mGy-cm. COMPARISON: Head CT 07/25/2023 FINDINGS: There are old infarcts in the right basal ganglia and right internal capsule. There is no i ntracranial hemorrhage, acute infarction, or abnormal intracranial mass lesion. The ventricles are no rmal in size. The orbits are normal. There is mild mucosal thickening in the ethmoid sinuses. The mas toid air cells are normal. IMPRESSION: 1. Old infarcts in the right basal ganglia and right internal capsule. Reviewed, dictated and finalized at location A.
--- NOTE | ~2023-07-25 | XR_ITS ---
XR chest 1V 07/25/2023 13:44 Indication: Confusion Procedure: AP view of the chest Comparison: Comparison to multiple prior studies sequentially, with oldest reviewed study dated 12/03. Findings: Chronic pleural thickening right lower chest with blunting of the costophrenic recess on th e AP view. No focal air space disease, pulmonary edema, pleural effusion or suspected pneumothorax. H eart size normal. Impression: 1: No acute cardiopulmonary disease. Reviewed, dictated and finalized at location B. Impression: 1: No acute cardiopulmonary disease.
--- NOTE | ~2023-07-25 | CT_ITS ---
EXAMINATION: CT brain wo con DATE: 07/25/2023 13:41 INDICATION: Mental status changes TECHNIQUE: Computed tomography (CT) of the head was performed without intravenous contrast. The dose- length product was 605.33 mGy-cm. Automated exposure control and iterative reconstruction technique w ere employed. COMPARISON: CT dated 08/14/2022 FINDINGS: Generalized atrophy. There are scattered mild periventricular and subcortical white matter changes, most likely related to small vessel ischemic disease (microangiopathy). Chronic right lacuna r infarction, new since prior study. No ventriculomegaly or midline shift. Basilar cisterns are paten t. There is intracranial atherosclerosis. Paranasal sinuses and mastoids are pneumatized. No depresse d skull fractures. IMPRESSION: 1. No acute intracranial abnormality. 2: Chronic right lacunar infarction. 3: Chronic age-related findings. Reviewed, dictated and finalized at location B.
--- NOTE | ~2023-07-25 | CT_ITS ---
EXAMINATION: CTA brain carotid DATE: 07/28/2023 13:49 INDICATION: Diplopia. TECHNIQUE: Computed tomographic angiography (CTA) of the head was performed with 100 mL Omnipaque-350 intravenous contrast. CTA of the neck was performed with intravenous contrast. Automated exposure co ntrol and iterative reconstruction technique were employed. The dose-length product was 1046.79 mGy-c m. Maximum intensity projection and volume rendered 3D-reconstructions were created by the technYouGovi st on a separate workstation. COMPARISON: Head CT 07/28/2023 FINDINGS: HEAD CTA: There are old infarcts in the right basal ganglia and right internal capsule. There is no i ntracranial hemorrhage, acute infarction, or abnormal intracranial mass lesion. The ventricles are no rmal in size. The orbits are normal. There is mild mucosal thickening in the ethmoid sinuses. The mas toid air cells are normal. Left vertebral artery is dominant. There is no significant stenosis of bas ilar artery or the posterior cerebral arteries. The posterior communicating arteries are normal. Ther e is no significant stenosis of the intracranial internal carotid arteries or anterior or middle cere bral arteries. Anterior communicating artery is normal. There is no aneurysm. NECK CTA: There are no pathologically enlarged lymph nodes. There is no significant stenosis of the v ertebral arteries. There is no visible plaque in the proximal internal carotid arteries. There is 0% stenosis of the proximal right internal carotid artery relative to normal distal artery lumen diamete r (NASCET criteria). There is 0% stenosis of the proximal left internal carotid artery relative to no rmal distal artery lumen diameter. There is severe cervical spondylosis. IMPRESSION: 1. Old infarcts in the right basal ganglia and right internal capsule. 2. No aneurysm or significant intracranial arterial stenosis. 3. 0% stenosis of the proximal internal carotid arteries relative to normal distal artery lumen diame ters (NASCET criteria). Reviewed, dictated and finalized at location A. IMPRESSION: 1. Old infarcts in the right basal ganglia and right internal capsule. 2. No aneurysm or significant intracranial arterial stenosis. 3. 0% stenosis of the proximal internal carotid arteries relative to normal dis austen artery lumen diameters (NASCET criteria).
--- NOTE | ~2023-07-25 | CT_ITS ---
CT of the Abdomen and Pelvis: Indication: Intra-abdominal infection Technique: 2.5 mm axial scans were obtained through the abdomen and pelvis following intravenous adm inistration of 100 cc of Omnipaque 350. Dose reduction technique was used on this scan by utilizing a utomated exposure control and iterative reconstruction technique. The dose-length product (DLP) was 9 24.87 mGy-cm. COMPARISON: 11/24/2021 Findings: Scans through the lung bases are unremarkable. The liver, spleen, pancreas, gallbladder, adrenals and kidneys are within normal limits. No evidence of aortic aneurysm. No lymphadenopathy. No bowel obstruction or bowel wall thickening. There is no evidence to suggest acute appendicitis. Images through the pelvis were performed. Urinary bladder unremarkable. No pelvic mass seen. No ascit es. Bilateral L5 pars interarticularis defects are noted. Impression: No acute abnormalities seen. Reviewed, dictated and finalized at [facility]. Impression: No acute abnormalities seen.
--- NOTE | ~2023-07-25 | XR_ITS ---
EXAMINATION: XR lumbar puncture diagnostic DATE: 07/27/2023 11:29 INDICATION: Altered mental status. TECHNIQUE: The skin overlying the L2-L3 level was prepped and draped in usual sterile fashion. Subcu taneous 1% lidocaine was used for local anesthesia. A 20 gauge spinal needle was advanced under fluo roscopic guidance. The needle was removed and the entry site was cleaned and dressed. There were no immediate complications. Fluoroscopy exposure time was 0.1 minutes. The total number of images was 1. FINDINGS: Real-time fluoroscopy demonstrates the needle at the L2-L3 level. The opening pressure was 14 cm water (Normal range is variably defined as 6-20 cm water and up to 25 cm water in obese patient s. Pressure >25 cm water is one of the modified Dandy criteria for idiopathic intracranial hypertensi on). 14 mL of clear, colorless fluid was collected in 4 tubes. IMPRESSION: 1. Successful fluoro-guided lumbar puncture. Reviewed, dictated and finalized at location A.
--- NOTE | ~2023-07-25 | MR_ITS ---
EXAMINATION: MR brain/brain stem wo con DATE: 07/28/2023 18:23 INDICATION: double vision TECHNIQUE: Magnetic resonance imaging (MRI) of the brain and brainstem was performed without intraven ous contrast. Sequences included sagittal and axial T1-weighted SE, axial diffusion-weighted FS EPI A SSET, axial T2*-weighted GRE, axial T2-weighted FLAIR Propeller, and axial T2-weighted Propeller. Delma arent diffusion coefficient (ADC) maps were created. COMPARISON: MRI brain 07/27/2023 CT brain and CTA brain carotid 07/28/2023 FINDINGS: Mild motion artifact. No abnormal restricted diffusion to suggest acute ischemic infarct. Focal old i nfarcts in the right basal ganglia and right internal capsule. No MRI evidence of hemorrhage or extra -axial collection. No suspicious foci of susceptibility to suggest prior intraparenchymal hemorrhage. Scattered foci of white matter hyperintensity, likely representing mild small vessel ischemic diseas e. No evidence of advanced or lobar predominant parenchymal volume loss. The basilar cisterns are pat ent. Flow voids are preserved. Paranasal sinuses are within normal limits. Globes and orbital content s are within normal limits. IMPRESSION: No acute intracranial process. Reviewed, dictated and finalized at location K.
--- NOTE | 2023-07-25 11:58 | ECG_ITS ---
SEE SCANNED COPY FOR CONFIRMED REPORT MTDD
--- NOTE | 2023-07-25 12:10 | ED.AMS ---
HPI - Altered Mental Status General Chief Complaint: Altered Mental Status Stated Complaint: ams Time Seen by Provider: 07/25/23 11:59 History of Present Illness HPI narrative: 57 years old white male lives alone, history of psych disorder, diabetes, hypertension, hyperlipidemia, called 911 today because he is confused for while. Patient reported not taking his medications and does not eat or drink appropriately. Currently he denies any pain or any other symptoms. Patient is telling me that he does have psych disorder, he does not know the name of it. He does not smoke or drink or use drugs Related Data Home Medications Medication Instructions Recorded Confirmed empagliflozin 25 mg tablet 25 mg PO DAILY 01/25/22 07/27/23 (Jardiance) oxcarbazepine 300 mg tablet 30 mg PO Q8H 01/25/22 07/27/23 pen needle, diabetic 31 gauge x 01/25/22 07/27/2308/06 (BD Ultra-Fine Short Pen Needle) Adults Multivitamin 1 tablet PO DAILY 07/27/23 07/27/23 celecoxib 200 mg capsule 200 mg PO DAILY PRN Pain 07/27/23 07/27/23 ergocalciferol (vitamin D2) 1,250 1,250 mcg PO DAILY 07/27/23 07/27/23 mcg (50,000 unit) capsule fluticasone 500 mcg-salmeterol 50 1 inh inhalation BID 07/27/23 07/27/23 mcg/dose blistr powdr for inhalation (Advair Diskus) fluticasone propionate 50 1 spray intranasal BID 07/27/23 07/27/23 mcg/actuation nasal spray,suspension furosemide 40 mg tablet 40 mg PO DAILY PRN Edema 07/27/23 07/27/23 insulin glargine 100 unit/mL (3 40 unit subcut QAM 07/27/23 07/27/23 mL) subcutaneous pen (Lantus Solostar U-100 Insulin) omeprazole 20 mg capsule,delayed 40 mg PO DAILY 07/27/23 07/27/23 release quetiapine 300 mg tablet,extended 300 mg PO HS 07/27/23 07/27/23 release 24 hr Allergies Allergy/AdvReac Type Severity Reaction Status Date / Time doxycycline Allergy Intermediate RASH Verified 08/15/22 14:50 levetiracetam Allergy Intermediate INCREASED Verified 08/15/22 14:50 SZ'S meloxicam Allergy Intermediate ITCHING Verified 08/15/22 14:50 Sulfa (Sulfonamide Allergy Mild RASH Verified 08/15/22 14:50 Antibiotics) cephalexin Allergy Unknown Rash Verified 08/15/22 14:50 Cephalosporins Allergy Unknown Rash Verified 08/15/22 14:50 haloperidol Allergy Unknown Seizure Verified 08/15/22 14:50 sulfite Allergy Unknown Other Verified 08/15/22 14:50 tetracycline Allergy Unknown Diarrhea Verified 08/15/22 14:50 hydromorphone [From Dilaudid] Allergy Other Verified 08/15/22 14:50 levalbuterol AdvReac Severe Other Verified 08/15/22 14:50 molindone AdvReac Intermediate Nausea Verified 08/15/22 14:50 Oat Allergy Severe Swelling Uncoded 01/25/22 14:56 Review of Systems Review of Systems: All systems reviewed & are unremarkable except as noted in HPI and below PMFSH Past Medical History Medical History Acute bronchitis due to other specified organisms Acute right-sided thoracic back pain Adult body mass index 40 and over Aftercare following surgery of the musculoskeletal system Anxiety Asthma B12 deficiency Bilateral hand numbness Bipolar disorder BMI 39.0-39.9,adult Body mass index [BMI] 37.0-37.9, adult (01/05/19) Body mass index [BMI] 39.0-39.9, adult (10/23/18) Body mass index [BMI]40.0-44.9, adult (04/23/18) Cervicalgia Closed displaced fracture of lateral malleolus of right fibula Coronary artery spasm Diastolic dysfunction Dietary counseling and surveillance (02/11/17) GARCIA (dyspnea on exertion) Dupuytrens contracture Dyslipidemia Eczema of both hands Epilepsy, unspecified, not intractable, with status epilepticus Essential hypertension Gastroesophageal reflux disease History of kidney stones Hospital discharge follow-up Left hemiparesis (~01/2015) Patient presented to the emergency department in January 2015 with left hemiparesis. Brain CT was unremarkable however NIH stroke scale was 10. He was given tPA and transferred to [facility]
[2023-07-25 12:41] LABS: Basophils Absolute Auto 0.1 K/mm3 (0.0-0.1); Basophils Percent Auto 0.4 % (0.2-1.2); Eosinophils Percent Auto 0.1 % (0-4.4); Hematocrit 52.9 % (42.0-52.0); Hemoglobin 17.4 g/dL (14.0-18.0); Immature Granulocyte Absolute 0.13 K/mm3 (0.00-0.031); Immature Granulocyte Percent A 0.7 % (0-0.5); Lymphocytes Percent Auto 8.3 % (18.3-44.2); Mean Corpuscular HGB Conc 32.9 g/dl (32-36); Mean Corpuscular Volume 91.2 fl (80-100); Mean Platelet Volume 9.9 fl (7.4-10.4); Monocytes Absolute Auto 0.8 K/mm3 (0.1-0.6); Monocytes Percent Auto 4.3 % (2.6-8.5); Neutrophils Absolute Auto 16.5 K/mm3 (1.3-6.7); Neutrophils Percent Auto 86.2 % (45.5-73.1); Nucleated Red Blood Cells Perc 0.2 % (0.0-0.2); Platelet Count Result 403 k/mm3 (150-375); White Blood Count 19.2 K/mm3 (4.5-10.0)
[2023-07-25 12:47] LABS: Influenza A QL RT-PCR Negative (Negative); Influenza B QL RT-PCR Negative (Negative); SARS-CoV-2 RNA PCR Negative (Negative)
[2023-07-25 12:52] LABS: INR 1.1; Prothrombin Time 14.5 Seconds (11.1-14.7)
[2023-07-25 12:53] LABS: Partial Thromboplastin Time 26.3 Seconds (22.3-36.8)
[2023-07-25 13:04] LABS: Lactic Acid Reflex 9.7 mmol/L (0.7-2.0)
[2023-07-25 13:30] LABS: Albumin Level 3.8 g/dL (3.5-5.1); Alkaline Phosphatase 99 U/L (38-126); Anion Gap 21 mmol/L (4-12); Aspartate Amino Transferase 37 U/L (17-59); Blood Urea Nitrogen 19 mg/dL (9-20); Calcium 9.1 mg/dL (8.4-10.2); Carbon Dioxide 17 mmol/L (22-30); Chloride 98 mmol/L (98-107); Estimated CRCL calculation 85 ml/min; Estimated Glomerular Filt Rate > 60; Glucose 328 mg/dL (65-110); Sodium 136 mmol/L (137-145)
[2023-07-25 13:32] LABS: Appearance Urine Clear (Clear); Bacteria Urine None Seen /hpf; Bilirubin Urine 2+ (Negative); Blood Urine Negative (Negative); Color Urine Dark Yellow (Yellow); Glucose Urine UA 2+ mg/dL (Negative); Ketones Urine 1+ mg/dL (Negative); Leukocyte Esterase Ur Trace LEU/UL (Negative); Nitrate Urine Negative (Negative); Non Pathogenic Casts 0-2; Protein Urine 1+ mg/dL (Negative); RBC Urine 0-2 /hpf (0-2); Specific Grav Ur 1.023 (1.001-1.035); Squamous Epithelial Cell Urine None Seen /hpf (Few); WBC Urine 0-5 /hpf (0-3)
[2023-07-25 13:36] LABS: Creatine Kinase 41 U/L (55-170)
[2023-07-25 13:40] LABS: Alanine Aminotransferase 35 U/L (6-50)
[2023-07-25 13:50] LABS: Add Urine Microscopic? YES
[2023-07-25] MEDS: SODIUM CHLORIDE 0.9% IV 1,000 ML 999 ML IV CONT (13:53)
--- NOTE | 2023-07-25 14:14 | PCRCNOTE ---
Arrived to room to draw carol ann PÉREZ. currently in CT. Will draw as soon as patient returns.
[2023-07-25 14:26] LABS: Alveolar/Arterial O2 Gradient 42.6 mmHg; Base Excess ABG 0.4 mEq/l (+/-2.0); Fractional Inspired Oxygen 21 %; HCO3 ABG 22.6 mEq/l (22.0-26.0); Oxygen Content ABG 20.5 %vol (16.0-22.0); Oxygen Saturation ABG 95.5 % (95.0-100.0); Oxyhemoglobin 93.5 % THb (90.0-100.0); PCO2 ABG 30.4 mmHg (35.0-45.0); PO2 ABG 70.7 mmHg (80.0-100.0); PO2 FiO2 Ratio Arterial Blood 3.37 %; Site Drawn LEFT BRACHIAL; Total Hemoglobin 15.6 g/dL (12.0-18.0); pH ABG 7.489 (7.350-7.450)
[2023-07-25 14:27] LABS: Device ROOM AIR
[2023-07-25] MEDS: POTASSIUM CHLORIDE INJ 40 MEQ in SODIUM CHLORIDE 0.9% IV 500 ML 130 MEQ IVPB (14:34)
[2023-07-25] MEDS: VANCOMYCIN 2,000 MG/NS 500 ML 2,000 MG/500 ML BAG 250 MG IVPB (14:34)
--- NOTE | 2023-07-25 15:09 | PM.IMHP ---
H&P: HPI History of Present Illness Date/Time: 07/25/23 15:09 Chief Complaint: altered mental status Narrative: This is a 57-year-old male patient only known past history including diabetes, seizures and psychiatric problem (may be schizophrenia?) Was brought to the emergency department by EMS for confusion. Reportedly patient call 911 because he was confused. In the emergency department patient had CT scan of the brain which showed chronic right lacunar infarct and age-related changes but no acute abnormalities, CT scan abdomen/pelvis also unremarkable and chest x-ray with no abnormalities. Laboratory assessment was significant for elevated white blood cell count at 19.2, platelets 403, potassium 3.0, carbon dioxide 17, anion gap 21 with normal renal function, elevated glucose 328 significantly elevated lactic acid at 9.7 normal CPK normal liver enzymes. Urinalysis shows 1+ urine ketones 2+ glucose negative nitrites trace leukocyte esterase no urine bacteria. Flu and COVID were negative. Patient received a L of IV fluids in the emergency department as well as IV potassium. Patient reportedly declined the oral potassium. Patient does not have a list of medicines that he is supposed to be taking cannot remember what medicines he is supposed to take or what pharmacy he gets them from. Nursing staff contacted patient's son who stated that he does not in regular communication with this patient and only knows that he has a past history of seizures and psychiatric problem. Unverified prior medication list located in the computer system also indicates he has asthma or respiratory allergies. Patient denies any pain nausea or other concerning symptoms except confusion. Patient can state his name, current age and knows that it is 2024 but cannot answer any other orientation questions including past medical history or even his date of . Patient indicates ?I know my date of but I just can't. He is able to follow commands but generally his eyes tend to be resting with a left upward gaze though they can move otherwise and return to leftward upward gaze. Review of Systems Review of Systems: ROS unobtainable: Yes unobtainable due to mental status PMFSH Past Medical History Medical History Acute bronchitis due to other specified organisms Acute right-sided thoracic back pain Adult body mass index 40 and over Aftercare following surgery of the musculoskeletal system Anxiety Asthma B12 deficiency Bilateral hand numbness Bipolar disorder BMI 39.0-39.9,adult Body mass index [BMI] 37.0-37.9, adult (01/05/19) Body mass index [BMI] 39.0-39.9, adult (10/23/18) Body mass index [BMI]40.0-44.9, adult (04/23/18) Cervicalgia Closed displaced fracture of lateral malleolus of right fibula Coronary artery spasm Diastolic dysfunction Dietary counseling and surveillance (02/11/17) GARCIA (dyspnea on exertion) Dupuytrens contracture Dyslipidemia Eczema of both hands Epilepsy, unspecified, not intractable, with status epilepticus Essential hypertension Gastroesophageal reflux disease History of kidney stones Hospital discharge follow-up Left hemiparesis (~01/2015) Patient presented to the emergency department in January 2015 with left hemiparesis. Brain CT was unremarkable however NIH stroke scale was 10. He was given tPA and transferred to [facility], where his symptoms resolved. Patient reports that the neurologist that was quite strange and his symptoms resolved so quickly and they do not believe he actually had a stroke. Low sodium levels Lower leg edema Metabolic encephalopathy Migraine headache Migraines Morbid obesity with BMI of 40.0-44.9, adult Obesity (BMI 35.0-39.9 without comorbidity) Obstructive sleep apnea No longer requiring CPAP after 140 lb weight loss. Paresthesias in right hand Pneumonia of right middle lobe due to infectious organism Psychogenic none
[2023-07-25 15:38] LABS: Reflex Lactic Acid Yes or No Add Lactic
--- NOTE | 2023-07-25 16:32 | PC.NURSE ---
This patient, Martín Salgado, was admitted to IMU Room 200-01. Patient/family oriented to hospital policies and general routines including ID bracelet, bed and alarms, visiting hours, pain management, procedures, bathroom and other care routines, personal items, smoking policy, room service/diet, and visiting hours. Information on how to activate the Rapid Response Team has been discussed. Patient/Family are encouraged to report perceived risks to care and to ask questions if they do not understand what they are told or what they should do.
[2023-07-25] MEDS: LACTATED RINGERS 1,000 ML 999 ML IV CONT ×2 (16:57→18:08)
[2023-07-25] MEDS: AZTREONAM 1 GM in SODIUM CHLORIDE 0.9% IV 50 ML 100 ML IVPB (17:11)
[2023-07-25 17:25] LABS: Lactic Acid Reflex 2.6 mmol/L (0.7-2.0)
[2023-07-25 17:38] LABS: Beta-Hydroxybutyrate/Acetoacetate 2.16 mmol/L (0.02-0.27)
[2023-07-25 17:55] LABS: Glucose Point of Care 225 mg/dl (65-105)
[2023-07-25] MEDS: levoFLOXacin 750 MG/D5W 150 ML 750 MG/150 ML BAG 100 MG IVPB (18:07)
[2023-07-25 18:10] LABS: MRSA (PCR) NOT DETECTED (NOT DETECTE)
--- NOTE | 2023-07-25 18:13 | PC.NURSE ---
patient only alert to self, not able to answer questions about medical history or home medications. Called son Olman. Olman stated doesn't know much about medical history other than seizure disorders and psych disorders but him and his father are distant. Jordon Pelletier NP notified.
[2023-07-25] MEDS: MEROPENEM 2 GM in SODIUM CHLORIDE 0.9% IV 100 ML IVPB (20:17)
[2023-07-25] MEDS: SODIUM CHLORIDE 0.9% IV 1,000 ML 125 ML IV CONT (20:17)
[2023-07-25 20:55] LABS: Ammonia < 9 umol/L (9-30); Ethanol < 10 mg/dL (<10)
[2023-07-25 21:00] LABS: Glucose Point of Care 193 mg/dl (65-105)
[2023-07-25 21:11] LABS: Alanine Aminotransferase 24 U/L (6-50); Albumin Level 3.5 g/dL (3.5-5.1); Alkaline Phosphatase 73 U/L (38-126); Anion Gap 11 mmol/L (4-12); Aspartate Amino Transferase 31 U/L (17-59); Bilirubin,Total 1.6 mg/dL (0.2-1.3); Blood Urea Nitrogen 17 mg/dL (9-20); Calcium 8.5 mg/dL (8.4-10.2); Carbon Dioxide 23 mmol/L (22-30); Chloride 104 mmol/L (98-107); Estimated CRCL calculation 110 ml/min; Estimated Glomerular Filt Rate > 60; Glucose 182 mg/dL (65-110); Potassium 3.8 mmol/L (3.4-5.0); Sodium 138 mmol/L (137-145)
[2023-07-25 21:24] LABS: Hemoglobin A1C 7.7 % (<5.7)
[2023-07-25 21:37] LABS: Total Triiodothyronine (T3) 0.87 NG/ML (0.97-1.69)
[2023-07-25 23:00] LABS: Amphetamine Screen Urine Negative (Negative); Barbiturate Screen Urine Negative (Negative); Benzodiazepines Screen Urine Negative (Negative); Cannabinoid Screen Urine Negative (Negative); Cocaine Screen Urine Negative (Negative); Methadone Screen Urine Negative (Negative); Opiate Screen Urine Negative (Negative); Phencyclidine Screen Urine Negative (Negative)
[2023-07-26] VITALS (10 sets, daily range): BP systolic 126–161; BP diastolic 70–85; PULSE 89–128; RESP 8–18; TEMP 36.4–37.1; O2SAT 95–100
[2023-07-26] MEDS: VANCOMYCIN 1,500 MG/NS 500 ML 1,500 MG/500 ML BAG 250 MG IVPB ×2 (03:26→17:25)
[2023-07-26 04:38] LABS: Basophils Absolute Auto 0.1 K/mm3 (0.0-0.1); Basophils Percent Auto 0.8 % (0.2-1.2); Eosinophils Absolute Auto 0.2 K/mm3 (0-0.3); Eosinophils Percent Auto 1.5 % (0-4.4); Hematocrit 40.7 % (42.0-52.0); Hemoglobin 13.7 g/dL (14.0-18.0); Immature Granulocyte Absolute 0.05 K/mm3 (0.00-0.031); Immature Granulocyte Percent A 0.4 % (0-0.5); Lymphocytes Absolute Auto 2.34 K/mm3 (0.9-3.2); Lymphocytes Percent Auto 19.5 % (18.3-44.2); Mean Corpuscular HGB Conc 33.7 g/dl (32-36); Mean Corpuscular Hemoglobin 30.3 pg (26-34); Mean Platelet Volume 9.7 fl (7.4-10.4); Monocytes Absolute Auto 0.8 K/mm3 (0.1-0.6); Monocytes Percent Auto 6.6 % (2.6-8.5); Neutrophils Absolute Auto 8.6 K/mm3 (1.3-6.7); Neutrophils Percent Auto 71.2 % (45.5-73.1); Platelet Count Result 283 k/mm3 (150-375); Red Blood Count 4.52 M/mm3 (4.6-6.20); Red Cell Distribution Width 13.2 % (11.5-14.5)
[2023-07-26] MEDS: MEROPENEM 2 GM in SODIUM CHLORIDE 0.9% IV 100 ML IVPB ×3 (04:45→22:25)
[2023-07-26 04:56] LABS: Anion Gap 7 mmol/L (4-12); Blood Urea Nitrogen 13 mg/dL (9-20); Carbon Dioxide 23 mmol/L (22-30); Chloride 106 mmol/L (98-107); Potassium 2.9 mmol/L (3.4-5.0); Sodium 136 mmol/L (137-145)
[2023-07-26 04:57] LABS: Alanine Aminotransferase 22 U/L (6-50); Albumin Level 2.9 g/dL (3.5-5.1); Alkaline Phosphatase 72 U/L (38-126); Aspartate Amino Transferase 27 U/L (17-59); Bilirubin,Total 1.4 mg/dL (0.2-1.3); Estimated CRCL calculation 96 ml/min; Estimated Glomerular Filt Rate > 60; Glucose 155 mg/dL (65-110); Magnesium 1.8 mg/dL (1.6-2.3)
[2023-07-26] MEDS: POTASSIUM CHLORIDE INJ 40 MEQ in SODIUM CHLORIDE 0.9% IV 500 ML 130 MEQ IVPB (06:13)
[2023-07-26 07:37] LABS: Glucose Point of Care 139 mg/dl (65-105)
--- NOTE | 2023-07-26 11:01 | WPDNEURCNPN ---
Assessment and Plan Assessment and plan (1) Altered mental state: Code(s): R41.82 - Altered mental status, unspecified Status: Acute (2) Epilepsy: Code(s): G40.909 - Epilepsy, unspecified, not intractable, without status epilepticus Status: Acute (3) Sepsis: Code(s): A41.9 - Sepsis, unspecified organism Status: Acute Plan Martín Salgado is a 57 year old male with a history of bipolar disorder, CATRACHITO, asthma, epilepsy, and essential tremor presenting due to altered mental status. Exam notable for L gaze preference and very subtle R sided weakness, expressive aphasia. Concern for possible stroke vs prolonged post-ictal state vs meningitis/encephalitis. - MRI brain w/o contrast - Agree with LP for infectious work-up - Recommend meningitic antibiotic coverage and acyclovir empirically - Trileptal currently on hold, start VPA 250mg BID Consult date: 07/26/23 Reason for consult: Altered mental status HPI: Martín Salgado is a 57 year old male with a history of bipolar disorder, CATRACHITO, asthma, epilepsy, and essential tremor presenting due to altered mental status. Patient called 911 on day of presentation due to confusion. He reported that he was also not taking his meds. He is not able to provide more history beyond that. In the ER CT head showed no acute changes. Labs were significant for WBC elevation of 19.2, elevated glucose in 300s, and elevated lactic acid of 9.7. CK level was normal. UA was not suggestive of UTI. Utox screen was negative. Trileptal level not checked. He was started on IV antibiotics and acyclovir. Patient takes Trileptal 300mg TID for epilepsy. He reports he has not had a seizure in quite a while. Patient continues to remain confused today. Trileptal being held currently. Patient has had adverse reaction to Keppra in the past. Review of Systems Review of Systems: ROS unobtainable: Yes unobtainable due to mental status PMFSH Past Medical History Medical History Acute bronchitis due to other specified organisms Acute right-sided thoracic back pain Adult body mass index 40 and over Aftercare following surgery of the musculoskeletal system Anxiety Asthma B12 deficiency Bilateral hand numbness Bipolar disorder BMI 39.0-39.9,adult Body mass index [BMI] 37.0-37.9, adult (01/05/19) Body mass index [BMI] 39.0-39.9, adult (10/23/18) Body mass index [BMI]40.0-44.9, adult (04/23/18) Cervicalgia Closed displaced fracture of lateral malleolus of right fibula Coronary artery spasm Diastolic dysfunction Dietary counseling and surveillance (02/11/17) GARCIA (dyspnea on exertion) Dupuytrens contracture Dyslipidemia Eczema of both hands Epilepsy, unspecified, not intractable, with status epilepticus Essential hypertension Gastroesophageal reflux disease History of kidney stones Hospital discharge follow-up Left hemiparesis (~01/2015) Patient presented to the emergency department in January 2015 with left hemiparesis. Brain CT was unremarkable however NIH stroke scale was 10. He was given tPA and transferred to [facility], where his symptoms resolved. Patient reports that the neurologist that was quite strange and his symptoms resolved so quickly and they do not believe he actually had a stroke. Low sodium levels Lower leg edema Metabolic encephalopathy Migraine headache Migraines Morbid obesity with BMI of 40.0-44.9, adult Obesity (BMI 35.0-39.9 without comorbidity) Obstructive sleep apnea No longer requiring CPAP after 140 lb weight loss. Paresthesias in right hand Pneumonia of right middle lobe due to infectious organism Psychogenic nonepileptic seizure Right arm cellulitis (~12/2009) Sarcoidosis Schizoaffective disorder Screening for lipid disorders Screening for prostate cancer SOB (shortness of breath) on exertion Suicide attempt (~03/2013) Intentional Seroquel overdose. Type 2 diabetes mellitus Unspecifi
[2023-07-26 11:36] LABS: Glucose Point of Care 112 mg/dl (65-105)
--- NOTE | 2023-07-26 12:01 | PC.NURSE ---
This patient, Martín Salgado, was transferred to [facility] on 07/26/23 at 1201. Personal belongings sent with patient. Report given to Dawson ALVARADO. Appropriate documentation sent with patient.
--- NOTE | 2023-07-26 13:14 | PM.IMPN ---
Progress Note: A&P Assessment and Plan (1) Altered mental state: Code(s): R41.82 - Altered mental status, unspecified Status: Acute Assessment and Plan: -altered mental status, patient call 911 himself because he has been confused for ?a while? -patient could only remember his name, age and the year getting all other attempted orientation and ROS questions incorrect or unable to find words. Cannot remember date of . -eyes with preference for a leftward upward gaze though they can move across midline -history of psychiatric disorder, per EMR this appears to be bipolar affective disorder -history of seizure disorder, unknown if taking any medications currently, this does not appear to be postictal state but could be encephalopathy from prior seizures -laboratory assessment concerning for sepsis with lactic acid 9.7 white blood cell count 19.2 glucose elevated and bilirubin 2. Leukocytosis improved. Down to 2.6 as well. -empiric antibiotics given by ER and then changed to cover possibility of meningitis -Lumbar puncture and MRI Brain ordered. 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, no acute abnormality -Son does not know much more than seizure and psych history Neurology consulted (2) Lactic acidosis: Code(s): E87.20 - Acidosis, unspecified Status: Acute Assessment and Plan: -initial lactic acid 9.7, improved to 2.6 after 1 L of IV fluids (3) Sepsis: Code(s): A41.9 - Sepsis, unspecified organism Status: Acute Assessment and Plan: -laboratory assessment concerning for sepsis with lactic acid 9.7 white blood cell count 19.2 glucose elevated and bilirubin 2 -tachycardia with tachypnea also present, no hypotension -presumed yet unknown source of infection--blood and urine cultures in process, abdomen CT negative, urinalysis does not appear infected only trace leukocyte esterase, chest x-ray negative, afebrile -given altered mental status will cover for meningitis and order MRI/lumbar puncture which is pending Will get EEG Neurology consulted (4) Diabetic ketoacidosis: Code(s): E11.10 - Type 2 diabetes mellitus with ketoacidosis without coma Status: Resolved Assessment and Plan: -very mild with initial chemistry panel anion gap 21 and carbon dioxide 17. Glucose 328. Beta hydroxybutyrate 2.16. Lactic acid 9.7 -interestingly ABG indicated respiratory alkalosis -repeat chemistry shows improvement of carbon dioxide 23, decrease in anion gap to 11 improvement in glucose to 182 thus closing the anion gap and resolving DKA (5) Bipolar affective disorder: Code(s): F31.9 - Bipolar disorder, unspecified Status: Chronic Assessment and Plan: -per documented history in EMR, unknown if patient is on any medications currently or if altered mental status presentation is related to this history (6) Seizure disorder: Code(s): G40.909 - Epilepsy, unspecified, not intractable, without status epilepticus Status: Chronic Assessment and Plan: -per documented history in EMR, unknown patient is on any medications currently or if altered status presentation is related to this history On oxcarbazepine at home Possible seizure Neuro consulted (7) HTN (hypertension) with goal to be determined: Code(s): I10 - Essential (primary) hypertension Status: Chronic Assessment and Plan: -per documented history in EMR, unknown patient is on any medications currently or if altered status presentation is related to this history (8) Urinary retention: Code(s): R33.9 - Retention of urine, unspecified Status: Acute Assessment and Plan: -during exam patient indicated some suprapubic discomfort but unable to verbalize concern -nursing staff noted that patient was trying to use the restroom but unable to do so -bladder scan 1300 mL -Mejia catheter inserted with tea-colored clear urine, normal renal function on labs Subjective Date/time
[2023-07-26] MEDS: SODIUM CHLORIDE 0.9% IV 1,000 ML 125 ML IV CONT (13:21)
[2023-07-26 16:33] LABS: Glucose Point of Care 177 mg/dl (65-105)
[2023-07-26 21:00] LABS: Glucose Point of Care 174 mg/dl (65-105)
[2023-07-26] MEDS: VALPROATE SODIUM INJ 250 MG in DEXTROSE 5% IN WATER 50 ML 52.5 MG IVPB (23:12)
[2023-07-27] VITALS (10 sets, daily range): BP systolic 126–195; BP diastolic 73–96; PULSE 82–118; RESP 16–20; TEMP 36.2–36.8; O2SAT 95–100
[2023-07-27 03:01] LABS: Basophils Absolute Auto 0.1 K/mm3 (0.0-0.1); Eosinophils Absolute Auto 0.2 K/mm3 (0-0.3); Eosinophils Percent Auto 1.5 % (0-4.4); Hematocrit 38.6 % (42.0-52.0); Hemoglobin 12.9 g/dL (14.0-18.0); Immature Granulocyte Absolute 0.05 K/mm3 (0.00-0.031); Immature Granulocyte Percent A 0.5 % (0-0.5); Lymphocytes Absolute Auto 2.61 K/mm3 (0.9-3.2); Lymphocytes Percent Auto 26.2 % (18.3-44.2); Mean Corpuscular HGB Conc 33.4 g/dl (32-36); Mean Corpuscular Hemoglobin 30.2 pg (26-34); Mean Corpuscular Volume 90.4 fl (80-100); Mean Platelet Volume 9.5 fl (7.4-10.4); Monocytes Absolute Auto 0.8 K/mm3 (0.1-0.6); Monocytes Percent Auto 7.5 % (2.6-8.5); Neutrophils Absolute Auto 6.3 K/mm3 (1.3-6.7); Neutrophils Percent Auto 63.3 % (45.5-73.1); Platelet Count Result 254 k/mm3 (150-375); Red Blood Count 4.27 M/mm3 (4.6-6.20); Red Cell Distribution Width 13.2 % (11.5-14.5)
[2023-07-27 03:10] LABS: Alanine Aminotransferase 30 U/L (6-50); Albumin Level 2.9 g/dL (3.5-5.1); Alkaline Phosphatase 83 U/L (38-126); Anion Gap 5 mmol/L (4-12); Aspartate Amino Transferase 41 U/L (17-59); Blood Urea Nitrogen 9 mg/dL (9-20); Calcium 7.7 mg/dL (8.4-10.2); Carbon Dioxide 24 mmol/L (22-30); Chloride 103 mmol/L (98-107); Estimated CRCL calculation 124 ml/min; Estimated Glomerular Filt Rate > 60; Glucose 191 mg/dL (65-110); Magnesium 1.6 mg/dL (1.6-2.3); Potassium 2.9 mmol/L (3.4-5.0); Sodium 132 mmol/L (137-145)
[2023-07-27 03:18] LABS: Vancomycin Trough 18.8 ug/mL (10.0-20.0)
[2023-07-27] MEDS: VANCOMYCIN 1,500 MG/NS 500 ML 1,500 MG/500 ML BAG 250 MG IVPB ×2 (04:54→16:57)
[2023-07-27] MEDS: SODIUM CHLORIDE 0.9% IV 1,000 ML 125 ML IV CONT ×2 (05:15→18:07)
[2023-07-27 07:25] LABS: Glucose Point of Care 185 mg/dl (65-105)
[2023-07-27] MEDS: VALPROATE SODIUM INJ 250 MG in DEXTROSE 5% IN WATER 50 ML 52.5 MG IVPB ×2 (08:40→20:44)
[2023-07-27] MEDS: MEROPENEM 2 GM in SODIUM CHLORIDE 0.9% IV 100 ML IVPB ×2 (09:34→18:04)
[2023-07-27] MEDS: POTASSIUM CHLORIDE INJ 40 MEQ in SODIUM CHLORIDE 0.9% IV 500 ML 130 MEQ IVPB (09:34)
--- NOTE | 2023-07-27 10:58 | WPDNEUROPN ---
Progress Note: A&P Assessment and Plan (1) Altered mental state: Code(s): R41.82 - Altered mental status, unspecified Status: Acute (2) Epilepsy: Code(s): G40.909 - Epilepsy, unspecified, not intractable, without status epilepticus Status: Acute (3) Sepsis: Code(s): A41.9 - Sepsis, unspecified organism Status: Acute Plan karen Salgado is a 57 year old male with a history of bipolar disorder, CATRACHITO, asthma, epilepsy, and essential tremor presenting due to altered mental status. Exam notable for L gaze preference and very subtle R sided weakness, expressive aphasia. Concern for possible stroke vs prolonged post-ictal state vs meningitis/encephalitis. MRI brain and CSF studies so far are not concerning for an acute process, although he was started on antibiotics/acyclovir prior to the LP. Mental status seems to be somewhat improved from yesterday. Per family, patient has had episodes in the past similar to this which they attribute to his Bipolar disorder, where he is unable to care for himself - Continue meningitic antibiotic coverage and acyclovir empirically until cultures return - Trileptal currently on hold, continue VPA 250mg BID in meantime. Can switch back to Trileptal when tolerating PO meds - Consider psych consult if no improvement in mentation Subjective Date/time seen: 07/27/23 10:58 Interval history: Martín Salgado is a 57 year old male with a history of bipolar disorder, CATARCHITO, asthma, epilepsy, and essential tremor presenting due to altered mental status. Patient called 911 on day of presentation due to confusion. He reported that he was also not taking his meds. He is not able to provide more history beyond that. In the ER CT head showed no acute changes. Labs were significant for WBC elevation of 19.2, elevated glucose in 300s, and elevated lactic acid of 9.7. CK level was normal. UA was not suggestive of UTI. Utox screen was negative. Trileptal level not checked. He was started on IV antibiotics and acyclovir. Patient takes Trileptal 300mg TID for epilepsy. He reports he has not had a seizure in quite a while. Patient continues to remain confused today. Trileptal being held currently. Patient has had adverse reaction to Keppra in the past. LP done this morning. Cell count and protein are normal. MRI brain negative for any acute changes. Aunt and uncle are at bedside. They report that patient has been having difficulty caring for himself for the past year, and has been off of his meds for at least the past two months. They also mention that he has had episodes like the one he is having currently, and then usually recovers on his own. Review of Systems Review of Systems: All systems reviewed & are unremarkable except as noted in HPI and below Exam Const: General: comfortable and no acute distress HENMT: Mouth: Yes moist mucous membranes Eyes: Pupils: Equal, round and reactive pupils present Other: Gaze preference to the left, could not cross midline Resp: Effort & Inspection: normal respiratory effort Skin: General skin exam: normal color Neuro: Other: Awake, alert, oriented to self. and location, Pupils equal and reactive bilaterally, L gaze preference could not cross midline, face symmetric, facial sensation intact, tongue protrudes midline, palate midline. Shoulder shrug normal. Strength 4+/5 in RUE and RLE, and 5/5 LUE and LLE. Sensation intact appears to be symmetric. FNF normal bilaterally. Speech is more fluent today. Gait deferred. Extrem: General: normal to inspection Objective Data Vital Signs Vital Signs: Vital Signs - 24 hr 07/26/23 12:15 07/26/23 12:00 07/26/23 16:00 Temperature 37.1 C 36.9 C Pulse Rate 128 H 89 106 H Respiratory Rate 18 16 Blood Pressure 148/85 H 161/85 H Pulse Oximetry 97 99 07/26/23 16:00 07/26/23 20:00 07/26/23 20:00 Temperature 36.6 C Pulse Rate 112 H 101 H 111 H Respiratory Rate 8 L Blood Pressure
[2023-07-27 11:50] LABS: Appearance CSF Clear (Clear); CSF source CSF; Color CSF Colorless (Colorless); Nucleated Cell CSF 0 /uL (0-5); Red Blood Cell CSF 1 (0-2)
[2023-07-27 12:07] LABS: Glucose CSF 103 mg/dL (40-70); Total Protein CSF 54 mg/dL (12-60)
--- NOTE | 2023-07-27 14:11 | PM.IMPN ---
Progress Note: A&P Assessment and Plan (1) Altered mental state: Code(s): R41.82 - Altered mental status, unspecified Status: Acute Assessment and Plan: -altered mental status, patient call 911 himself because he has been confused for ?a while? -patient could only remember his name, age and the year getting all other attempted orientation and ROS questions incorrect or unable to find words. Cannot remember date of . -eyes with preference for a leftward upward gaze though they can move across midline -history of psychiatric disorder, per EMR this appears to be bipolar affective disorder -history of seizure disorder, unknown if taking any medications currently, this does not appear to be postictal state but could be encephalopathy from prior seizures -laboratory assessment concerning for sepsis with lactic acid 9.7 white blood cell count 19.2 glucose elevated and bilirubin 2. Leukocytosis improved. Down to 2.6 as well. -empiric antibiotics given by ER and then changed to cover possibility of meningitis -Lumbar puncture and MRI Brain ordered. 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 Used to be on oxcarbazepine and has Keppra allergy MRI brain with old infarcts and no acute findings. Lumbar puncture performed today 0 nucleated cells seen. G stain negative (2) Lactic acidosis: Code(s): E87.20 - Acidosis, unspecified Status: Acute Assessment and Plan: -initial lactic acid 9.7, improved to 2.6 after 1 L of IV fluids lactic acid elevation likely related to breakthrough seizure (3) Sepsis: Code(s): A41.9 - Sepsis, unspecified organism Status: Acute Assessment and Plan: -laboratory assessment concerning for sepsis with lactic acid 9.7 white blood cell count 19.2 glucose elevated and bilirubin 2 -tachycardia with tachypnea also present, no hypotension -presumed yet unknown source of infection--blood and urine cultures in process, abdomen CT negative, urinalysis does not appear infected only trace leukocyte esterase, chest x-ray negative, afebrile -given altered mental status will cover for meningitis and order MRI/lumbar puncture which is pending Neurology consulted (4) Diabetic ketoacidosis: Code(s): E11.10 - Type 2 diabetes mellitus with ketoacidosis without coma Status: Resolved Assessment and Plan: -very mild with initial chemistry panel anion gap 21 and carbon dioxide 17. Glucose 328. Beta hydroxybutyrate 2.16. Lactic acid 9.7 -interestingly ABG indicated respiratory alkalosis -repeat chemistry shows improvement of carbon dioxide 23, decrease in anion gap to 11 improvement in glucose to 182 thus closing the anion gap and resolving DKA (5) Bipolar affective disorder: Code(s): F31.9 - Bipolar disorder, unspecified Status: Chronic Assessment and Plan: -per documented history in EMR, unknown if patient is on any medications currently or if altered mental status presentation is related to this history (6) Seizure disorder: Code(s): G40.909 - Epilepsy, unspecified, not intractable, without status epilepticus Status: Chronic Assessment and Plan: -per documented history in EMR, unknown patient is on any medications currently or if altered status presentation is related to this history On oxcarbazepine at home Possible seizure Neuro consulted (7) HTN (hypertension) with goal to be determined: Code(s): I10 - Essential (primary) hypertension Status: Chronic Assessment and Plan: -per documented history in EMR, unknown patient is on any medications currently or if altered status presentation is related to this history (8) Urinary retention: Code(s): R33.9 - Retention of urine, unspecified St
[2023-07-27 17:14] LABS: Glucose Point of Care 241 mg/dl (65-105)
[2023-07-27] MEDS: INSULIN ASPART (*BKC) 100 UNITS/ML SUB-Q (18:04)
[2023-07-27] MEDS: FLUTICASONE PROPIONATE 0.05% NA SPR 16 GM BTL (*BKC) 1 SPRAY NASAL (18:04)
[2023-07-27] MEDS: PRIMIDONE 250 MG TABLET PO (20:46)
[2023-07-27 20:53] LABS: Glucose Point of Care 187 mg/dl (65-105)
[2023-07-28] VITALS (14 sets, daily range): BP systolic 90–146; BP diastolic 60–108; PULSE 67–117; RESP 16–20; TEMP 36.1–36.3; O2SAT 96–100; BMI 32.8
[2023-07-28] MEDS: MEROPENEM 2 GM in SODIUM CHLORIDE 0.9% IV 100 ML IVPB (02:22)
--- NOTE | 2023-07-28 02:40 | PCRCNOTE ---
Patient refused 1999 citlalli FOSTERI stating the medication does not help him. Pt states he takes a DPI at home but could not remember the name.
[2023-07-28] MEDS: VANCOMYCIN 1,500 MG/NS 500 ML 1,500 MG/500 ML BAG 250 MG IVPB (04:29)
[2023-07-28 06:17] LABS: Basophils Absolute Auto 0.1 K/mm3 (0.0-0.1); Basophils Percent Auto 1.4 % (0.2-1.2); Eosinophils Absolute Auto 0.2 K/mm3 (0-0.3); Eosinophils Percent Auto 2.7 % (0-4.4); Hematocrit 41.7 % (42.0-52.0); Hemoglobin 13.8 g/dL (14.0-18.0); Immature Granulocyte Absolute 0.04 K/mm3 (0.00-0.031); Immature Granulocyte Percent A 0.5 % (0-0.5); Lymphocytes Absolute Auto 3.13 K/mm3 (0.9-3.2); Lymphocytes Percent Auto 36.2 % (18.3-44.2); Mean Corpuscular HGB Conc 33.1 g/dl (32-36); Mean Corpuscular Hemoglobin 29.9 pg (26-34); Mean Corpuscular Volume 90.5 fl (80-100); Mean Platelet Volume 9.8 fl (7.4-10.4); Monocytes Absolute Auto 0.7 K/mm3 (0.1-0.6); Monocytes Percent Auto 8.6 % (2.6-8.5); Neutrophils Absolute Auto 4.4 K/mm3 (1.3-6.7); Neutrophils Percent Auto 50.6 % (45.5-73.1); Platelet Count Result 262 k/mm3 (150-375); Red Blood Count 4.61 M/mm3 (4.6-6.20); Red Cell Distribution Width 13.1 % (11.5-14.5); White Blood Count 8.7 K/mm3 (4.5-10.0)
[2023-07-28 06:27] LABS: Alanine Aminotransferase 25 U/L (6-50); Albumin Level 3.2 g/dL (3.5-5.1); Alkaline Phosphatase 83 U/L (38-126); Anion Gap 8 mmol/L (4-12); Aspartate Amino Transferase 30 U/L (17-59); Bilirubin,Total 1.1 mg/dL (0.2-1.3); Blood Urea Nitrogen 8 mg/dL (9-20); Calcium 8.3 mg/dL (8.4-10.2); Carbon Dioxide 26 mmol/L (22-30); Chloride 98 mmol/L (98-107); Estimated CRCL calculation 152 ml/min; Estimated Glomerular Filt Rate > 60; Glucose 144 mg/dL (65-110); Magnesium 1.4 mg/dL (1.6-2.3); Potassium 2.7 mmol/L (3.4-5.0); Sodium 132 mmol/L (137-145)
[2023-07-28 07:51] LABS: Glucose Point of Care 141 mg/dl (65-105)
[2023-07-28] MEDS: POTASSIUM CHLORIDE 20 MEQ ER TABLET 40 MEQ PO ×2 (08:44→12:46)
[2023-07-28] MEDS: PRIMIDONE 250 MG TABLET PO ×3 (08:44→17:06)
[2023-07-28] MEDS: NEBIVOLOL HCL 5 MG TABLET 10 MG PO (08:44)
[2023-07-28] MEDS: CELECOXIB 200 MG CAPSULE PO (08:44)
[2023-07-28] MEDS: EMPAGLIFLOZIN 25 MG TABLET PO (08:45)
[2023-07-28] MEDS: PANTOPRAZOLE 40 MG TABLET PO ×2 (08:45→17:06)
[2023-07-28] MEDS: MULTIVITAMINS THERAPEUTIC TAB (*BKC) 1 TABLET PO (08:45)
[2023-07-28] MEDS: INSULIN GLARGINE (*BKC) 100 UNITS/ML 40 UNITS SUB-Q (08:49)
[2023-07-28] MEDS: ERGOCALCIFEROL 50,000 UNITS CAPSULE 50000 UNITS PO (08:50)
[2023-07-28] MEDS: POTASSIUM CHLORIDE INJ 40 MEQ in SODIUM CHLORIDE 0.9% IV 500 ML 130 MEQ IVPB (09:52)
--- NOTE | 2023-07-28 10:11 | ECG_ITS ---
SEE SCANNED COPY FOR CONFIRMED REPORT MTDD
[2023-07-28 10:19] LABS: Glucose Point of Care 202 mg/dl (65-105)
[2023-07-28] MEDS: NITROGLYCERIN SL 0.4 MG TABLET SUBLINGUAL (10:20)
[2023-07-28] MEDS: MORPHINE SULFATE (*CRX) 4 MG/ML INJ 1 MG IV PUSH (10:22)
[2023-07-28 10:48] LABS: Hematocrit 42.2 % (42.0-52.0); Mean Corpuscular HGB Conc 33.2 g/dl (32-36); Mean Corpuscular Hemoglobin 29.9 pg (26-34); Mean Platelet Volume 9.7 fl (7.4-10.4); Platelet Count Result 304 k/mm3 (150-375); Red Blood Count 4.69 M/mm3 (4.6-6.20); Red Cell Distribution Width 12.9 % (11.5-14.5); White Blood Count 9.2 K/mm3 (4.5-10.0)
[2023-07-28 10:58] LABS: Anion Gap 5 mmol/L (4-12); Blood Urea Nitrogen 7 mg/dL (9-20); Calcium 8.4 mg/dL (8.4-10.2); Carbon Dioxide 30 mmol/L (22-30); Chloride 95 mmol/L (98-107); Estimated CRCL calculation 152 ml/min; Estimated Glomerular Filt Rate > 60; Glucose 183 mg/dL (65-110); Lactic Acid Reflex 2.5 mmol/L (0.7-2.0); Magnesium 1.5 mg/dL (1.6-2.3); Potassium 3.3 mmol/L (3.4-5.0); Sodium 130 mmol/L (137-145)
[2023-07-28 11:10] LABS: Troponin I < 0.012 ng/mL (0.000-0.034)
[2023-07-28] MEDS: MAGNESIUM SULF 4 GM/WATER100ML 4 GM/100 ML BAG IVPB (11:19)
[2023-07-28 11:30] LABS: Glucose Point of Care 168 mg/dl (65-105)
[2023-07-28 13:23] LABS: Anion Gap 6 mmol/L (4-12); Blood Urea Nitrogen 8 mg/dL (9-20); Calcium 8.6 mg/dL (8.4-10.2); Carbon Dioxide 29 mmol/L (22-30); Chloride 96 mmol/L (98-107); Estimated CRCL calculation 152 ml/min; Estimated Glomerular Filt Rate > 60; Glucose 140 mg/dL (65-110); Potassium 3.4 mmol/L (3.4-5.0); Sodium 131 mmol/L (137-145)
[2023-07-28 13:45] LABS: Reflex Lactic Acid Yes or No Add Lactic
[2023-07-28] MEDS: ASPIRIN 81 MG CHEWABLE TABLET 324 MG PO (13:59)
[2023-07-28 14:31] LABS: Lactic Acid 1.4 mmol/L (0.7-2.0)
[2023-07-28 14:51] LABS: Troponin I < 0.012 ng/mL (0.000-0.034)
--- NOTE | 2023-07-28 14:53 | PC.NURSE ---
When initiating the ordered potassium at 09:52 through he patients IV, the patient stated that there was pain associated with the infusion. This nurse explained that some medications can cause discomfort given through an IV and lowered the infusion rate. The patient continued to complain of pain and the infusion rate was lowered again. The patient then stated that he could not hear properly. This nurse immediately stopped the infusion and called Dr. Gibbs to explain the situation. Orders were given to discontinue the IV potassium and to give a dose P.O. This nurse returned to the room to check the patient again and noticed a change in his level of consciousness. A rapid response was called. Dr. Gibbs arrived and orders were given, see order history. Patient has had a CT and a CTA that were both negative. Patient is currently resting in bed with no complaints and waiting to be taken for and MRI.
--- NOTE | 2023-07-28 15:13 | PCPTNOTE ---
Pt currently has active bedrest orders. Per hospitalist, Dr. Gibbs, hold therapy until tomorrow.
[2023-07-28 16:38] LABS: Glucose Point of Care 138 mg/dl (65-105)
[2023-07-28] MEDS: FLUTICASONE PROPIONATE 0.05% NA SPR 16 GM BTL (*BKC) 1 SPRAY NASAL (17:08)
--- NOTE | 2023-07-28 17:25 | PM.IMPN ---
Progress Note: A&P Assessment and Plan (1) Altered mental state: Code(s): R41.82 - Altered mental status, unspecified Status: Acute Assessment and Plan: -altered mental status, patient call 911 himself because he has been confused for ?a while? -patient could only remember his name, age and the year getting all other attempted orientation and ROS questions incorrect or unable to find words. Cannot remember date of . -eyes with preference for a leftward upward gaze though they can move across midline -history of psychiatric disorder, per EMR this appears to be bipolar affective disorder -history of seizure disorder, unknown if taking any medications currently, this does not appear to be postictal state but could be encephalopathy from prior seizures -laboratory assessment concerning for sepsis with lactic acid 9.7 white blood cell count 19.2 glucose elevated and bilirubin 2. Leukocytosis improved. Down to 2.6 as well. -empiric antibiotics given by ER and then changed to cover possibility of meningitis -Lumbar puncture and MRI Brain ordered. 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 Used to be on oxcarbazepine and has Keppra allergy MRI brain with old infarcts and no acute findings. Lumbar puncture performed today 0 nucleated cells seen. G stain negative Will stop IV antibiotics as low suspicion for meningitis Likely seizure disorder Since is more awake will switch him back to oxcarbazepine Will stop Valproate (2) Lactic acidosis: Code(s): E87.20 - Acidosis, unspecified Status: Acute Assessment and Plan: -initial lactic acid 9.7, improved to 2.6 after 1 L of IV fluids lactic acid elevation likely related to breakthrough seizure (3) Sepsis: Code(s): A41.9 - Sepsis, unspecified organism Status: Acute Assessment and Plan: -laboratory assessment concerning for sepsis with lactic acid 9.7 white blood cell count 19.2 glucose elevated and bilirubin 2 -tachycardia with tachypnea also present, no hypotension -presumed yet unknown source of infection--blood and urine cultures in process, abdomen CT negative, urinalysis does not appear infected only trace leukocyte esterase, chest x-ray negative, afebrile -given altered mental status will cover for meningitis and order MRI/lumbar puncture which is pending Neurology consulted (4) Diabetic ketoacidosis: Code(s): E11.10 - Type 2 diabetes mellitus with ketoacidosis without coma Status: Resolved Assessment and Plan: -very mild with initial chemistry panel anion gap 21 and carbon dioxide 17. Glucose 328. Beta hydroxybutyrate 2.16. Lactic acid 9.7 -interestingly ABG indicated respiratory alkalosis -repeat chemistry shows improvement of carbon dioxide 23, decrease in anion gap to 11 improvement in glucose to 182 thus closing the anion gap and resolving DKA (5) Bipolar affective disorder: Code(s): F31.9 - Bipolar disorder, unspecified Status: Chronic Assessment and Plan: -per documented history in EMR, unknown if patient is on any medications currently or if altered mental status presentation is related to this history (6) Seizure disorder: Code(s): G40.909 - Epilepsy, unspecified, not intractable, without status epilepticus Status: Chronic Assessment and Plan: -per documented history in EMR, unknown patient is on any medications currently or if altered status presentation is related to this history On oxcarbazepine at home Possible seizure Neuro consulted (7) HTN (hypertension) with goal to be determined: Code(s): I10 - Essential (primary) hypertension Status: Chronic Assessment and Plan: -per documented history in EMR, unknown patient is on any medicati
[2023-07-28 20:23] LABS: Hematocrit 40.6 % (42.0-52.0); Hemoglobin 13.6 g/dL (14.0-18.0); Mean Corpuscular HGB Conc 33.5 g/dl (32-36); Mean Corpuscular Hemoglobin 30.2 pg (26-34); Mean Corpuscular Volume 90.2 fl (80-100); Mean Platelet Volume 9.6 fl (7.4-10.4); Platelet Count Result 255 k/mm3 (150-375); Red Cell Distribution Width 13.1 % (11.5-14.5); White Blood Count 7.3 K/mm3 (4.5-10.0)
[2023-07-28 20:23] LABS: Alveolar/Arterial O2 Gradient 24.5 mmHg; Base Excess ABG 3.4 mEq/l (+/-2.0); Carboxyhemoglobin 0.3 % THb (0-2.0); Fractional Inspired Oxygen 21 %; HCO3 ABG 25.9 mEq/l (22.0-26.0); Methemoglobin ABG 0.3 %THb (0-1.5); Oxygen Content ABG 19.2 %vol (16.0-22.0); Oxygen Saturation ABG 97.3 % (95.0-100.0); Oxyhemoglobin 95.9 % THb (90.0-100.0); PO2 ABG 85.7 mmHg (80.0-100.0); PO2 FiO2 Ratio Arterial Blood 4.08 %; Reduced Hemoglobin 3.5 %THb (0-5.0); Total Hemoglobin 14.2 g/dL (12.0-18.0)
[2023-07-28 20:25] LABS: Device ROOM AIR; Modified Allen's Test Pass; Site Drawn RIGHT RADIAL
[2023-07-28 20:26] LABS: pH ABG 7.512 (7.350-7.450)
[2023-07-28 20:34] LABS: Ammonia 10 umol/L (9-30)
[2023-07-28 20:35] LABS: Alanine Aminotransferase 24 U/L (6-50); Alkaline Phosphatase 81 U/L (38-126); Anion Gap 2 mmol/L (4-12); Aspartate Amino Transferase 30 U/L (17-59); Blood Urea Nitrogen 8 mg/dL (9-20); Calcium 8.5 mg/dL (8.4-10.2); Carbon Dioxide 28 mmol/L (22-30); Chloride 100 mmol/L (98-107); Estimated CRCL calculation 152 ml/min; Estimated Glomerular Filt Rate > 60; Glucose 94 mg/dL (65-110); Potassium 3.9 mmol/L (3.4-5.0); Sodium 130 mmol/L (137-145)
[2023-07-28 20:36] LABS: Lactic Acid Reflex 1.2 mmol/L (0.7-2.0)
[2023-07-28 21:40] LABS: Valproic Acid < 10.0 ug/mL (50-120)
--- NOTE | 2023-07-28 23:05 | P.PNCROSS_ITS ---
Event Note Event Note Event Note: Rapid response called due to altered mental status. S: Nurse came to check on the patient and he was altered and confused when compared to how he was last night. He was alert but answering questions slowly and was not completely oriented. The patient tells me that he feels weird but he cannot provide any other specifics. He denies headache, visual changes, paresthesias, focal weakness, chest pain, shortness a breath, nausea, and vomiting. O: Nontoxic-appearing male supine in bed. He appears a bit bewildered. He answers questions and follows commands but seems a bit confused and he is slower to respond. He is able to move upper and lower extremities without obvious limitation. He has difficulties understanding how to do rapid alternating movements and heel to wells. No pronator drift noted. Heart is regular rate and r hythm. Lung sounds are clear to auscultation. No evidence of tongue bite. A: Altered mental status. P: Patient reportedly had a similar episode this morning. Concerns are for possible seizure nurse states there were was no abnormalities with his telemetry that would suggest any sort of unusual movement. Blood pressure was initially in the 90 systolic but has improved without intervention. Obtain ABG and BMP. Hold on brain imaging as he had an MRI done several hours ago which was normal and there are no focal findings on exam. EEG ordered. Continue to monitor on telemetry. Critical Care Time Critical Care Time: Yes Total Critical Care Time: 30 Attestation: Due to a high probability of clinically significant, life threatening deterioration, the patient required my highest level of preparedness to intervene emergently and I personally spent this critical care time directly and personally managing the patient. This critical care time included obtaining a history; examining the patient; pulse oximetry; ordering and review of studies; arranging urgent treatment with development of a management plan; evaluation of patient's response to treatment; frequent reassessment; and discussions with other providers. It was exclusive of separately billable procedures and treating other patients and teaching time. Please see Assessment and Plan section and the rest of the note for further information on patient assessment and treatment.
--- NOTE | 2023-07-28 23:35 | PC.NURSE ---
This RN, another floor RN, and the tank charger reported to bedside where pt was unresponsive. Pt responded to sternal rub, and became more alert. Pt was disoriented and unable to complete sentences. This RN called the rapid response. [facility] personnel responded to bedside, tests completed, and provider performed assessment. Orders completed and MD aware of results.
[2023-07-29] VITALS (11 sets, daily range): BP systolic 117–151; BP diastolic 77–85; PULSE 67–88; RESP 16–22; TEMP 36.1–36.4; O2SAT 96–100
[2023-07-29 02:39] LABS: Glucose Point of Care 91 mg/dl (65-105)
[2023-07-29 06:03] LABS: Basophils Absolute Auto 0.1 K/mm3 (0.0-0.1); Basophils Percent Auto 1.7 % (0.2-1.2); Eosinophils Absolute Auto 0.3 K/mm3 (0-0.3); Eosinophils Percent Auto 3.8 % (0-4.4); Hematocrit 40.6 % (42.0-52.0); Hemoglobin 13.3 g/dL (14.0-18.0); Immature Granulocyte Absolute 0.05 K/mm3 (0.00-0.031); Immature Granulocyte Percent A 0.6 % (0-0.5); Lymphocytes Absolute Auto 2.42 K/mm3 (0.9-3.2); Lymphocytes Percent Auto 30.7 % (18.3-44.2); Mean Corpuscular HGB Conc 32.8 g/dl (32-36); Mean Corpuscular Hemoglobin 29.8 pg (26-34); Mean Corpuscular Volume 90.8 fl (80-100); Mean Platelet Volume 9.8 fl (7.4-10.4); Monocytes Absolute Auto 0.8 K/mm3 (0.1-0.6); Monocytes Percent Auto 9.8 % (2.6-8.5); Neutrophils Absolute Auto 4.2 K/mm3 (1.3-6.7); Neutrophils Percent Auto 53.4 % (45.5-73.1); Platelet Count Result 270 k/mm3 (150-375); Red Blood Count 4.47 M/mm3 (4.6-6.20); White Blood Count 7.9 K/mm3 (4.5-10.0)
[2023-07-29 06:14] LABS: Alanine Aminotransferase 24 U/L (6-50); Alkaline Phosphatase 82 U/L (38-126); Anion Gap 2 mmol/L (4-12); Aspartate Amino Transferase 27 U/L (17-59); Bilirubin,Total 0.9 mg/dL (0.2-1.3); Blood Urea Nitrogen 6 mg/dL (9-20); Calcium 8.4 mg/dL (8.4-10.2); Carbon Dioxide 29 mmol/L (22-30); Chloride 99 mmol/L (98-107); Estimated CRCL calculation 152 ml/min; Estimated Glomerular Filt Rate > 60; Glucose 91 mg/dL (65-110); Magnesium 2.2 mg/dL (1.6-2.3); Potassium 3.5 mmol/L (3.4-5.0); Sodium 130 mmol/L (137-145)
[2023-07-29 07:30] LABS: Glucose Point of Care 97 mg/dl (65-105)
--- NOTE | 2023-07-29 07:33 | PCNEURO ---
EEG was attempted but patient very confused and unable to understand. He did not want tech in room or moving his things to set up for the test. Will talk to the neurologist this AM and get his input.
[2023-07-29] MEDS: INSULIN GLARGINE (*BKC) 100 UNITS/ML 40 UNITS SUB-Q (08:16)
[2023-07-29] MEDS: FLUTICASONE PROPIONATE 0.05% NA SPR 16 GM BTL (*BKC) 1 SPRAY NASAL (08:16)
[2023-07-29] MEDS: VALPROATE SODIUM INJ 250 MG in DEXTROSE 5% IN WATER 50 ML 52.5 MG IVPB ×2 (10:36→20:17)
[2023-07-29 11:20] LABS: Glucose Point of Care 112 mg/dl (65-105)
[2023-07-29] MEDS: NEBIVOLOL HCL 5 MG TABLET 10 MG PO (13:44)
[2023-07-29] MEDS: OXcarbazepine 300 MG TABLET PO ×2 (14:57→21:23)
--- NOTE | 2023-07-29 16:06 | PM.IMPN ---
Progress Note: A&P Assessment and Plan (1) Altered mental state: Code(s): R41.82 - Altered mental status, unspecified Status: Acute Assessment and Plan: -altered mental status, patient call 911 himself because he has been confused for ?a while? -patient could only remember his name, age and the year getting all other attempted orientation and ROS questions incorrect or unable to find words. Cannot remember date of . -eyes with preference for a leftward upward gaze though they can move across midline -history of psychiatric disorder, per EMR this appears to be bipolar affective disorder -history of seizure disorder, unknown if taking any medications currently, this does not appear to be postictal state but could be encephalopathy from prior seizures -laboratory assessment concerning for sepsis with lactic acid 9.7 white blood cell count 19.2 glucose elevated and bilirubin 2. Leukocytosis improved. Down to 2.6 as well. -empiric antibiotics given by ER and then changed to cover possibility of meningitis -Lumbar puncture and MRI Brain ordered. 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 Used to be on oxcarbazepine and has Keppra allergy MRI brain with old infarcts and no acute findings. Lumbar puncture performed today 0 nucleated cells seen. G stain negative Will stop IV antibiotics as low suspicion for meningitis Likely seizure disorder In Consistent use for oxcarbazepine will keep him on valproate (2) Lactic acidosis: Code(s): E87.20 - Acidosis, unspecified Status: Acute Assessment and Plan: -initial lactic acid 9.7, improved to 2.6 after 1 L of IV fluids lactic acid elevation likely related to breakthrough seizure (3) Sepsis: Code(s): A41.9 - Sepsis, unspecified organism Status: Acute Assessment and Plan: -laboratory assessment concerning for sepsis with lactic acid 9.7 white blood cell count 19.2 glucose elevated and bilirubin 2 -tachycardia with tachypnea also present, no hypotension -presumed yet unknown source of infection--blood and urine cultures in process, abdomen CT negative, urinalysis does not appear infected only trace leukocyte esterase, chest x-ray negative, afebrile -given altered mental status meningitis coverage started which is now been discontinued as LP negative Neurology consulted (4) Diabetic ketoacidosis: Code(s): E11.10 - Type 2 diabetes mellitus with ketoacidosis without coma Status: Resolved Assessment and Plan: -very mild with initial chemistry panel anion gap 21 and carbon dioxide 17. Glucose 328. Beta hydroxybutyrate 2.16. Lactic acid 9.7 -interestingly ABG indicated respiratory alkalosis -repeat chemistry shows improvement of carbon dioxide 23, decrease in anion gap to 11 improvement in glucose to 182 thus closing the anion gap and resolving DKA (5) Bipolar affective disorder: Code(s): F31.9 - Bipolar disorder, unspecified Status: Chronic Assessment and Plan: -per documented history in EMR, unknown if patient is on any medications currently or if altered mental status presentation is related to this history Started back on his Seroquel (6) Seizure disorder: Code(s): G40.909 - Epilepsy, unspecified, not intractable, without status epilepticus Status: Chronic Assessment and Plan: -per documented history in EMR, unknown patient is on any medications currently or if altered status presentation is related to this history On oxcarbazepine at home Possible seizure Neuro consulted Switched to valproate Back to Trileptal when able to take due to inconsistencies in oral intake I had kept him on valproate IV (7) HTN (hypertension) with goal to be determined: Code(s): I10 - Philomena
[2023-07-29 16:19] LABS: Glucose Point of Care 79 mg/dl (65-105)
[2023-07-29] MEDS: PRIMIDONE 250 MG TABLET PO (16:43)
[2023-07-29] MEDS: QUEtiapine FUMARATE XR 200 MG TAB.ER.24H BY MOUTH (20:17)
[2023-07-29] MEDS: QUEtiapine FUMARATE XR 50 MG TAB.ER.24H 100 MG BY MOUTH (20:17)
[2023-07-29 20:30] LABS: Glucose Point of Care 146 mg/dl (65-105)
[2023-07-30] VITALS (14 sets, daily range): BP systolic 90–100; BP diastolic 58–69; PULSE 70–89; RESP 14–16; TEMP 36–36.4; O2SAT 94–100
[2023-07-30] MEDS: OXcarbazepine 300 MG TABLET PO ×3 (05:31→21:49)
[2023-07-30 06:52] LABS: Basophils Absolute Auto 0.1 K/mm3 (0.0-0.1); Basophils Percent Auto 1.2 % (0.2-1.2); Eosinophils Absolute Auto 0.3 K/mm3 (0-0.3); Eosinophils Percent Auto 3.7 % (0-4.4); Hematocrit 40.3 % (42.0-52.0); Hemoglobin 13.1 g/dL (14.0-18.0); Immature Granulocyte Absolute 0.04 K/mm3 (0.00-0.031); Immature Granulocyte Percent A 0.5 % (0-0.5); Lymphocytes Percent Auto 38.5 % (18.3-44.2); Mean Corpuscular HGB Conc 32.5 g/dl (32-36); Mean Corpuscular Hemoglobin 29.7 pg (26-34); Mean Corpuscular Volume 91.4 fl (80-100); Monocytes Absolute Auto 0.8 K/mm3 (0.1-0.6); Monocytes Percent Auto 10.1 % (2.6-8.5); Neutrophils Absolute Auto 3.7 K/mm3 (1.3-6.7); Nucleated Red Blood Cells Perc 0.2 % (0.0-0.2); Platelet Count Result 263 k/mm3 (150-375); Red Blood Count 4.41 M/mm3 (4.6-6.20); Red Cell Distribution Width 13.2 % (11.5-14.5); White Blood Count 8.1 K/mm3 (4.5-10.0)
[2023-07-30 07:08] LABS: Alanine Aminotransferase 22 U/L (6-50); Albumin Level 3.1 g/dL (3.5-5.1); Alkaline Phosphatase 79 U/L (38-126); Anion Gap 2 mmol/L (4-12); Aspartate Amino Transferase 30 U/L (17-59); Bilirubin,Total 0.8 mg/dL (0.2-1.3); Blood Urea Nitrogen 9 mg/dL (9-20); Calcium 8.8 mg/dL (8.4-10.2); Carbon Dioxide 28 mmol/L (22-30); Chloride 102 mmol/L (98-107); Estimated CRCL calculation 128 ml/min; Estimated Glomerular Filt Rate > 60; Glucose 65 mg/dL (65-110); Magnesium 2.1 mg/dL (1.6-2.3); Potassium 3.6 mmol/L (3.4-5.0); Sodium 132 mmol/L (137-145)
[2023-07-30] MEDS: DEXTROSE 5%/0.45% SOD CHL 500 ML IV CONT (08:01)
[2023-07-30] MEDS: ASPIRIN 81 MG CHEWABLE TABLET PO (08:01)
[2023-07-30] MEDS: PANTOPRAZOLE 40 MG TABLET PO ×2 (08:02→16:57)
[2023-07-30] MEDS: PRIMIDONE 250 MG TABLET PO ×3 (08:02→16:57)
[2023-07-30] MEDS: MULTIVITAMINS THERAPEUTIC TAB (*BKC) 1 TABLET PO (08:02)
[2023-07-30] MEDS: FLUTICASONE PROPIONATE 0.05% NA SPR 16 GM BTL (*BKC) 1 SPRAY NASAL ×2 (08:03→16:57)
[2023-07-30 08:30] LABS: Glucose Point of Care 123 mg/dl (65-105)
[2023-07-30 08:30] LABS: Glucose Point of Care 65 mg/dl (65-105)
[2023-07-30] MEDS: FLUTICASONE/SALMETEROL 230-21 MCG INHALER 1 PUFF 2 PUFF INHALATION ×3 (08:34→20:33)
--- NOTE | 2023-07-30 08:59 | PCPTNOTE ---
RN reports patient had low blood sugar this morning and low BP. Patient receiving IV to improve BP at this time. RN requests hold PT at this time. PT will continue to follow per plan of care.
[2023-07-30] MEDS: VALPROATE SODIUM INJ 250 MG in DEXTROSE 5% IN WATER 50 ML 52.5 MG IVPB ×2 (09:02→20:23)
--- NOTE | 2023-07-30 11:29 | PCOTNOTE ---
Per RN, not able to be seen this A.M. Patient is having low blood pressures and that is with being medicated already and his blood sugar is to low at this time. Will check back this P.M.
[2023-07-30 11:34] LABS: Glucose Point of Care 113 mg/dl (65-105)
--- NOTE | 2023-07-30 11:36 | PM.IMPN ---
Progress Note: A&P Assessment and Plan (1) Altered mental state: Code(s): R41.82 - Altered mental status, unspecified Status: Acute Assessment and Plan: -altered mental status, patient call 911 himself because he has been confused for ?a while? -patient could only remember his name, age and the year getting all other attempted orientation and ROS questions incorrect or unable to find words. Cannot remember date of . -eyes with preference for a leftward upward gaze though they can move across midline -history of psychiatric disorder, per EMR this appears to be bipolar affective disorder -history of seizure disorder, unknown if taking any medications currently, this does not appear to be postictal state but could be encephalopathy from prior seizures -laboratory assessment concerning for sepsis with lactic acid 9.7 white blood cell count 19.2 glucose elevated and bilirubin 2. Leukocytosis improved. Down to 2.6 as well. -empiric antibiotics given by ER and then changed to cover possibility of meningitis -Lumbar puncture and MRI Brain ordered. 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 Used to be on oxcarbazepine and has Keppra allergy MRI brain with old infarcts and no acute findings. Lumbar puncture performed today 0 nucleated cells seen. G stain negative Will stop IV antibiotics as low suspicion for meningitis Likely seizure disorder In Consistent use for oxcarbazepine will keep him on valproate 07/29 Patient had hypoglycemia, hypotension, received D5 normal saline bolus 500 and normal saline 500 bolus. Patient is afebrile, no O2 desaturation on room air, hyponatremia Possible due to SIADH due to seizure white blood cells 8100 hold Lantus and Jardiance (2) Lactic acidosis: Code(s): E87.20 - Acidosis, unspecified Status: Acute Assessment and Plan: -initial lactic acid 9.7, improved to 2.6 after 1 L of IV fluids lactic acid elevation likely related to breakthrough seizure (3) Sepsis: Code(s): A41.9 - Sepsis, unspecified organism Status: Acute Assessment and Plan: -laboratory assessment concerning for sepsis with lactic acid 9.7 white blood cell count 19.2 glucose elevated and bilirubin 2 -tachycardia with tachypnea also present, no hypotension -presumed yet unknown source of infection--blood and urine cultures in process, abdomen CT negative, urinalysis does not appear infected only trace leukocyte esterase, chest x-ray negative, afebrile -given altered mental status meningitis coverage started which is now been discontinued as LP negative Neurology consulted (4) Diabetic ketoacidosis: Code(s): E11.10 - Type 2 diabetes mellitus with ketoacidosis without coma Status: Resolved Assessment and Plan: -very mild with initial chemistry panel anion gap 21 and carbon dioxide 17. Glucose 328. Beta hydroxybutyrate 2.16. Lactic acid 9.7 -interestingly ABG indicated respiratory alkalosis -repeat chemistry shows improvement of carbon dioxide 23, decrease in anion gap to 11 improvement in glucose to 182 thus closing the anion gap and resolving DKA 07/29 patient has hypoglycemia, started D5 nursing, hold long-acting insulin, continue sliding scale a.c. q.h.s. (5) Bipolar affective disorder: Code(s): F31.9 - Bipolar disorder, unspecified Status: Chronic Assessment and Plan: -per documented history in EMR, unknown if patient is on any medications currently or if altered mental status presentation is related to this history Started back on his Seroquel (6) Seizure disorder: Code(s): G40.909 - Epilepsy, unspecified, not intractable, without status epilepticus Status: Chronic Assessment and Plan: -per documented history in E
[2023-07-30] MEDS: SODIUM CHLORIDE 0.9% IV 500 ML IV CONT (11:57)
[2023-07-30] MEDS: DEXTROSE 5%/0.45% SOD CHL 1,000 ML 100 ML IV CONT ×2 (13:43→23:33)
--- NOTE | 2023-07-30 14:14 | PCOTNOTE ---
Per RN, Patient unable to be seen due to inability to raise blood pressure this date.
--- NOTE | 2023-07-30 14:57 | PCPTNOTE ---
Patient unable to be seen for PT this date, per RN patient having low blood pressures 90s/50s laying in bed and advised not to see patient.
[2023-07-30 16:44] LABS: Glucose Point of Care 132 mg/dl (65-105)
[2023-07-30 20:53] LABS: Glucose Point of Care 108 mg/dl (65-105)
[2023-07-30 22:29] LABS: Epstein Barr Virus DNA PCR NOT DETECTED
[2023-07-31] VITALS (10 sets, daily range): BP systolic 107–125; BP diastolic 59–75; PULSE 78–106; RESP 14–18; TEMP 36.2–36.6; O2SAT 95–100
[2023-07-31 00:49] LABS: Herpes Simplex Type 1 DNA PCR NOT DETECTED; Herpes Simplex Type 2 DNA PCR NOT DETECTED
[2023-07-31] MEDS: OXcarbazepine 300 MG TABLET PO ×3 (05:46→20:57)
[2023-07-31 06:50] LABS: Basophils Absolute Auto 0.1 K/mm3 (0.0-0.1); Basophils Percent Auto 1.4 % (0.2-1.2); Eosinophils Absolute Auto 0.2 K/mm3 (0-0.3); Eosinophils Percent Auto 3.1 % (0-4.4); Hematocrit 38.3 % (42.0-52.0); Hemoglobin 12.5 g/dL (14.0-18.0); Immature Granulocyte Absolute 0.08 K/mm3 (0.00-0.031); Immature Granulocyte Percent A 1.1 % (0-0.5); Lymphocytes Absolute Auto 1.89 K/mm3 (0.9-3.2); Lymphocytes Percent Auto 26.6 % (18.3-44.2); Mean Corpuscular HGB Conc 32.6 g/dl (32-36); Mean Corpuscular Hemoglobin 29.8 pg (26-34); Mean Corpuscular Volume 91.4 fl (80-100); Mean Platelet Volume 9.9 fl (7.4-10.4); Monocytes Absolute Auto 0.8 K/mm3 (0.1-0.6); Monocytes Percent Auto 10.8 % (2.6-8.5); Platelet Count Result 250 k/mm3 (150-375); Red Blood Count 4.19 M/mm3 (4.6-6.20); Red Cell Distribution Width 13.2 % (11.5-14.5); White Blood Count 7.1 K/mm3 (4.5-10.0)
[2023-07-31 07:05] LABS: Alanine Aminotransferase 22 U/L (6-50); Alkaline Phosphatase 76 U/L (38-126); Anion Gap 5 mmol/L (4-12); Aspartate Amino Transferase 27 U/L (17-59); Bilirubin,Total 0.6 mg/dL (0.2-1.3); Blood Urea Nitrogen 8 mg/dL (9-20); Calcium 8.6 mg/dL (8.4-10.2); Carbon Dioxide 23 mmol/L (22-30); Chloride 103 mmol/L (98-107); Estimated CRCL calculation 129 ml/min; Estimated Glomerular Filt Rate > 60; Glucose 118 mg/dL (65-110); Magnesium 1.8 mg/dL (1.6-2.3); Potassium 3.7 mmol/L (3.4-5.0); Sodium 131 mmol/L (137-145)
[2023-07-31 07:41] LABS: Glucose Point of Care 117 mg/dl (65-105)
[2023-07-31] MEDS: FLUTICASONE/SALMETEROL 230-21 MCG INHALER 1 PUFF 2 PUFF INHALATION ×2 (07:52→19:18)
--- NOTE | 2023-07-31 09:28 | PM.IMPN ---
Progress Note: A&P Assessment and Plan (1) Altered mental state: Code(s): R41.82 - Altered mental status, unspecified Status: Acute Assessment and Plan: -altered mental status, patient call 911 himself because he has been confused for ?a while? -patient could only remember his name, age and the year getting all other attempted orientation and ROS questions incorrect or unable to find words. Cannot remember date of . -eyes with preference for a leftward upward gaze though they can move across midline -history of psychiatric disorder, per EMR this appears to be bipolar affective disorder -history of seizure disorder, unknown if taking any medications currently, this does not appear to be postictal state but could be encephalopathy from prior seizures -laboratory assessment concerning for sepsis with lactic acid 9.7 white blood cell count 19.2 glucose elevated and bilirubin 2. Leukocytosis improved. Down to 2.6 as well. -empiric antibiotics given by ER and then changed to cover possibility of meningitis -Lumbar puncture and MRI Brain ordered. 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 Used to be on oxcarbazepine and has Keppra allergy MRI brain with old infarcts and no acute findings. Lumbar puncture performed today 0 nucleated cells seen. G stain negative Will stop IV antibiotics as low suspicion for meningitis Likely seizure disorder In Consistent use for oxcarbazepine will keep him on valproate 07/29 Patient had hypoglycemia, hypotension, received D5 normal saline bolus 500 and normal saline 500 bolus. Patient is afebrile, no O2 desaturation on room air, hyponatremia Possible due to SIADH due to seizure white blood cells 8100 hold Lantus and Jardiance 07/30 blood pressure became stable, hypoglycemia is corrected, sodium level stable still low, continue D5 normal saline IV 100 mL/hour (2) Lactic acidosis: Code(s): E87.20 - Acidosis, unspecified Status: Acute Assessment and Plan: -initial lactic acid 9.7, improved to 2.6 after 1 L of IV fluids lactic acid elevation likely related to breakthrough seizure (3) Sepsis: Code(s): A41.9 - Sepsis, unspecified organism Status: Acute Assessment and Plan: -laboratory assessment concerning for sepsis with lactic acid 9.7 white blood cell count 19.2 glucose elevated and bilirubin 2 -tachycardia with tachypnea also present, no hypotension -presumed yet unknown source of infection--blood and urine cultures in process, abdomen CT negative, urinalysis does not appear infected only trace leukocyte esterase, chest x-ray negative, afebrile -given altered mental status meningitis coverage started which is now been discontinued as LP negative Neurology consulted (4) Diabetic ketoacidosis: Code(s): E11.10 - Type 2 diabetes mellitus with ketoacidosis without coma Status: Resolved Assessment and Plan: -very mild with initial chemistry panel anion gap 21 and carbon dioxide 17. Glucose 328. Beta hydroxybutyrate 2.16. Lactic acid 9.7 -interestingly ABG indicated respiratory alkalosis -repeat chemistry shows improvement of carbon dioxide 23, decrease in anion gap to 11 improvement in glucose to 182 thus closing the anion gap and resolving DKA 07/29 patient has hypoglycemia, started D5 nursing, hold long-acting insulin, continue sliding scale a.c. q.h.s. (5) Bipolar affective disorder: Code(s): F31.9 - Bipolar disorder, unspecified Status: Chronic Assessment and Plan: -per documented history in EMR, unknown if patient is on any medications currently or if altered mental status presentation is related to this history Started back on his Seroquel (6) Seizure disorder: Code(s): G40.909 - Epilepsy, un
[2023-07-31] MEDS: MULTIVITAMINS THERAPEUTIC TAB (*BKC) 1 TABLET PO (09:47)
[2023-07-31] MEDS: VALPROATE SODIUM INJ 250 MG in DEXTROSE 5% IN WATER 50 ML 52.5 MG IVPB ×2 (09:50→20:57)
[2023-07-31] MEDS: PRIMIDONE 250 MG TABLET PO ×3 (09:50→17:00)
[2023-07-31] MEDS: PANTOPRAZOLE 40 MG TABLET PO ×2 (09:50→17:00)
[2023-07-31] MEDS: ASPIRIN 81 MG CHEWABLE TABLET PO (09:50)
[2023-07-31] MEDS: FLUTICASONE PROPIONATE 0.05% NA SPR 16 GM BTL (*BKC) 1 SPRAY NASAL ×2 (09:54→17:00)
[2023-07-31] MEDS: DEXTROSE 5%/0.9% SOD CHL 1,000 ML 100 ML IV CONT ×2 (09:54→20:55)
[2023-07-31 11:18] LABS: Glucose Point of Care 169 mg/dl (65-105)
[2023-07-31 13:49] LABS: Source CEREBROSPINAL FLUID
[2023-07-31 16:42] LABS: Glucose Point of Care 144 mg/dl (65-105)
[2023-07-31] MEDS: QUEtiapine FUMARATE XR 50 MG TAB.ER.24H 100 MG BY MOUTH (20:57)
[2023-07-31 21:27] LABS: Glucose Point of Care 140 mg/dl (65-105)
[2023-07-31 22:33] LABS: VDRL Quantitative CSF NON-REACTIVE
[2023-08-01] VITALS (10 sets, daily range): BP systolic 122–136; BP diastolic 66–87; PULSE 76–96; RESP 18–20; TEMP 36.2–36.8; O2SAT 95–100
[2023-08-01] MEDS: DEXTROSE 5%/0.9% SOD CHL 1,000 ML 100 ML IV CONT (05:43)
[2023-08-01] MEDS: OXcarbazepine 300 MG TABLET PO ×2 (05:45→12:58)
[2023-08-01 06:00] LABS: Basophils Absolute Auto 0.1 K/mm3 (0.0-0.1); Basophils Percent Auto 1.4 % (0.2-1.2); Eosinophils Absolute Auto 0.2 K/mm3 (0-0.3); Eosinophils Percent Auto 3.2 % (0-4.4); Hematocrit 39.8 % (42.0-52.0); Hemoglobin 12.8 g/dL (14.0-18.0); Immature Granulocyte Absolute 0.05 K/mm3 (0.00-0.031); Immature Granulocyte Percent A 0.8 % (0-0.5); Lymphocytes Absolute Auto 2.17 K/mm3 (0.9-3.2); Lymphocytes Percent Auto 33.2 % (18.3-44.2); Mean Corpuscular HGB Conc 32.2 g/dl (32-36); Mean Corpuscular Volume 93.2 fl (80-100); Mean Platelet Volume 9.9 fl (7.4-10.4); Monocytes Absolute Auto 0.8 K/mm3 (0.1-0.6); Monocytes Percent Auto 11.6 % (2.6-8.5); Neutrophils Absolute Auto 3.3 K/mm3 (1.3-6.7); Neutrophils Percent Auto 49.8 % (45.5-73.1); Nucleated Red Blood Cells Perc 0.3 % (0.0-0.2); Platelet Count Result 274 k/mm3 (150-375); Red Blood Count 4.27 M/mm3 (4.6-6.20); Red Cell Distribution Width 13.6 % (11.5-14.5); White Blood Count 6.5 K/mm3 (4.5-10.0)
[2023-08-01 06:12] LABS: Alanine Aminotransferase 21 U/L (6-50); Albumin Level 3.2 g/dL (3.5-5.1); Alkaline Phosphatase 70 U/L (38-126); Anion Gap 4 mmol/L (4-12); Aspartate Amino Transferase 28 U/L (17-59); Bilirubin,Total 0.4 mg/dL (0.2-1.3); Blood Urea Nitrogen 8 mg/dL (9-20); Calcium 8.8 mg/dL (8.4-10.2); Carbon Dioxide 27 mmol/L (22-30); Chloride 105 mmol/L (98-107); Estimated CRCL calculation 129 ml/min; Estimated Glomerular Filt Rate > 60; Glucose 133 mg/dL (65-110); Magnesium 1.9 mg/dL (1.6-2.3); Potassium 4.2 mmol/L (3.4-5.0); Sodium 136 mmol/L (137-145)
[2023-08-01 07:31] LABS: Glucose Point of Care 103 mg/dl (65-105)
[2023-08-01] MEDS: FLUTICASONE PROPIONATE 0.05% NA SPR 16 GM BTL (*BKC) 1 SPRAY NASAL ×2 (09:05→17:23)
[2023-08-01] MEDS: ASPIRIN 81 MG CHEWABLE TABLET PO (09:06)
[2023-08-01] MEDS: PANTOPRAZOLE 40 MG TABLET PO ×2 (09:06→17:24)
[2023-08-01] MEDS: MULTIVITAMINS THERAPEUTIC TAB (*BKC) 1 TABLET PO (09:06)
[2023-08-01] MEDS: PRIMIDONE 250 MG TABLET PO ×3 (09:06→17:24)
[2023-08-01] MEDS: VALPROATE SODIUM INJ 250 MG in DEXTROSE 5% IN WATER 50 ML 52.5 MG IVPB (09:07)
[2023-08-01] MEDS: FLUTICASONE/SALMETEROL 230-21 MCG INHALER 1 PUFF 2 PUFF INHALATION ×2 (09:10→21:17)
--- NOTE | 2023-08-01 09:34 | PM.IMPN ---
Progress Note: A&P Assessment and Plan (1) Altered mental state: Code(s): R41.82 - Altered mental status, unspecified Status: Acute Assessment and Plan: -altered mental status, patient call 911 himself because he has been confused for ?a while? -patient could only remember his name, age and the year getting all other attempted orientation and ROS questions incorrect or unable to find words. Cannot remember date of . -eyes with preference for a leftward upward gaze though they can move across midline -history of psychiatric disorder, per EMR this appears to be bipolar affective disorder -history of seizure disorder, unknown if taking any medications currently, this does not appear to be postictal state but could be encephalopathy from prior seizures -laboratory assessment concerning for sepsis with lactic acid 9.7 white blood cell count 19.2 glucose elevated and bilirubin 2. Leukocytosis improved. Down to 2.6 as well. -empiric antibiotics given by ER and then changed to cover possibility of meningitis -Lumbar puncture and MRI Brain ordered. 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 Used to be on oxcarbazepine and has Keppra allergy MRI brain with old infarcts and no acute findings. Lumbar puncture performed today 0 nucleated cells seen. G stain negative Will stop IV antibiotics as low suspicion for meningitis Likely seizure disorder In Consistent use for oxcarbazepine will keep him on valproate 07/29 Patient had hypoglycemia, hypotension, received D5 normal saline bolus 500 and normal saline 500 bolus. Patient is afebrile, no O2 desaturation on room air, hyponatremia Possible due to SIADH due to seizure white blood cells 8100 hold Lantus and Jardiance 07/30 blood pressure became stable, hypoglycemia is corrected, sodium level stable still low, continue D5 normal saline IV 100 mL/hour 07/31 blood pressure stable, DC IV fluid neurologist ?Increase Depakote to 500mg BID - Check CBC, CMP, and Depakote trough in about two weeks appreciate neurology's consultation, follow neurologist recommendation (2) Lactic acidosis: Code(s): E87.20 - Acidosis, unspecified Status: Acute Assessment and Plan: -initial lactic acid 9.7, improved to 2.6 after 1 L of IV fluids lactic acid elevation likely related to breakthrough seizure (3) Generalized weakness: Code(s): R53.1 - Weakness Status: Acute Plan Acute onset vision problem 07/28/2023 acute onset blurriness versus double vision gaze paresis which is similar to before no other neurological deficit noted. Neurological workup with CT head and subsequent CTA unremarkable. Placed on aspirin does have evidence of old stroke in the past. Repeat MRI came back negative again Did Touch base with [facility] stroke team. Chest pain initiated with IV potassium troponin x2 negative. EKG with no acute ST-T changes Subjective Date/time seen: 08/01/23 09:34 Interval history: I saw exam patient today. Patient is alert oriented x3 today. Patient denies headache, focal weakness, chest pain, shortness breast, blood pressure stable, hypoglycemia is corrected Exam Narrative: GENERAL: Awake, oriented to person and place, not in acute distress HEAD: Normocephalic, atraumatic. ENT:? Mucous membranes moist. CHEST: Clear to auscultation.? No respiratory distress. HEART: Rate and regular rhythm. ? Normal peripheral pulses. ABDOMEN: Soft, nontender, nondistended. Minimal discomfort suprapubic region. EXTREMITIES: Normal range of motion. No peripheral edema. SKIN: Warm dry normal color NEURO: alert oriented x3, general weakness, no focal weakness, PSYCH: calm Objective Data Vital Signs Vital Signs: Vital Signs -
--- NOTE | 2023-08-01 09:38 | WPDNEUROPN ---
Progress Note: A&P Assessment and Plan (1) Epilepsy: Code(s): G40.909 - Epilepsy, unspecified, not intractable, without status epilepticus Status: Acute (2) Altered mental state: Code(s): R41.82 - Altered mental status, unspecified Status: Acute Plan Martín Salgado is a 57 year old male with a history of bipolar disorder, CATRACHITO, asthma, epilepsy, and essential tremor presenting due to altered mental status. MRI brain and CSF studies have been unrevealing. Suspect mental status change likely multifactorial given labile blood sugars, and being off his psych medications for some time. Trilpetal has been discontinued given concerns for side effects and causing hyponatremia. He is now on Depakote 250mg BID. - Increase Depakote to 500mg BID - Check CBC, CMP, and Depakote trough in about two weeks Subjective Date/time seen: 08/01/23 09:38 Interval history: Martín Salgado is a 57 year old male with a history of bipolar disorder, CATRACHITO, asthma, epilepsy, and essential tremor presenting due to altered mental status. Patient called 911 on day of presentation due to confusion. He reported that he was also not taking his meds. He is not able to provide more history beyond that. In the ER CT head showed no acute changes. Labs were significant for WBC elevation of 19.2, elevated glucose in 300s, and elevated lactic acid of 9.7. CK level was normal. UA was not suggestive of UTI. Utox screen was negative. Trileptal level not checked. He was thought to have possible diabetic ketoacidosis. He was started on IV antibiotics and acyclovir empirically, which were ultimately stopped after cultures and HSV PCR came back negative. CSF showed normal cell count and protein. On 07/29 he was hypoglycemic and hypotensive, which was treated. Patient was taking Trileptal 300mg TID for epilepsy. We have switched him to VPA 250mg BID during this admission. MRI brain from this admission was unrevealing. Patient reports feeling better overall today. Review of Systems Review of Systems: All systems reviewed & are unremarkable except as noted in HPI and below Exam Const: General: comfortable and no acute distress HENMT: Mouth: Yes moist mucous membranes Eyes: Pupils: Equal, round and reactive pupils present Other: Gaze preference to the left Resp: Effort & Inspection: normal respiratory effort Skin: General skin exam: normal color Neuro: Other: Awake, alert, oriented to self. year and location, Pupils equal and reactive bilaterally, L gaze preference, face symmetric, facial sensation intact, tongue protrudes midline, palate midline. Shoulder shrug normal. Strength is symmetric in all four extremities against resistance. Sensation intact appears to be symmetric. FNF normal bilaterally. Speech is clear and fluent. Gait deferred. Extrem: General: normal to inspection Objective Data Vital Signs Vital Signs: Vital Signs - 24 hr 07/31/23 09:50 07/31/23 12:00 07/31/23 16:00 Temperature 36.4 C L 36.2 C L Pulse Rate 92 103 H 97 Respiratory Rate 18 18 Blood Pressure 107/75 122/72 Pulse Oximetry 95 100 99 Oxygen Delivery Room Air 07/31/23 12:00 07/31/23 16:00 07/31/23 19:20 Temperature Pulse Rate 88 80 Respiratory Rate Blood Pressure Pulse Oximetry 99 Oxygen Delivery Room Air 07/31/23 19:20 08/01/23 00:00 07/31/23 20:00 Temperature 36.6 C Pulse Rate 99 93 90 Respiratory Rate 18 16 Blood Pressure 124/68 Pulse Oximetry 98 Oxygen Delivery 08/01/23 00:00 07/31/23 20:00 08/01/23 04:00 Temperature 36.7 C Pulse Rate 94 100 79 Respiratory Rate 18 Blood Pressure 122/69 Pulse Oximetry 95 Oxygen Delivery 08/01/23 04:00 08/01/23 07:49 08/01/23 09:10 Temperature 36.8 C 36.2 C L Pulse Rate 76 84 93 Respiratory Rate 20 20 Blood Pressure 128/71 131/73 Pulse Oximetry 98 100 98 Oxygen Delivery Room Air 08/01/23 09:10 Temperature Pulse Rate 93 Re
[2023-08-01 11:41] LABS: Glucose Point of Care 118 mg/dl (65-105)
[2023-08-01 16:28] LABS: Glucose Point of Care 127 mg/dl (65-105)
[2023-08-01 19:55] LABS: Glucose Point of Care 145 mg/dl (65-105)
[2023-08-01] MEDS: QUEtiapine FUMARATE XR 50 MG TAB.ER.24H 100 MG BY MOUTH (20:20)
[2023-08-01] MEDS: VALPROATE SODIUM INJ 500 MG in DEXTROSE 5% IN WATER 50 ML 52.5 MG IVPB (20:33)
[2023-08-02 04:00] VITALS: BP 104/57; PULSE 85; RESP 20; TEMP 36.4; O2SAT 98
[2023-08-02 06:36] LABS: Basophils Absolute Auto 0.1 K/mm3 (0.0-0.1); Basophils Percent Auto 1.6 % (0.2-1.2); Eosinophils Absolute Auto 0.3 K/mm3 (0-0.3); Eosinophils Percent Auto 3.8 % (0-4.4); Hematocrit 42.2 % (42.0-52.0); Hemoglobin 13.3 g/dL (14.0-18.0); Immature Granulocyte Absolute 0.03 K/mm3 (0.00-0.031); Immature Granulocyte Percent A 0.4 % (0-0.5); Lymphocytes Absolute Auto 2.28 K/mm3 (0.9-3.2); Lymphocytes Percent Auto 33.5 % (18.3-44.2); Mean Corpuscular HGB Conc 31.5 g/dl (32-36); Mean Corpuscular Hemoglobin 29.7 pg (26-34); Mean Corpuscular Volume 94.2 fl (80-100); Mean Platelet Volume 9.8 fl (7.4-10.4); Monocytes Absolute Auto 0.7 K/mm3 (0.1-0.6); Monocytes Percent Auto 9.9 % (2.6-8.5); Neutrophils Absolute Auto 3.5 K/mm3 (1.3-6.7); Neutrophils Percent Auto 50.8 % (45.5-73.1); Platelet Count Result 348 k/mm3 (150-375); Red Blood Count 4.48 M/mm3 (4.6-6.20); Red Cell Distribution Width 13.6 % (11.5-14.5); White Blood Count 6.8 K/mm3 (4.5-10.0)
[2023-08-02 06:49] LABS: Alanine Aminotransferase 22 U/L (6-50); Albumin Level 3.4 g/dL (3.5-5.1); Alkaline Phosphatase 73 U/L (38-126); Anion Gap 4 mmol/L (4-12); Aspartate Amino Transferase 29 U/L (17-59); Bilirubin,Total 0.6 mg/dL (0.2-1.3); Blood Urea Nitrogen 6 mg/dL (9-20); Carbon Dioxide 27 mmol/L (22-30); Chloride 100 mmol/L (98-107); Estimated CRCL calculation 148 ml/min; Estimated Glomerular Filt Rate > 60; Glucose 88 mg/dL (65-110); Magnesium 1.9 mg/dL (1.6-2.3); Potassium 4.1 mmol/L (3.4-5.0); Sodium 131 mmol/L (137-145)
[2023-08-02 07:39] LABS: Glucose Point of Care 95 mg/dl (65-105)
[2023-08-02 08:00] VITALS: BP 112/62; PULSE 90; PULSE 96; RESP 20; TEMP 36.6; O2SAT 98
[2023-08-02] MEDS: FLUTICASONE/SALMETEROL 230-21 MCG INHALER 1 PUFF 2 PUFF INHALATION (08:23)
[2023-08-02 08:26] VITALS: O2SAT 97
[2023-08-02] MEDS: PRIMIDONE 250 MG TABLET PO ×2 (08:57→13:10)
[2023-08-02] MEDS: PANTOPRAZOLE 40 MG TABLET PO (08:57)
[2023-08-02] MEDS: MULTIVITAMINS THERAPEUTIC TAB (*BKC) 1 TABLET PO (08:57)
[2023-08-02] MEDS: ASPIRIN 81 MG CHEWABLE TABLET PO (08:57)
[2023-08-02 11:10] LABS: Glucose Point of Care 173 mg/dl (65-105)
[2023-08-02] MEDS: VALPROATE SODIUM INJ 500 MG in DEXTROSE 5% IN WATER 50 ML 52.5 MG IVPB (11:48)
[2023-08-02] MEDS: FLUTICASONE PROPIONATE 0.05% NA SPR 16 GM BTL (*BKC) 1 SPRAY NASAL (11:48)
[2023-08-02 11:49] VITALS: BP 102/58; PULSE 88; RESP 20; TEMP 36.6; O2SAT 97
[2023-08-02 12:00] VITALS: PULSE 101
--- NOTE | 2023-08-02 12:28 | PM.IMPN ---
Progress Note: A&P Assessment and Plan (1) Epilepsy: Code(s): G40.909 - Epilepsy, unspecified, not intractable, without status epilepticus Status: Acute (2) Lactic acidosis: Code(s): E87.20 - Acidosis, unspecified Status: Acute (3) Altered mental state: Code(s): R41.82 - Altered mental status, unspecified Status: Acute Plan 57-year-old male with a history of bipolar disorder, CATRACHITO, asthma, epilepsy, insulin-dependent diabetes mellitus, essential tremor, presenting due to altered mental status. The etiology of his altered mental status is unclear. Antibiotics have been stopped. Status post LP. He had an episode of blood sugar of 65 and he received dextrose infusion which has now been stopped as well. At the moment we will continue to hold off on Lantus and Jardiance unless is blood glucose become severely uncontrolled. MRI demonstrates prior focal infarcts in the right basal ganglia and right internal capsule. While this could explain his aphasia and confusion on admission he appears to be a normal mental baseline status now he does not have focal neurological deficits on examination. Aspirin has been started. There is some suspicion for epilepsy as the etiology for his symptomatology and since he has had some chronic mild hyponatremia his oxcarbazepine has been switched to Depakote. Continue to adjust his medications per Nephrology, recommended to continue Depakote at 500 mg p.o. b.i.d. and check CBC CMP and Depakote trough in about 2 weeks. FEN: Saline lock IV. GI prophylaxis: Not indicated DVT prophylaxis: SCDs, walking the halls 3 times daily Lines: Peripheral IV Code Status: Full code Dispo: Stable on medical floor. Patient is medically stable for discharge, care coordination arranging for discharge to SNF for rehab. Subjective Date/time seen: 08/02/23 12:28 Interval history: No acute overnight events. Patient appears to have a slightly flat affect but he answers all of mental status questions correctly including his birthday. He is amenable to going to a SNF for acute rehab. Review of Systems Review of Systems: All systems reviewed & are unremarkable except as noted in HPI and below (Subjective) Exam Const: General: comfortable and no acute distress Other: A&O x4 Eyes: Pupils: Equal, round and reactive pupils present Neck: Neck: supple Resp: Effort & Inspection: normal respiratory effort Auscultation: clear to auscultation bilaterally Cardio: Rate: regular rate Rhythm: regular rhythm GI: GI Palp: Yes Soft to palpation and No Tenderness to palpation present (GI) Extrem: General: no edema Objective Data Vital Signs Vital Signs: Vital Signs - 24 hr 08/01/23 15:30 08/01/23 16:00 08/01/23 20:00 Temperature 97.6 F 97.3 F L Pulse Rate 80 91 93 Respiratory Rate 20 18 Blood Pressure 126/68 135/87 Pulse Oximetry 98 99 Oxygen Delivery Fraction of Inspired Oxygen 08/01/23 20:00 08/01/23 23:35 08/02/23 04:00 Temperature 97.9 F 97.6 F Pulse Rate 93 96 85 Respiratory Rate 18 18 20 Blood Pressure 123/66 104/57 L Pulse Oximetry 99 99 98 Oxygen Delivery Room Air Fraction of Inspired Oxygen 21 08/02/23 08:26 08/02/23 08:00 08/02/23 08:00 Temperature 98 F Pulse Rate 90 Respiratory Rate 20 Blood Pressure 112/62 Pulse Oximetry 97 98 Oxygen Delivery Room Air Room Air Fraction of Inspired Oxygen 08/02/23 11:49 Temperature 97.8 F Pulse Rate 88 Respiratory Rate 20 Blood Pressure 102/58 L Pulse Oximetry 97 Oxygen Delivery Fraction of Inspired Oxygen Intake/Output Intake/Output: Intake & Output 07/30/23 07/31/23 08/01/23 08/02/23 23:59 23:59 23:59 23:59 Intake Total 2666.3 2441.0 4924.5 827 Output Total 2050 3600 6550 1700 Balance 616.3 -1159.0 -1625.5 -873 Meds/Results Medications: Active Medications Generic Name Dose Route Start Last Admin Trade Name Freq PRN Reason Stop Dose Admin Al
--- NOTE | 2023-08-02 12:43 | PM.DS ---
DS: Admitting Diagnosis Discharge Date August 02, 2023 Admitting Diagnosis Altered mental DS: Discharge Diagnosis Discharge Diagnosis (1) Epilepsy: Code(s): G40.909 - Epilepsy, unspecified, not intractable, without status epilepticus Status: Acute (2) Lactic acidosis: Code(s): E87.20 - Acidosis, unspecified Status: Acute (3) Altered mental state: Code(s): R41.82 - Altered mental status, unspecified Status: Acute (4) Bipolar affective disorder: Code(s): F31.9 - Bipolar disorder, unspecified Status: Chronic (5) Diabetes mellitus: Code(s): E11.9 - Type 2 diabetes mellitus without complications Status: Acute DS: Summary Hospital Course Hospital Course: 57-year-old male with a history of bipolar disorder, CATRACHITO, asthma, epilepsy, insulin-dependent diabetes mellitus, essential tremor, presenting due to altered mental status. He decided to present himself as he knew he was confused. He was not taking his medications either. Otherwise he was not able to provide much history on presentation. He denied having a seizure. Significant laboratory findings [place] [address] along with lactic acidosis and 9.7. He was started on IV antibiotics and acyclovir. An MRI brain brainstem without contrast demonstrated focal old infarcts in the right basal ganglia and right internal capsule. Not have any focal neurological deficits, aspirin was started. His leukocytosis resolved. Lactic acidosis resolved. CSF analysis demonstrated protein 54 glucose 103 and 0 nucleated cells. Urine, blood, CSF culture all negative. Antibiotics stopped. He has had chronic mild hyponatremia which is stable on this admission and therefore oxcarbazepine has been switched to Depakote. On July 29 blood sugar was 65 and subsequently this improved with administration of IV dextrose infusion. His Lantus and Jardiance have been held. Possible breakthrough seizure versus hypoglycemia versus noncompliance with psychotropic medications as possible underlying etiology for his altered mental status. He did improve and on 08/02/2023 is A&O x4. Stable for discharge and will be discharged to SNF for acute rehab. Instructions have been made to continue glucose checks a.c. HS we are holding Jardiance and Lantus and for these to be restarted as appropriate and cautiously per his outpatient physician. Oxcarbazepine has been switched to Depakote 500 mg p.o. b.i.d. 2 weeks have a repeat CBC CMP and valproic acid level. He also follow with Neurology in his PCP to which he agrees to this. Adverse effects, risks, benefits discussed with patient and agrees and understands plan. He was full code during the admission. Time Spent with Patient Time attestation: Total time spent providing and/or coordinating discharge services: Exam Const: General: comfortable and no acute distress Other: A&O x4 Eyes: Pupils: Equal, round and reactive pupils present Neck: Neck: supple Resp: Effort & Inspection: normal respiratory effort Auscultation: clear to auscultation bilaterally Cardio: Rate: regular rate Rhythm: regular rhythm GI: GI Palp: Yes Soft to palpation and No Tenderness to palpation present (GI) Extrem: General: no edema DS: Data Data Completed and Pending Completed studies during hospitalization: Pending at discharge 07/25/23 19:51 Cytology [PTH] Routine Labs on day of discharge: Labs from last 24 hours 08/02/23 08/02/23 08/02/23 11:07 07:36 05:51 WBC 6.8 RBC 4.48 L Hgb 13.3 L Hct 42.2 MCV 94.2 MCH 29.7 MCHC 31.5 L RDW 13.6 Plt Count 348 MPV 9.8 Immature Gran % (Auto) 0.4 Neut % (Auto) 50.8 Lymph % (Auto) 33.5 [facility] % (Auto) 9.9 H Eos % (Auto) 3.8 Baso % (Auto) 1.6 H Lymph # (Auto) 2.28 [facility] # (Auto) 0.7 H Eos # (Auto) 0.3 Baso # (Auto) 0.1 Abs Immat Gran (auto) 0.03 Absolute Neuts (a
--- NOTE | 2023-08-02 13:56 | PC.NURSE ---
report given to Manuela ALVARADO at [facility]. Covid swab done.
[2023-08-02 14:01] LABS: SARS-CoV-2 RNA PCR Negative (Negative)
[2023-08-02 18:18] LABS: Cryptococcus Antigen NOT DETECTED; Cryptococcus Specimen Source SERUM
--- NOTE | 2023-08-03 13:57 | WPDNEUROLOGY ---
Neurology EEG Report General Information Date of Study: 08/01/23 TEST eeg DIAGNOSIS Altered mental status CONDITION OF RECORDING drowsy and sleep. EEG NUMBER [id number] CLINICAL HISTORY patient was unable to provide any history though he does have history of seizures and psychiatric issues. EEG DESCRIPTION whole record consists of low to medium voltage 5 to 7 hertz per 2nd theta activity with poor taylor posterior gradient. Bilateral symmetrical sleep activity is noted during sleep with symmetrical sleep spindles and intermittent EKG artifact. Intermittent 3 to 4 hertz per 2nd delta activities noted. Photic stimulation not done. Hyperventilation not done. Non paroxysmal. Nonfocal. Nonlateralizing IMPRESSION no significant abnormalities noted during drowsiness and sleep but this normal EEG does not rule out the possibility of seizures, clinical correlation recommended.
== END 2023-08-02 15:05 | DRG 101 ==
LOC: ANHED 12:33 → ANHIMU 16:14 → ANH3MEDSUR 07-26 11:45
PROVIDERS: Emergency Medicine; Internal Medicine; Nurse Practitioner; Physician Assistant; Admitting Provider Internal Medicine; Emergency Provider Emergency Medicine; Visit Provider General Practice
DX: G40.909 Epilepsy, unspecified, not intractable, without status epilepticus (principal); E87.1 Hypo-osmolality and hyponatremia; R41.82 Altered mental status, unspecified; Z91.148 Patient's other noncompliance with medication regimen for other reason; E87.6 Hypokalemia; G47.33 Obstructive sleep apnea (adult) (pediatric); F25.9 Schizoaffective disorder, unspecified; K21.9 Gastro-esophageal reflux disease without esophagitis; E66.9 Obesity, unspecified; E11.65 Type 2 diabetes mellitus with hyperglycemia; R33.9 Retention of urine, unspecified; F41.9 Anxiety disorder, unspecified; F31.9 Bipolar disorder, unspecified; E78.5 Hyperlipidemia, unspecified; L30.9 Dermatitis, unspecified; Z20.822 Contact with and (suspected) exposure to COVID-19; Z68.30 Body mass index [BMI] 30.0-30.9, adult; Z87.442 Personal history of urinary calculi
CPT/HCPCS: 36415; 36600; 62328; 70450; 70496; 70498; 70551; 70553; 71045; 74177; 80048; 80053; 80164; 80202; 80307; 81001; 82010; 82140; 82375; 82550; 82805; 82945; 82948; 83036; 83050; 83605; 83735; 84157; 84443; 84480; 84484; 85025; 85027; 85610; 85730; 86403; 86592; 87040; 87070; 87086; 87205; 87529; 87635; 87636; 87641; 87798; 88108; 89051; 93005; 94640; 95816; 96361; 96365; 96375; 97110; 97161; 97165; 97530; 97535; 99285; A9270; A9577; J0133; J0457; J1815; J1956; J2185; J2270; J3370; J3475; J3480; J7030; J7040; J7042; J7060; J7120; Q9967